=== PATIENT | male | born 1945 | race Caucasian/White ===

== ENCOUNTER 2016-08-05 20:01 | Inpatient (IN) | payer OTHER ==
[~2016-08-05] VITALS: Ht 182.9 cm; Wt 97.0 kg
[~2016-08-05 20:01] MED LIST: ASPEC81 PO; BECLOMETHASONE INH; CYAN100020 PO; GABA-113 PO; GLC500 PO; MCR5 PO; METO100T14 PO; MORP30TA23 PO; SERT100T PO
[2016-08-05] MEDS ORDERED: ONDANSETRON INJ 2 MG/ML 2 ML VIAL IV STA (20:23)
[2016-08-05] MEDS ORDERED: LACTATED RINGER'S 1000ML 1,000 ML IV SCH (20:23)
[2016-08-05] MEDS: MoRPHine SULFATE 4 MG/ML 1 ML CARP\\VIAL IV PRN ×2 (20:39→21:10)
--- NOTE | 2016-08-05 20:40 | EMERGENCY ROOM VISIT NOTE ---
History Report prepared by Christen: Ida Potter Under the Supervision of: Dr. Jaguar Henriquez M.D. First contact with patient: 20:15 Chief Complaint: HIP PAIN Stated Complaint: FALL/ LF HIP PAIN History of Present Illness The patient is a 71 year old male who presents to the Emergency Room with complaints of constant left hip pain that started 45 minutes ago. The patient came to the ED via ambulance and he was given 100 mcg Fentanyl en route. He rates his discomfort as a 10/10 in severity. He states that he experienced a mechanical fall and landed on his left hip. The pain started after he fell. He denies hitting his head, neck pain, arm pain, and any left knee pain. He is not on any blood thinners. The patient is diabetic and states that he does not measure his sugars every day but his A1C has been good. The patient is on morphine at home and states that he is trying to gradually get off of it. He is currently on 30 mg of morphine. He states that he has felt well recently. Source of History: patient Onset: 45 minutes ago Position: other (left hip) Symptom Intensity: 10/10 Quality: other (left hip pain) Timing: constant Associated Symptoms: No neck pain Note: no head trauma, no arm pain, no left knee pain Review of Systems See HPI for pertinent positives & negatives. A total of 10 systems reviewed and were otherwise negative. Past Medical & Surgical Medical Problems: (1) COPD (chronic obstructive pulmonary disease) (2) Depression (3) Diabetes mellitus type II, controlled (4) Great toe amputation status (5) Hip fracture (6) HTN (hypertension) (7) Neuropathy (8) Polycythemia Surgical Problems: (1) History of tonsillectomy (2) Hx of below knee amputation Family History Hypertension Social History Smoking Status: Never Smoker Alcohol Use: occasionally Drug Use: none Marital Status: Housing Status: lives with significant other Occupation Status: retired, other Current/Historical Medications Scheduled Aspirin (Aspirin Ec), 81 MG PO DAILY Gabapentin (Neurontin), 600 MG PO QAM Gabapentin (Neurontin), 1,500 MG PO HS Glyburide (Diabeta), 10 MG PO AMHS Metformin Hcl (Glucophage), 1,000 MG PO AMHS Metoprolol Tartrate (Lopressor) (Lopressor), 100 MG PO AMHS Morphine Sulfate Ir (Morphine Sulfate Ir), 15 MG PO QAM Morphine Sulfate Ir (Morphine Sulfate Ir), 30 MG PO HS [Unknown Inhaler], 1 DOSE INH UD Allergies Coded Allergies: Amoxicillin (Unverified Allergy, Intermediate, itching, 01/23/16) Physical Exam Vital Signs Date Time Temp Pulse Resp B/P Pulse Ox O2 Delivery O2 Flow Rate FiO2 08/05/16 21:16 71 08/05/16 20:14 37.1 74 18 186/98 94 Room Air Physical Exam GENERAL: Patient is in no acute distress. HEENT: No acute trauma, normocephalic atraumatic, mucous membranes moist, no nasal congestion, no scleral icterus. NECK: No stridor, no adenopathy, no meningismus, trachea is midline. LUNGS: Clear to auscultation bilaterally, no wheeze, no rhonchi, breath sounds equal. HEART: Without murmurs gallops or rubs, regular rate and rhythm. ABDOMEN: Soft, nontender, bowel sounds positive, no hernias, no peritonitis. EXTREMITIES: Right below the knee amputation with prosthesis in place, tender to palpate and move left hip; left knee, ankle, and foot nontender, no evidence for upper extremity trauma on exam. NEUROLOGIC: Oriented x 3, no acute motor or sensory deficits, no focal weakness. SKIN: No rash, no jaundice, no diaphoresis. Medical Decision & Procedures ER Provider Diagnostic Interpretation: X-ray results as stated below per interpretation by me and the radiologist: CHEST 1 VW FRONT-NOT PORTABLE FINDINGS: Lungs are clear. Diaphragms are smooth. Mild fullness the mid to superior mediastinum felt to be secondary to the AP technique. IMPRESSION: No acute process. Electronically signed by: Arnaldo Walters M.D. 08/05/2016 9:04 PM Dictated Date/Time: 08/05/2016 9:03 PM LEFT PELVIS/UNILATERAL HIP 2-3VIEWS DISCUSSION: Fracture subcapital region left hip. Mild superior migration left femoral shaft. No evidence for acetabular protrusion. Moderate degenerative change of all remaining osseous structures. There is no evidence for soft tissue swelling. IMPRESSION: Subcapital fracture left hip. Electronically signed by: Arnaldo Walters M.D. 08/05/2016 9:03 PM Dictated Date/Time: 08/05/2016 9:02 PM Laboratory Results 08/05/16 21:22 Red Blood Count 6.02, Mean Corpuscular Volume 69.6, Mean Corpuscular Hemoglobin 20.6, Mean Corpuscular Hemoglobin Concent 29.6, Mean Platelet Volume 9.2, Neutrophils (%) (Auto) 81.0, Lymphocytes (%) (Auto) 10.5, Monocytes (%) (Auto) 4.1, Eosinophils (%) (Auto) 3.6, Basophils (%) (Auto) 0.3, Neutrophils # (Auto) 9.53, Lymphocytes # (Auto) 1.24, Monocytes # (Auto) 0.48, Eosinophils # (Auto) 0.42, Basophils # (Auto) 0.03 08/05/16 21:22 Test 08/05/16 21:22 08/05/16 21:27 White Blood Count 11.76 K/uL (4.8-10.8) Red Blood Count 6.02 M/uL (4.7-6.1) Hemoglobin 12.4 g/dL (14.0-18.0) Hematocrit 41.9 % (42-52) Mean Corpuscular Volume 69.6 fL (80-100) Mean Corpuscular Hemoglobin 20.6 pg (25-34) Mean Corpuscular Hemoglobin Concent 29.6 g/dl (32-36) Platelet Count 279 K/uL (130-400) Mean Platelet Volume 9.2 fL (7.4-10.4) Neutrophils (%) (Auto) 81.0 % Lymphocytes (%) (Auto) 10.5 % Monocytes (%) (Auto) 4.1 % Eosinophils (%) (Auto) 3.6 % Basophils (%) (Auto) 0.3 % Neutrophils # (Auto) 9.53 K/uL (1.4-6.5) Lymphocytes # (Auto) 1.24 K/uL (1.2-3.4) Monocytes # (Auto) 0.48 K/uL (0.11-0.59) Eosinophils # (Auto) 0.42 K/uL (0-0.5) Basophils # (Auto) 0.03 K/uL (0-0.2) RDW Standard Deviation 49.0 fL (36.4-46.3) RDW Coefficient of Variation 19.5 % (11.5-14.5) Immature Granulocyte % (Auto) 0.5 % Immature Granulocyte # (Auto) 0.06 K/uL (0.00-0.02) Microcytosis PRESENT Tear Drop Cells 1+ Prothrombin Time 10.5 SECONDS (9.0-12.0) Prothromb Time International Ratio 1.0 (0.9-1.1) Activated Partial Thromboplast Time 29.6 SECONDS (21.0-31.0) Partial Thromboplastin Ratio 1.1 Anion Gap 8.0 mmol/L (3-11) Est Creatinine Clear Calc Drug Dose 58.4 ml/min Estimated GFR () 58.2 Estimated GFR (Non- 50.2 BUN/Creatinine Ratio 13.1 (10-20) Calcium Level 8.3 mg/dl (8.5-10.1) Bedside Glucose 195 mg/dl (70-99) Laboratory results reviewed by me. Medications Administered Medications (Trade) Dose Ordered Sig/Doris Route Start Time Stop Time Status Last Admin Dose Admin Lactated Ringer's (Lr 1000ml) 1,000 ml @ 150 mls/hr Q6H40M IV 08/05/16 20:23 09/04/16 20:22 08/05/16 20:38 150 MLS/HR Morphine Sulfate (MoRPHine SULFATE INJ) 4 mg Q15M PRN IV 08/05/16 20:30 08/05/16 22:48 DC 08/05/16 21:10 4 MG Ondansetron HCl (Zofran Inj) 4 mg NOW STAT IV 08/05/16 20:23 08/05/16 20:27 DC 08/05/16 20:39 4 MG Diphenhydramine HCl (Benadryl Inj) 25 mg NOW STAT IV 08/05/16 21:27 08/05/16 21:28 DC 08/05/16 21:37 25 MG Hydromorphone HCl (Dilaudid Inj) 0.5 mg NOW STAT IV 08/05/16 21:27 08/05/16 21:28 DC 08/05/16 21:41 0.5 MG Hydromorphone HCl (Dilaudid Inj) 1 mg NOW STAT IV 08/05/16 22:04 08/05/16 22:05 DC 08/05/16 22:10 1 MG ECG Indication: other (hip fracture) Rate (beats per minute): 71 Rhythm: sinus rhythm Findings: 1st degree AV block, no acute ischemic change, no ectopy ED Course 2018: The patient was evaluated in room B12. A complete history and physical exam was performed. 2022: Ordered Zofran Inj 4 mg IV, Lactated Ringer's 1000 ml @ 150 mls/hr IV 2029: Ordered Morphine Sulfate 4 mg IV 2121: Upon reexamination the patient is resting comfortably and asked for something more for pain. I discussed results and treatment plan with the patient. He verbalizes agreement and understanding. The patient will be evaluated for further management. 2125: Discussed the patient's case with Dr. Mary BENITEZ. The patient will be evaluated for further management. 2126: Ordered Dilaudid Inj 0.5 mg IV, Benadryl Inj 25 mg IV 2203: Ordered Dilaudid Inj 1 mg IV 2242: I reassessed the patient. He requested something more for pain. 2243: Ordered Dilaudid Inj 1 mg IV Medical Decision Differential diagnoses considered include hip or pelvic fracture, femur fracture , contusion or sprain; head, neck, chest, or abdomen trauma. There is a mild leukocytosis, this could be consistent with infection or just the stress and pain of his presentation. No significant electrolyte abnormality or kidney failure. No concerning anemia. EKG shows a sinus rhythm with a first-degree AV block, no acute ischemia. Chest film does not show pneumonia or CHF. Pelvis and left hip films demonstrate a left subcapital hip fracture, no pelvic fracture seen. The patient received IV Zofran, IV morphine. He was given lactated Ringer's solution IV. He had some redness near his IV site after the morphine. He received IV Benadryl and then IV Dilaudid for additional pain control. The patient requires admission/observation. I talked to him about his hip fracture. I discussed the case with case management. The on-call hospitalist was consulted. Consults Time Called: 2122 Consulting Physician: Dr. Mary BENITEZ Returned Call: 2125 Discussed the patient's case with Dr. Mary BENITEZ. The patient will be evaluated for further management. Impression Primary Impression: Fracture of left hip Additional Impression: Fall Scribe Attestation The scribe's documentation has been prepared under my direction and personally reviewed by me in its entirety. I confirm that the note above accurately reflects all work, treatment, procedures, and medical decision making performed by me. Departure Information Dispostion Being Evaluated By Hospitalist Ivette Angelo M.D. (PCP) Patient Instructions My [facility] Problem Qualifiers Primary Impression: Fracture of left hip Encounter type: initial encounter Fracture type: closed Qualified Codes: S72.002A - Fracture of unspecified part of neck of left femur, initial encounter for closed fracture Additional Impression: Fall Encounter type: initial encounter Qualified Codes: W19.XXXA - Unspecified fall, initial encounter
--- NOTE | 2016-08-05 21:04 | DIAGNOSTIC IMAGING REPORT ---
LEFT PELVIS/UNILATERAL HIP 2-3VIEWS CLINICAL HISTORY: fall, hip pain trauma. Pain. COMPARISON: None. DISCUSSION: Fracture subcapital region left hip. Mild superior migration left femoral shaft. No evidence for acetabular protrusion. Moderate degenerative change of all remaining osseous structures. There is no evidence for soft tissue swelling. IMPRESSION: Subcapital fracture left hip. Electronically signed by: Arnaldo Walters M.D. 08/05/2016 9:03 PM Dictated Date/Time: 08/05/2016 9:02 PM
--- NOTE | 2016-08-05 21:05 | DIAGNOSTIC IMAGING REPORT ---
CHEST 1 VW FRONT-NOT PORTABLE CLINICAL HISTORY: fall, hip pain, fx trauma. Pain. COMPARISON STUDY: 05/04/2014 FINDINGS: Lungs are clear. Diaphragms are smooth. Mild fullness the mid to superior mediastinum felt to be secondary to the AP technique. IMPRESSION: No acute process. Electronically signed by: Arnaldo Walters M.D. 08/05/2016 9:04 PM Dictated Date/Time: 08/05/2016 9:03 PM
[2016-08-05] MEDS ORDERED: DiphenhydrAMINE HCL 50 MG/ML VIAL IV STA (21:27)
[2016-08-05] MEDS ORDERED: HYDROmorphone INJ 2 MG/ML SYR/VIAL IV STA ×3 (21:27→22:44)
[2016-08-05 21:35] LABS: BASO % 0.3 %; BASO ABS # 0.03 K/uL (0-0.2); EOS % 3.6 %; HEMATOCRIT 41.9 % (42-52); IG% 0.5 %; LYMPH % 10.5 %; LYMPH ABS # 1.24 K/uL (1.2-3.4); MEAN CELL VOLUME 69.6 fL (80-100); MEAN CORPUSCULAR HEMOGLOBIN 20.6 pg (25-34); MEAN CORPUSCULAR HGB CONC 29.6 g/dl (32-36); MEAN PLATELET VOLUME 9.2 fL (7.4-10.4); MONO % 4.1 %; PLATELET COUNT 279 K/uL (130-400); RED BLOOD COUNT 6.02 M/uL (4.7-6.1); WHITE BLOOD COUNT 11.76 K/uL (4.8-10.8)
[2016-08-05 21:45] LABS: PARTIAL THROMBOPLASTIN RATIO 1.1; PROTHROMBIN TIME (PATIENT) 10.5 SECONDS (9.0-12.0)
[2016-08-05 21:56] LABS: BUN/CREATININE RATIO 13.1 (10-20); CREATININE 1.4 mg/dl (0.60-1.40); POTASSIUM 4.3 mmol/L (3.5-5.1)
[2016-08-05] MEDS ORDERED: MORP15TA PO ×2 (22:03)
[2016-08-05] MEDS ORDERED: ASPI81TA28 PO (22:03)
[2016-08-05] MEDS ORDERED: METF-384 PO (22:03)
[2016-08-05] MEDS ORDERED: GLY/5 PO (22:03)
[2016-08-05 22:05] LABS: COMPLETE YES; MICROCYTOSIS PRESENT; TEAR DROP CELLS 1+
[2016-08-05 22:09] LABS: CALCIUM 8.3 mg/dl (8.5-10.1)
[2016-08-05] MEDS ORDERED: [UNRECOGNIZED DRUG - REMARK] INH (22:12)
--- NOTE | 2016-08-05 22:18 | History and Physical ---
History & Physical Date & Time of Service: August 05, 2016 at 22:15 Chief Complaint: Fall/ Lf Hip Pain Primary Care Physician: Ivette Alvarez M.D. History of Present Illness Source: patient 71 y/o M Hx COPD, DM2, HTN, polycythemia. Presents following mechanical fall having sustained a L subcapital hip fracture. The pt denies CP, SOB, light head or palpitations prior to falling. The pt normally ambulates with a walker due to a R BKA resulting from a diabetic wound 2 years prior. Past Medical/Surgical History Medical Problems: (1) COPD (chronic obstructive pulmonary disease) Status: Chronic (2) Depression Status: Chronic (3) Diabetes mellitus type II, controlled Status: Chronic (4) Great toe amputation status Permanent Comment: L great toe amputation Status: Resolved (5) HTN (hypertension) Status: Chronic (6) Neuropathy Status: Chronic 7) Polycythemia - recent work-up indicated a JAK2 mutation is present - he occasionally undergoes therapeutic bleeding Surgical Problems: (1) History of tonsillectomy Status: Resolved (2) Hx of below knee amputation Permanent Comment: R BKA 2013 Status: Resolved Family History Hypertension Social History Smoking Status: Never Smoker Drug Use: none Marital Status: Housing status: lives with family Occupational Status: retired, other Immunizations History of Influenza Vaccine: No History of Tetanus Vaccine?: No History of Pneumococcal: Yes Pneumococcal Date: Feb 25, 2005 History of Hepatitis B Vaccine: No Multi-Drug Resistant Organisms History of MDRO: Yes Type of MDRO: MRSA Allergies Coded Allergies: Amoxicillin (Unverified Allergy, Intermediate, itching, 01/23/16) Home Medications Scheduled Aspirin (Aspirin Ec), 81 MG PO DAILY Gabapentin (Neurontin), 600 MG PO QAM Gabapentin (Neurontin), 1,500 MG PO HS Glyburide (Diabeta), 10 MG PO AMHS Metformin Hcl (Glucophage), 1,000 MG PO AMHS Metoprolol Tartrate (Lopressor) (Lopressor), 100 MG PO AMHS Morphine Sulfate Ir (Morphine Sulfate Ir), 15 MG PO QAM Morphine Sulfate Ir (Morphine Sulfate Ir), 30 MG PO HS [Unknown Inhaler], 1 DOSE INH UD Review of Systems Constitutional: No chills, No fever, No sweats Eyes: No worsening of vision ENT: No hearing loss, No nasal symptoms, No unusual epistaxis Respiratory: No cough, No sputum, No wheezing Cardiovascular: No PND, No chest pain, No orthopnea Abdomen: No nausea, No pain, No vomiting Musculoskeletal: + joint pain, + muscle pain Genitourinary - Male: No dysuria, No hematuria, No urinary frequency, No urinary urgency Neurologic: No memory loss, No paralysis Psychiatric: No depression symptoms Endocrine: No fatigue Hematologic / Lymphatic: No abnormal bleeding/bruising Integumentary: No rash Allergic / Immunologic: No environmental allergies Physical Exam Vital Signs Date Time Temp Pulse Resp B/P Pulse Ox O2 Delivery O2 Flow Rate FiO2 08/05/16 21:16 71 08/05/16 20:14 37.1 74 18 186/98 94 Room Air General Appearance: WD/WN, no apparent distress Head: normocephalic, atraumatic Eyes: normal inspection, PERRL, EOMI ENT: normal ENT inspection, hearing grossly normal, TMs normal, pharynx normal Neck: supple, no JVD Respiratory/Chest: chest non-tender, lungs clear, normal breath sounds, no respiratory distress, no accessory muscle use Cardiovascular: regular rate, rhythm, no edema, no gallop, no JVD, no murmur, normal peripheral pulses Abdomen/GI: normal bowel sounds, non tender, soft Back: normal inspection, no CVA tenderness, no muscle spasm, normal range of motion Extremities/Musculoskelatal: no calf tenderness, normal capillary refill Neurologic/Psych: on site soil evaluator II-XII nml as tested, no motor/sensory deficits, alert, normal mood/affect, oriented x 3 Skin: normal color, warm/dry Diagnostics Laboratory Results Results Past 24 Hours Test 08/05/16 21:22 08/05/16 21:27 Range/Units White Blood Count 11.76 4.8-10.8 K/uL Red Blood Count 6.02 4.7-6.1 M/uL Hemoglobin 12.4 14.0-18.0 g/dL Hematocrit 41.9 42-52 % Mean Corpuscular Volume 69.6 80-100 fL Mean Corpuscular Hemoglobin 20.6 25-34 pg Mean Corpuscular Hemoglobin Concent 29.6 32-36 g/dl Platelet Count 279 130-400 K/uL Mean Platelet Volume 9.2 7.4-10.4 fL Neutrophils (%) (Auto) 81.0 % Lymphocytes (%) (Auto) 10.5 % Monocytes (%) (Auto) 4.1 % Eosinophils (%) (Auto) 3.6 % Basophils (%) (Auto) 0.3 % Neutrophils # (Auto) 9.53 1.4-6.5 K/uL Lymphocytes # (Auto) 1.24 1.2-3.4 K/uL Monocytes # (Auto) 0.48 0.11-0.59 K/uL Eosinophils # (Auto) 0.42 0-0.5 K/uL Basophils # (Auto) 0.03 0-0.2 K/uL RDW Standard Deviation 49.0 36.4-46.3 fL RDW Coefficient of Variation 19.5 11.5-14.5 % Immature Granulocyte % (Auto) 0.5 % Immature Granulocyte # (Auto) 0.06 0.00-0.02 K/uL Microcytosis PRESENT Tear Drop Cells 1+ Prothrombin Time 10.5 9.0-12.0 SECONDS Prothromb Time International Ratio 1.0 0.9-1.1 Activated Partial Thromboplast Time 29.6 21.0-31.0 SECONDS Partial Thromboplastin Ratio 1.1 Sodium Level 137 136-145 mmol/L Potassium Level 4.3 3.5-5.1 mmol/L Chloride Level 104 98-107 mmol/L Carbon Dioxide Level 25 21-32 mmol/L Anion Gap 8.0 3-11 mmol/L Blood Urea Nitrogen 18 7-18 mg/dl Creatinine 1.40 0.60-1.40 mg/dl Est Creatinine Clear Calc Drug Dose 58.4 ml/min Estimated GFR () 58.2 Estimated GFR (Non- 50.2 BUN/Creatinine Ratio 13.1 10-20 Random Glucose 200 70-99 mg/dl Calcium Level 8.3 8.5-10.1 mg/dl Bedside Glucose 195 70-99 mg/dl Diagnostic Radiology Fracture subcapital region left hip. Mild superior migration left femoral shaft. No evidence for acetabular protrusion. Moderate degenerative change of all remaining osseous structures. There is no evidence for soft tissue swelling. Impression Assessment and Plan 71 y/o M Hx COPD, DM2, HTN, polycythemia. Presents following mechanical fal having sustained a L subcapital hip fracture. The pt denies CP, SOB, light head or palpitations prior to falling. 1) Hip Fx - orthopedics consulted - Pt has no history of CHF although we cannot fully gauge his METS due t limited mobility/activity - there is no evidence of prior ischemic damage on his EKG. He has tolerated previous surgeries without complication. Based on available information RCRI is 0.9% as he may require insulin pre-op. He is low to moderate risk for moderate risk surgery. 2) DM - oral meds held - placed on SS 3) COPD - no evidence of exacerbation - incentive spirometry ordered - cont Beclomethasone INH 4) Neuropathy - cont ROGELIO musa-op 5) HTN - cont Toprol musa-op 6) Polycythemia - stable - he is actually slightly anemic following therapeutic bleeding a few months ago Full code - SCDs pending ortho eval Total time for this admit including review of labs, meds, EKG, records - discussion with ER attending and pt - 35 min Level of Care Med/Surg Resuscitation Status FULL RESUSCITATION VTE Prophylaxis Risk Level: Moderate Given or contraindicated: SCD's
[2016-08-05] MEDS ORDERED: GABA-113 PO ×2 (22:20)
[2016-08-05] MEDS ORDERED: METO50TA16 PO (22:22)
[2016-08-05] MEDS ORDERED: MAGNESIUM HYDROXIDE SUSP 30 ML UDC PO PRN (22:30)
[2016-08-05] MEDS ORDERED: HYDROmorphone INJ 1 MG/ML SYR IV PRN (22:30)
[2016-08-05] MEDS ORDERED: ACETAMINOPHEN 325 MG TAB PO PRN (22:30)
[2016-08-05] MEDS ORDERED: ONDANSETRON INJ 2 MG/ML 2 ML VIAL IV PRN (22:30)
[2016-08-05] MEDS ORDERED: ALUMINUM/MAGNESIUM/SIMETH (MAALOX MAX) 30 ML UDC PO PRN (22:30)
[2016-08-05] MEDS ORDERED: POLYETHYLENE (MIRALAX) 17 GM PACK PO PRN (22:30)
[2016-08-05 23:40] VITALS: BP 198/73; PULSE 71; TEMP 36.7; O2SAT 93
[2016-08-06] VITALS (14 sets, daily range): BP systolic 126–197; BP diastolic 56–98; PULSE 67–84; TEMP 36.6–37.6; O2SAT 88–99; Ht 182.9 cm; Wt 97.0 kg
[2016-08-06] MEDS ORDERED: DEXTROSE 50% 50 ML SYR IV PRN (00:15)
[2016-08-06] MEDS ORDERED: GLUCAGON FOR INJ 1 MG VIAL SQ PRN (00:15)
[2016-08-06] MEDS ORDERED: GLUCOSE 40% GEL 15 GM TUBE PO PRN (00:15)
[2016-08-06] MEDS ORDERED: GLUCOSE 10 TABS/TUBE PO PRN (00:15)
[2016-08-06] MEDS ORDERED: NURSING VERBAL MED ORDER ONE ×2 (00:15→19:45)
[2016-08-06] MEDS: INSULIN ASPART 100 UNITS/ML 3 ML PEN SC SCH ×4 (00:15→21:15)
[2016-08-06] MEDS: HYDROmorphone INJ 1 MG/ML SYR IV PRN ×5 (00:38→23:36)
[2016-08-06] MEDS: MoRPHine SULFATE IR 15 MG TAB (IMMEDIATE RELEASE) PO SCH ×3 (00:39→21:37)
[2016-08-06] MEDS: SODIUM CHLORIDE 0.9% 1000ML 1,000 ML IV SCH ×2 (00:41→08:30)
[2016-08-06] MEDS: GABAPENTIN 300 MG CAP PO SCH ×3 (01:18→21:41)
[2016-08-06] MEDS: METOPROLOL TARTRATE 100 MG TAB PO SCH ×3 (01:19→21:40)
[2016-08-06 08:07] LABS: MEAN CELL VOLUME 69.8 fL (80-100); MEAN CORPUSCULAR HEMOGLOBIN 20.4 pg (25-34); MEAN CORPUSCULAR HGB CONC 29.3 g/dl (32-36); MEAN PLATELET VOLUME 9.2 fL (7.4-10.4); PLATELET COUNT 293 K/uL (130-400); RED BLOOD COUNT 5.87 M/uL (4.7-6.1); WHITE BLOOD COUNT 13.14 K/uL (4.8-10.8)
[2016-08-06] MEDS ORDERED: HydrALAZINE HCL 20 MG/ML VIAL IV. PRN (08:15)
[2016-08-06 08:49] LABS: BUN/CREATININE RATIO 12.7 (10-20); CREATININE 1.5 mg/dl (0.60-1.40); MAGNESIUM 1.8 mg/dl (1.8-2.4); POTASSIUM 4.1 mmol/L (3.5-5.1)
[2016-08-06 08:51] LABS: CALCIUM 8.3 mg/dl (8.5-10.1)
[2016-08-06] MEDS: BECLOMETHASONE HFA 40 MCG INHALER INH SCH ×2 (09:15→21:42)
--- NOTE | 2016-08-06 09:37 | CONSULTATION REPORT ---
DATE OF CONSULTATION: 08/06/2016 DATE OF CONSULTATION: 08/06/2016. CHIEF COMPLAINT: Left hip fracture. HISTORY OF PRESENT ILLNESS: Juvenal is a 71-year-old male with history of COPD, diabetes, hypertension, polycythemia, who was admitted yesterday with a left hip fracture. He states that he was doing something around his boat in the driveway and had a fall landing on his left hip. He was brought to the ER. X-rays were obtained. He was found to have a displaced femoral neck fracture. He denies any other injuries. No other complaints at this time. No hip pain prior to the fall and he ambulated independently prior to the fall. He does have a history of a BKA on the right side and has a prosthesis for this. PAST MEDICAL HISTORY: COPD, depression, diabetes type 2, hypertension, neuropathy, polycythemia, toe amputations. PAST SURGICAL HISTORY: Toe amputation on the left lower extremity, BKA on the right, history of tonsillectomy. FAMILY HISTORY: Hypertension. SOCIAL HISTORY: Prior smoker but no longer smokes, lives with his . Denies alcohol use. REVIEW OF SYSTEMS: Noncontributory. ALLERGIES: AMOXICILLIN. MEDICATIONS: Reviewed include aspirin, gabapentin, glyburide, metformin, Toprol, morphine sulfate, no other medications. REVIEW OF SYSTEMS: Noncontributory. PHYSICAL EXAMINATION: GENERAL: He is alert, oriented, somewhat drowsy, no distress. EXTREMITIES: Examination of his lower extremities today he has a BKA on the right side. His left leg is externally rotated. I did not do any range of motion of his hip at this time. He has prior amputations of his left great toe and partial second toe. Sensation is intact to touch. He has no pain with motion of his upper extremities. No obvious swelling of his upper extremities. X-rays were reviewed which show a displaced femoral neck fracture of the left hip. IMPRESSION: Left displaced femoral neck fracture. PLAN: He has been admitted to the hospitalist service last night. We will keep him n.p.o. except for meds, bedrest. The injury was explained with the patient and I did recommend surgical fixation of this specifically a left hip hemiarthroplasty. Procedure was explained including the risks, benefits and alternatives to surgery. Consent was obtained today. He has been typed and screened at this point as well. I have seen and examined this patient and agree with the above. Will proceed with cemented bipolar hip arthroplasty. DIONNE
[2016-08-06] MEDS ORDERED: CEFAZOLIN IV 2,000 MG/60 ML D5W IV ONE (13:43)
[2016-08-06] MEDS ORDERED: PHENYLEPHRINE HCL INJ 10 MG/ML VIAL ONE (14:26)
[2016-08-06] MEDS ORDERED: LIDOCAINE HCL 2% 2 ML VIAL (20MG/ML) ONE (14:26)
[2016-08-06] MEDS ORDERED: EpHEDrine SULFATE 50MG/5ML SYR ONE (14:26)
[2016-08-06] MEDS ORDERED: FENTANYL CITRATE INJ 50 MCG/1 ML 2 ML VIAL ONE ×3 (14:26→15:55)
[2016-08-06] MEDS ORDERED: MIDAZOLAM HCL 1 MG/ML 2ML VIAL ONE ×2 (14:26→14:59)
[2016-08-06] MEDS ORDERED: PROPOFOL IV EMULSION 10 MG/ML 20 ML VIAL IV ONE (14:26)
[2016-08-06] MEDS ORDERED: BACITRACIN 50000 UNIT VIAL ONE (14:51)
[2016-08-06] MEDS ORDERED: BUPIVACAINE/EPINEPHRINE 0.5% MPF 1:200,000 30 ML VIAL ONE ×2 (14:51→15:25)
[2016-08-06] MEDS ORDERED: BUPIVACAINE/EPINEPHRINE 0.25% 1:200,000 30 ML VIAL ONE (15:41)
[2016-08-06] MEDS ORDERED: ROCURONIUM BROMIDE 10 MG/ML 5 ML VIAL ONE (15:51)
[2016-08-06] MEDS ORDERED: ONDANSETRON INJ 2 MG/ML 2 ML VIAL ONE (15:52)
[2016-08-06] MEDS ORDERED: GLYCOPYRROLATE INJ 0.2 MG/ML VIAL ONE (15:52)
[2016-08-06] MEDS ORDERED: NEOSTIGMINE METHYLSULFATE 5 MG/5 ML SYR ONE (15:52)
[2016-08-06] MEDS ORDERED: ONDANSETRON INJ 2 MG/ML 2 ML VIAL IV PRN (16:00)
[2016-08-06] MEDS ORDERED: PROMETHAZINE HCL INJ 6.25 MG in SODIUM CHLORIDE 0.9% 50ML 50 ML IV PRN (16:00)
[2016-08-06] MEDS ORDERED: ATROPINE SULFATE 0.1 MG/ML 5ML SYR IV PRN (16:00)
[2016-08-06] MEDS ORDERED: EpHEDrine SULFATE INJ 50 MG/ML AMP IV PRN (16:00)
[2016-08-06] MEDS ORDERED: LARYING-O-JET KIT (LTA) EXT ONE ×2 (16:13)
--- NOTE | 2016-08-06 17:15 | [facility] Post Operative Brief Note ---
Immediate Operative Summary Operative Date August 06, 2016. Pre-Operative Diagnosis Left displaced subcapital hip fracture Post-Operative Diagnosis Same Procedure(s) Performed Left Bipolar Hip, Cemented Surgeon Dr. Sourav Lewis Occupational Health Professional Surgeon(s) Bill Durant PA-C Estimated Blood Loss 200 cc Findings Displaced femoral neck fracture Fluids (cc crystalloids) 1500 cc Drains None Anesthesia General Complication(s) None Disposition Recovery Room / PACU
[2016-08-06] MEDS ORDERED: BISACODYL 10 MG SUPP PR PRN (17:30)
[2016-08-06] MEDS ORDERED: HYDROmorphone INJ 1 MG/ML SYR IV PRN (17:30)
[2016-08-06] MEDS ORDERED: MAGNESIUM HYDROXIDE SUSP 30 ML UDC PO PRN (17:30)
[2016-08-06] MEDS: FENTANYL CITRATE INJ 50 MCG/1 ML 2 ML VIAL IV PRN ×2 (17:41→17:46)
--- NOTE | 2016-08-06 18:48 | DIAGNOSTIC IMAGING REPORT ---
AP and CROSSTABLE LATERAL LEFT HIP History: Left hip hemiarthroplasty. Degenerative arthritis. Postop. FINDINGS: The patient is status post a left hip hemiarthroplasty. The hardware is intact. No fracture or dislocation. Skin aman are in place. IMPRESSION: Left hip hemiarthroplasty. No evidence for hardware complication. Electronically signed by: Abraham Whaley M.D. 08/06/2016 6:47 PM Dictated Date/Time: 08/06/2016 6:45 PM
--- NOTE | 2016-08-06 19:05 | Anesthesiology Progress Note ---
Anesthesia Post Op Note Date & Time August 06, 2016 at 19:05 Vital Signs Pain Intensity: 0 Vital Signs Past 12 Hours Date Time Temp Pulse Resp B/P Pulse Ox O2 Delivery O2 Flow Rate FiO2 08/06/16 18:45 36.7 71 18 167/79 96 Nasal Cannula 4.0 08/06/16 18:30 68 12 160/81 97 Nasal Cannula 4 08/06/16 18:20 36.5 68 14 174/95 96 Nasal Cannula 4 08/06/16 18:10 69 12 166/76 97 Nasal Cannula 4 08/06/16 18:00 69 14 164/82 94 Nasal Cannula 4 08/06/16 17:50 71 19 179/86 99 Nasal Cannula 4 08/06/16 17:40 71 17 209/93 96 Nasal Cannula 4 08/06/16 17:30 69 14 170/85 100 Mask 10 08/06/16 17:20 36.7 72 12 134/67 100 Mask 10 08/06/16 14:56 37.1 67 16 146/70 97 Nasal Cannula 2.0 08/06/16 14:23 37.4 80 16 142/69 88 Room Air 08/06/16 11:56 36.8 70 16 126/56 95 Nasal Cannula 2.0 08/06/16 10:01 96 Nasal Cannula 2.0 08/06/16 08:27 96 Nasal Cannula 2.0 08/06/16 08:02 37.6 72 18 131/74 88 Room Air 08/06/16 07:41 Room Air Notes Mental Status: alert / awake / arousable, participated in evaluation Pt Amnestic to Procedure: Yes Nausea / Vomiting: adequately controlled Pain: adequately controlled Airway Patency, RR, SpO2: stable & adequate BP & HR: stable & adequate Hydration State: stable & adequate Anesthetic Complications: no major complications apparent
--- NOTE | 2016-08-06 21:26 | Anesthesiology Progress Note ---
Anesthesia Post Op Note Date & Time August 06, 2016 at 21:27 Vital Signs Pain Intensity: 7.0 Vital Signs Past 12 Hours Date Time Temp Pulse Resp B/P Pulse Ox O2 Delivery O2 Flow Rate FiO2 08/06/16 20:54 37.4 82 16 139/79 98 Nasal Cannula 3.4 08/06/16 20:31 Nasal Cannula 4.0 08/06/16 19:43 36.9 71 16 164/90 99 Nasal Cannula 4.0 08/06/16 19:12 36.9 71 16 183/76 98 Nasal Cannula 3.0 08/06/16 18:45 36.7 71 18 167/79 96 Nasal Cannula 4.0 08/06/16 18:30 68 12 160/81 97 Nasal Cannula 4 08/06/16 18:20 36.5 68 14 174/95 96 Nasal Cannula 4 08/06/16 18:10 69 12 166/76 97 Nasal Cannula 4 08/06/16 18:00 69 14 164/82 94 Nasal Cannula 4 08/06/16 17:50 71 19 179/86 99 Nasal Cannula 4 08/06/16 17:40 71 17 209/93 96 Nasal Cannula 4 08/06/16 17:30 69 14 170/85 100 Mask 10 08/06/16 17:20 36.7 72 12 134/67 100 Mask 10 08/06/16 14:56 37.1 67 16 146/70 97 Nasal Cannula 2.0 08/06/16 14:23 37.4 80 16 142/69 88 Room Air 08/06/16 11:56 36.8 70 16 126/56 95 Nasal Cannula 2.0 08/06/16 10:01 96 Nasal Cannula 2.0 Notes Mental Status: alert / awake / arousable, participated in evaluation Pt Amnestic to Procedure: Yes Nausea / Vomiting: adequately controlled Pain: adequately controlled Airway Patency, RR, SpO2: stable & adequate BP & HR: stable & adequate Hydration State: stable & adequate Anesthetic Complications: no major complications apparent
[2016-08-06] MEDS: CEFAZOLIN IV 2,000 MG in DEXTROSE 5% 50ML 50 ML IV SCH (21:40)
[2016-08-06] MEDS: DOCUSATE SODIUM/SENNA 50/8.6MG TAB PO SCH (21:41)
--- NOTE | 2016-08-06 22:39 | Hospitalist Progress Note ---
Hospitalist Progress Note Date of Service August 06, 2016. Subjective Pt evaluation today including: conversation w/ patient, physical exam, lab review Patient recently back from surgery and states he does not feel well. He has a mild headache and has pain, feeling very tired. He is asking for food All Other Systems: Reviewed and Negative Objective Vital Signs Date Time Temp Pulse Resp B/P Pulse Ox O2 Delivery O2 Flow Rate FiO2 08/06/16 21:39 36.6 80 18 146/81 98 Nasal Cannula 4.0 08/06/16 20:54 37.4 82 16 139/79 98 Nasal Cannula 3.4 08/06/16 20:31 Nasal Cannula 4.0 08/06/16 19:43 36.9 71 16 164/90 99 Nasal Cannula 4.0 08/06/16 19:12 36.9 71 16 183/76 98 Nasal Cannula 3.0 08/06/16 18:45 36.7 71 18 167/79 96 Nasal Cannula 4.0 08/06/16 18:30 68 12 160/81 97 Nasal Cannula 4 08/06/16 18:20 36.5 68 14 174/95 96 Nasal Cannula 4 08/06/16 18:10 69 12 166/76 97 Nasal Cannula 4 08/06/16 18:00 69 14 164/82 94 Nasal Cannula 4 08/06/16 17:50 71 19 179/86 99 Nasal Cannula 4 08/06/16 17:40 71 17 209/93 96 Nasal Cannula 4 08/06/16 17:30 69 14 170/85 100 Mask 10 08/06/16 17:20 36.7 72 12 134/67 100 Mask 10 08/06/16 14:56 37.1 67 16 146/70 97 Nasal Cannula 2.0 08/06/16 14:23 37.4 80 16 142/69 88 Room Air 08/06/16 11:56 36.8 70 16 126/56 95 Nasal Cannula 2.0 08/06/16 10:01 96 Nasal Cannula 2.0 08/06/16 08:27 96 Nasal Cannula 2.0 08/06/16 08:02 37.6 72 18 131/74 88 Room Air 08/06/16 07:41 Room Air 08/06/16 02:12 Room Air 08/06/16 02:10 71 167/79 08/06/16 01:21 71 189/87 08/06/16 00:34 197/98 08/05/16 23:40 36.7 71 18 198/73 93 Room Air 08/05/16 23:30 Room Air 08/05/16 22:55 76 18 170/101 95 Room Air Physical Exam General Appearance: WD/WN, no apparent distress Eyes: normal inspection, sclerae normal ENT: hearing grossly normal Neck: trachea midline Respiratory/Chest: lungs clear, normal breath sounds, no respiratory distress, no accessory muscle use Cardiovascular: regular rate, rhythm, no edema, no gallop, no murmur Abdomen: normal bowel sounds, non tender, soft Extremities: no pedal edema, no calf tenderness, + pertinent finding (left hip with dressing in place clean dry and intact) Neurologic/Psychiatric: alert, + depressed affect Skin: normal color, warm/dry, no rash Laboratory Results Last 24 Hours Test 08/06/16 00:50 08/06/16 06:37 08/06/16 07:56 08/06/16 11:55 Bedside Glucose 155 mg/dl 137 mg/dl 119 mg/dl White Blood Count 13.14 K/uL Red Blood Count 5.87 M/uL Hemoglobin 12.0 g/dL Hematocrit 41.0 % Mean Corpuscular Volume 69.8 fL Mean Corpuscular Hemoglobin 20.4 pg Mean Corpuscular Hemoglobin Concent 29.3 g/dl RDW Standard Deviation 49.9 fL RDW Coefficient of Variation 19.6 % Platelet Count 293 K/uL Mean Platelet Volume 9.2 fL Sodium Level 137 mmol/L Potassium Level 4.1 mmol/L Chloride Level 105 mmol/L Carbon Dioxide Level 23 mmol/L Anion Gap 9.0 mmol/L Blood Urea Nitrogen 19 mg/dl Creatinine 1.50 mg/dl Est Creatinine Clear Calc Drug Dose 54.5 ml/min Estimated GFR () 53.5 Estimated GFR (Non- 46.2 BUN/Creatinine Ratio 12.7 Random Glucose 124 mg/dl Calcium Level 8.3 mg/dl Magnesium Level 1.8 mg/dl Test 08/06/16 17:26 08/06/16 20:30 Bedside Glucose 143 mg/dl 164 mg/dl Assessment and Plan 71 y/o M Hx COPD, DM2, HTN, polycythemia. Presents following mechanical fall having sustained a L subcapital hip fracture. The pt denies CP, SOB, light head or palpitations prior to falling. 1) Hip Fx - orthopedics consulted - now status post left bipolar hip repair. -Pain control and bowel regimen -PT/OT, will likely need rehabilitation placement -DVT prophylaxis with aspirin 325 mg by mouth twice a day -Follow postoperative CBC and transfuse as needed 2) DMII- oral meds held. 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
[2016-08-07 02:45] VITALS: BP 114/85; PULSE 96; TEMP 36.5; O2SAT 99
[2016-08-07] MEDS ORDERED: SODIUM CHLORIDE 0.9% 1000ML 1,000 ML IV SCH (03:15)
[2016-08-07] MEDS ORDERED: NURSING VERBAL MED ORDER ONE ×2 (04:15→16:45)
--- NOTE | 2016-08-07 05:30 | OPERATIVE REPORT ---
DATE OF OPERATION: 08/06/2016 SURGEON: Sourav Lewis MD. LIFE SCIENTIST: HAZEL Hawkins PREOPERATIVE DIAGNOSIS: Left displaced femoral neck fracture. POSTOPERATIVE DIAGNOSIS: Same. PROCEDURE PERFORMED: Left cemented bipolar hip arthroplasty. COMPLICATIONS: None. ESTIMATED BLOOD LOSS: 200 mL FLUID REPLACEMENT: 1500 mL of crystalloid fluid replacement. ANESTHESIA: General. SPECIMENS: Left femoral head sent for pathology. OPERATIVE INDICATIONS: The patient is a 71-year-old male with multiple medical comorbidities including pretty severe diabetes who is status post a right BKA and multiple toe amputations, who fell yesterday in his garage. He was brought to the emergency room where x-rays revealed a left displaced femoral neck fracture. He was admitted by the medicine service, medically optimized and indicated for surgery. The patient is a previous independent ambulator. No preexisting hip pain. He does have multiple comorbidities as described above. OPERATIVE IMPLANTS: Consist of: 1. A Biomet generation 4 size 11 polished femoral stem. 2. A size 12 distal centralizer. 3. A small cement restrictor. 4. A +0/28 mm metal articular ball. 5. A 52 mm bipolar shell and liner. OPERATIVE PROCEDURE: The patient was taken to the operating room, identified and placed on the operating table in supine position. All contact areas were appropriately padded. IV antibiotics were provided by the anesthesia team. A general anesthetic was implemented at the patient's request as he refused a spinal. The patient was then placed in the right lateral decubitus position. An axillary roll was placed. Stulberg hip positioner was used for positioning. The left hip and leg were then prepped and draped in the usual sterile fashion. A posterolateral approach to the left hip was then performed through a curvilinear incision centered over the greater trochanter. Sharp dissection was carried through the subcutaneous tissues down to the level of the IT band and gluteal fascia. The IT band and gluteal fascia was incised longitudinally in line with the skin incision. There was a bunch of hemorrhage in the posterior aspect on the hip and the external rotators were pretty difficult to identify. I did place some sutures in the piriformis and in the external rotator area and then very carefully peeled these off to the posterior capsule. A T-type incision was made in the posterior capsule to allow for later repair. The hip was internally rotated. Femoral neck osteotomy cut was made below the base of the fracture. The fracture segment was removed. The femoral head was removed. I then sized the acetabulum. I eventually decided on a size 52. A 53 did not seem to sit right in the acetabulum. Attention was drawn to the femur. The proximal femur was entered with cookie cutter followed by canal finder and lateralizing reamer. I broached beginning with a size 7 progressing up to 11. I got pretty good fit at the 11. We then trialed the hip and the 0 neck seemed to provide an appropriate soft tissue tension and full stability to the hip. The hip was fully stable in full extension and external rotation and flexion to 90 degrees, and internal rotation over [address] We elected to place these implants. All trial implants were removed. A cement restrictor was placed distally. I irrigated the wound extensively. A double batch of Palacos G cement was mixed. I then injected the canal with the cement. A size 11 stem with a 12 centralizer was then placed. He did have quite a bit of anteversion in his neck and this did not allow me to antevert it too much more. Of note, his proximal cancellous structure was quite patent and I had to be careful not to push the stem down in to the canal even with the collar. We held this implant in place till the cement hardened. A final cement check was then performed. I then trialed the hip again. I proceeded to place a 0/28 mm head followed by a 52 mm bipolar shell and liner. The hip was located and once again found to be stable. Attention was then drawn toward closing. The wound was irrigated with copious amounts of normal saline. I did inject locally with 30 mL of 0.5% Marcaine with epinephrine. The posterior capsule was then repaired with 0 Vicryl suture. The external rotators were repaired to the posterior hip abductors with #2 Tycron suture. The IT band and gluteal fascia were then closed in a running fashion with #1 PDS suture. Subcutaneous tissues were then closed with 2 layers with the deep layer #1 Vicryl suture and the subcutaneous tissues with 2-0 Dexon suture in a buried interrupted fashion. Skin was closed with skin aman. The leg was then cleaned, dried and a sterile dressing composed of Xeroform, 4 x 4s, ABD pad and Medipore tape was applied. The patient was then placed back supine and then brought out of general anesthesia and transferred to the recovery room in stable condition. The patient tolerated the procedure well with no complications. All needle and sponge counts were correct at the end of the operation. I attest to the content of the Intraoperative Record and any orders documented therein. Any exceptions are noted below. ALLYD
[2016-08-07] MEDS ORDERED: CEFAZOLIN IV 2,000 MG in DEXTROSE 5% 50ML 50 ML IV SCH (06:00)
[2016-08-07] MEDS ORDERED: CEFAZOLIN 2000 MG/60 ML D5W IV SCH (06:00)
[2016-08-07] MEDS: CEFAZOLIN IV 2,000 MG in DEXTROSE 5% 50ML 50 ML IV SCH (06:13)
[2016-08-07 07:41] VITALS: O2SAT 96
[2016-08-07] MEDS: HYDROmorphone INJ 1 MG/ML SYR IV PRN ×4 (07:44→17:31)
[2016-08-07 07:50] VITALS: BP 127/77; PULSE 86; TEMP 36.5; O2SAT 96
--- NOTE | 2016-08-07 07:53 | Anesthesiology Progress Note ---
Anesthesia Post Op Note Date & Time August 07, 2016 at 07:53 Vital Signs Pain Intensity: 7.0 Vital Signs Past 12 Hours Date Time Temp Pulse Resp B/P Pulse Ox O2 Delivery O2 Flow Rate FiO2 08/07/16 02:45 36.5 96 18 114/85 99 Nasal Cannula 4.0 08/06/16 23:39 Nasal Cannula 4.0 08/06/16 23:01 36.6 84 18 164/81 99 Nasal Cannula 4.0 08/06/16 21:39 36.6 80 18 146/81 98 Nasal Cannula 4.0 08/06/16 20:54 37.4 82 16 139/79 98 Nasal Cannula 3.4 Notes Mental Status: alert / awake / arousable, participated in evaluation Pt Amnestic to Procedure: Yes Nausea / Vomiting: adequately controlled Pain: adequately controlled Airway Patency, RR, SpO2: stable & adequate BP & HR: stable & adequate Hydration State: stable & adequate Anesthetic Complications: no major complications apparent
[2016-08-07 09:05] LABS: ESTIMATED AVERAGE GLUCOSE 177 mg/dl; HA1C FLAG Normal (Normal)
[2016-08-07 09:10] LABS: BUN/CREATININE RATIO 11.4 (10-20); POTASSIUM 4.2 mmol/L (3.5-5.1)
[2016-08-07 09:12] LABS: CALCIUM 7.6 mg/dl (8.5-10.1)
[2016-08-07] MEDS: BECLOMETHASONE HFA 40 MCG INHALER INH SCH ×2 (09:15→20:14)
[2016-08-07] MEDS: METOPROLOL TARTRATE 100 MG TAB PO SCH ×2 (09:15→20:20)
[2016-08-07] MEDS: ASPIRIN/ALUM/MAGNES/CAL CARB 325 MG TAB PO SCH ×2 (09:15→20:19)
[2016-08-07] MEDS: GABAPENTIN 300 MG CAP PO SCH ×2 (09:16→20:20)
[2016-08-07] MEDS: INSULIN ASPART 100 UNITS/ML 3 ML PEN SC SCH ×5 (09:20→21:45)
[2016-08-07 09:25] LABS: HEMATOCRIT 37.4 % (42-52); MEAN CELL VOLUME 70.8 fL (80-100); MEAN CORPUSCULAR HEMOGLOBIN 20.5 pg (25-34); MEAN CORPUSCULAR HGB CONC 28.9 g/dl (32-36); MEAN PLATELET VOLUME 9.1 fL (7.4-10.4); PLATELET COUNT 264 K/uL (130-400); RED BLOOD COUNT 5.28 M/uL (4.7-6.1); WHITE BLOOD COUNT 13.24 K/uL (4.8-10.8)
[2016-08-07] MEDS: MoRPHine SULFATE IR 15 MG TAB (IMMEDIATE RELEASE) PO SCH ×2 (09:26→20:25)
--- NOTE | 2016-08-07 09:57 | Clinical Documentation Query ---
CLINICAL DOCUMENTATION QUERY Dr. MCCONNELL, In your clinical opinion is this patient being managed for: ( x ) Acute kidney failure on CKD stage III ( ) Other explanation of clinical findings (Please Explain) ( ) Unable to determine (Please Define) ( ) Need to Discuss ( ) Not Agree The medical record reflects the following clinical findings, treatment, and risk factors. Clinical Indicators: 71 yo male presenting with a L hip fracture. Presenting Cr 1.4 which has risen to Cr 2.0. Review of GFR range over the past year is 46.2-55.3. Surgical EBL of 200 cc. Treatment: IV fluids, monitor PRP Risk Factors:age, DM, HTN, COPD, surgical EBL Please clarify and document your clinical opinion in the progress notes and discharge summary. Terms such as "probable", "suspected", "likely", "questionable", "possible", or "still to be ruled out" are acceptable. IF IN AGREEMENT, YOU MUST DOCUMENT ABOVE DIAGNOSTIC STATEMENT IN DAILY PROGRESS NOTES AND DISCHARGE SUMMARY. This document is not part of the patient's record. Thank You, Margy Barragan, JAYDA [phone]
[2016-08-07 12:05] VITALS: BP 117/62; PULSE 81; TEMP 36.6; O2SAT 90
[2016-08-07 15:57] VITALS: BP 135/69; PULSE 82; TEMP 37.1; O2SAT 91
--- NOTE | 2016-08-07 19:18 | PROGRESS NOTE ---
DATE: 08/07/2016 SUBJECTIVE: A 71-year-old gentleman postop day #1 from a left cemented bipolar hip arthroplasty for fracture. Seemed a little bit confused. When I asked him, he says has got no hip pain and then the next minute he tells me he has trouble walking due to pain. No other complaints. OBJECTIVE: VITAL SIGNS: Temperature 37.1. Vital signs stable. GENERAL: Reveals a pleasant elderly male. He is sitting up in bed, looks reasonably comfortable. EXTREMITIES: Examination of left hip and leg reveals the dressing to be clean, dry and intact. Hip is located. He can dorsiflex and plantarflex his foot appropriately. LABORATORY DATA: Hemoglobin 10.8. Hematocrit 37.4. Electrolytes are relatively stable. Creatinine is increased at 2.0. ASSESSMENT: A 71-year-old gentleman postop day #1 from a left cemented bipolar hip arthroplasty for fracture, doing reasonably well. It is a little difficult to really determine his pain level. PLAN: 1. DVT prophylaxis including thigh-high TEDs, SCDs, and aspirin. I do not think he is a good candidate for more aggressive anticoagulation. 2. PT and OT. Weightbear as tolerated. Left total knee protocol. 3. Pain control. Seems to be doing okay with current pain regimen. Will have to adjust meds as time goes on. 4. Medical management as per the medicine service. 5. Disposition: He is essentially orthopedically stable for discharge at any time. He will likely need a rehab stay. Any orthopedic questions, he can be directed to me at [phone]. He needs to follow up with me 2 weeks out from the surgery date. DIONNE
[2016-08-07] MEDS: TAMSULOSIN HCL 0.4 MG CAP PO SCH (20:19)
[2016-08-07] MEDS: DOCUSATE SODIUM/SENNA 50/8.6MG TAB PO SCH (20:21)
--- NOTE | 2016-08-07 21:37 | Discharge Instructions ---
Discharge Instructions Date of Service August 07, 2016. Admission Reason for Admission: Hip Fracture Discharge Discharge Diagnosis / Problem: Left Hip Arthroplasty for Fracture Discharge Goals Goal(s): Decrease discomfort, Improve function, Increase independence, Improve disease control, Therapeutic intervention Activity Recommendations Activity Level: Assistance Required (Total HIp Precautions) Therapies: Physical Therapy, Occupational Therapy (Total HIp Precautions) Weightbearing Status: Right weightbearing Total HIp Precautions . Additional Information Patient informed of condition: Yes Advance Directives: No DNR: No Level of Care: Acute Rehab Communicable Disease: No Prognosis: Improving Instructions / Follow-Up Instructions / Follow-Up Follow-up with Orthopedics 2 weeks post-surgery date. ACTIVITY RECOMMENDATIONS: Physical Therapy: * Aggressive physical therapy is not usually needed. You will learn to take care of yourself safely and walk. * Follow the "Hip Precautions Instructions." * In some cases, the high school social studies teacher at the hospital will arrange to have a therapist come to your house for the first couple of weeks to help you learn these skills. * You need to practice on your own or with the help of a family member as needed. * When you learn these skills, most of the therapy can be done on your own. Home Exercise: * You were shown a series of exercises in the hospital. Do these exercises three to four times each day including the exercises you were shown in physical therapy. Walking: * Get up and walk several times each day. For the first four weeks, try not to stand or walk for more than one hour at a time. If you do stand or walk for more than one hour, you will not hurt anything, but your leg will likely swell. * As you feel comfortable, you may change from the walker or crutches to a cane and then to independent walking. MEDICATIONS: New Medicine: * The most common side effects of pain medicine and iron are nausea and constipation. If nausea or constipation is too much of a problem or if you have any questions about your new medicines or doses, call [facility] at [phone]. We will try to help you manage these issues. VERY IMPORTANT TO READ AND REVIEW" Pain: * The immediate post-operative period after hip replacement surgery is often quite painful. * You are given a prescription for pain medicine. You should take it, as directed, when you need it, especially before physical therapy and before going to bed. Pain that interferes with sleep is very common and can last several months. * You will likely need pain medicine for the first two to four weeks. It will not stop all of the pain. The pain will lessen and as you feel better, you may change to milder pain medicine such as Tylenol. * The most common side effects of pain medicine are nausea and constipation, so don't take more than you need. SPECIAL CARE INSTRUCTIONS: TEDs/Elastic Stockings: * The white elastic stockings help limit swelling and prevent blood clots from forming in your legs. The more you wear them, the more they work. * Wear them for six weeks. Prevention of Infection: * Take antibiotics one hour before any dental cleaning, dental work, urological procedure, gastrointestinal procedure or any invasive surgery in order to prevent your new joint from getting infected. * You may get the antibiotics from the doctor performing the procedure or you may call our office at before and we will call in a prescription to the pharmacy of your choice. Things to Watch For: * Drainage from the incision site that occurs more than one week after your surgery. * Severely increased leg pain or swelling. * Increased redness at the incision site. * Fever above 102 degrees Fahrenheit. * Unusual chest pain or shortness of breath. * Unusual pain or burning with urination. Call [facility] at with any of the above problems or if you have any questions about your medicines or recovery. FOLLOW UP VISIT: Make an appointment to see your doctor for approximately two weeks after surgery for a progress check and staple removal by calling the office at . Current Hospital Diet Patient's current hospital diet: Diabetes Type 2 Diet Discharge Diet Recommended Diet: Diabetes Type 2 Diet Procedures Procedures Performed: Left Bipolar Hip, Cemented Pending Studies Studies pending at discharge: no Physician Orders On Transfer Special Precautions: Total Hip Precautions Laboratory Results Hemoglobin A1c Test 08/07/16 08:00 Range/Units Estimated Average Glucose 177 mg/dl Hemoglobin A1c 7.8 H 4.5-5.6 % Medical Emergencies . Who to Call and When: Medical Emergencies: If at any time you feel your situation is an emergency, please call 911 immediately. . Non-Emergent Contact Non-Emergency issues call your: Surgeon . . "Provider Documentation" section prepared by Sourav Lewis. . Core Measure Problem Core Measures: None
--- NOTE | 2016-08-07 21:45 | Hospitalist Progress Note ---
Hospitalist Progress Note Date of Service August 07, 2016. Subjective Pt evaluation today including: conversation w/ patient Patient states that he's having significant pain radiating from his left hip down to his foot. He had some urinary retention and was straight cathed for 600 ML's earlier today. He denies chest pain or shortness of breath All Other Systems: Reviewed and Negative Objective Vital Signs Date Time Temp Pulse Resp B/P Pulse Ox O2 Delivery O2 Flow Rate FiO2 08/07/16 15:57 37.1 82 16 135/69 91 Nasal Cannula 2.0 08/07/16 12:05 36.6 81 18 117/62 90 08/07/16 07:50 36.5 86 18 127/77 96 Room Air 08/07/16 07:41 96 Room Air 08/07/16 02:45 36.5 96 18 114/85 99 Nasal Cannula 4.0 08/06/16 23:39 Nasal Cannula 4.0 08/06/16 23:01 36.6 84 18 164/81 99 Nasal Cannula 4.0 08/06/16 21:39 36.6 80 18 146/81 98 Nasal Cannula 4.0 Physical Exam General Appearance: WD/WN, no apparent distress Eyes: normal inspection, sclerae normal ENT: hearing grossly normal Neck: trachea midline Respiratory/Chest: lungs clear, normal breath sounds, no respiratory distress, no accessory muscle use Cardiovascular: regular rate, rhythm, no edema, no gallop, no murmur Abdomen: normal bowel sounds, non tender, soft, no organomegaly Extremities: no calf tenderness, + pertinent finding (left hip with dressing clean dry and intact, plantar and dorsiflexion of left foot intact) Neurologic/Psychiatric: alert, + depressed affect Skin: normal color, warm/dry, no rash Laboratory Results Last 24 Hours Test 08/07/16 08:00 08/07/16 08:16 08/07/16 12:05 08/07/16 17:17 White Blood Count 13.24 K/uL Red Blood Count 5.28 M/uL Hemoglobin 10.8 g/dL Hematocrit 37.4 % Mean Corpuscular Volume 70.8 fL Mean Corpuscular Hemoglobin 20.5 pg Mean Corpuscular Hemoglobin Concent 28.9 g/dl RDW Standard Deviation 51.4 fL RDW Coefficient of Variation 19.9 % Platelet Count 264 K/uL Mean Platelet Volume 9.1 fL Sodium Level 135 mmol/L Potassium Level 4.2 mmol/L Chloride Level 104 mmol/L Carbon Dioxide Level 23 mmol/L Anion Gap 8.0 mmol/L Blood Urea Nitrogen 23 mg/dl Creatinine 2.00 mg/dl Est Creatinine Clear Calc Drug Dose 40.9 ml/min Estimated GFR () 37.8 Estimated GFR (Non- 32.6 BUN/Creatinine Ratio 11.4 Random Glucose 164 mg/dl Estimated Average Glucose 177 mg/dl Hemoglobin A1c 7.8 % Calcium Level 7.6 mg/dl Bedside Glucose 165 mg/dl 210 mg/dl 219 mg/dl Test 08/07/16 20:38 Bedside Glucose 283 mg/dl Assessment and Plan 71 y/o M Hx COPD, DM2, HTN, polycythemia. Presents following mechanical fall having sustained a L subcapital hip fracture. The pt denies CP, SOB, light head or palpitations prior to falling. 1) Hip Fx - orthopedics consulted - now POD #1 status post left bipolar hip repair. Hemoglobin 10.8. Having some shooting pains down left leg-question radiculopathy versus postoperative pain -Pain control and bowel regimen -PT/OT, will likely need rehabilitation placement -DVT prophylaxis with aspirin 325 mg by mouth twice a day -Follow postoperative CBC and transfuse as needed but does not seem likely to be necessary 2) DMII- oral meds held. 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 Hemoglobin A1c 7.8% which is fairly well-controlled but with hyperglycemia here - placed on SS and added carb coverage today -Cannot restart metformin due to renal insufficiency -Add on Lantus 5 units for tonight 3) COPD - no evidence of exacerbation - incentive spirometry ordered - cont Beclomethasone INH 4) Neuropathy - cont gabapentin 5) HTN -controlled - cont Toprol musa-op 6) Polycythemia - stable - he is actually slightly anemic and significantly microcytic following therapeutic bleeding a few months ago -Check iron studies 7) acute kidney injury in setting of chronic kidney disease stage III, urinary retention-could be due to perioperative hypotension and ATN versus post renal with obstruction. -Place Cotton -Restart IV fluids with normal saline -Follow PRP Prophylaxis-aspirin twice a day Disposition-likely to rehabilitation Full code
[2016-08-07] MEDS: SODIUM CHLORIDE 0.9% 1000ML 1,000 ML IV SCH (21:54)
[2016-08-07] MEDS ORDERED: INSULIN GLARGINE SOLOSTAR 100 UNITS/ML 3 ML PEN SC SCH (22:00)
[2016-08-07 23:37] VITALS: BP 117/70; PULSE 84; TEMP 36.9; O2SAT 98
[2016-08-08] MEDS: POLYETHYLENE (MIRALAX) 17 GM PACK PO SCH ×3 (05:49→18:46)
[2016-08-08 07:42] VITALS: BP 121/72; PULSE 92; TEMP 36.8; O2SAT 96
[2016-08-08 08:47] LABS: BASO % 0.2 %; BASO ABS # 0.02 K/uL (0-0.2); EOS % 2.9 %; HEMATOCRIT 33.6 % (42-52); IG% 0.3 %; LYMPH % 7.8 %; LYMPH ABS # 0.79 K/uL (1.2-3.4); MEAN CELL VOLUME 69.3 fL (80-100); MEAN CORPUSCULAR HEMOGLOBIN 20.6 pg (25-34); MEAN CORPUSCULAR HGB CONC 29.8 g/dl (32-36); MEAN PLATELET VOLUME 9.7 fL (7.4-10.4); MONO % 5.8 %; PLATELET COUNT 231 K/uL (130-400); RED BLOOD COUNT 4.85 M/uL (4.7-6.1); WHITE BLOOD COUNT 10.12 K/uL (4.8-10.8)
[2016-08-08] MEDS: MoRPHine SULFATE IR 15 MG TAB (IMMEDIATE RELEASE) PO SCH ×2 (08:49→20:21)
[2016-08-08] MEDS: BECLOMETHASONE HFA 40 MCG INHALER INH SCH ×2 (08:51→20:23)
[2016-08-08] MEDS: INSULIN ASPART 100 UNITS/ML 3 ML PEN SC SCH ×4 (08:55→20:35)
[2016-08-08] MEDS: GABAPENTIN 300 MG CAP PO SCH (08:57)
[2016-08-08] MEDS: ASPIRIN/ALUM/MAGNES/CAL CARB 325 MG TAB PO SCH ×2 (08:57→20:23)
[2016-08-08 09:09] LABS: COMPLETE YES; DOHLE BODIES 1+; MICROCYTOSIS PRESENT; POIKILOCYTOSIS PRESENT; TEAR DROP CELLS 1+
[2016-08-08 09:12] LABS: CALCIUM 7.6 mg/dl (8.5-10.1)
[2016-08-08 09:15] LABS: BUN/CREATININE RATIO 13.9 (10-20); POTASSIUM 4.1 mmol/L (3.5-5.1)
[2016-08-08 09:20] LABS: FERRITIN 97.3 ng/ml (8.0-388.0)
[2016-08-08] MEDS ORDERED: SODIUM CHLORIDE 0.9% 500ML 500 ML IV STA (10:13)
[2016-08-08] MEDS: SODIUM CHLORIDE 0.9% 1000ML 1,000 ML IV SCH (10:28)
[2016-08-08] MEDS: METOPROLOL TARTRATE 100 MG TAB PO SCH ×2 (10:47→20:21)
[2016-08-08] MEDS ORDERED: INSULIN GLARGINE SOLOSTAR 100 UNITS/ML 3 ML PEN SC ONE (11:00)
--- NOTE | 2016-08-08 11:48 | DIAGNOSTIC IMAGING REPORT ---
RENAL ULTRASOUND CLINICAL HISTORY: Renal failure. Urinary retention. COMPARISON STUDY: None. TECHNIQUE: Sonography of the kidneys and the urinary bladder was performed. FINDINGS: The right kidney measures 10.4 x 6.3 x 6.6 cm and the left measures 11 x 6.4 x 6.6 cm. This study is compromised by suboptimal penetration. However, no hydronephrosis was identified. The bladder was collapsed and contain a Cotton catheter. The spleen was mildly enlarged. IMPRESSION: No hydronephrosis. Study mildly compromised by suboptimal penetration. Electronically signed by: Dre Whitfield M.D. 08/08/2016 11:47 AM Dictated Date/Time: 08/08/2016 11:46 AM
[2016-08-08 12:50] LABS: URINE APPEARANCE CLOUDY (CLEAR); URINE BILIRUBIN NEG (NEG); URINE COLOR YELLOW; URINE EPITHELIAL CELL AUTO >30 /lpf (0-5); URINE NITRITE NEG (NEG); URINE SPECIFIC GRAVITY 1.023 (1.000-1.030); UROBILINOGEN NEG (NEG)
--- NOTE | 2016-08-08 13:00 | Nephrology Consultation ---
Nephrology Consultation Date & Providers Date of Consultation: August 08, 2016. Primary Care Provider: Ivette Alvarez M.D. Referring Provider: Reason for Consultation WILMAN/CKD History of Present Illness Mr. Juvenal Lainez is a 71-year-old male with uncontrolled diabetes mellitus type II and hypertention. He has a medical history of JAK2+ polycythemia and COPD. He presented to [facility] on 08/05/16 following mechanical fall. He sustained a L subcapital hip fracture. Left hip arthroplasty was performed by Dr. Lewis without complications. After surgery, Mr. Lainez felt well. Pain was well controlled. Appetite was fair. He denies any fevers or chills. He denies significant shortness of breath. He denies chest pain or palpitations. Unfortunately he did experience some urinary retention. He reports a similar experience following anesthesia for his BK in the past. His bladder scan with 80 mL. Cotton catheter was placed. Urine output has improved slightly since catheter placement. The patient presented with serum creatinine 1.4 mg/dL. This is consistent with his baseline. Unfortunately creatinine has increased to 2.0 mg/dL. Metabolic profile is otherwise appropriate. No specific nephrotoxic medications were identified. Blood pressure has been well controlled. I saw and evaluated Mr. grayson her in his hospital room this morning. His medical record was reviewed in detail. Plan of care was discussed with the nursing staff. Past Medical/Surgical History Medical: -- COPD -- Diabetes mellitus type II -- Hypertension -- Neuropathy -- OA/DJD -- Polycythemia (JAK2 +) Surgical: -- Tonsillectomy -- BKA 2013 -- Great toe amputation Allergies Coded Allergies: Amoxicillin (Unverified Allergy, Intermediate, itching, 01/23/16) Inpatient Medications Current Inpatient Medications Medications (Trade) Dose Ordered Sig/Doris Route Start Time Stop Time Status Last Admin Dose Admin Acetaminophen (Tylenol Tab) 650 mg Q4H PRN PO 08/05/16 22:30 09/04/16 22:29 Al Hydrox/Mg Hydrox/Simethicone (Maalox Max Susp) 15 ml Q4H PRN PO 08/05/16 22:30 09/04/16 22:29 Polyethylene (Miralax Powder Packet) 17 gm DAILY PRN PO 08/05/16 22:30 09/04/16 22:29 Ondansetron HCl (Zofran Inj) 4 mg Q6H PRN IV 08/05/16 22:30 09/04/16 22:29 Metoprolol Tartrate (Lopressor Tab) 100 mg AMHS PO 08/06/16 00:15 09/05/16 00:14 08/08/16 10:47 100 MG Morphine Sulfate (MoRPHine SULFATE IR TAB) 15 mg QAM PO 08/06/16 09:00 08/20/16 08:59 08/08/16 08:49 15 MG Morphine Sulfate (MoRPHine SULFATE IR TAB) 30 mg HS PO 08/06/16 00:15 08/20/16 00:14 08/07/16 20:25 30 MG Beclomethasone Dipropionate (Qvar Hfa 40 Mcg Inhaler) 2 puffs BID INH 08/06/16 09:00 09/05/16 08:59 08/08/16 08:51 2 PUFFS Glucose (Glucose 40% Gel) 15-30 GRAMS 15 GRAMS... UD PRN PO 08/06/16 00:15 09/05/16 00:14 Glucose (Glucose Chew Tab) 4-8 Tablets 4 Tabl... UD PRN PO 08/06/16 00:15 09/05/16 00:14 Dextrose (Dextrose 50% 50ML Syringe) 25-50ML OF 50% DW IV FOR... UD PRN IV 08/06/16 00:15 09/05/16 00:14 Glucagon (Glucagon Inj) 1 mg UD PRN SQ 08/06/16 00:15 09/05/16 00:14 Hydralazine HCl (HydrALAZINE INJ) 10 mg Q8H PRN IV. 08/06/16 08:15 09/05/16 08:14 Aspirin/Aluminum/ Magnesium/Ca Carb (Ascriptin Tab) 325 mg BID PO 08/07/16 09:00 09/06/16 08:59 08/08/16 08:57 325 MG Hydromorphone HCl (Dilaudid Inj) 0.25 mg Q20M PRN IV 08/06/16 17:30 08/20/16 17:29 Hydromorphone HCl (Dilaudid Inj) 0.5 mg Q20M PRN IV 08/06/16 17:30 08/20/16 17:29 08/07/16 17:31 0.5 MG Senna/Docusate Sodium (Senokot S Tab) 2 tab HS PO 08/06/16 21:00 09/05/16 20:59 08/07/16 20:21 2 TAB Polyethylene (Miralax Powder Packet) 17 gm Q6 PO 08/08/16 06:00 09/07/16 05:59 08/08/16 05:49 17 GM Magnesium Hydroxide (Milk Of Magnesia Susp) 30 ml DAILY PRN PO 08/06/16 17:30 09/05/16 17:29 Bisacodyl (Dulcolax Supp) 10 mg DAILY PRN SD 08/06/16 17:30 09/05/16 17:29 Insulin Aspart (novoLOG ASPART) SLIDING SCALE G... ACHS SC 08/06/16 21:00 09/06/16 20:59 08/08/16 08:55 8 UNITS Hydromorphone HCl (Dilaudid Tab) `1-2 tabs for pain 1 tab ... Q4H PRN PO 08/07/16 17:00 08/21/16 16:59 Tamsulosin HCl 0.4 mg 0.4 mg HS PO 08/07/16 21:00 09/06/16 20:59 08/07/16 20:19 0.4 MG Sodium Chloride (Nss 1000ml) 1,000 ml @ 75 mls/hr [id number] IV 08/07/16 21:45 09/06/16 21:44 08/08/16 10:28 75 MLS/HR Insulin Glargine (Lantus Solostar Pen) 5 unit BID SC 08/08/16 21:00 09/07/16 20:59 Gabapentin (Neurontin Tab) 600 mg BID PO 08/08/16 21:00 09/07/16 20:59 Family History Hypertension Social History Smoking Status: Former Smoker Drug Use: none Marital Status: Housing Status: lives with family Occupation: retired, other Review of Systems A complete review of systems was performed. Pertinent positives are noted above. All other systems are negative. Physical Exam Date Time Temp Pulse Resp B/P Pulse Ox O2 Delivery O2 Flow Rate FiO2 08/08/16 07:42 36.8 92 18 121/72 96 Nasal Cannula 2.0 08/08/16 07:40 Room Air 08/07/16 23:37 36.9 84 18 117/70 98 Nasal Cannula 2.0 08/07/16 20:00 Nasal Cannula 2.0 08/07/16 15:57 37.1 82 16 135/69 91 Nasal Cannula 2.0 General Appearance: WD/WN, no apparent distress Head: normocephalic, atraumatic Eyes: normal inspection, sclerae normal ENT: normal ENT inspection, pharynx normal Neck: supple, no JVD Respiratory/Chest: lungs clear, no respiratory distress, no accessory muscle use Cardiovascular: regular rate, rhythm, no gallop, no murmur Abdomen/GI: non tender, soft Genitourinary - Male: + pertinent finding (Cotton draining yellow urine) Back: no CVA tenderness Extremities/Musculoskelatal: normal inspection, no pedal edema Neurologic/Psych: alert, oriented x 3 Skin: normal color Laboratory Results Last 24 Hours Test 08/07/16 17:17 08/07/16 20:38 08/08/16 08:18 08/08/16 11:52 Bedside Glucose 219 mg/dl 283 mg/dl White Blood Count 10.12 K/uL Red Blood Count 4.85 M/uL Hemoglobin 10.0 g/dL Hematocrit 33.6 % Mean Corpuscular Volume 69.3 fL Mean Corpuscular Hemoglobin 20.6 pg Mean Corpuscular Hemoglobin Concent 29.8 g/dl Platelet Count 231 K/uL Mean Platelet Volume 9.7 fL Neutrophils (%) (Auto) 83.0 % Lymphocytes (%) (Auto) 7.8 % Monocytes (%) (Auto) 5.8 % Eosinophils (%) (Auto) 2.9 % Basophils (%) (Auto) 0.2 % Neutrophils # (Auto) 8.40 K/uL Lymphocytes # (Auto) 0.79 K/uL Monocytes # (Auto) 0.59 K/uL Eosinophils # (Auto) 0.29 K/uL Basophils # (Auto) 0.02 K/uL RDW Standard Deviation 48.7 fL RDW Coefficient of Variation 19.5 % Immature Granulocyte % (Auto) 0.3 % Immature Granulocyte # (Auto) 0.03 K/uL Dohle Bodies 1+ Poikilocytosis PRESENT Microcytosis PRESENT Tear Drop Cells 1+ Sodium Level 136 mmol/L Potassium Level 4.1 mmol/L Chloride Level 103 mmol/L Carbon Dioxide Level 24 mmol/L Anion Gap 9.0 mmol/L Blood Urea Nitrogen 28 mg/dl Creatinine 2.00 mg/dl Est Creatinine Clear Calc Drug Dose 40.9 ml/min Estimated GFR () 37.8 Estimated GFR (Non- 32.6 BUN/Creatinine Ratio 13.9 Random Glucose 221 mg/dl Calcium Level 7.6 mg/dl Iron Level 14 mcg/dl Total Iron Binding Capacity 246 mcg/dl Transferrin 193 mg/dl Transferrin % Saturation 5 % Ferritin 97.3 ng/ml Impression (1) Chronic kidney disease, stage III (moderate) (2) Diabetes mellitus type 2 with complications (3) Hypertension (4) Acute renal insufficiency (5) Polycythemia (6) Fall (7) Fracture of left hip Mr. Juvenal Lainez Is a 71-year-old male with diabetes mellitus, hypertension, polycythemia and chronic kidney disease class 3. His baseline creatinine is 1.4 mg/dL. CKD attributed to hypertensive nephrosclerosis and diabetic nephropathy. Patient presented to the hospital on August 05 after sustaining a left hip fracture from a mechanical fall. Left hip arthroplasty was performed without complications. He developed postoperative acute kidney injury. Serum creatinine has risen to 2.0 mg/dL. Patient was initially oliguric. This seems to have improved after Cotton catheter placement. He has a prior history of a KI following BKA. This was attributed to bladder obstruction related to anesthesia. Patient has been started on Flomax. Cotton catheter is placed. Renal ultrasound is pending. Urinalysis with microscopy is pending. Medications are appropriately dosed for renal function. Volume status appears appropriate at this time. Oral intake acceptable. Recommendations -- Renal ultrasound -- UA/microscopy -- Potassium restrict diet -- Avoid NSAIDs -- Maintain even to slightly positive fluid balance -- Monitor q 12-24 hour metabolic profile -- Document I/O's -- Maintain Cotton to gravity
[2016-08-08 13:14] LABS: MANUAL MICROSCOPIC REQUIRED? NO; REVIEW REQ? YES
[2016-08-08 13:26] LABS: URINE PATH CASTS 1-5 GRANULAR CASTS /lpf (0)
[2016-08-08] MEDS ORDERED: PHARMACY GLYCEMIC MGMT CONSULT PRN (14:15)
--- NOTE | 2016-08-08 14:32 | Pharmacy Progress Note ---
Glycemic Control Intl Consult Date of Service August 08, 2016. Scope Glycemic Pharmacist consulted by Dr Christiansen on 08/08/16 for glycemic control and to write orders per [facility] inpatient glycemic control protocol Objective Weight (Kilograms): 97.000 Accuchecks BSG (last 24hrs): Test 08/07/16 17:17 08/07/16 20:38 08/08/16 08:18 08/08/16 ~ 0900 08/08/16 ~1100 Bedside Glucose 219 mg/dl (70-99) 283 mg/dl (70-99) 235 mg/dl 341 mg/dl Random Glucose 221 mg/dl (70-99) Laboratory Data (last 24hrs) HbA1c Test 08/07/16 08:00 Hemoglobin A1c 7.8 % (4.5-5.6) H Recent Pertinent Medications Outpatient Anti-diabetic Regimen: * Metformin 1,000mg PO BIDM * Glyburide 10mg PO BIDM The patient is currently receiving: * Basal insulin: Lantus 5 units every 12 hours * Correctional Insulin: Novolog Correction per scale ACHS Goal Range: Low 120 mg/dL - High 160 mg/dL Correction Factor: 30 mg/dL/unit * Prandial insulin: Per carb ratio of 1 unit per 10 grams CHO consumed * Oral Agents: On hold for admission Risk Factors for Insulin Resistance: * Recent Surgery * Diet Assessment & Plan ASSESSMENT: * Pt is maintained on oral antidiabetic agents as an outpatient with adequate control per recent A1c of 7.8% * Oral agents are not recommended for inpatient use d/t drug interactions, changing PO intake, and difficulty titrating for acute hyper/hypoglycemia. ADA recommends re-initiating outpatient oral agents 1-2 days prior to discharge if/ when appropriate if they were held on admission. * Oral agents held on admission and pt initiated on SSI monotherapy. * 08/06: POD # 0 * Pt only ordered SSI monotherapy (CF only) * Pt BSGs adequately controlled secondary to NPO and most likely outpatient meds {metformin & glyburide} still on board with impaired renal function. Last doses taken of oral antidiabetic meds were 08/05 AM * 08/07: POD #1 * BSGs starting to climb secondary to SSI monotherapy (no CR ordered), diet advanced, no oral agents on board. * CR added with dinner and conservative basal insulin dosing initiated * Total dose of insulin received = 21 units (5 units of basal + 16 units of prandial/correctional) * 08/08: POD #2 * AM fasting BSG significantly elevated at 235mg/dl --> basal insulin needs increased * Post-prandial BSGs significantly elevated at 341mg/dl --> CF/CR need tightened * Current basal and bolus insulin doses are below recommended dosing based on weight and minimal stressors. Will tighten SQ basal bolus insulin regimen based on weight and moderate stress (level 2). Will continue to titrate regimen based on BSG trends. * Will initiate weight based insulin dosing for insulin danielle patient and titrate based on BSG trends. * ADA & AACE recommend a goal blood sugar range 140-180 mg/dl for the majority of critically ill & non-critically ill patients. However, more stringent targets may be selected in individual cases. Will utilize more stringent goal of 110-140mg/dl based on patient age & comorbidities. Additionally, tighter glycemic control is warranted to facilitate wound/infection healing. Absolutely necessary to maintain BSG < 200 mg/dl post-operatively to prevent morbidity/mortality post-operatively. PLAN FOR INPATIENT GLYCEMIC CONTROL: * Oral outpatient antidiabetic agents * Continue to hold secondary to renal impairment and inpatient admission * Basal insulin * INCREASE Lantus to 15 units SQ BID * Continue to titrate dosing to maintain AM fasting BSG < 140 mg/dl * Bolus Insulin * NovoLog per scale ACHS or Q6hrs while NPO. Additional overnight accuchecks + coverage at 0000 & 0400 for sustained hyperglycemia * LOWER Goal Range: Low 110 mg/dL - High 140 mg/dL * TIGHTEN Correction Factor: 25 mg/dL/unit * TIGHTEN Nutritional / Prandial insulin per carb ratio of 1 unit per 8 grams CHO consumed * Please note that the plan above was derived based on current level of insulin resistance and hospital stress. These recommendations are appropriate for inpatient admission only. Plan of care upon discharge will need to be reassessed to avoid potential outpatient hypo/hyperglycemia. Thank you.
--- NOTE | 2016-08-08 15:30 | PROGRESS NOTE ---
DATE: 08/08/2016 SUBJECTIVE: 71-year-old gentleman postop day 2 from a left cemented bipolar hip arthroplasty. He seems to be doing okay. Pain seems a bit better than yesterday. He says he has not been up walking much at all. Denies any chest pain or shortness of breath. OBJECTIVE: VITAL SIGNS: Temperature 36.8. Vital signs stable. PHYSICAL EXAMINATION: GENERAL: Reveals a pleasant elderly male. He is sitting up in bed, looks reasonably comfortable. EXTREMITIES: Examination of left hip reveals the hip to be located. His dressing is clean, dry and intact. Thigh is soft and supple. He is neurologically intact. LABORATORY DATA: Hemoglobin 10.0. Hematocrit 33.6. White cell count normal at 12.12. ASSESSMENT: 71-year-old gentleman postop day 2 from a left cemented bipolar hip arthroplasty, doing reasonably well. Having some pain which is not unexpected. Creatinine is still elevated some. PLAN: 1. DVT prophylaxis including thigh-high TEDs, SCDs and would recommend aspirin. 2. PT/OT. He can weightbear as tolerated. Left total hip protocol. 3. Pain control, doing reasonably well with current pain regimen. 4. Medical management as per the medicine service. Creatinine is bumped up a bit probably likely mostly related to hydration status. 5. Disposition. He is orthopedically acceptable for discharge any time medically stable. I need to see him back 2 weeks postop. I believe he is going to look into a rehab stay. Any orthopedic questions can be directed to me at [phone].
[2016-08-08 15:36] LABS: URINE APPEARANCE CLOUDY (CLEAR); URINE BILIRUBIN NEG (NEG); URINE COLOR YELLOW; URINE EPITHELIAL CELL AUTO 20-30 /lpf (0-5); URINE NITRITE NEG (NEG); URINE SPECIFIC GRAVITY 1.019 (1.000-1.030); UROBILINOGEN NEG (NEG); ZZURINE CULT IF INDIC CATH YES
[2016-08-08 15:46] LABS: MANUAL MICROSCOPIC REQUIRED? NO; REVIEW REQ? YES
[2016-08-08 15:58] LABS: URINE PATH CASTS 5-10 GRANULAR CASTS /lpf (0)
[2016-08-08 16:22] VITALS: BP 150/76; PULSE 81; TEMP 37.2; O2SAT 94
[2016-08-08] MEDS: INSULIN GLARGINE SOLOSTAR 100 UNITS/ML 3 ML PEN SC SCH (18:40)
[2016-08-08] MEDS: GABAPENTIN 600 MG TAB PO SCH (18:46)
[2016-08-08] MEDS: HYDROmorphone HCL 2 MG TAB PO PRN (18:49)
[2016-08-08] MEDS: DOCUSATE SODIUM/SENNA 50/8.6MG TAB PO SCH (20:22)
[2016-08-08] MEDS: TAMSULOSIN HCL 0.4 MG CAP PO SCH (20:22)
[2016-08-08] MEDS ORDERED: INSULIN GLARGINE SOLOSTAR 100 UNITS/ML 3 ML PEN SC SCH (21:00)
--- NOTE | 2016-08-08 22:24 | Hospitalist Progress Note ---
Hospitalist Progress Note Date of Service August 08, 2016. Subjective Pt evaluation today including: conversation w/ patient Pt reports he felt nauseated this AM, now feeling better. Was OOB with PT today , Cotton in place and making more urine today. No BM yet All Other Systems: Reviewed and Negative Objective Vital Signs Date Time Temp Pulse Resp B/P Pulse Ox O2 Delivery O2 Flow Rate FiO2 08/08/16 20:00 Nasal Cannula 2.0 08/08/16 16:22 37.2 81 18 150/76 94 Room Air 08/08/16 07:42 36.8 92 18 121/72 96 Nasal Cannula 2.0 08/08/16 07:40 Room Air 08/07/16 23:37 36.9 84 18 117/70 98 Nasal Cannula 2.0 Physical Exam General Appearance: WD/WN, no apparent distress Eyes: normal inspection, sclerae normal ENT: hearing grossly normal Neck: trachea midline Respiratory/Chest: lungs clear, normal breath sounds, no respiratory distress, no accessory muscle use Cardiovascular: regular rate, rhythm, no edema, no murmur Abdomen: normal bowel sounds, non tender, soft Extremities: no pedal edema, no calf tenderness, + pertinent finding (left hip with dressing c/d/i) Neurologic/Psychiatric: alert Skin: normal color, warm/dry, no rash Laboratory Results Last 24 Hours Test 08/08/16 08:13 08/08/16 08:18 08/08/16 11:52 08/08/16 12:02 Bedside Glucose 235 mg/dl 341 mg/dl White Blood Count 10.12 K/uL Red Blood Count 4.85 M/uL Hemoglobin 10.0 g/dL Hematocrit 33.6 % Mean Corpuscular Volume 69.3 fL Mean Corpuscular Hemoglobin 20.6 pg Mean Corpuscular Hemoglobin Concent 29.8 g/dl Platelet Count 231 K/uL Mean Platelet Volume 9.7 fL Neutrophils (%) (Auto) 83.0 % Lymphocytes (%) (Auto) 7.8 % Monocytes (%) (Auto) 5.8 % Eosinophils (%) (Auto) 2.9 % Basophils (%) (Auto) 0.2 % Neutrophils # (Auto) 8.40 K/uL Lymphocytes # (Auto) 0.79 K/uL Monocytes # (Auto) 0.59 K/uL Eosinophils # (Auto) 0.29 K/uL Basophils # (Auto) 0.02 K/uL RDW Standard Deviation 48.7 fL RDW Coefficient of Variation 19.5 % Immature Granulocyte % (Auto) 0.3 % Immature Granulocyte # (Auto) 0.03 K/uL Dohle Bodies 1+ Poikilocytosis PRESENT Microcytosis PRESENT Tear Drop Cells 1+ Sodium Level 136 mmol/L Potassium Level 4.1 mmol/L Chloride Level 103 mmol/L Carbon Dioxide Level 24 mmol/L Anion Gap 9.0 mmol/L Blood Urea Nitrogen 28 mg/dl Creatinine 2.00 mg/dl Est Creatinine Clear Calc Drug Dose 40.9 ml/min Estimated GFR () 37.8 Estimated GFR (Non- 32.6 BUN/Creatinine Ratio 13.9 Random Glucose 221 mg/dl Calcium Level 7.6 mg/dl Iron Level 14 mcg/dl Total Iron Binding Capacity 246 mcg/dl Transferrin 193 mg/dl Transferrin % Saturation 5 % Ferritin 97.3 ng/ml Urine Color YELLOW Urine Appearance CLOUDY Urine pH 5.0 Urine Specific [place] 1.023 Urine Protein 1+ Urine Glucose (UA) 2+ Urine Ketones NEG Urine Occult Blood 2+ Urine Nitrite NEG Urine Bilirubin NEG Urine Urobilinogen NEG Urine Leukocyte Esterase NEG Urine WBC (Auto) 5-10 /hpf Urine RBC (Auto) >30 /hpf Urine Hyaline Casts (Auto) 1-5 /lpf Urine Epithelial Cells (Auto) >30 /lpf Urine Bacteria (Auto) NEG Urine Renal Epithelial Cells 5-10 /lpf Urine Pathogenic Casts 1-5 GRANULAR CASTS /lpf Urine Yeast (Auto) Test 08/08/16 14:56 08/08/16 17:22 08/08/16 20:30 Urine Color YELLOW Urine Appearance CLOUDY Urine pH 5.0 Urine Specific [place] 1.019 Urine Protein 1+ Urine Glucose (UA) 2+ Urine Ketones NEG Urine Occult Blood 2+ Urine Nitrite NEG Urine Bilirubin NEG Urine Urobilinogen NEG Urine Leukocyte Esterase NEG Urine WBC (Auto) 1-5 /hpf Urine RBC (Auto) 0-4 /hpf Urine Hyaline Casts (Auto) 1-5 /lpf Urine Epithelial Cells (Auto) 20-30 /lpf Urine Bacteria (Auto) NEG Urine Crystals AMORPHOUS SEDIMENT Urine Pathogenic Casts 5-10 GRANULAR CASTS /lpf Urine Yeast (Auto) Bedside Glucose 213 mg/dl 208 mg/dl Assessment and Plan 71 y/o M Hx COPD, DM2, HTN, polycythemia. Presents following mechanical fall having sustained a L subcapital hip fracture. The pt denies CP, SOB, light head or palpitations prior to falling. 1) Hip Fx - orthopedics consulted - now POD #2 status post left bipolar hip repair. Hemoglobin slight drop to 10.0. Left leg pain improved from yesterday -Pain control and bowel regimen-discussed doing bisacodyl suppository today and he is hesitant -PT/OT, will need rehabilitation placement--> can weight bear as tolerated, left hip precautions -DVT prophylaxis with aspirin 325 mg by mouth twice a day -will need f/u with Ortho in 2 weeks 2) DMII- oral meds held. 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 Hemoglobin A1c 7.8% which is fairly well-controlled but with hyperglycemia here which is worsening today into the 300s - placed on SS and added carb coverage -Cannot restart metformin due to renal insufficiency -Increased Lantus and consulted Pharmacy for glycemic consult 3) COPD - no evidence of exacerbation - incentive spirometry ordered - cont Beclomethasone INH -wean O2 as tolerated 4) Neuropathy - cont gabapentin 5) HTN -improved control today - cont metoprolol 6) Polycythemia with +JAK2 mutation - stable - he is actually slightly anemic and significantly microcytic following therapeutic bleeding a few months ago. Fe studies consistent with anemia of chronic disease, Transferrin sat is low at 5%, ferritin normal, TIBC high, Fe low -follow CBC -f/u with Heme routinely as outpatient 7) Acute kidney injury in setting of chronic kidney disease stage III, urinary retention-could be due to perioperative hypotension and ATN versus post renal with obstruction. +granular casts in UA. Renal US unrevealing. Patcher Helper from baseline 1.2-1.4--> 2.0 -continue Cotton--> with improved UOP today with increase in IVFs -continue IVFs with NS and extra 500 mL bolus today -Follow PRP -Appreciate Nephrology consultation -continue Flomax -trial of voiding prior to discharge Prophylaxis-aspirin twice a day Disposition-to rehabilitation in 1-2 days Full code
[2016-08-08 23:59] VITALS: BP 162/81; PULSE 82; TEMP 36.9; O2SAT 93
[2016-08-09] MEDS: INSULIN ASPART 100 UNITS/ML 3 ML PEN SC SCH ×6 (00:43→22:07)
[2016-08-09 00:45] VITALS: BP 154/82
[2016-08-09] MEDS: POLYETHYLENE (MIRALAX) 17 GM PACK PO SCH ×5 (00:51→23:57)
[2016-08-09] MEDS: SODIUM CHLORIDE 0.9% 1000ML 1,000 ML IV SCH (00:52)
--- NOTE | 2016-08-09 08:00 | PROGRESS NOTE ---
DATE: 08/09/2016 DATE: 08/09/2016. SUBJECTIVE: A 71-year-old gentleman with multiple medical comorbidities postop day 3 from a left cemented bipolar hip arthroplasty. Orthopedically doing pretty well. Intermittent pain but seems to be managed. No new complaints. OBJECTIVE: VITAL SIGNS: Temperature 36.9. Vital signs stable. Mild hypertension. PHYSICAL EXAMINATION: Examination of the left hip and leg reveals leg to be well aligned. Dressing is in place. Just a slight bit of serous drainage. Thigh shows some mild swelling. He can dorsiflex and plantarflex his foot appropriately. He is neurologically intact. LABORATORY DATA: Pending. ASSESSMENT: A 71-year-old gentleman with multiple comorbidities, most significant diabetes, postop day 3 from a left cemented bipolar hip arthroplasty, doing reasonably well. His kidney function has deteriorated some but looks to be really pretty stable. Labs are pending from this morning. Hip seems to be doing fine. PLAN: 1. DVT prophylaxis including thigh-high TEDs, SCDs, and would recommend aspirin if his kidneys can tolerate that. Otherwise, maybe subQ heparin. Would not recommend more aggressive anticoagulation. 2. PT/OT. He can weightbear as tolerated. Needed to emphasize total hip precautions. 3. Pain control. Seems to be doing reasonably well on current pain regimen. 4. Disposition. He is orthopedically stable and acceptable for discharge at any time. I need to see him back 2 weeks postop. Any orthopedic questions can be directed to me at [phone].
[2016-08-09 08:14] LABS: BASO % 0.2 %; BASO ABS # 0.02 K/uL (0-0.2); EOS % 6.8 %; HEMATOCRIT 30.9 % (42-52); IG% 0.5 %; LYMPH % 12.5 %; LYMPH ABS # 1.03 K/uL (1.2-3.4); MEAN CELL VOLUME 69.9 fL (80-100); MEAN CORPUSCULAR HEMOGLOBIN 20.6 pg (25-34); MEAN CORPUSCULAR HGB CONC 29.4 g/dl (32-36); MEAN PLATELET VOLUME 9.4 fL (7.4-10.4); MONO % 7.2 %; NEUT % 72.8 %; PLATELET COUNT 235 K/uL (130-400); RED BLOOD COUNT 4.42 M/uL (4.7-6.1); WHITE BLOOD COUNT 8.25 K/uL (4.8-10.8)
[2016-08-09] MEDS: METOPROLOL TARTRATE 100 MG TAB PO SCH ×2 (08:26→21:55)
[2016-08-09] MEDS: BECLOMETHASONE HFA 40 MCG INHALER INH SCH ×2 (08:26→21:51)
[2016-08-09] MEDS: GABAPENTIN 600 MG TAB PO SCH ×2 (08:27→21:52)
[2016-08-09] MEDS: ASPIRIN/ALUM/MAGNES/CAL CARB 325 MG TAB PO SCH ×2 (08:27→21:54)
[2016-08-09 08:31] VITALS: BP 153/83; PULSE 70; TEMP 36.8; O2SAT 94
[2016-08-09 08:38] LABS: COMPLETE YES; MICROCYTOSIS PRESENT; OVALOCYTES 1+; TEAR DROP CELLS 1+
[2016-08-09] MEDS: MoRPHine SULFATE IR 15 MG TAB (IMMEDIATE RELEASE) PO SCH ×2 (08:41→22:25)
[2016-08-09 08:46] LABS: BUN/CREATININE RATIO 16.6 (10-20); CREATININE 1.7 mg/dl (0.60-1.40)
[2016-08-09 08:48] LABS: PHOSPHORUS 2.6 mg/dl (2.5-4.9)
[2016-08-09] MEDS: INSULIN GLARGINE SOLOSTAR 100 UNITS/ML 3 ML PEN SC SCH ×2 (08:52→22:05)
[2016-08-09 09:02] LABS: CALCIUM 7.9 mg/dl (8.5-10.1)
[2016-08-09] MEDS ORDERED: FERROUS SULFATE 325 MG TAB PO ONE (09:09)
[2016-08-09] MEDS ORDERED: NVLGIPEN SC (09:39)
[2016-08-09] MEDS ORDERED: SENN8.6T7 PO (09:39)
[2016-08-09] MEDS ORDERED: INSDGIPEN SC (09:39)
[2016-08-09] MEDS ORDERED: MRLP17 PO (09:39)
[2016-08-09] MEDS ORDERED: DLCS PR (09:39)
[2016-08-09] MEDS ORDERED: ACET325T96 PO (09:39)
[2016-08-09] MEDS ORDERED: FLM4 PO (09:39)
[2016-08-09] MEDS ORDERED: ALBINS INH (09:39)
[2016-08-09] MEDS ORDERED: QVRINH40 INH (09:39)
[2016-08-09] MEDS ORDERED: ASPI325T60 PO (09:39)
[2016-08-09] MEDS ORDERED: MORP15TA PO (09:39)
[2016-08-09] MEDS ORDERED: GABA-113 PO (09:39)
--- NOTE | 2016-08-09 10:38 | Discharge Instructions ---
Discharge Instructions Date of Service August 09, 2016. Admission Reason for Admission: Hip Fracture Discharge Discharge Diagnosis / Problem: Hip fracture, Acute kidney injury Discharge Goals Goal(s): Improve disease control, Diagnostic testing, Therapeutic intervention Activity Recommendations Activity Level: Assistance Required Therapies: Physical Therapy, Occupational Therapy as per Ortho . Additional Information Patient informed of condition: Yes Advance Directives: No DNR: No Level of Care: Acute Rehab Communicable Disease: No Prognosis: Stable Cotton Catheter: Yes Instructions / Follow-Up Instructions / Follow-Up 71 y/o M Hx COPD, DM2, HTN, polycythemia with JAK2 mutation. Presents following mechanical fall having sustained a L subcapital hip fracture. The pt denies CP, SOB, light head or palpitations prior to falling. 1) Hip Fx - orthopedics consulted - now POD #3 status post left bipolar hip repair. Hemoglobin slight drop to 9.1 from 12. Left leg pain improved. -Pain control and bowel regimen -PT/OT, will need rehabilitation placement--> can weight bear as tolerated, left total hip precautions -DVT prophylaxis with aspirin 325 mg by mouth twice a day x 4 weeks -will need f/u with Ortho in 2 weeks post-op 2) DMII- oral meds held. 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 Hemoglobin A1c 7.8% which is fairly well-controlled but with hyperglycemia here which was worsening into the 300s, now improved with addition of Lantus - continue Lantus and SSI -stop glyburide, stop metformin due to renal insufficiency 3) COPD - no evidence of exacerbation - incentive spirometry ordered, weaned off O2 - cont Beclomethasone INH -nebs albuterol prn 4) Neuropathy - cont gabapentin at reduced dose for renal insufficiency 5) HTN -improved control today - cont metoprolol 6) Polycythemia with +JAK2 mutation - stable - he is actually slightly anemic and significantly microcytic following therapeutic bleeding a few months ago. Fe studies consistent with anemia of chronic disease, Transferrin sat is low at 5%, ferritin normal, TIBC high, Fe low -follow CBC -f/u with Heme routinely as outpatient in 1 month -Spoke with Dr. Churchill from [facility] where he is followed and he recommended to NOT supplement with Fe tabs 7) Acute kidney injury in setting of chronic kidney disease stage III, urinary retention-could be due to perioperative hypotension and ATN versus post renal with obstruction. +granular casts in UA. Renal US unrevealing. [employer]ist from baseline 1.2-1.4--> 2.0--> 1.7 after Cotton and IVFs Renal US normal -continue Cotton--> continue FLomax, trial of voiding in 1 week -Follow PRP in 1 week -Appreciate Nephrology consultation-f/u with Dr. Cunningham of Nephrology in 1-2 weeks -aggressive bowel regimen to prevent constipation induced urinary retention Prophylaxis-aspirin twice a day x 4 weeks Disposition-to rehabilitation today Full code Current Hospital Diet Patient's current hospital diet: Diabetes Type 2 Diet Discharge Diet Recommended Diet: Diabetes Type 2 Diet Procedures Procedures Performed: Left Bipolar Hip, Cemented Pending Studies Studies pending at discharge: no Physician Orders On Transfer Special Precautions: Left total hip Dressing Changes: As per Ortho IV Therapy: None Vital Signs: Routine Weigh: Routine Additional Orders: Check BMP and CBC 1 week F/u Neprhology 1-2 weeks F/u Ortho 2 weeks post-op F/u Hematology Dr. Zhao Bower Heme in 1 month POLST Discussion: Not Applicable Laboratory Results Hemoglobin A1c Test 08/07/16 08:00 Range/Units Estimated Average Glucose 177 mg/dl Hemoglobin A1c 7.8 H 4.5-5.6 % Medical Emergencies . Who to Call and When: Medical Emergencies: If at any time you feel your situation is an emergency, please call 911 immediately. . Non-Emergent Contact Non-Emergency issues call your: Primary Care Provider Call Non-Emergent contact if: you have a fever, your pain is not controlled, your pain is worsening, your pain is unusual for you, wound has increased drainage, wound has increased redness, wound has increased pain, you have any medication questions . . "Provider Documentation" section prepared by Mary Christiansen. . Core Measure Problem Core Measures: None [place] Drug Monitoring Program Search Results: patient reviewed within database, no issues identified
--- NOTE | 2016-08-09 11:16 | Nephrology Progress Note ---
Nephrology Progress Note Date of Service August 09, 2016. Chief Complaint WILMAN/CKD Subjective No acute events overnight. Pain well controlled. Patient was working with physical therapy when I entered his room this morning. He feels well. Cotton remains intact. Appetite is good. Patient is hopeful to be discharged home within the next day or two. Plan of care was discussed with Dr. Christiansen this morning. Review of Systems A complete review of systems was performed. Pertinent positives are noted above. All other systems are negative. Vital Signs Last 8 Hrs Date Time Temp Pulse Resp B/P Pulse Ox O2 Delivery O2 Flow Rate FiO2 08/09/16 08:31 36.8 70 18 153/83 94 Room Air 08/09/16 03:36 Room Air I & O 24-Hour Column 08/09/16 07:59 Intake Total 3670 ml Output Total 1950 ml Balance 1720 ml Last Recorded Weight Weight (Kilograms): 97.000 Physical Exam General Appearance: WD/WN, no apparent distress Head: normocephalic, atraumatic Eyes: normal inspection, sclerae normal ENT: normal ENT inspection, pharynx normal Neck: supple, no JVD Respiratory/Chest: lungs clear, no respiratory distress, no accessory muscle use Cardiovascular: regular rate, rhythm, no murmur Abdomen/GI: non tender, soft Genitourinary - Male: + pertinent finding (Cotton draining yellow urine) Extremities/Musculoskelatal: normal inspection, no pedal edema Neurologic/Psych: alert, oriented x 3 Family History Hypertension Social History Smoking Status: Former smoker Drug Use: none Marital Status: Housing Status: lives with family Occupation: retired, other Laboratory Results Past 24 Hours 08/09/16 08:01 Red Blood Count 4.42, Mean Corpuscular Volume 69.9, Mean Corpuscular Hemoglobin 20.6, Mean Corpuscular Hemoglobin Concent 29.4, Mean Platelet Volume 9.4, Neutrophils (%) (Auto) 72.8, Lymphocytes (%) (Auto) 12.5, Monocytes (%) (Auto) 7.2, Eosinophils (%) (Auto) 6.8, Basophils (%) (Auto) 0.2, Neutrophils # (Auto) 6.01, Lymphocytes # (Auto) 1.03, Monocytes # (Auto) 0.59, Eosinophils # (Auto) 0.56, Basophils # (Auto) 0.02 08/09/16 08:01 Test 08/08/16 11:52 08/08/16 12:02 08/08/16 14:56 08/08/16 17:22 Urine Color YELLOW YELLOW Urine Appearance CLOUDY (CLEAR) CLOUDY (CLEAR) Urine pH 5.0 (4.5-7.5) 5.0 (4.5-7.5) Urine Specific [place] 1.023 (1.000-1.030) 1.019 (1.000-1.030) Urine Protein 1+ (NEG) 1+ (NEG) Urine Glucose (UA) 2+ (NEG) 2+ (NEG) Urine Ketones NEG (NEG) NEG (NEG) Urine Occult Blood 2+ (NEG) 2+ (NEG) Urine Nitrite NEG (NEG) NEG (NEG) Urine Bilirubin NEG (NEG) NEG (NEG) Urine Urobilinogen NEG (NEG) NEG (NEG) Urine Leukocyte Esterase NEG (NEG) NEG (NEG) Urine WBC (Auto) 5-10 /hpf (0-5) 1-5 /hpf (0-5) Urine RBC (Auto) >30 /hpf (0-4) 0-4 /hpf (0-4) Urine Hyaline Casts (Auto) 1-5 /lpf (0-5) 1-5 /lpf (0-5) Urine Epithelial Cells (Auto) >30 /lpf (0-5) 20-30 /lpf (0-5) Urine Bacteria (Auto) NEG (NEG) NEG (NEG) Urine Renal Epithelial Cells 5-10 /lpf (0-5) Urine Pathogenic Casts 1-5 GRANULAR CASTS /lpf (0) 5-10 GRANULAR CASTS /lpf (0) Urine Yeast (Auto) (NONE PRSENT) (NONE PRSENT) Bedside Glucose 341 mg/dl (70-99) 213 mg/dl (70-99) Urine Crystals AMORPHOUS SEDIMENT (NONE Test 08/08/16 20:30 08/09/16 00:21 08/09/16 04:10 08/09/16 08:01 Bedside Glucose 208 mg/dl (70-99) 146 mg/dl (70-99) 127 mg/dl (70-99) White Blood Count 8.25 K/uL (4.8-10.8) Red Blood Count 4.42 M/uL (4.7-6.1) Hemoglobin 9.1 g/dL (14.0-18.0) Hematocrit 30.9 % (42-52) Mean Corpuscular Volume 69.9 fL (80-100) Mean Corpuscular Hemoglobin 20.6 pg (25-34) Mean Corpuscular Hemoglobin Concent 29.4 g/dl (32-36) Platelet Count 235 K/uL (130-400) Mean Platelet Volume 9.4 fL (7.4-10.4) Neutrophils (%) (Auto) 72.8 % Lymphocytes (%) (Auto) 12.5 % Monocytes (%) (Auto) 7.2 % Eosinophils (%) (Auto) 6.8 % Basophils (%) (Auto) 0.2 % Neutrophils # (Auto) 6.01 K/uL (1.4-6.5) Lymphocytes # (Auto) 1.03 K/uL (1.2-3.4) Monocytes # (Auto) 0.59 K/uL (0.11-0.59) Eosinophils # (Auto) 0.56 K/uL (0-0.5) Basophils # (Auto) 0.02 K/uL (0-0.2) RDW Standard Deviation 50.3 fL (36.4-46.3) RDW Coefficient of Variation 19.6 % (11.5-14.5) Immature Granulocyte % (Auto) 0.5 % Immature Granulocyte # (Auto) 0.04 K/uL (0.00-0.02) Microcytosis PRESENT Tear Drop Cells 1+ Ovalocytes 1+ Anion Gap 8.0 mmol/L (3-11) Est Creatinine Clear Calc Drug Dose 48.1 ml/min Estimated GFR () 46.0 Estimated GFR (Non- 39.7 BUN/Creatinine Ratio 16.6 (10-20) Calcium Level 7.9 mg/dl (8.5-10.1) Phosphorus Level 2.6 mg/dl (2.5-4.9) Albumin 2.2 gm/dl (3.4-5.0) Test 08/09/16 08:03 Bedside Glucose 148 mg/dl (70-99) Allergies Coded Allergies: Amoxicillin (Unverified Allergy, Intermediate, itching, 01/23/16) Medications Current Inpatient Medications Medications (Trade) Dose Ordered Sig/Doris Route Start Time Stop Time Status Last Admin Dose Admin Acetaminophen (Tylenol Tab) 650 mg Q4H PRN PO 08/05/16 22:30 09/04/16 22:29 Al Hydrox/Mg Hydrox/Simethicone (Maalox Max Susp) 15 ml Q4H PRN PO 08/05/16 22:30 09/04/16 22:29 Polyethylene (Miralax Powder Packet) 17 gm DAILY PRN PO 08/05/16 22:30 09/04/16 22:29 Ondansetron HCl (Zofran Inj) 4 mg Q6H PRN IV 08/05/16 22:30 09/04/16 22:29 Metoprolol Tartrate (Lopressor Tab) 100 mg AMHS PO 08/06/16 00:15 09/05/16 00:14 08/09/16 08:26 100 MG Morphine Sulfate (MoRPHine SULFATE IR TAB) 15 mg QAM PO 08/06/16 09:00 08/20/16 08:59 08/09/16 08:41 15 MG Morphine Sulfate (MoRPHine SULFATE IR TAB) 30 mg HS PO 08/06/16 00:15 08/20/16 00:14 08/08/16 20:21 30 MG Beclomethasone Dipropionate (Qvar Hfa 40 Mcg Inhaler) 2 puffs BID INH 08/06/16 09:00 09/05/16 08:59 08/09/16 08:26 2 PUFFS Glucose (Glucose 40% Gel) 15-30 GRAMS 15 GRAMS... UD PRN PO 08/06/16 00:15 09/05/16 00:14 Glucose (Glucose Chew Tab) 4-8 Tablets 4 Tabl... UD PRN PO 08/06/16 00:15 09/05/16 00:14 Dextrose (Dextrose 50% 50ML Syringe) 25-50ML OF 50% DW IV FOR... UD PRN IV 08/06/16 00:15 09/05/16 00:14 Glucagon (Glucagon Inj) 1 mg UD PRN SQ 08/06/16 00:15 09/05/16 00:14 Hydralazine HCl (HydrALAZINE INJ) 10 mg Q8H PRN IV. 08/06/16 08:15 09/05/16 08:14 Aspirin/Aluminum/ Magnesium/Ca Carb (Ascriptin Tab) 325 mg BID PO 08/07/16 09:00 09/06/16 08:59 08/09/16 08:27 325 MG Hydromorphone HCl (Dilaudid Inj) 0.25 mg Q20M PRN IV 08/06/16 17:30 08/20/16 17:29 08/08/16 19:41 0.5 MG Hydromorphone HCl (Dilaudid Inj) 0.5 mg Q20M PRN IV 08/06/16 17:30 08/20/16 17:29 08/07/16 17:31 0.5 MG Senna/Docusate Sodium (Senokot S Tab) 2 tab HS PO 08/06/16 21:00 09/05/16 20:59 08/08/16 20:22 2 TAB Polyethylene (Miralax Powder Packet) 17 gm Q6 PO 08/08/16 06:00 09/07/16 05:59 08/09/16 06:08 17 GM Magnesium Hydroxide (Milk Of Magnesia Susp) 30 ml DAILY PRN PO 08/06/16 17:30 09/05/16 17:29 Bisacodyl (Dulcolax Supp) 10 mg DAILY PRN DE 08/06/16 17:30 09/05/16 17:29 Insulin Aspart (novoLOG ASPART) SLIDING SCALE G... ACHS SC 08/06/16 21:00 09/06/16 20:59 08/09/16 08:52 8 UNITS Hydromorphone HCl (Dilaudid Tab) `1-2 tabs for pain 1 tab ... Q4H PRN PO 08/07/16 17:00 08/21/16 16:59 08/08/16 18:49 4 MG Tamsulosin HCl (Flomax Cap) 0.4 mg HS PO 08/07/16 21:00 09/06/16 20:59 08/08/16 20:22 0.4 MG Gabapentin (Neurontin Tab) 600 mg BID PO 08/08/16 21:00 09/07/16 20:59 08/09/16 08:27 600 MG Miscellaneous Information (Consult Glycemic Management Pharmacy) 1 ea UD PRN N/A 08/08/16 14:15 09/07/16 14:14 Insulin Glargine (Lantus Solostar Pen) 15 unit BID SC 08/08/16 17:00 09/07/16 16:59 08/09/16 08:52 15 UNIT Ferrous Sulfate (Feosol Tab) 325 mg QAM PO 08/10/16 09:00 09/09/16 08:59 Impression (1) Chronic kidney disease, stage III (moderate) (2) Diabetes mellitus type 2 with complications (3) Hypertension (4) Acute renal insufficiency (5) Polycythemia (6) Fall (7) Fracture of left hip Mr. Juvenal Lainez Is a 71-year-old male with diabetes mellitus, hypertension, polycythemia and chronic kidney disease class 3. His baseline creatinine is 1.4 mg/dL. CKD attributed to hypertensive nephrosclerosis and diabetic nephropathy. Patient presented to the hospital on August 05 after sustaining a left hip fracture from a mechanical fall. Left hip arthroplasty was performed without complications. He developed perioperative acute kidney injury. Serum creatinine peaked at 2.0 mg/dL on 08/08/16. Creatinine was 1.7 mg/dL this morning. He was initially oliguric. This improved after Cotton catheter placement. He has a prior history of WILMAN following BKA. This was attributed to bladder obstruction related to anesthesia. Patient has been started on Flomax. Cotton catheter remains intact. Renal ultrasound did not document any abnormal kidney findings. Urinalysis does show evidence of ATN with a few granular cast. Medications are appropriately dosed for renal function. Volume status remains appropriate. Oral intake acceptable. Recommendations -- Continue to potassium restrict diet -- Avoid NSAIDs -- Maintain even fluid balance - IVF stopped this morning -- Repeat metabolic profile tomorrow AM -- Document I/O's -- Maintain Ctoton to gravity -- Follow up in the nephrology clinic within one week of discharge
[2016-08-09 15:39] VITALS: BP 130/73; PULSE 81; TEMP 36.7; O2SAT 94
[2016-08-09] MEDS: HYDROmorphone HCL 2 MG TAB PO PRN (18:31)
[2016-08-09] MEDS: HYDROmorphone INJ 1 MG/ML SYR IV PRN ×2 (20:17→22:11)
[2016-08-09] MEDS: DOCUSATE SODIUM/SENNA 50/8.6MG TAB PO SCH (21:00)
[2016-08-09 21:53] VITALS: BP 171/84; PULSE 88
[2016-08-09] MEDS: TAMSULOSIN HCL 0.4 MG CAP PO SCH (21:55)
--- NOTE | 2016-08-09 22:41 | Hospitalist Progress Note ---
Hospitalist Progress Note Date of Service August 09, 2016. Subjective Pt evaluation today including: conversation w/ patient Voiding: argueta catheter in place Lu po, renal function improved, pain is controlled, no BM yet Constitutional: No fever Respiratory: No shortness of breath Cardiovascular: No chest pain Abdomen: + constipation All Other Systems: Reviewed and Negative Objective Vital Signs Date Time Temp Pulse Resp B/P Pulse Ox O2 Delivery O2 Flow Rate FiO2 08/09/16 21:53 88 171/84 08/09/16 15:39 36.7 81 18 130/73 94 Room Air 08/09/16 15:30 Room Air 08/09/16 08:31 36.8 70 18 153/83 94 Room Air 08/09/16 08:20 Room Air 08/09/16 03:36 Room Air 08/09/16 00:45 154/82 08/08/16 23:59 36.9 82 15 162/81 93 Room Air Physical Exam General Appearance: WD/WN, no apparent distress Eyes: normal inspection, sclerae normal ENT: hearing grossly normal Neck: trachea midline Respiratory/Chest: lungs clear, normal breath sounds, no respiratory distress, no accessory muscle use Cardiovascular: regular rate, rhythm, no edema, no murmur Abdomen: normal bowel sounds, non tender, soft (but mildly distended) Extremities: no calf tenderness, + pertinent finding (can plantar and dorsiflex left foot, left hip dressing c/d/i, minimal edema of left thigh) Neurologic/Psychiatric: alert, normal mood/affect, oriented x 3 Skin: normal color, warm/dry, no rash Laboratory Results Last 24 Hours Test 08/09/16 00:21 08/09/16 04:10 08/09/16 08:01 08/09/16 08:03 Bedside Glucose 146 mg/dl 127 mg/dl 148 mg/dl White Blood Count 8.25 K/uL Red Blood Count 4.42 M/uL Hemoglobin 9.1 g/dL Hematocrit 30.9 % Mean Corpuscular Volume 69.9 fL Mean Corpuscular Hemoglobin 20.6 pg Mean Corpuscular Hemoglobin Concent 29.4 g/dl Platelet Count 235 K/uL Mean Platelet Volume 9.4 fL Neutrophils (%) (Auto) 72.8 % Lymphocytes (%) (Auto) 12.5 % Monocytes (%) (Auto) 7.2 % Eosinophils (%) (Auto) 6.8 % Basophils (%) (Auto) 0.2 % Neutrophils # (Auto) 6.01 K/uL Lymphocytes # (Auto) 1.03 K/uL Monocytes # (Auto) 0.59 K/uL Eosinophils # (Auto) 0.56 K/uL Basophils # (Auto) 0.02 K/uL RDW Standard Deviation 50.3 fL RDW Coefficient of Variation 19.6 % Immature Granulocyte % (Auto) 0.5 % Immature Granulocyte # (Auto) 0.04 K/uL Microcytosis PRESENT Tear Drop Cells 1+ Ovalocytes 1+ Sodium Level 138 mmol/L Potassium Level 4.0 mmol/L Chloride Level 107 mmol/L Carbon Dioxide Level 23 mmol/L Anion Gap 8.0 mmol/L Blood Urea Nitrogen 28 mg/dl Creatinine 1.70 mg/dl Est Creatinine Clear Calc Drug Dose 48.1 ml/min Estimated GFR () 46.0 Estimated GFR (Non- 39.7 BUN/Creatinine Ratio 16.6 Random Glucose 150 mg/dl Calcium Level 7.9 mg/dl Phosphorus Level 2.6 mg/dl Albumin 2.2 gm/dl Test 08/09/16 12:23 08/09/16 16:53 08/09/16 20:22 Bedside Glucose 242 mg/dl 154 mg/dl 146 mg/dl Assessment and Plan 71 y/o M Hx COPD, DM2, HTN, polycythemia with JAK2 mutation. Presents following mechanical fall having sustained a L subcapital hip fracture. The pt denies CP, SOB, light head or palpitations prior to falling. 1) Hip Fx - orthopedics consulted - now POD #3 status post left bipolar hip repair. Hemoglobin slight drop to 9.1 from 12. Left leg pain improved. -Pain control and bowel regimen -PT/OT, will need rehabilitation placement--> can weight bear as tolerated, left total hip precautions -DVT prophylaxis with aspirin 325 mg by mouth twice a day x 4 weeks -will need f/u with Ortho in 2 weeks post-op 2) DMII- oral meds held. 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 Hemoglobin A1c 7.8% which is fairly well-controlled but with hyperglycemia here which was worsening into the 300s, now improved with addition of Lantus - continue Lantus and SSI -stop glyburide, stop metformin due to renal insufficiency 3) COPD - no evidence of exacerbation - incentive spirometry ordered, weaned off O2 - cont Beclomethasone INH -nebs albuterol prn 4) Neuropathy - cont gabapentin at reduced dose for renal insufficiency 5) HTN -improved control today - cont metoprolol 6) Polycythemia with +JAK2 mutation - stable - he is actually slightly anemic and significantly microcytic following therapeutic bleeding a few months ago. Fe studies consistent with anemia of chronic disease, Transferrin sat is low at 5%, ferritin normal, TIBC high, Fe low -follow CBC -f/u with Heme routinely as outpatient in 1 month -Spoke with Dr. Churchill from [facility] where he is followed and he recommended to NOT supplement with Fe tabs 7) Acute kidney injury in setting of chronic kidney disease stage III, urinary retention-could be due to perioperative hypotension and ATN versus post renal with obstruction. +granular casts in UA. Renal US unrevealing. Glove Turner from baseline 1.2-1.4--> 2.0--> 1.7 after Argueta and IVFs Renal US normal -continue Argueta--> continue Flomax, trial of voiding in 1 week -Follow PRP in 1 week -Appreciate Nephrology consultation-f/u with Dr. Cunningham of Nephrology in 1-2 weeks -aggressive bowel regimen to prevent constipation induced urinary retention Prophylaxis-aspirin twice a day x 4 weeks Disposition-to rehabilitation tomorrow at [facility] Full code
[2016-08-09 23:35] VITALS: BP 159/81; PULSE 82; TEMP 37.2; O2SAT 95
[2016-08-10] MEDS ORDERED: NURSING VERBAL MED ORDER ONE (00:15)
[2016-08-10 06:43] LABS: BASO % 0.5 %; BASO ABS # 0.04 K/uL (0-0.2); EOS % 7.7 %; HEMATOCRIT 32.5 % (42-52); IG% 0.3 %; LYMPH % 17.2 %; LYMPH ABS # 1.27 K/uL (1.2-3.4); MEAN CORPUSCULAR HEMOGLOBIN 20.5 pg (25-34); MEAN CORPUSCULAR HGB CONC 29.2 g/dl (32-36); MEAN PLATELET VOLUME 9.4 fL (7.4-10.4); MONO % 6.8 %; NEUT % 67.5 %; PLATELET COUNT 308 K/uL (130-400); RED BLOOD COUNT 4.64 M/uL (4.7-6.1)
[2016-08-10 07:21] LABS: CREATININE 1.6 mg/dl (0.60-1.40); MAGNESIUM 2.2 mg/dl (1.8-2.4); PHOSPHORUS 2.9 mg/dl (2.5-4.9); POTASSIUM 4.1 mmol/L (3.5-5.1)
[2016-08-10 07:35] VITALS: BP 157/75; PULSE 79; TEMP 37.1; O2SAT 97
[2016-08-10 08:07] LABS: ANISOCYTOSIS PRESENT; COMPLETE YES; POLYCHROMASIA 1+
--- NOTE | 2016-08-10 08:27 | PROGRESS NOTE ---
DATE: 08/10/2016 SUBJECTIVE: A 71-year-old gentleman postop day #4 from a left cemented bipolar hip arthroplasty for a fracture. He seems to be doing okay. He is really struggling rehabilitation huang. Some moderate hip pain, but seems manageable at least if he is lying in bed. OBJECTIVE: VITAL SIGNS: Temperature 37.2. Vital signs stable. GENERAL: Physical examination reveals a pleasant elderly male. He is lying in bed and looks reasonably comfortable. EXTREMITIES: Examination of the left hip reveals the dressing to be clean, dry and intact. The hip appears located. He can dorsiflex and plantarflex his foot appropriately. He is neurologically intact. LABORATORY DATA: Hemoglobin 9.5. Hematocrit 32.5. Electrolytes are relatively stable. Creatinine improved at 1.6 this morning. ASSESSMENT: A 71-year-old gentleman with multiple underlying medical comorbidities, most severe is diabetes and chronic renal insufficiency, postop day #4 from a left bipolar hip arthroplasty for a fracture. He is doing reasonably well. He has not been mobilized much for unclear reasons. PLAN: 1. DVT prophylaxis including thigh-high TEDs, SCDs, and aspirin if his kidneys can tolerate that. Otherwise, subQ heparin. 2. PT/OT. He can weightbear as tolerated. Left total hip protocol. 3. Pain control, doing reasonably well with current pain regimen. 4. Medical management as per the medicine service. 5. Disposition: He is orthopedically stable for discharge and medically stable. I need to see him back 2 weeks postop. Any orthopedic questions can be directed to me at [phone].
[2016-08-10] MEDS ORDERED: FERROUS SULFATE 325 MG TAB PO SCH (09:00)
[2016-08-10] MEDS ORDERED: AMLODIPINE BESYLATE 5 MG TAB PO SCH (09:00)
[2016-08-10] MEDS: INSULIN ASPART 100 UNITS/ML 3 ML PEN SC SCH (09:23)
[2016-08-10] MEDS: BECLOMETHASONE HFA 40 MCG INHALER INH SCH (09:24)
[2016-08-10] MEDS: GABAPENTIN 600 MG TAB PO SCH (09:26)
[2016-08-10] MEDS: ASPIRIN/ALUM/MAGNES/CAL CARB 325 MG TAB PO SCH (09:26)
[2016-08-10] MEDS: METOPROLOL TARTRATE 100 MG TAB PO SCH (09:26)
[2016-08-10] MEDS: MoRPHine SULFATE IR 15 MG TAB (IMMEDIATE RELEASE) PO SCH (09:33)
[2016-08-10] MEDS ORDERED: INSDGIPEN SC (10:03)
[2016-08-10] MEDS ORDERED: NRV5 PO (10:03)
[2016-08-10 11:43] VITALS: BP 157/75; PULSE 79; TEMP 37.1; O2SAT 97
--- NOTE | 2016-08-10 11:54 | Nephrology Progress Note ---
Nephrology Progress Note Date of Service August 10, 2016. Chief Complaint WILMAN/CKD Subjective No acute events overnight. Mr. Lainez was seen and evaluated in his hospital room this morning. He has no acute complaints. Cotton remains intact. No fevers or chills. Appetite is good. Pain well controlled. Anticipate discharge to [facility] today. Review of Systems A complete review of systems was performed. Pertinent positives are noted above. All other systems are negative. Vital Signs Last 8 Hrs Date Time Temp Pulse Resp B/P Pulse Ox O2 Delivery O2 Flow Rate FiO2 08/10/16 11:43 37.1 79 18 97 Room Air 08/10/16 09:00 Room Air 08/10/16 07:35 37.1 79 18 157/75 97 Room Air I & O 24-Hour Column 08/10/16 08:00 Intake Total 460 ml Output Total 2425 ml Balance -1965 ml Last Recorded Weight Weight (Kilograms): 97.000 Physical Exam General Appearance: WD/WN, no apparent distress Head: normocephalic, atraumatic Eyes: normal inspection, sclerae normal ENT: normal ENT inspection, pharynx normal Neck: supple, no JVD Respiratory/Chest: lungs clear, no respiratory distress, no accessory muscle use Cardiovascular: regular rate, rhythm, no murmur Abdomen/GI: non tender, soft Genitourinary - Male: + pertinent finding (Cotton draining yellow urine, some scrotal and dependent edema noted without tenderness or erythema) Extremities/Musculoskelatal: normal inspection, no pedal edema Neurologic/Psych: alert, oriented x 3 Family History Hypertension Social History Smoking Status: Former smoker Drug Use: none Marital Status: Housing Status: lives with family Occupation: retired, other Laboratory Results Past 24 Hours 08/10/16 06:30 Red Blood Count 4.64, Mean Corpuscular Volume 70.0, Mean Corpuscular Hemoglobin 20.5, Mean Corpuscular Hemoglobin Concent 29.2, Mean Platelet Volume 9.4, Neutrophils (%) (Auto) 67.5, Lymphocytes (%) (Auto) 17.2, Monocytes (%) (Auto) 6.8, Eosinophils (%) (Auto) 7.7, Basophils (%) (Auto) 0.5, Neutrophils # (Auto) 5.00, Lymphocytes # (Auto) 1.27, Monocytes # (Auto) 0.50, Eosinophils # (Auto) 0.57, Basophils # (Auto) 0.04 08/10/16 06:30 Test 08/09/16 12:23 08/09/16 16:53 08/09/16 20:22 08/10/16 06:30 Bedside Glucose 242 mg/dl (70-99) 154 mg/dl (70-99) 146 mg/dl (70-99) White Blood Count 7.40 K/uL (4.8-10.8) Red Blood Count 4.64 M/uL (4.7-6.1) Hemoglobin 9.5 g/dL (14.0-18.0) Hematocrit 32.5 % (42-52) Mean Corpuscular Volume 70.0 fL (80-100) Mean Corpuscular Hemoglobin 20.5 pg (25-34) Mean Corpuscular Hemoglobin Concent 29.2 g/dl (32-36) Platelet Count 308 K/uL (130-400) Mean Platelet Volume 9.4 fL (7.4-10.4) Neutrophils (%) (Auto) 67.5 % Lymphocytes (%) (Auto) 17.2 % Monocytes (%) (Auto) 6.8 % Eosinophils (%) (Auto) 7.7 % Basophils (%) (Auto) 0.5 % Neutrophils # (Auto) 5.00 K/uL (1.4-6.5) Lymphocytes # (Auto) 1.27 K/uL (1.2-3.4) Monocytes # (Auto) 0.50 K/uL (0.11-0.59) Eosinophils # (Auto) 0.57 K/uL (0-0.5) Basophils # (Auto) 0.04 K/uL (0-0.2) RDW Standard Deviation 50.5 fL (36.4-46.3) RDW Coefficient of Variation 19.8 % (11.5-14.5) Immature Granulocyte % (Auto) 0.3 % Immature Granulocyte # (Auto) 0.02 K/uL (0.00-0.02) Polychromasia 1+ Anisocytosis PRESENT Anion Gap 8.0 mmol/L (3-11) Est Creatinine Clear Calc Drug Dose 51.1 ml/min Estimated GFR () 49.5 Estimated GFR (Non- 42.7 BUN/Creatinine Ratio 19.0 (10-20) Calcium Level 8.0 mg/dl (8.5-10.1) Phosphorus Level 2.9 mg/dl (2.5-4.9) Magnesium Level 2.2 mg/dl (1.8-2.4) Albumin 2.4 gm/dl (3.4-5.0) Test 08/10/16 07:54 Bedside Glucose 71 mg/dl (70-99) Allergies Coded Allergies: Amoxicillin (Unverified Allergy, Intermediate, itching, 01/23/16) Medications Current Inpatient Medications Medications (Trade) Dose Ordered Sig/Doris Route Start Time Stop Time Status Last Admin Dose Admin Acetaminophen (Tylenol Tab) 650 mg Q4H PRN PO 08/05/16 22:30 09/04/16 22:29 Al Hydrox/Mg Hydrox/Simethicone (Maalox Max Susp) 15 ml Q4H PRN PO 08/05/16 22:30 09/04/16 22:29 Polyethylene (Miralax Powder Packet) 17 gm DAILY PRN PO 08/05/16 22:30 09/04/16 22:29 Ondansetron HCl (Zofran Inj) 4 mg Q6H PRN IV 08/05/16 22:30 09/04/16 22:29 Metoprolol Tartrate (Lopressor Tab) 100 mg AMHS PO 08/06/16 00:15 09/05/16 00:14 08/10/16 09:26 100 MG Morphine Sulfate (MoRPHine SULFATE IR TAB) 15 mg QAM PO 08/06/16 09:00 08/20/16 08:59 08/10/16 09:33 15 MG Morphine Sulfate (MoRPHine SULFATE IR TAB) 30 mg HS PO 08/06/16 00:15 08/20/16 00:14 08/09/16 22:25 30 MG Beclomethasone Dipropionate (Qvar Hfa 40 Mcg Inhaler) 2 puffs BID INH 08/06/16 09:00 09/05/16 08:59 08/10/16 09:24 2 PUFFS Glucose (Glucose 40% Gel) 15-30 GRAMS 15 GRAMS... UD PRN PO 08/06/16 00:15 09/05/16 00:14 Glucose (Glucose Chew Tab) 4-8 Tablets 4 Tabl... UD PRN PO 08/06/16 00:15 09/05/16 00:14 Dextrose (Dextrose 50% 50ML Syringe) 25-50ML OF 50% DW IV FOR... UD PRN IV 08/06/16 00:15 09/05/16 00:14 Glucagon (Glucagon Inj) 1 mg UD PRN SQ 08/06/16 00:15 09/05/16 00:14 Hydralazine HCl (HydrALAZINE INJ) 10 mg Q8H PRN IV. 08/06/16 08:15 09/05/16 08:14 Aspirin/Aluminum/ Magnesium/Ca Carb (Ascriptin Tab) 325 mg BID PO 08/07/16 09:00 09/06/16 08:59 08/10/16 09:26 325 MG Hydromorphone HCl (Dilaudid Inj) 0.25 mg Q20M PRN IV 08/06/16 17:30 08/20/16 17:29 08/08/16 19:41 0.5 MG Hydromorphone HCl (Dilaudid Inj) 0.5 mg Q20M PRN IV 08/06/16 17:30 08/20/16 17:29 08/09/16 20:17 0.5 MG Senna/Docusate Sodium (Senokot S Tab) 2 tab HS PO 08/06/16 21:00 09/05/16 20:59 08/08/16 20:22 2 TAB Magnesium Hydroxide (Milk Of Magnesia Susp) 30 ml DAILY PRN PO 08/06/16 17:30 09/05/16 17:29 Bisacodyl (Dulcolax Supp) 10 mg DAILY PRN DE 08/06/16 17:30 09/05/16 17:29 08/09/16 12:11 10 MG Insulin Aspart (novoLOG ASPART) SLIDING SCALE G... ACHS SC 08/06/16 21:00 09/06/16 20:59 08/10/16 09:23 4 UNITS Hydromorphone HCl (Dilaudid Tab) `1-2 tabs for pain 1 tab ... Q4H PRN PO 08/07/16 17:00 08/21/16 16:59 08/09/16 18:31 4 MG Tamsulosin HCl (Flomax Cap) 0.4 mg HS PO 08/07/16 21:00 09/06/16 20:59 08/09/16 21:55 0.4 MG Gabapentin (Neurontin Tab) 600 mg BID PO 08/08/16 21:00 09/07/16 20:59 08/10/16 09:26 600 MG Miscellaneous Information (Consult Glycemic Management Pharmacy) 1 ea UD PRN N/A 08/08/16 14:15 09/07/16 14:14 Amlodipine Besylate (Norvasc Tab) 5 mg QAM PO 08/10/16 09:00 09/09/16 08:59 08/10/16 09:25 5 MG Insulin Glargine (Lantus Solostar Pen) 25 unit HS SC 08/10/16 16:45 09/09/16 16:44 Impression (1) Chronic kidney disease, stage III (moderate) (2) Diabetes mellitus type 2 with complications (3) Hypertension (4) Acute renal insufficiency (5) Polycythemia (6) Fall (7) Fracture of left hip Mr. Juvenal Lainez Is a 71-year-old male with diabetes mellitus, hypertension, polycythemia and chronic kidney disease class 3. His baseline creatinine is 1.4 mg/dL. CKD attributed to hypertensive nephrosclerosis and diabetic nephropathy. Patient presented to the hospital on August 05 after sustaining a left hip fracture from a mechanical fall. Left hip arthroplasty was performed without complications. He developed perioperative acute kidney injury. Serum creatinine peaked at 2.0 mg/dL on 08/08/16. Creatinine was 1.6 mg/dL this morning. He was initially oliguric. This improved after Cotton catheter placement. He has a prior history of WILMAN following BKA. This was attributed to bladder obstruction related to anesthesia. Patient has been started on Flomax. Cotton catheter remains intact. Renal ultrasound did not document any abnormal kidney findings. Urinalysis bland with a few granular cast on microscopy. Medications are appropriately dosed for renal function. Volume status remains appropriate. Recommendations -- Repeat metabolic profile within one week of discharge -- Remove Cotton catheter for voiding trial within next few days -- Continue Flomax pending Cotton discontinuation -- Follow up in the nephrology clinic within 1-2 weeks of discharge
[2016-08-10] MEDS ORDERED: INSULIN GLARGINE SOLOSTAR 100 UNITS/ML 3 ML PEN SC SCH (16:45)
--- NOTE | 2016-08-18 17:23 | Discharge Summary ---
Discharge Summary Date of Service August 10, 2016. 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 Pain. COMPARISON: None. DISCUSSION: Fracture subcapital region left hip. Mild superior migration left femoral shaft. No evidence for acetabular protrusion. Moderate degenerative change of all remaining osseous structures. There is no evidence for soft tissue swelling. IMPRESSION: Subcapital fracture left hip. CHEST 1 VW FRONT-NOT PORTABLE CLINICAL HISTORY: fall, hip pain, fx trauma. Pain. COMPARISON STUDY: 05/04/2014 FINDINGS: Lungs are clear. Diaphragms are smooth. Mild fullness the mid to superior mediastinum felt to be secondary to the AP technique. IMPRESSION: No acute process. RENAL ULTRASOUND CLINICAL HISTORY: Renal failure. Urinary retention. COMPARISON STUDY: None. TECHNIQUE: Sonography of the kidneys and the urinary bladder was performed. FINDINGS: The right kidney measures 10.4 x 6.3 x 6.6 cm and the left measures 11 x 6.4 x 6.6 cm. This study is compromised by suboptimal penetration. However, no hydronephrosis was identified. The bladder was collapsed and contain a Cotton catheter. The spleen was mildly enlarged. IMPRESSION: No hydronephrosis. Study mildly compromised by suboptimal penetration. Consultations: Orthopedics Nephrology Medication Reconciliation New Medications: Albuterol Sulf (Albuterol Sulfate) 2.5 Mg/3 Ml Nebu 2.5 MG INH Q4 PRN for SOB/Wheezing for 30 Days Acetaminophen Tab (Tylenol) 325 Mg Tab 650 MG PO Q4H PRN for Pain or Fever for 30 Days, TAB Amlodipine Besylate (Amlodipine Besylate) 5 Mg Tab 5 MG PO QAM for 30 Days, #30 TAB Aspirin Buffered (Leon Carb-Mag (Tri-Buffered Aspirin) 1 Tab Tab 325 MG PO BID for 30 Days, #60 TAB Beclomethasone Dip (Qvar) 120 Puffs/4800 Mcg Aers 2 PUFFS INH BID for 30 Days Bisacodyl (Bisac-Evac) 10 Mg Supp 10 MG MD DAILY PRN for Constipation for 30 Days, SUPP Insulin Aspart (Novolog Flexpen) 100 Units/Ml Inj 0 UNITS SC ACHS for 30 Days Insulin Glargine (Lantus Solostar) 100 Unit/Ml Inj 25 UNIT SC HS for 30 Days Polyethylene (Miralax) 17 Gm Pow 17 GM PO BID for 14 Days Sennosides-Docusate Sodium (Senokot S) 1 Tab Tab 2 TAB PO HS for 30 Days, TAB Tamsulosin HCl (Tamsulosin HCl) 0.4 Mg Cap 0.4 MG PO HS for 30 Days, CAP Changed Medications: Gabapentin (Neurontin) 300 Mg Cap 600 MG PO BID for 30 Days, CAP (Changed from: QAM) Morphine Sulfate Ir (Morphine Sulfate Ir) 15 Mg Tab 30 MG PO Q6H PRN for Pain, #30 TAB (Changed from: HS) Continued Medications: Metoprolol Tartrate (Lopressor) (Lopressor) 50 Mg Tab 100 MG PO AMHS, TAB Discontinued Medications: Aspirin (Aspirin Ec) 81 Mg Tab 81 MG PO DAILY Gabapentin (Neurontin) 300 Mg Cap 1500 MG PO HS, CAP Glyburide (Diabeta) 5 Mg Tab 10 MG PO AMHS, TAB Metformin Hcl (Glucophage) 1,000 Mg Tab 1000 MG PO AMHS, TAB Morphine Sulfate Ir (Morphine Sulfate Ir) 15 Mg Tab 15 MG PO QAM, TAB [Unknown Inhaler] () 1 DOSE INH UD Discharge Exam Review of Systems: Constitutional: No fever Eyes: No problem reported ENT: No problem reported Respiratory: No shortness of breath Cardiovascular: No chest pain Abdomen: No pain, No nausea, No vomiting, No constipation Musculoskeletal: No problem reported Genitourinary - Male: No problem reported Neurologic: No problem reported Psychiatric: No problem reported Endocrine: No problem reported Hematologic / Lymphatic: No problem reported Integumentary: No problem reported Physical Exam: General Appearance: WD/WN, no apparent distress Eyes: normal inspection, sclerae normal ENT: hearing grossly normal, pharynx normal Neck: trachea midline Respiratory/Chest: lungs clear, normal breath sounds, no respiratory distress, no accessory muscle use Cardiovascular: regular rate, rhythm, no edema, no gallop, no murmur Abdomen / GI: normal bowel sounds, non tender, soft, no organomegaly Extremities: no calf tenderness, no pedal edema, + pertinent finding (left hip dressing c/d/i with minimal surrounding edema) Neurologic/Psychiatric: alert, normal mood/affect, + abnormal cerebellar tests Skin: normal color, warm/dry, no rash Hospital Course 71 y/o M Hx COPD, DM2, HTN, polycythemia with JAK2 mutation. Presents following mechanical fall having sustained a L subcapital hip fracture. The pt denies CP, SOB, light head or palpitations prior to falling. 1) Hip Fx, Acute blood loss anemia - orthopedics consulted - now POD #3 status post left bipolar hip repair. Hemoglobin slight drop to 9.1 from 12. Left leg pain improved. -Pain control and bowel regimen -PT/OT, will need rehabilitation placement--> can weight bear as tolerated, left total hip precautions -DVT prophylaxis with aspirin 325 mg by mouth twice a day x 4 weeks -will need f/u with Ortho in 2 weeks post-op 2) DMII- oral meds held. 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 Hemoglobin A1c 7.8% which is fairly well-controlled but with hyperglycemia here which was worsening into the 300s, now improved with addition of Lantus - continue Lantus and SSI -stop glyburide, stop metformin due to renal insufficiency 3) COPD - no evidence of exacerbation - incentive spirometry ordered, weaned off O2 - cont Beclomethasone INH -nebs albuterol prn 4) Neuropathy - cont gabapentin at reduced dose for renal insufficiency 5) HTN -improved control today - cont metoprolol 6) Polycythemia with +JAK2 mutation - stable - he is actually slightly anemic and significantly microcytic following therapeutic bleeding a few months ago. Fe studies consistent with anemia of chronic disease, Transferrin sat is low at 5%, ferritin normal, TIBC high, Fe low -follow CBC -f/u with Heme routinely as outpatient in 1 month -Spoke with Dr. Churchill from [facility] where he is followed and he recommended to NOT supplement with Fe tabs 7) Acute kidney injury in setting of chronic kidney disease stage III, urinary retention-could be due to perioperative hypotension and ATN versus post renal with obstruction. +granular casts in UA. Renal US unrevealing. [employer] from baseline 1.2-1.4--> 2.0--> 1.7 after Cotton and IVFs Renal US normal -continue Cotton--> continue FLomax, trial of voiding in 1 week -Follow PRP in 1 week -Appreciate Nephrology consultation-f/u with Dr. Cunningham of Nephrology in 1-2 weeks -aggressive bowel regimen to prevent constipation induced urinary retention Prophylaxis-aspirin twice a day x 4 weeks Disposition-to rehabilitation today Full code Total Time Spent: Greater than 30 minutes This includes examination of the patient, discharge planning, medication reconciliation, and communication with other providers. Discharge Instructions Please refer to the electronic Patient Visit Report (Discharge Instructions) for additional information. Follow-Up Orthopedics 2 weeks PCP within 1 week Hematology in 1 month Nephrology in 1-2 weeks Additional Copies To Ivette Alvarez M.D.; Sourav Lewis M.D.; Sourav Cunningham D.O.
[2016-11-14] MEDS ORDERED: GABA-1218 PO (21:46)
== END 2016-08-10 12:23 | DRG 470 ==
LOC: ENRESERVDT → ENRESERVTM → EDBD 20:01 → C.EDB 20:02 → C.MSN 22:27 → EDBEDREQSVC 22:42
PROVIDERS: ADMIT Internal Medicine; ATTEND Family Medicine
PROC: 0SRB019 Replacement of Left Hip Joint with Metal Synthetic Substitute, Cemented, Open Approach (ICD-10-PCS; principal; 2016-08-06 11:15)
DX: S72.012A Unspecified intracapsular fracture of left femur, initial encounter for closed fracture (principal); N17.9 Acute kidney failure, unspecified; D62 Acute posthemorrhagic anemia; E11.21 Type 2 diabetes mellitus with diabetic nephropathy; I95.81 Postprocedural hypotension; J44.9 Chronic obstructive pulmonary disease, unspecified; F32.9 Major depressive disorder, single episode, unspecified; I12.9 Hypertensive chronic kidney disease with stage 1 through stage 4 chronic kidney disease, or unspecified chronic kidney disease; E11.40 Type 2 diabetes mellitus with diabetic neuropathy, unspecified; Z89.511 Acquired absence of right leg below knee; D75.1 Secondary polycythemia; Z87.891 Personal history of nicotine dependence; N18.3 Chronic kidney disease, stage 3 (moderate); R33.8 Other retention of urine; W19.XXXA Unspecified fall, initial encounter; Y92.015 Private garage of single-family (private) house as the place of occurrence of the external cause

== ENCOUNTER 2016-11-14 20:24 | Emergency (ER) | payer OTHER ==
[~2016-11-14] VITALS: Ht 177.8 cm; Wt 91.0 kg
[~2016-11-14 20:24] MED LIST changes: +ACET325T96 PO; +ALBINS INH; -ASPEC81 PO; +ASPI325T60 PO; -BECLOMETHASONE INH; -CYAN100020 PO; +DLCS PR; +FLM4 PO; -GLC500 PO; +INSDGIPEN SC; -MCR5 PO; -METO100T14 PO; +METO50TA16 PO; +MORP15TA PO; -MORP30TA23 PO; +MRLP17 PO; +NRV5 PO; +NVLGIPEN SC; +QVRINH40 INH; +SENN8.6T7 PO; -SERT100T PO
[2016-11-14 20:36] VITALS: TEMP 37.1; Ht 177.8 cm; Wt 91.0 kg
[2016-11-14] MEDS ORDERED: SODIUM CHLORIDE 0.9% 1000ML 1,000 ML IV STA (20:39)
[2016-11-14 20:48] VITALS: O2SAT 95
[2016-11-14 21:17] LABS: BASO % 0.4 %; BASO ABS # 0.05 K/uL (0-0.2); EOS % 4.3 %; HEMATOCRIT 43.1 % (42-52); IG% 0.4 %; LYMPH % 9.1 %; LYMPH ABS # 1.06 K/uL (1.2-3.4); MEAN CELL VOLUME 69.3 fL (80-100); MEAN CORPUSCULAR HEMOGLOBIN 20.7 pg (25-34); MEAN CORPUSCULAR HGB CONC 29.9 g/dl (32-36); MONO % 3.8 %; PLATELET COUNT 351 K/uL (130-400); RED BLOOD COUNT 6.22 M/uL (4.7-6.1); WHITE BLOOD COUNT 11.66 K/uL (4.8-10.8)
--- NOTE | 2016-11-14 21:29 | DIAGNOSTIC IMAGING REPORT ---
HEAD WITHOUT CONTRAST (CT) CLINICAL HISTORY: 71 years-old Male with acute head injury status post fall. TECHNIQUE: Multiple axial CT images of the head were obtained without contrast. A dose lowering technique was utilized adhering to the principles of ALARA. CT DOSE: 638.56 mGycm COMPARISON: CT head 01/23/2016 FINDINGS: No acute intracranial hemorrhage, midline shift, mass, large territorial ischemia or abnormal extra-axial collection. There is moderate atrophy with ex vacuo ventriculomegaly. Ill-defined areas of low-attenuation within the periventricular white matter most compatible with chronic microvascular ischemic changes. Vascular calcifications are seen at the level of the skull base. The calvarium is intact. The paranasal sinuses, mastoid air cells, and middle ear cavities are clear. Moderate degenerative changes involve the right temporomandibular joint. IMPRESSION: 1. No acute intracranial abnormality. 2. Atrophy with chronic microvascular ischemic changes. The above report was generated using voice recognition software. It may contain grammatical, syntax or spelling errors. Electronically signed by: Donis Burrows M.D. 11/14/2016 9:28 PM Dictated Date/Time: 11/14/2016 9:26 PM
--- NOTE | 2016-11-14 21:34 | DIAGNOSTIC IMAGING REPORT ---
CERVICAL SPINE W/O CT DOSE: 672.11 mGycm CLINICAL HISTORY: 71 years-old Male with acute neck injury status post fall. COMPARISON: CT cervical spine 01/23/2016. TECHNIQUE: Multiple axial CT images of the cervical spine were obtained without contrast. A dose lowering technique was utilized adhering to the principles of ALARA. FINDINGS: No acute cervical spine fracture or dislocation is identified. Mastoid air cells and middle ear cavities are clear. There is mild right greater than left maxillary and sphenoid sinus disease. The central canal and bilateral foramina are suboptimally assessed by CT. Multilevel intervertebral disc space narrowing with uncovertebral spurring and facet arthropathy is noted. Facet arthrosis is noted most prominently on the right at L3-L4. There is a large posterior disc osteophyte complex which is most pronounced at the C6-C7 level which appears to cause at least mild central canal narrowing. Intervertebral disc space narrowing is most pronounced at the C4-C5 and C5-C6 levels. No significant change from comparison. There are a few nuchal ligament calcifications noted. Lung apices are generally clear. There is atherosclerotic plaquing of the bilateral carotid bulbs. IMPRESSION: 1. No acute cervical spine fracture or subluxation. 2. Multilevel facet arthrosis, intervertebral disc space narrowing and posterior disc osteophyte complex formation without significant change from 01/23/2016. The above report was generated using voice recognition software. It may contain grammatical, syntax or spelling errors. Electronically signed by: Donis Burrows M.D. 11/14/2016 9:33 PM Dictated Date/Time: 11/14/2016 9:29 PM
[2016-11-14 21:36] LABS: ALT/SGPT 13 U/L (12-78); BLOOD UREA NITROGEN 19 mg/dl (7-18); BUN/CREATININE RATIO 14.9 (10-20); CALCIUM 8.9 mg/dl (8.5-10.1); CARBON DIOXIDE 27 mmol/L (21-32); CHLORIDE 101 mmol/L (98-107); GLUCOSE 323 mg/dl (70-99); POTASSIUM 4.2 mmol/L (3.5-5.1); SODIUM 136 mmol/L (136-145)
[2016-11-14 21:39] LABS: AST/SGOT 15 U/L (15-37)
[2016-11-14 21:46] LABS: ALKALINE PHOSPHATASE 169 U/L (45-117)
[2016-11-14] MEDS ORDERED: METO50TA16 PO (21:46)
[2016-11-14] MEDS ORDERED: ACET325T96 PO (21:46)
[2016-11-14] MEDS ORDERED: GABA300C19 PO (21:46)
[2016-11-14] MEDS ORDERED: SYMIN160 INH (21:46)
[2016-11-14] MEDS ORDERED: MORP15TA PO (21:46)
[2016-11-14] MEDS ORDERED: METF-383 PO (21:46)
[2016-11-14] MEDS ORDERED: GABA-113 PO (21:46)
[2016-11-14] MEDS ORDERED: ASPI81TA28 PO (21:46)
[2016-11-14] MEDS ORDERED: ALBINS INH (21:46)
[2016-11-14 22:17] LABS: COMPLETE YES; MICROCYTOSIS PRESENT; TEAR DROP CELLS 1+
--- NOTE | 2016-11-14 22:24 | DIAGNOSTIC IMAGING REPORT ---
LEFT FEMUR 2 VIEWS ROUTINE, PELVIS 1 OR 2 VIEW ROUTINE HISTORY: 71 years-old Male acute left femoral pain status post fall COMPARISON: Pelvis radiographs 08/05/2016 TECHNIQUE: AP view of the pelvis with 2 views of the left femur FINDINGS: PELVIS: Left hip hemiarthroplasty noted without periprosthetic fracture. Vascular calcifications are present. Bones are mildly demineralized. Moderate degenerative changes about the right hip no pelvic fracture identified. FEMUR: Left hip hemiarthroplasty. No periprosthetic fracture. Femur is intact without acute fracture or dislocation. Tricompartmental osteoarthritis about the knee is noted. Stent of the popliteal artery is seen. IMPRESSION: 1. Left hip hemiarthroplasty noted. No evidence of hardware complication. 2. No fracture or dislocation identified involving the pelvis or left femur. 3. Peripheral vascular disease. The above report was generated using voice recognition software. It may contain grammatical, syntax or spelling errors. Electronically signed by: oDnis Burrows M.D. 11/14/2016 10:23 PM Dictated Date/Time: 11/14/2016 10:16 PM
--- NOTE | 2016-11-14 22:24 | DIAGNOSTIC IMAGING REPORT ---
LEFT FEMUR 2 VIEWS ROUTINE, PELVIS 1 OR 2 VIEW ROUTINE HISTORY: 71 years-old Male acute left femoral pain status post fall COMPARISON: Pelvis radiographs 08/05/2016 TECHNIQUE: AP view of the pelvis with 2 views of the left femur FINDINGS: PELVIS: Left hip hemiarthroplasty noted without periprosthetic fracture. Vascular calcifications are present. Bones are mildly demineralized. Moderate degenerative changes about the right hip no pelvic fracture identified. FEMUR: Left hip hemiarthroplasty. No periprosthetic fracture. Femur is intact without acute fracture or dislocation. Tricompartmental osteoarthritis about the knee is noted. Stent of the popliteal artery is seen. IMPRESSION: 1. Left hip hemiarthroplasty noted. No evidence of hardware complication. 2. No fracture or dislocation identified involving the pelvis or left femur. 3. Peripheral vascular disease. The above report was generated using voice recognition software. It may contain grammatical, syntax or spelling errors. Electronically signed by: Donis Burrows M.D. 11/14/2016 10:23 PM Dictated Date/Time: 11/14/2016 10:16 PM
--- NOTE | 2016-11-14 22:26 | DIAGNOSTIC IMAGING REPORT ---
LEFT FOREARM 2 VIEWS ROUTINE HISTORY: 71 years-old Male acute left arm pain status post fall. COMPARISON: None available TECHNIQUE: 2 views of the left forearm FINDINGS: Trace and ulna appear intact without acute fracture or dislocation. The bones are mildly demineralized. Degenerative changes are noted about the wrist and elbow was severe first carpometacarpal osteoarthritis. Vascular calcifications are noted. No opaque foreign body. There is widening of the scapholunate interval. IMPRESSION: 1. No acute bony abnormality. 2. Degenerative changes about the wrist and elbow. 3. Peripheral vascular disease. 4. Widening of the scapholunate interval suggests ligamentous injury, likely chronic. The above report was generated using voice recognition software. It may contain grammatical, syntax or spelling errors. Electronically signed by: Donis Burrows M.D. 11/14/2016 10:25 PM Dictated Date/Time: 11/14/2016 10:23 PM
--- NOTE | 2016-11-14 22:27 | DIAGNOSTIC IMAGING REPORT ---
CHEST ONE VIEW PORTABLE HISTORY: 71 years-old Male acute weakness COMPARISON: Chest radiograph 08/05/2016 TECHNIQUE: Portable upright AP view of the chest FINDINGS: Cardiac silhouette is within normal limits. Lungs are mildly hypoinflated without pneumothorax, pleural effusion or focal airspace consolidation. The bones are grossly intact. Degenerative changes are seen within the right shoulder. IMPRESSION: No acute cardiopulmonary process. The above report was generated using voice recognition software. It may contain grammatical, syntax or spelling errors. Electronically signed by: Donis Burrows M.D. 11/14/2016 10:26 PM Dictated Date/Time: 11/14/2016 10:25 PM
[2016-11-14 22:28] LABS: MANUAL MICROSCOPIC REQUIRED? NO; REVIEW REQ? NO; URINE APPEARANCE CLEAR (CLEAR); URINE BILIRUBIN NEG (NEG); URINE COLOR YELLOW; URINE EPITHELIAL CELL AUTO 0-5 /lpf (0-5); URINE NITRITE NEG (NEG); URINE SPECIFIC GRAVITY 1.023 (1.000-1.030); UROBILINOGEN NEG (NEG)
[2016-11-14] MEDS ORDERED: MoRPHine SULFATE 4 MG/ML 1 ML CARP\\VIAL IV STA (22:32)
[2016-11-14] MEDS ORDERED: NovoLIN-R INSULIN PER UNIT CHARGE SC STA ×2 (23:07→23:14)
--- NOTE | 2016-11-14 23:26 | DIAGNOSTIC IMAGING REPORT ---
LEFT SHOULDER MIN 2 VIEWS ROUTINE HISTORY: 71 years-old Male l shoulder pain COMPARISON: Chest radiograph 11/14/2016 TECHNIQUE: 3 views of the left shoulder FINDINGS: Moderate glenohumeral and acromioclavicular osteoarthritis is noted without acute fracture or dislocation. Imaged lung mars are clear. Humeral head is high riding within the glenoid fossa suggesting rotator cuff disease. IMPRESSION: 1. Moderate degenerative changes without acute bony abnormality. 2. Slightly high riding humeral head suggests underlying rotator cuff disease. The above report was generated using voice recognition software. It may contain grammatical, syntax or spelling errors. Electronically signed by: Donis Burrows M.D. 11/14/2016 11:25 PM Dictated Date/Time: 11/14/2016 11:23 PM
[2016-11-15 00:09] VITALS: BP 100/61; PULSE 71; O2SAT 98
--- NOTE | 2016-11-15 01:36 | EMERGENCY ROOM VISIT NOTE ---
History Report prepared by Christen: Rachell Beyer Under the Supervision of: Dr. Jeremy Magallon D.O. First contact with patient: 20:29 Stated Complaint: FALL, HIP & ARM PAIN, UNABLE TO AMBULATE History of Present Illness The patient is a 71 year old male who presents to the Emergency Room with complaints of a fall last night. The patient was in his bathroom when his legs just gave out from under him. He fell straight down onto his legs. He did not fall onto his hip. He has having pain in his left leg, left hip, and left arm. He has arm pain up into his shoulder. He has numbness in his hands. He denies any LOC or head injury. He denies injuring his chest. He also complains of back pain and neck pain. He denies any cough, rhinorrhea, abdominal pain. He notes that he was having trouble with his left leg prior to his fall. He is unable to stand or walk because of the pain in his left hip and leg. His last bowel movement was yesterday. It was normal. He is urinating normally. He was admitted to the hospital with a left hip fracture at the end of July. He was discharged to rehab. He lives with his family at home. He is on baby aspirin. He is on morphine for pain. Source of History: patient Onset: last night Position: other (global) Quality: other (fall) Timing: other (episodic) Associated Symptoms: + neck pain, + back pain, + numbness (in hands), No LOC , No cough, No chest pain, No abdominal pain, No urinary symptoms Note: Pt reports left leg pain, left hip pain, left arm pain. Pt denies rhinorrhea. Review of Systems See HPI for pertinent positives & negatives. A total of 10 systems reviewed and were otherwise negative. Past Medical & Surgical Medical Problems: (1) Acute renal insufficiency (2) Chronic kidney disease, stage III (moderate) (3) COPD (chronic obstructive pulmonary disease) (4) Depression (5) Diabetes mellitus type 2 with complications (6) Diabetes mellitus type II, controlled (7) Great toe amputation status (8) Hip fracture (9) HTN (hypertension) (10) Hypertension (11) Neuropathy (12) Polycythemia Surgical Problems: (1) History of tonsillectomy (2) Hx of below knee amputation Family History Hypertension Social History Smoking Status: Former Smoker Alcohol Use: occasionally Drug Use: none Marital Status: Housing Status: lives with significant other Occupation Status: retired, other Current/Historical Medications Scheduled Aspirin (Aspirin Ec), 81 MG PO DAILY Budesonide/Formoterol Fumarate (Symbicort 160/4.5 Inhaler ), 2 PUFFS INH BID Gabapentin (Neurontin), 600 MG PO QAM Gabapentin (Neurontin), 2,100 MG PO HS Metformin Hcl (Glucophage), 850 MG PO BID Metoprolol Tartrate (Lopressor) (Lopressor), 100 MG PO BID Scheduled PRN Acetaminophen Tab (Tylenol), 650 MG PO Q4H PRN for Pain or Fever Albuterol Sulf (Albuterol Sulfate), 2.5 MG INH Q4H PRN for SOB/Wheezing Morphine Sulfate Ir (Morphine Sulfate Ir), 15 MG PO BID PRN for Pain Allergies Coded Allergies: Amoxicillin (Verified Allergy, Intermediate, itching, 11/14/16) Physical Exam Vital Signs Date Time Temp Pulse Resp B/P (MAP) Pulse Ox O2 Delivery O2 Flow Rate FiO2 11/15/16 00:09 71 16 100/61 98 11/14/16 22:18 72 11/14/16 22:02 70 20 184/95 98 Room Air 11/14/16 21:06 76 20 187/96 98 Room Air 82 166/96 11/14/16 21:02 78 18 96 Room Air 11/14/16 20:48 95 Room Air 11/14/16 20:48 95 Room Air 11/14/16 20:36 37.1 95 20 174/100 95 Room Air Physical Exam GENERAL: sitting up in bed, chronically ill appearing, disheveled HEAD: normal cephalic, atraumatic EYE EXAM: normal conjunctiva, PERRL and EOM's grossly intact OROPHARYNX: no exudate, no erythema, lips, buccal mucosa, and tongue normal and mucous membranes are moist EARS: TMs clear b/l NECK: supple, no nuchal rigidity, no adenopathy, minimal tenderness to the upper cervical spine CHEST: stable to compression anteriorly and posteriorly LUNGS: clear to auscultation. Normal chest wall mechanics HEART: no murmurs, S1 normal and S2 normal ABDOMEN: abdomen soft, non-tender, normo-active bowel sounds, no masses, no rebound or guarding. PELVIS: stable to compression anteriorly and posteriorly BACK: Back is symmetrical on inspection and there is no deformity, no midline tenderness, no CVA tenderness. UPPER EXTREMITIES: minimal tenderness to the left forearm, no scaphoid tenderness, tenderness to palpation of the left shoulder and left mid forearm, diffuse bruising throughout the left upper extremity, small avulsion of skin 1.5 cm to the palmar aspect of the left forearm and elbow. LOWER EXTREMITIES: right lower extremity amputation, mid left femur tenderness on palpation NEURO EXAM: Normal sensorium, cranial nerves II-XII grossly intact, normal speech, no gross weakness of arms, no gross weakness of legs. GCS: 15. Medical Decision & Procedures ER Provider Diagnostic Interpretation: Radiology results as stated below per my review and the radiologist's interpretation: LEFT FEMUR 2 VIEWS ROUTINE, PELVIS 1 OR 2 VIEW ROUTINE HISTORY: 71 years-old Male acute left femoral pain status post fall COMPARISON: Pelvis radiographs 08/05/2016 TECHNIQUE: AP view of the pelvis with 2 views of the left femur FINDINGS: PELVIS: Left hip hemiarthroplasty noted without periprosthetic fracture. Vascular calcifications are present. Bones are mildly demineralized. Moderate degenerative changes about the right hip no pelvic fracture identified. FEMUR: Left hip hemiarthroplasty. No periprosthetic fracture. Femur is intact without acute fracture or dislocation. Tricompartmental osteoarthritis about the knee is noted. Stent of the popliteal artery is seen. IMPRESSION: 1. Left hip hemiarthroplasty noted. No evidence of hardware complication. 2. No fracture or dislocation identified involving the pelvis or left femur. 3. Peripheral vascular disease. The above report was generated using voice recognition software. It may contain grammatical, syntax or spelling errors. Electronically signed by: Donis Burrows M.D. 11/14/2016 10:23 PM Dictated Date/Time: 11/14/2016 10:16 PM HEAD WITHOUT CONTRAST (CT) CLINICAL HISTORY: 71 years-old Male with acute head injury status post fall. TECHNIQUE: Multiple axial CT images of the head were obtained without contrast. A dose lowering technique was utilized adhering to the principles of ALARA. CT DOSE: 638.56 mGycm COMPARISON: CT head 01/23/2016 FINDINGS: No acute intracranial hemorrhage, midline shift, mass, large territorial ischemia or abnormal extra-axial collection. There is moderate atrophy with ex vacuo ventriculomegaly. Ill-defined areas of low-attenuation within the periventricular white matter most compatible with chronic microvascular ischemic changes. Vascular calcifications are seen at the level of the skull base. The calvarium is intact. The paranasal sinuses, mastoid air cells, and middle ear cavities are clear. Moderate degenerative changes involve the right temporomandibular joint. IMPRESSION: 1. No acute intracranial abnormality. 2. Atrophy with chronic microvascular ischemic changes. The above report was generated using voice recognition software. It may contain grammatical, syntax or spelling errors. Electronically signed by: Donis Burrows M.D. 11/14/2016 9:28 PM Dictated Date/Time: 11/14/2016 9:26 PM LEFT FOREARM 2 VIEWS ROUTINE HISTORY: 71 years-old Male acute left arm pain status post fall. COMPARISON: None available TECHNIQUE: 2 views of the left forearm FINDINGS: Trace and ulna appear intact without acute fracture or dislocation. The bones are mildly demineralized. Degenerative changes are noted about the wrist and elbow was severe first carpometacarpal osteoarthritis. Vascular calcifications are noted. No opaque foreign body. There is widening of the scapholunate interval. IMPRESSION: 1. No acute bony abnormality. 2. Degenerative changes about the wrist and elbow. 3. Peripheral vascular disease. 4. Widening of the scapholunate interval suggests ligamentous injury, likely chronic. The above report was generated using voice recognition software. It may contain grammatical, syntax or spelling errors. Electronically signed by: Donis Burrows M.D. 11/14/2016 10:25 PM Dictated Date/Time: 11/14/2016 10:23 PM CHEST ONE VIEW PORTABLE HISTORY: 71 years-old Male acute weakness COMPARISON: Chest radiograph 08/05/2016 TECHNIQUE: Portable upright AP view of the chest FINDINGS: Cardiac silhouette is within normal limits. Lungs are mildly hypoinflated without pneumothorax, pleural effusion or focal airspace consolidation. The bones are grossly intact. Degenerative changes are seen within the right shoulder. IMPRESSION: No acute cardiopulmonary process. The above report was generated using voice recognition software. It may contain grammatical, syntax or spelling errors. Electronically signed by: Donis Burrows M.D. 11/14/2016 10:26 PM Dictated Date/Time: 11/14/2016 10:25 PM CERVICAL SPINE W/O CT DOSE: 672.11 mGycm CLINICAL HISTORY: 71 years-old Male with acute neck injury status post fall. COMPARISON: CT cervical spine 01/23/2016. TECHNIQUE: Multiple axial CT images of the cervical spine were obtained without contrast. A dose lowering technique was utilized adhering to the principles of ALARA. FINDINGS: No acute cervical spine fracture or dislocation is identified. Mastoid air cells and middle ear cavities are clear. There is mild right greater than left maxillary and sphenoid sinus disease. The central canal and bilateral foramina are suboptimally assessed by CT. Multilevel intervertebral disc space narrowing with uncovertebral spurring and facet arthropathy is noted. Facet arthrosis is noted most prominently on the right at L3-L4. There is a large posterior disc osteophyte complex which is most pronounced at the C6-C7 level which appears to cause at least mild central canal narrowing. Intervertebral disc space narrowing is most pronounced at the C4-C5 and C5-C6 levels. No significant change from comparison. There are a few nuchal ligament calcifications noted. Lung apices are generally clear. There is atherosclerotic plaquing of the bilateral carotid bulbs. IMPRESSION: 1. No acute cervical spine fracture or subluxation. 2. Multilevel facet arthrosis, intervertebral disc space narrowing and posterior disc osteophyte complex formation without significant change from 01/23/2016. The above report was generated using voice recognition software. It may contain grammatical, syntax or spelling errors. Electronically signed by: Donis Burrows M.D. 11/14/2016 9:33 PM Dictated Date/Time: 11/14/2016 9:29 PM LEFT SHOULDER MIN 2 VIEWS ROUTINE HISTORY: 71 years-old Male l shoulder pain COMPARISON: Chest radiograph 11/14/2016 TECHNIQUE: 3 views of the left shoulder FINDINGS: Moderate glenohumeral and acromioclavicular osteoarthritis is noted without acute fracture or dislocation. Imaged lung mars are clear. Humeral head is high riding within the glenoid fossa suggesting rotator cuff disease. IMPRESSION: 1. Moderate degenerative changes without acute bony abnormality. 2. Slightly high riding humeral head suggests underlying rotator cuff disease. The above report was generated using voice recognition software. It may contain grammatical, syntax or spelling errors. Electronically signed by: Donis Burrows M.D. 11/14/2016 11:25 PM Dictated Date/Time: 11/14/2016 11:23 PM Laboratory Results 11/14/16 20:55 Red Blood Count 6.22, Mean Corpuscular Volume 69.3, Mean Corpuscular Hemoglobin 20.7, Mean Corpuscular Hemoglobin Concent 29.9, Mean Platelet Volume 10.0, Neutrophils (%) (Auto) 82.0, Lymphocytes (%) (Auto) 9.1, Monocytes (%) (Auto) 3.8, Eosinophils (%) (Auto) 4.3, Basophils (%) (Auto) 0.4, Neutrophils # (Auto) 9.56, Lymphocytes # (Auto) 1.06, Monocytes # (Auto) 0.44, Eosinophils # (Auto) 0.50, Basophils # (Auto) 0.05 11/14/16 20:55 Test 11/14/16 20:55 11/14/16 22:10 11/14/16 23:08 White Blood Count 11.66 K/uL (4.8-10.8) Red Blood Count 6.22 M/uL (4.7-6.1) Hemoglobin 12.9 g/dL (14.0-18.0) Hematocrit 43.1 % (42-52) Mean Corpuscular Volume 69.3 fL (80-100) Mean Corpuscular Hemoglobin 20.7 pg (25-34) Mean Corpuscular Hemoglobin Concent 29.9 g/dl (32-36) Platelet Count 351 K/uL (130-400) Mean Platelet Volume 10.0 fL (7.4-10.4) Neutrophils (%) (Auto) 82.0 % Lymphocytes (%) (Auto) 9.1 % Monocytes (%) (Auto) 3.8 % Eosinophils (%) (Auto) 4.3 % Basophils (%) (Auto) 0.4 % Neutrophils # (Auto) 9.56 K/uL (1.4-6.5) Lymphocytes # (Auto) 1.06 K/uL (1.2-3.4) Monocytes # (Auto) 0.44 K/uL (0.11-0.59) Eosinophils # (Auto) 0.50 K/uL (0-0.5) Basophils # (Auto) 0.05 K/uL (0-0.2) RDW Standard Deviation 48.8 fL (36.4-46.3) RDW Coefficient of Variation 19.6 % (11.5-14.5) Immature Granulocyte % (Auto) 0.4 % Immature Granulocyte # (Auto) 0.05 K/uL (0.00-0.02) Microcytosis PRESENT Tear Drop Cells 1+ Anion Gap 8.0 mmol/L (3-11) Est Creatinine Clear Calc Drug Dose 59.1 ml/min Estimated GFR () 63.6 Estimated GFR (Non- 54.9 BUN/Creatinine Ratio 14.9 (10-20) Calcium Level 8.9 mg/dl (8.5-10.1) Total Bilirubin 0.3 mg/dl (0.2-1) Direct Bilirubin < 0.1 mg/dl (0-0.2) Aspartate Amino Transf (AST/SGOT) 15 U/L (15-37) Alanine Aminotransferase (ALT/SGPT) 13 U/L (12-78) Alkaline Phosphatase 169 U/L (45-117) Troponin I < 0.015 ng/ml (0-0.045) Total Protein 7.1 gm/dl (6.4-8.2) Albumin 3.3 gm/dl (3.4-5.0) Beta-Hydroxybutyric Acid 4.90 mg/dL (0.2-2.81) Urine Color YELLOW Urine Appearance CLEAR (CLEAR) Urine pH 5.0 (4.5-7.5) Urine Specific Declo 1.023 (1.000-1.030) Urine Protein 1+ (NEG) Urine Glucose (UA) 3+ (NEG) Urine Ketones NEG (NEG) Urine Occult Blood TRACE (NEG) Urine Nitrite NEG (NEG) Urine Bilirubin NEG (NEG) Urine Urobilinogen NEG (NEG) Urine Leukocyte Esterase NEG (NEG) Urine WBC (Auto) 1-5 /hpf (0-5) Urine RBC (Auto) 0-4 /hpf (0-4) Urine Hyaline Casts (Auto) 0 /lpf (0-5) Urine Epithelial Cells (Auto) 0-5 /lpf (0-5) Urine Bacteria (Auto) NEG (NEG) Bedside Glucose 305 mg/dl (70-99) Laboratory results per my review. Medications Administered Medications (Trade) Dose Ordered Sig/Doris Route Start Time Stop Time Status Last Admin Dose Admin Sodium Chloride 1,000 ml @ 999 mls/hr Q1H1M STAT IV 11/14/16 20:39 11/14/16 21:39 DC 11/14/16 21:08 999 MLS/HR Morphine Sulfate (MoRPHine SULFATE INJ) 4 mg NOW STAT IV 11/14/16 22:32 11/14/16 22:33 DC 11/14/16 22:41 4 MG Insulin Human Regular (novoLIN-R U-100 PER UNIT) 3 units NOW STAT SC 11/14/16 23:14 11/14/16 23:15 DC 11/14/16 23:28 3 UNITS ECG Indication: weakness Rate (beats per minute): 76 Rhythm: sinus rhythm Findings: 1st degree AV block, Q waves (Inferior), no ectopy, other (normal axis) Comparison ECG Date: 05-Aug-2016 Change: no significant change ED Course ED COURSE: Vital signs were reviewed and showed hypertension. The patients medical record was reviewed The above diagnostic studies were performed and reviewed. ED treatments and interventions as stated above. 2032: The patient was evaluated in room C1B. A complete history and physical examination was performed. 2038: NSS 1000 ml @ 999 mls/hr IV. 2: Morphine Sulfate 4 mg IV. 2300: I reevaluated the patient. I updated him on the results. He notes that he did not take his metformin today. 2314: Insulin Human Regular 3 units SC. 2345: The patient did well with the walker. 2350: Upon reevaluation, the patient is resting comfortably.I discussed my findings with the patient and he understands and agrees with the treatment plan. Based on the patients age, coexisting illnesses, exam and lab findings the decision to treat as an outpatient was made. The patient remained stable while under my care. The patient appeared well at the time of discharge. Medical Decision Differential diagnoses include major intracranial, cervical, spinal, thoracic, abdominal, pelvic and neurologic injury. Fracture, contusion, sprain, strain, laceration, abrasions included as well. Patient is a 71-year-old male who presents to the ER following a fall. He notes he normally and his left leg became weak and lowered himself to the ground. He did not hit his head or lose consciousness. Labs CBC and BMP were unremarkable with the exception of hyperglycemia. Patient did not take his metformin status. No gas. Troponin was negative. UA was unremarkable. Multiple x-rays were obtained and were unremarkable. X-ray of the left forearm suggested widening of the scaphoid lunate the patient was nontender. No splint was applied as he had no tenderness. Patient was able to ambulate in the ER with a walker. Patient was given 3 units of subcutaneous insulin. He was discharged to follow-up with PCP. Discussed with Pt concerning signs and symptoms to watch out for. Pt was instructed to follow up with their PCP and discussed with the patient their option to return to the ED at anytime for persistent or worsening symptoms. The appropriate anticipatory guidance and out- patient management, including indications for return to the emergency department , were explained at length to the patient and understood. Medication Reconcilliation Current Medication List: was personally reviewed by me Blood Pressure Screening Patient's blood pressure: Normal blood pressure Blood pressure disposition: Did not require urgent referral Impression Primary Impression: Contusion of left leg Additional Impressions: Fall Hyperglycemia Scribe Attestation The scribe's documentation has been prepared under my direction and personally reviewed by me in its entirety. I confirm that the note above accurately reflects all work, treatment, procedures, and medical decision making performed by me. Departure Information Dispostion Home / Self-Care Referrals No Doctor, Assigned Forms HOME CARE DOCUMENTATION FORM, IMPORTANT VISIT INFORMATION Patient Instructions Contusion Bone Tx, ED Contusion Hip, My [facility] Additional Instructions Please follow up with your primary care doctor or if you are a student, [facility] with in the next 24 hours. Any worsening of your symptoms, please return to the ED immediately. This includes any fevers greater than 100.4, worsening pain, chest pain, shortness breath, persistent nausea, vomiting, unable to eat or drink, or any other concerning signs or symptoms from your standpoint. X-rays of your left shoulder, chest, left forearm, hips and left femur show no acute fractures. Please take Tylenol or Motrin as needed for pain. Problem Qualifiers Primary Impression: Contusion of left leg Encounter type: initial encounter Qualified Codes: S80.12XA - Contusion of left lower leg, initial encounter Additional Impressions: Fall Encounter type: initial encounter Qualified Codes: W19.XXXA - Unspecified fall, initial encounter
== END 2016-11-15 00:10 | disposition home or self-care (01) ==
LOC: EDBD 20:24 → C.EDC 20:26
DX: S80.12XA Contusion of left lower leg, initial encounter (principal); S51.812A Laceration without foreign body of left forearm, initial encounter; M25.552 Pain in left hip; W19.XXXA Unspecified fall, initial encounter; Y92.002 Bathroom of unspecified non-institutional (private) residence as the place of occurrence of the external cause; Z79.82 Long term (current) use of aspirin; E11.65 Type 2 diabetes mellitus with hyperglycemia; D75.1 Secondary polycythemia; Z79.899 Other long term (current) drug therapy; N18.3 Chronic kidney disease, stage 3 (moderate); I12.9 Hypertensive chronic kidney disease with stage 1 through stage 4 chronic kidney disease, or unspecified chronic kidney disease; Z87.891 Personal history of nicotine dependence; J44.9 Chronic obstructive pulmonary disease, unspecified; F32.9 Major depressive disorder, single episode, unspecified; E11.43 Type 2 diabetes mellitus with diabetic autonomic (poly)neuropathy; Z89.419 Acquired absence of unspecified great toe; Z89.511 Acquired absence of right leg below knee; Z82.49 Family history of ischemic heart disease and other diseases of the circulatory system

== ENCOUNTER 2017-06-20 08:18 | Day surgery (SDC) | payer OTHER ==
[~2017-06-20] VITALS: Ht 182.9 cm; Wt 89.5 kg
[2017-06-20] VITALS (9 sets, daily range): BP systolic 146–175; BP diastolic 74–89; PULSE 69–85; TEMP 36–36.8; O2SAT 95–98; Ht 182.9 cm; Wt 89.5 kg
--- NOTE | 2017-06-20 05:59 | History and Physical ---
History & Physical Date of Service Jun 20, 2017. History & Physical CC: Nonhealing ulcer left foot HPI: Mr. Lainez is a 71-year-old gentleman that we have seen in the past. He has had interventions in the lower extremities in the past resulted in the below -knee amputation of right leg. He fractured his left hip last year and is not totally recovered from it and has difficulty ambulating. He has developed a large blister on the left heel, which has gotten progressively larger over the last month. It has no signs of healing. He has had noninvasive in the past, which showed patent stents, unoccluded peroneal and posterior tibial, but a patent anterior tibial artery. Noninvasives done today showed that the stents in the left leg are patent. There is occlusion of the posterior tibial and peroneal which are known. He has now developed occlusion of the anterior tibial artery in the proximal segment, though reconstitution just distal to it. At this point, in view of the ulcer being present for a year and having trifurcation disease, we recommend arteriography. The patient's allergies include no known allergies. His home medications are reconciled in the chart and include the following: Glyburide, metformin and morphine. The patient's past medical history is positive for diabetes mellitus, peripheral arterial disease. The patient's past surgical history is positive for prior toe amputations on the left foot. His family history is generally noncontributory. The patient's social history is positive for a past history of tobacco use. He quit in 1999 after 30 years of smoking 2 packs per day. The patient states that he drinks approximately 1- 2 cans of beer per day. The patient denies any drug use. His review of systems is negative for fatigue, fever, sweats, weight loss of exercise intolerance, abnormal moles or rashes, vision changes or photophobia, ear pain, sinus problems or sore throat, cough, shortness of breath, hemoptysis or wheezing, chest pain, palpitations, edema or syncope, abdominal pain, nausea , vomiting, diarrhea, constipation, dysuria or hematuria, headaches, dizziness, weakness, numbness, seizures or loss of consciousness. The patient does admit to a history of back pain and that this is chronic. On physical exam the patient's vital signs are as follows: A blood pressure of 146/68 with a heart rate of 68. The patient weighs 209 pounds. In general: The patient is a mildly chronically ill appearing middle aged male in no acute distress. He is well-nourished and well-developed and ambulates without assistance. He is alert and oriented x4 with normal recent and remote memory. His head is normocephalic and atraumatic. His eyes are EOMI. His EENT exam demonstrates no hearing loss, rhinorrhea or pharyngeal erythema. His neck is supple and nontender with a midline trachea without masses or crepitus. His lung exam demonstrates no dyspnea. His breath sounds are clear to auscultation although they are significantly decreased throughout. His cardiovascular exam demonstrates a nondisplaced apical impulse with a regular rate and rhythm without murmurs, rubs, heaves, thrills or gallops. His peripheral pulses are full and equal in all extremities unless otherwise noted. Specifically they are normal in his carotid, brachial, radial and femoral area. He has a right BKA and discoloration of his left 4th toe. His abdomen is soft and nontender with normal active bowel sounds in all four quadrants without guarding or rebound. His musculoskeletal exam demonstrates normal strength for age. His bilateral upper extremities demonstrate no cyanosis, clubbing, varicosities or ulcers. Neurologically the patient has a normal gait and station with grossly intact cranial nerves and grossly intact sensation. Assessment and Plan: Imp: Peripheral arterial disease with left nonhealing foot ulcer. Plan: Patient is admitted for left lower extremity arteriography with possible interventionl. He understands the risks options and benefits and agrees to the procedure.
[~2017-06-20 08:18] MED LIST changes: +ACET-1693 PO; -ACET325T96 PO; -ASPI325T60 PO; +ASPI81TA28 PO; +CLINDAMYCIN 600 MG/54 ML D5W IV SCH; -DLCS PR; -FLM4 PO; +GABA-1218 PO; -INSDGIPEN SC; +METF-383 PO; -MRLP17 PO; -NRV5 PO; -NVLGIPEN SC; -QVRINH40 INH; -SENN8.6T7 PO; +SODIUM CHLORIDE 0.9% 1000ML IV SCH; +SYMIN160 INH
[2017-06-20] MEDS ORDERED: GLC/500 PO (09:01)
[2017-06-20] MEDS ORDERED: GLYB5TAB8 PO (09:05)
[2017-06-20 09:17] LABS: BLOOD UREA NITROGEN 23 mg/dl (7-18); CREATININE 1.47 mg/dl (0.60-1.40)
--- NOTE | 2017-06-20 09:44 | History & Physical Bridge Note ---
H&P Re-Evaluation Bridge Note: I have examined the patient, reviewed the History & Physical and in the interval since the performance of the History & Physical I have noted the following changes of clinical significance: No changes noted
[2017-06-20] MEDS ORDERED: MIDAZOLAM HCL 1 MG/ML 2ML VIAL ONE (09:54)
[2017-06-20] MEDS ORDERED: HEPARIN SOD (PORCINE) 1000 UNIT/ML 10 ML VIAL ONE (09:54)
[2017-06-20] MEDS ORDERED: FENTANYL CITRATE INJ 50 MCG/1 ML 2 ML VIAL ONE ×2 (09:54→11:05)
--- NOTE | 2017-06-20 10:20 | Pre Sedation Assessment ---
Pre Sedation Assessment General Date of Sedation: Jun 20, 2017. Vital Signs Past 12 Hours Date Time Temp Pulse Resp B/P (MAP) Pulse Ox O2 Delivery O2 Flow Rate FiO2 06/20/17 09:05 36.8 69 20 165/84 (111) 95 Room Air Review Cardiovascular: regular rate, rhythm Lungs: lungs clear Pre-Sedation Airway Assessment Smoking Status: Former Smoker Hx of Sleep Apnea: No Short Thick Neck: No Thyro-mental Distance: > 3 Finger Breadths Oral Cavity: WNL Mallampati Classification: Class II ASA Classification: Class II NPO Status Date of Last Intake of Fluids: Jun 19, 2017 Time of Last Intake of Fluids: 1829 Date of Last Intake of Solids: Jun 19, 2017 Time of Last Intake of Solids: 1829 Procedure Planning Contraindications for Sedation: None Current Medications Reviewed: Yes Notes The planned sedation has been discussed with the patient. Informed Consent was obtained. I have identified the patient, determined the appropriateness of sedation and have assessed the patient immediately prior to the procedure. All medicine(s) and interventions are by my order.
[2017-06-20] MEDS ORDERED: MIDAZOLAM HCL 1 MG/ML 2ML VIAL IV ONE (10:38)
[2017-06-20] MEDS ORDERED: LIDOCAINE HCL 1% 20 ML VIAL INJ ONE (10:40)
[2017-06-20] MEDS ORDERED: HEPARIN SOD (PORCINE) 1000 UNIT/ML 10 ML VIAL IV ONE (11:01)
[2017-06-20] MEDS ORDERED: IODIXANOL (VISIPAQUE) 270 MG/ML 150ML XX ONE (11:50)
[2017-06-20] MEDS ORDERED: FENTANYL CITRATE INJ 50 MCG/1 ML 2 ML VIAL IV ONE (11:50)
--- NOTE | 2017-06-20 11:52 | Post Sedation Assessment ---
Post Sedation Assessment General Date of Sedation Jun 20, 2017. Vital Signs: Vital Signs Past 12 Hours Date Time Temp Pulse Resp B/P (MAP) Pulse Ox O2 Delivery O2 Flow Rate FiO2 06/20/17 11:48 16 165/90 100 Room Air 06/20/17 11:45 17 146/89 100 Mask 4 06/20/17 11:40 100 Mask 4 06/20/17 11:35 100 Mask 4 06/20/17 11:30 18 160/81 100 Mask 4 06/20/17 11:25 Mask 4 06/20/17 11:20 Mask 4 06/20/17 11:15 Mask 4 06/20/17 11:10 Mask 4 06/20/17 11:05 Mask 4 06/20/17 11:00 Mask 4 06/20/17 10:55 Mask 4 06/20/17 10:50 Mask 4 06/20/17 10:45 Mask 4 06/20/17 10:40 Mask 4 06/20/17 10:35 Mask 4 06/20/17 10:30 Mask 4 06/20/17 09:05 36.8 69 20 165/84 (111) 95 Room Air Post Procedure Recovery Score Activity: (2) Moves 4 extremities * Respiration: (2) Deep breath/cough Circulation: (2) +/-20% PreAnes Value Consciousness: (2) Fully Awake Oxygen Saturation: (1) O2 needed for >90% Post Anesthesia Score: 9 Discharge Sedation Level of Care: Fast Track Phase II Post Sedation Plan On clinical assessment, the patient appears to have tolerated the sedation without complications. Patient is recovering as anticipated. Patient will continue to be monitored by nursing and may be discharged when sedation discharge criteria are met per below protocol. Upon Completions of procedure and additional 15 minutes continue every 5 minute vital signs and the P.A.R. score; then discharge to a Phase I or Fast Track to Phase II per the following guidelines: * Discharge Patient to appropriate Phase II area if PAR is 8 or greater or return to pre- procedure baseline. The post - procedure orders will be as directed. * If PAR score is less than 8 or not return to pre-procedure baseline then patient will follow Phase I monitoring till PAR is reached for Phase II. The Phase I may be done in procedure room or may call to secure a Phase I area. * If naloxone or flumazenil are used for reversal, hold in Phase I for an additional 60 -120 minutes before discharge to Phase II. Please call the Sedation Physician to re-evaluate and complete post-note for discharge to Phase II area. Do NOT discharge from procedure sedation or Phase 1 until post- sedation evaluation note is complete by procedure /sedation MD Sedation Discharge Instructions to be given to the patient at discharge to home.
--- NOTE | 2017-06-20 11:52 | [facility] Post Operative Brief Note ---
Immediate Operative Summary Operative Date Jun 20, 2017. Pre-Operative Diagnosis Peripheral arterial disease with left nonhealing foot ulcer. Post-Operative Diagnosis Peripheral arterial disease with left nonhealing foot ulcer. Procedure(s) Performed Left Lower Extremity Angiogram Ultrasound Localization of Right Femoral Artery Mechanical Closure of Right Femoral Artery Moderate Sedation [id number] Surgeon Nikki Chief Controller Center Surgeon(s) Rasheeda Estimated Blood Loss 5 Findings Consistent with Post-Op Diagnosis Specimens None Drains None Anesthesia Type IV Sedat Cons RN Only Complication(s) none Disposition Accompanied Pt To Recover: no Disposition:
--- NOTE | 2017-06-20 13:26 | DIAGNOSTIC IMAGING REPORT ---
DATE OF PROCEDURE: 06/20/2017 PREOPERATIVE DIAGNOSIS: Left lower extremity peripheral vascular disease. POSTOPERATIVE DIAGNOSIS: Left lower extremity peripheral vascular disease. PROCEDURE: Left lower extremity diagnostic angiogram, ultrasound guided right femoral access, moderate sedation 70 minutes. SURGEON: Dr. Dominick Jordan. VAULT MECHANIC: Dr. Vijaya Vanessa. ANESTHESIA: Moderate sedation plus local. ESTIMATED BLOOD LOSS: 5 mL. COMPLICATIONS: None. INDICATIONS: Mr. Juvenal Lainez is a 71-year-old gentleman with history of peripheral vascular disease status post previous left lower extremity angiogram with angioplasty of origin of his left AT. He is also status post a right below knee amputation. He was found to have occlusion of his proximal AT on the left and a nonhealing wound on the left foot. For this reason, he was recommended to undergo left lower extremity angiogram and possible intervention. The risks, benefits and alternatives were discussed with the patient and consented to the procedure. DESCRIPTION OF PROCEDURE: The patient was taken to the endovascular suite and placed in the supine position. His bilateral groins were prepped and draped in the usual sterile fashion. A safety timeout was performed and the patient, procedure, and sidedness were correctly identified. Local anesthesia was used to anesthetize the skin overlying the right femoral artery. AN 18 gauge access needle was attempted to be placed in the right femoral artery under palpation. The first attempt was unsuccessful. Ultrasound was then used to identify the right common femoral artery. The right common femoral artery was then accessed again with an 18-gauge access needle under ultrasound guidance. The J wire accompanying sheath was placed through the access needle and into the right common iliac. The needle was removed and a 5-Tongan sheath was placed up the right side. The dilator and wire removed. A short floppy angled Glidewire was placed up the right side and into the infrarenal aorta. A rim catheter was placed up the right side and used to cross the aortic bifurcation. A floppy guidewire was able to be advanced down the left common iliac and into the left external iliac. The rim catheter was advanced over the wire and the wire removed. A left lower extremity angiogram was obtained and showed the common femoral, profunda, and SFA to be patent. The popliteal appeared patient were some areas of disease but nothing that appeared hemodynamically significant. The patient had a 3-vessel tibial disease with occlusion of the origin of the AT as well. This was a new finding relative to his previous angiogram 2 years ago. A long stiff angled Glidewire was then placed into the left SFA. The rim catheter and 5-Tongan sheath were removed. A 6 x 45 destination sheath was advanced over the wire and into the left external iliac. The patient was ____ systemically anticoagulated with 5000 units of intravenous heparin. A 100 cm angled glide catheter was then placed over the wire and advanced down into the left popliteal. This was unfortunately not long enough to reach the AT origin. An angiogram was obtained and showed the area of interest with several collaterals formed where the AC origin was believed to be. Stiff-angled Glidewire was again replaced through the 100 cm angled glide catheter and the catheter removed. A 125 cm multipurpose catheter was placed over the wire and used to select the collateral which is believed to be where the AT origin was on previous angiograms. Several attempts were made to recanalize occluded AT origin. Ultimately, these were unsuccessful. We attempted with a short floppy Glidewire and a long stiff-angled Glidewire. Neither of these was successful. After approximately 30 minutes, we discontinued our efforts to attempt to recannulate the AT origin. The wire and catheter were removed. The sheath was withdrawn and angiogram was obtained of the right groin access site. The access appeared to be over the common femoral. A StarClose device was then brought onto the sterile field. This was inserted into the right groin and the StarClose closure device was deployed. Manual pressure was held over the right groin access site for several minutes with good hemostasis. The patient was awakened and transferred to the recovery area in stable condition. He tolerated the procedure well and there were no immediate complications. He will likely require further intervention in the form of a left femoral to anterior tibial bypass versus a retrograde AT/DP access for recanalization of the left AT origin. We will see the patient back in clinic to discuss this further. Dr. Dominick Jordan was present for the entire procedure.
--- NOTE | 2017-06-20 14:03 | Discharge Instructions ---
Discharge Instructions Date of Service Jun 20, 2017. Visit Reason for Visit: Peripheral Arterial Disease W/Ulcer On Left Heel Discharge Discharge Diagnosis / Problem: Left anterior tibial artery occlusion Discharge Goals Goal(s): Therapeutic intervention Activity Recommendations Activity Limitations: per Instructions/Follow-up section Anesthesia . Post Anesthesia Instructions: If you have had General Anesthesia or IV Sedation: * Do not drive today. * Resume driving when surgeon permits. * Do not make important decisions or sign legal documents today. * Call surgeon for: 1. Temperature elevations greater than 101 degrees F. 2. Uncontrollable pain. 3. Excessive bleeding. 4. Persistent nausea and vomiting. 5. Medication intolerance (nausea, vomiting or rash). * For nausea and vomiting use only clear liquids such as: tea, soda, bouillon until nausea subsides, then gradually increase diet as tolerated. * If you have any concerns or questions, call your surgeon's office. If physician is unavailable and it is an emergency, call 911 or go to the nearest emergency room. . Instructions / Follow-Up Instructions / Follow-Up SPECIAL CARE INSTRUCTIONS: Medications: * Continue to take your medications as directed. If you have been given a prescription for Plavix, please fill it immediately and take as directed. Incision Care: * Your puncture site may have some bruising and minor swelling for about one week. * You will have a small dressing covering your puncture site. You may remove the dressing after 24 hours and shower. You may let the warm soapy water run over it, but be sure to dry the puncture site well and keep it dry. * DO NOT IMMERSE THE INCISION IN A TUB/POOL/etc. UNTIL HEALED. * Puncture sites should be kept covered with a band-aid until it begins to heal. Restrictions: * Depending on whether you leg or arm was punctured to access the arteries, you will be required to lay flat, hold your arm still, or both, for about 4 hours after the procedure to prevent bleeding. * Limit your activity for the first 48 hours. You may walk and go up and down steps. Avoid excessive bending or movement at the puncture site. Possible Complications: * Excessive Swelling - after blood flow is improved you may notice increased swelling in the lower legs. This is a normal response. This usually depends on the amount of blockages in the leg, how long they have been there prior to your procedure and how much blood flow was restored. Elevating your legs will help to improve this. Please notify our office ([phone] ) if the swelling does not go away after lying in bed overnight. * Infection/Drainage/Bleeding - Drainage or bleeding from the puncture site should be minimal. If you have excessive bleeding or drainage, call our office ([phone]) right away. * Pain - You may experience some mild pain or soreness at your puncture site. If your pain does not improve, please contact our office ([phone]). Call your doctor and seek emergent treatment if you develop: * Temperature above 101 degrees * Any fever or chills * Any redness or purulent drainage from the puncture site * Any new dusky/blue colored toes or feet with coolness or sharp or aching pain. SKIN IRRITATION: * You may experience some redness and/or swelling in the area where radiation was administered. If any skin irritation occurs, please contact your family physician. FOLLOW UP VISIT: Keep any scheduled doctor appointments. Diet Recommendations Recommended Home Diet: resume previous diet Procedures Procedures Performed: Left Lower Extremity Angiogram Ultrasound Localization of Right Femoral Artery Mechanical Closure of Right Femoral Artery Moderate Sedation [id number] Pending Studies Studies pending at discharge: no Medical Emergencies . Who to Call and When: Medical Emergencies: If at any time you feel your situation is an emergency, please call 911 immediately. . Non-Emergent Contact Non-Emergency issues call your: Surgeon . . "Provider Documentation" section prepared by Dominick Jordan. .
== END 2017-06-20 15:25 | disposition home or self-care (01) ==
LOC: C.ACU 08:18
PROVIDERS: ATTEND Surgery Vascular Surgery
DX: I73.9 Peripheral vascular disease, unspecified (principal); E11.621 Type 2 diabetes mellitus with foot ulcer; L97.529 Non-pressure chronic ulcer of other part of left foot with unspecified severity; Z89.511 Acquired absence of right leg below knee

== ENCOUNTER 2018-06-16 22:08 | Inpatient (IN) ==
[2018-06-16] MEDS ORDERED: ONDANSETRON INJ 2 MG/ML 2 ML VIAL IV STA (23:13)
[2018-06-16] MEDS ORDERED: ACETAMINOPHEN 500 MG TAB PO STA (23:13)
[2018-06-16] MEDS ORDERED: SODIUM CHLORIDE 0.9% 500 ML IV SCH (23:15)
[2018-06-16] MEDS: NITROGLYCERIN SL 0.4 MG/TAB TAB SL PRN ×2 (23:26→23:59)
[2018-06-17] MEDS ORDERED: ASPIRIN CHEW 324 MG PO STA (00:01)
[2018-06-17] MEDS: NITROGLYCERIN SL 0.4 MG/TAB TAB SL PRN (00:08)
[2018-06-17 00:16] LABS: Basophils # (auto) 0.07 K/uL (0-0.2); Basophils % (auto) 0.4 %; Eosinophils # (auto) 0.12 K/uL (0-0.5); Eosinophils % (auto) 0.7 %; Hematocrit (blood only) 53.2 % (42-52); Hemoglobin 16.4 g/dL (14.0-18.0); Immature Granulocytes # (auto) 0.07 K/uL (0.00-0.02); Immature Granulocytes % (auto) 0.4 %; Lymphocytes # (auto) 1.38 K/uL (1.2-3.4); Lymphocytes % (auto) 8.1 %; Mean Corpuscular Hgb Conc 30.8 g/dL (32-36); Mean Corpuscular Volume 71.3 fL (80-100); Monocytes # (auto) 0.48 K/uL (0.11-0.59); Monocytes % (auto) 2.8 %; Neutrophils # (auto) 14.88 K/uL (1.4-6.5); Neutrophils % (auto) 87.6 %; Platelet Count 280 K/uL (130-400); RDW Coefficient of Variation 20.3 % (11.5-14.5); RDW Standard Deviation 50.8 fL (36.4-46.3); Red Blood Count 7.46 M/uL (4.7-6.1)
[2018-06-17 00:28] LABS: Alanine Aminotransferase 15 U/L (12-78); Albumin Globulin Ratio 0.9 (0.9-2); Albumin Level 3.7 gm/dl (3.4-5.0); Alkaline Phosphatase 169 U/L (45-117); Aspartate Aminotransferase 10 U/L (15-37); BUN Creatinine Ratio 20.5 (10-20); Bilirubin,Total 0.4 mg/dl (0.2-1); Blood Urea Nitrogen 35 mg/dl (7-18); Calcium 8.6 mg/dl (8.5-10.1); Carbon Dioxide 22 mmol/L (21-32); Chloride 102 mmol/L (98-107); Est GFR (Non-African American) 39.7; Globulin 4.1 gm/dl (2.5-4.0); Glucose 373 mg/dl (70-99); Potassium 4.4 mmol/L (3.5-5.1); Sodium 136 mmol/L (136-145); Total Protein 7.8 gm/dl (6.4-8.2); Troponin I < 0.015 ng/ml (0-0.045)
[2018-06-17] MEDS ORDERED: fentaNYL citrate 100 MCG/2 ML VIAL IV STA (00:40)
[2018-06-17 00:41] LABS: Anisocytosis Present; Giant Platelets 1+
[2018-06-17 01:13] LABS: Beta-Hydroxybutyrate 17.81 mg/dl (0.2-2.81)
[2018-06-17] MEDS ORDERED: NovoLIN-R INSULIN PER UNIT CHARGE IV STA ×2 (01:29→03:09)
[2018-06-17] MEDS ORDERED: SODIUM CHLORIDE 0.9% 500 ML IV SCH (01:30)
[2018-06-17] MEDS ORDERED: Heparin IV Standard *NO* Bolus IV ONE (03:13)
--- NOTE | 2018-06-17 03:20 | History & Physical Report ---
Date of Service June 17, 2018 Assessment & Plan (1) Chest tightness or pressure: 72yoM with hx of DM2, neuropathy, R BKA, L heel ulcer, L great toe amputation, HTN, COPD, polycythemia and BPH presents with concern of chest tightness a/w palpitations tonight and elevated blood sugars [facility]. Pt was at the [facility] x 4 months and left on friday, 06/12 without insulin. BSGs in 300s, on arrival 373. Presented tonight to the ED for main concern of chest tightness and palpitations which started around 8pm on 06/16. Initial EKG concerning for ST elevations in inferior leads at 22:[address] changes normalized on following EKG at 23:13. Pt received nitro x 1, aspirin 324mg, tylenol 1g, fentanyl 50mcg, 1L IVFs, and 10 u insulin regular. Pt continues to have some chest tightness. Chest tightness/palpitations: concerning for reversible ischemia -EKG at 22:16: NSR [address] elevations in inferior leads -EKG at 23:13: NSR [address] changes -Initial trop <0.015 -Received aspirin 324mg, nitro x1 in the ED with some improvement in pain -Started on heparin drip -Nitro prn -Trend troponin -Complete echo ordered -Cardiology consulted: Dr. Solomon Hyperglycemia: Hx of DM2 -BSG on arrival 373 -AG 12, bicarb 22, B-hydroxybutyrate 17.8 -Given 10u regular insulin x 2 -On SSI -On IVFs NS at 125cc/hr, received 1L NS in ED Diarrhea - no abdominal pain or n/v -Concern for C. Diff given recent hospitalization -C. diff ordered CKDIII with WILMAN -Cr baseline 1.3 -Cr on admission 1.69 -Received 1L NS bolus -On IVF NS at 125cc/hr COPD -Continue home symbicort CV: HTN -Continue home metoprolol, hydralazine, aspirin Hx of polycythemia -H/H - 16.4/53.2 Hx of PTSD/Depression -Continue home sertraline and duloxetine Hx of neuropathy/chronic pain -Continue pregabalin and percocet prn BPH -Continue home flomax DVT prop: On heparin drip Code: Full Dispo: PCU telemetry (2) Acute kidney injury: (3) Heel ulcer: (4) Polycythemia: (5) Hypertension: (6) Diabetes mellitus type 2 with complications: (7) Chronic kidney disease, stage III (moderate): (8) Hx of below knee amputation: (9) Great toe amputation status: (10) Neuropathy: (11) Depression: (12) Polycythemia: (13) COPD (chronic obstructive pulmonary disease): History of Present Illness Primary Care Provider: NO PCP 72yoM with hx of DM2, neuropathy, R BKA, L heel ulcer, L great toe amputation, HTN, COPD, polycythemia and BPH presents with concern of chest tightness a/w palpitations tonight and elevated blood sugars since being [facility]/12 without his insulin. Pt was at the [facility] since 2 weeks before sri for rehab and left on friday, 06/12 but his insulin was not given to him. His sugars at home have been in the 300s. He finally got insulin today but did not know how to administer it. BSG was 373. He presented tonight to the ED for main concern of chest tightness and palpitations which started around 8pm on 06/16. His initial EKG was concerning for ST elevations in inferior leads at 22:[address] changes normalized on following EKG at 23:13. Pt received nitro x 1, aspirin 324mg, tylenol 1g, fentanyl 50mcg, 1L IVFs, and 10 u insulin regular. Pt continues to have some chest tightness. A/w headache, dizziness amadou when he stands up, abdominal pain, diarrhea (more formed now, non-bloody and not dark, x couple of days) Denies any diaphoresis, f/c, sob, n/v, constipation, dysuria, hematuria, hematochezia, melena. Allergies Allergy/AdvReac Type Severity Reaction Status Date / Time amoxicillin Allergy Intermediate itching Verified 06/16/18 23:24 Home Medications Home Medications Medication Instructions Recorded Confirmed Type Symbicort 2 puff INHALATION BID 12/06/17 06/16/18 History aspirin 81 mg PO DAILY 12/06/17 06/16/18 History sertraline 50 mg PO DAILY 12/06/17 06/16/18 History A&D Oint 1 applic TOPICAL 5XD 06/16/18 06/16/18 History Lactobacillus acidophilus 2 tab PO TID 06/16/18 06/16/18 History Menthol/M-Salicylate 10-15% 1 applic TOPICAL UD PRN 06/16/18 06/16/18 History Unknown Insulin 0 units NOT APPLICABLE UD 06/16/18 History acetaminophen [Tylenol] 650 mg PO BID PRN 06/16/18 06/16/18 History duloxetine 30 mg PO DAILY 06/16/18 06/16/18 History hydralazine 10 mg PO Q6 06/16/18 06/16/18 History hydrocortisone 1 applic TOPICAL BID PRN 06/16/18 06/16/18 History lidocaine 1 applic TOPICAL TID PRN 06/16/18 06/16/18 History metoprolol tartrate 50 mg PO BID 06/16/18 06/16/18 History oxycodone-acetaminophen [Percocet] 1 tab PO Q6H PRN 06/16/18 06/16/18 History pramoxine 1 applic [place] UD PRN 06/16/18 06/16/18 History pregabalin [Lyrica] 50 mg PO BID 06/16/18 06/16/18 History tamsulosin [Flomax] 0.4 mg PO DAILY 06/16/18 06/16/18 History Past Med/Surg History Medical History Pressure ulcer of left heel, stage 2 (Acute) Heel ulcer Left heel stage 3 pressure ulcer, POA -treating with Optifoam WOund consult in place Constipation Hyperkalemia Urethral trauma Hematuria Urinary retention BPH NOS w ur obs/LUTS (Chronic) DVT prophylaxis Iron deficiency Polycythemia Chronic heel ulcer Ambulatory dysfunction Generalized weakness (Acute) Fall (Acute) Failure to thrive (Acute) Multiple abrasions (Acute) HTN (hypertension) (Chronic) COPD (chronic obstructive pulmonary disease) (Chronic) Polycythemia Diabetes mellitus type II, controlled (Chronic) Depression (Chronic) Neuropathy (Chronic) Great toe amputation status (Resolved) "L great toe amputation" Acute renal insufficiency Atherosclerosis of extremity with ulceration Chronic kidney disease, stage III (moderate) Contusion of left leg (Acute) Diabetes mellitus type 2 with complications Fall (Acute) Hip fracture Hyperglycemia (Acute) Hypertension PTSD (post-traumatic stress disorder) (Chronic) Surgical History Hx of below knee amputation (Resolved) "R BKA 2013" History of tonsillectomy (Resolved) H/O angioplasty (Chronic) Family History Other No significant family history Social History Preferred Language: [place] Communication Ability: Effective Sexual Assault Social Worker Required: No Beliefs That Will Affect Care: None marital status: Current Living Situation: Spouse Feels Safe at Home: Yes Safety Concerns: Feels Safe At This Time Smoking Status: Former smoker Hx Alcohol Use: No Hx Substance Use: No Review of Systems As per HPI Physical Exam Vital Signs (Past 24 Hours): Last Vital Signs Temp 36.4 C L 06/16/18 22:20 Pulse 80 06/17/18 01:26 Resp 18 06/17/18 01:26 BP 150/76 H 06/17/18 01:26 Pulse Ox 95 06/17/18 01:26 Physical Exam: General: In NAD Neuro: A&O x 4 CV: RRR, no m/r/g Pulm: mild RML and RLL crackles appreciated, equal breath sounds bilaterally, on RA GI: +BS, non-distended, NTTP in all quadrants extremities: L: no calf tenderness, no LE edema; L great toe amputated; R BKA stump warm without any lesions, Results & Data Laboratory Results Abnormal lab results 06/16/18 06/16/18 Range/Units 21:45 21:45 WBC 17.00 H (4.8-10.8) K/uL RBC 7.46 H (4.7-6.1) M/uL Hct 53.2 H (42-52) % MCV 71.3 L (80-100) fL MCH 22.0 L (25-34) pg MCHC 30.8 L (32-36) g/dL RDW Std Deviation 50.8 H (36.4-46.3) fL RDW Coeff of Mohamud 20.3 H (11.5-14.5) % Immature Gran # (Auto) 0.07 H (0.00-0.02) K/uL Neut # (Auto) 14.88 H (1.4-6.5) K/uL Anion Gap 12.0 H (3-11) BUN 35 H (7-18) mg/dl Creatinine 1.69 H (0.6-1.4) mg/dl BUN/Creatinine Ratio 20.5 H (10-20) Glucose 373 H* (70-99) mg/dl AST 10 L (15-37) U/L Alkaline Phosphatase 169 H (45-117) U/L Globulin 4.1 H (2.5-4.0) gm/dl Beta-Hydroxybutyric Acd 17.81 H (0.2-2.81) mg/dl Code Status & VTE Plan Code Status Full - per discussion with pt VTE Prophylaxis Plan VTE Prophylaxis will be ordered: Yes Supervising Physician Co-Signing Physician Notes Attending addendum: I have physically seen this patient, have supervised the medical residents activities, and agree with the H&P unless as otherwise noted. Assessment and Plan: Chest tightness/pressure/palpitations/hypertension-- The patient will be admitted to telemetry for serial cardiac enzymes, serial EKG's, cardiac rhythm monitoring and a 2-D echocardiogram with Dopplers. Initial EKG suggested mild ST elevations in inferior leads, which were resolved with repeat EKG, suggesting reversible ischemia. Patient received aspirin 325 mg, nitroglycerin sublingual x1 in the ED. Continue metoprolol, hydralazine and aspirin. Due to persistent pain, patient was started on heparin drip. Consult cardiology. WILMAN-- Creatinine 1.69, with baseline 1.3. Status post 1 L normal saline in the ED. Continue rehydration at 25 mils per hour, repeat laboratories in a.m. Remainder of orders and notations as noted. Resident Activity Tracking Resident Involvement: Resident Care Provided Care Provided: [facility] Medicine
[2018-06-17 03:41] LABS: INR 1.1 (0.9-1.1); Partial Thromboplastin Ratio 1.2; Partial Thromboplastin Time 32.3 Seconds (21.0-31.0); Prothrombin Time 11.3 Seconds (9.0-12.0)
[2018-06-17] MEDS ORDERED: HEPARIN 25000 UNIT/500 ML D5W IV ONE (03:45)
[2018-06-17] MEDS ORDERED: [UNRECOGNIZED DRUG - MIXTURE] TOP SCH (04:57)
[2018-06-17] MEDS ORDERED: LIDOCAINE HCL 5% OINT 30 GM TUBE TOP PRN (04:57)
[2018-06-17] MEDS ORDERED: ONDANSETRON INJ 2 MG/ML 2 ML VIAL IV PRN (04:57)
[2018-06-17] MEDS ORDERED: GLUCOSE 40% GEL 15 GM TUBE PO PRN (05:15)
[2018-06-17] MEDS ORDERED: CARBOHYDRATES FOR HYPOGLYCEMIA PO PRN (05:15)
[2018-06-17] MEDS ORDERED: DEXTROSE 50% 50 ML SYRINGE IV PRN (05:15)
[2018-06-17] MEDS ORDERED: GLUCOSE 10 TABS/TUBE PO PRN (05:15)
[2018-06-17] MEDS ORDERED: GLUCAGON FOR INJ 1 MG VIAL IM PRN (05:15)
[2018-06-17] MEDS: SODIUM CHLORIDE 0.9% 1000ML 1,000 ML IV SCH ×3 (05:20→20:21)
--- NOTE | 2018-06-17 05:32 | Emergency Department Note ---
Entered by Humphrey Hawkins acting as a scribe for Tracy Viera DO History of Present Illness General Chief complaint: Cardiac Assessment Time Seen by Provider: 06/16/18 22:59 Source: patient History of Present Illness Onset (ago): hour(s) (a few hours ago) Location: chest Pain Consistency: + constant Maximum Pain Intensity: 0 Quality: + other (chest heaviness) Associated symptoms: + other (Positive for a decreased appetite, resolved palpitations, mild nausea, abdominal pain, increased thirst, and a headache.) The patient is a 72 year old male who presents to the emergency department with complaints of constant chest heaviness beginning an hour ago. The patient states that he was recently admitted in a rehab facility in the [facility] in [place] for 3.5 months. He notes that he was given Lyrica for diabetic nerve pain, and he reports that his sugar was elevated while he was in the hospital. The patient states that he was taking insulin in the hospital, but he notes that he was discharged four days ago without any insulin. He reports that he has not been eating a lot for the last few days, and he states that he has not been taking insulin. He notes that his sugar was at 300. He reports that he developed palpitations a few hours ago that have since resolved. He states that he developed chest heaviness an hour ago. He notes that he has not experienced this sort of chest heaviness before. He also complains of mild nausea, abdominal pa in, increased thirst, and a headache. He reports that he has a wound on his foot. The patient states that he has a history of bypass surgery and hypertension, but he notes that he has not had any previous heart attacks. Home Medications Home Medications Medication Instructions Recorded Confirmed Type Symbicort 2 puff INHALATION BID 12/06/17 06/16/18 History aspirin 81 mg PO DAILY 12/06/17 06/16/18 History sertraline 50 mg PO DAILY 12/06/17 06/16/18 History A&D Oint 1 applic TOPICAL 5XD 06/16/18 06/16/18 History Lactobacillus acidophilus 2 tab PO TID 06/16/18 06/16/18 History Menthol/M-Salicylate 10-15% 1 applic TOPICAL UD PRN 06/16/18 06/16/18 History Unknown Insulin 0 units NOT APPLICABLE UD 06/16/18 History acetaminophen [Tylenol] 650 mg PO BID PRN 06/16/18 06/16/18 History duloxetine 30 mg PO DAILY 06/16/18 06/16/18 History hydralazine 10 mg PO Q6 06/16/18 06/16/18 History hydrocortisone 1 applic TOPICAL BID PRN 06/16/18 06/16/18 History lidocaine 1 applic TOPICAL TID PRN 06/16/18 06/16/18 History metoprolol tartrate 50 mg PO BID 06/16/18 06/16/18 History oxycodone-acetaminophen [Percocet] 1 tab PO Q6H PRN 06/16/18 06/16/18 History pramoxine 1 applic AK UD PRN 06/16/18 06/16/18 History pregabalin [Lyrica] 50 mg PO BID 06/16/18 06/16/18 History tamsulosin [Flomax] 0.4 mg PO DAILY 06/16/18 06/16/18 History Allergies Allergy/AdvReac Type Severity Reaction Status Date / Time amoxicillin Allergy Intermediate itching Verified 06/16/18 23:24 Past Med/Surg History Medical History Pressure ulcer of left heel, stage 2 (Acute) Heel ulcer Left heel stage 3 pressure ulcer, POA -treating with Optifoam WOund consult in place Constipation Hyperkalemia Urethral trauma Hematuria Urinary retention BPH NOS w ur obs/LUTS (Chronic) DVT prophylaxis Iron deficiency Polycythemia Chronic heel ulcer Ambulatory dysfunction Generalized weakness (Acute) Fall (Acute) Failure to thrive (Acute) Multiple abrasions (Acute) HTN (hypertension) (Chronic) COPD (chronic obstructive pulmonary disease) (Chronic) Polycythemia Diabetes mellitus type II, controlled (Chronic) Depression (Chronic) Neuropathy (Chronic) Great toe amputation status (Resolved) "L great toe amputation" Acute renal insufficiency Atherosclerosis of extremity with ulceration Chronic kidney disease, stage III (moderate) Contusion of left leg (Acute) Diabetes mellitus type 2 with complications Fall (Acute) Hip fracture Hyperglycemia (Acute) Hypertension PTSD (post-traumatic stress disorder) (Chronic) Surgical History Hx of below knee amputation (Resolved) "R BKA 2013" History of tonsillectomy (Resolved) H/O angioplasty (Chronic) Family History Other No significant family history Social History Preferred Language: Chinese Communication Ability: Effective 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 and A total of 10 systems reviewed and were otherwise negative Physical Exam Vital Signs Vital Signs - 24 hr 06/16/18 22:20 06/16/18 23:16 06/16/18 23:27 Temperature 36.4 C L Temperature Source Oral Sepsis Recent Fever Within 48 Hours No Sepsis New/Unexplained Change in Mental Status No Sepsis Action Taken by Nursing No Action Required Pulse Rate 88 Pulse Rate [Finger] 88 89 Respiratory Rate 15 18 Blood Pressure 209/94 H Blood Pressure [Right Arm] 209/94 H 190/99 H Blood Pressure Mean 132 Blood Pressure Mean [Right Arm] 132 129 Pulse Oximetry 96 96 96 Oxygen Delivery Method Room Air Room Air Room Air 06/16/18 23:31 06/16/18 23:59 06/17/18 00:08 Temperature Temperature Source Sepsis Recent Fever Within 48 Hours Sepsis New/Unexplained Change in Mental Status Sepsis Action Taken by Nursing Pulse Rate Pulse Rate [Finger] 97 H 81 87 Respiratory Rate Blood Pressure Blood Pressure [Right Arm] 166/97 H 187/85 H 143/81 H Blood Pressure Mean Blood Pressure Mean [Right Arm] 120 119 101 Pulse Oximetry Oxygen Delivery Method 06/17/18 01:26 06/17/18 03:42 Temperature Temperature Source Sepsis Recent Fever Within 48 Hours Sepsis New/Unexplained Change in Mental Status Sepsis Action Taken by Nursing Pulse Rate Pulse Rate [Finger] 80 98 H Respiratory Rate 18 18 Blood Pressure Blood Pressure [Right Arm] 150/76 H 138/82 Blood Pressure Mean Blood Pressure Mean [Right Arm] 100 100 Pulse Oximetry 95 96 Oxygen Delivery Method Room Air Room Air HEENT: Head - normocephalic and atraumatic Pupils are equal, round, and reactive to light. Extraocular eye muscles are intact, and sclera are anicteric. Nose - moist nasal mucosa without discharge. Mouth - dry buccal mucosa. Oropharynx is nonerythematous and there is no tonsillar exudate or edema noted. Neck: Supple; no JVD, nuchal rigidity, cervical lymphadenopathy, or auscultated bruits. Heart: Regular rate and rhythm. There is a normal S1 and S2 with no murmurs, clicks, or gallops appreciated. Lungs: Clear to auscultation bilaterally with no wheezes, rales, or rhonchi. Abdomen: Soft, nondistended, with good bowel sounds. There are no palpable pulsatile masses or hepatosplenomegaly. There is no guarding, rigidity, or rebound noted. Diffusely tender. Extremities: No evidence of cyanosis, clubbing, or edema. There are easily palpable peripheral pulses. Diabetic wound on heel of left foot. Right BKA. Skin: hot and dry with poor turgor and no rashes. Course 2302: The patient was evaluated in room A3. A complete history and physical examination were performed. IV lock was established and labs were drawn as above. Previous electronic medical records were reviewed. 2313: Nitroglycerin 0.4mg SL, Zofran 4mg IV, Tylenol 1000mg PO 2315: Nss 500 mls @ 999 mls/hr IV 2356: I reevaluated and updated the patient. He had no relief after the first nitroglycerin. He did not take an aspirin today. 0001: Aspirin 324mg PO 0040: Fentanyl Citrate 50mcg IV 0129: Insulin Human Regular 10 units IV 0130: Nss 500 mls @ 125mls/hr IV 0157: Upon reevaluation, the patient is stable. I discussed the results and treatment plan with the patient. He verbalizes understanding and agreement. I discussed the patient's case with ELI Jung. The patient will be evaluated for further management and care. Consultations Consultation #1: I reviewed the patient's case with ELI Jung. He will evaluate the patient for further management. Time: 01:57 Administered Medications Nitroglycerin (Nitrostat) 0.4 mg SL UD PRN PRN Reason: Chest Pain Stop: 07/16/18 23:12 Last Admin: 06/17/18 00:08 Dose: 0.4 mg Documented by: [id number] Admin: 06/16/18 23:59 Dose: 0.4 mg Documented by: [id number] Admin: 06/16/18 23:26 Dose: 0.4 mg Documented by: [id number] Discontinued Medications Acetaminophen (Tylenol) 1,000 mg PO NOW STA Stop: 06/16/18 23:14 Last Admin: 06/16/18 23:25 Dose: 1,000 mg Documented by: [id number] Aspirin (Aspirin) 324 mg PO NOW STA Stop: 06/17/18 00:02 Last Admin: 06/17/18 00:14 Dose: 324 mg Documented by: [id number] Fentanyl Citrate (Fentanyl Citrate) 50 mcg IV NOW STA Stop: 06/17/18 00:41 Last Admin: 06/17/18 01:23 Dose: 50 mcg Documented by: [id number] Heparin Sodium/Dextrose () 1 ea IV ONE ONE; Protocol Stop: 06/17/18 03:14 Last Admin: 06/17/18 03:56 Dose: Not Given Documented by: [id number] Heparin Sodium/Dextrose (Heparin Sodium/Dextrose) Confirm Administered Dose 25,000 units IV .STK-MED ONE Stop: 06/17/18 03:46 Last Admin: 06/17/18 03:47 Dose: 1,500 units Documented by: [id number] Cosigned by: [id number] Sodium Chloride (Nss) 500 mls @ 999 mls/hr IV .Q31M [facility] Stop: 06/16/18 23:45 Last Infusion: 06/17/18 00:00 Dose: 0 mls/hr Documented by: [id number] Admin: 06/16/18 23:27 Dose: 999 mls/hr Documented by: [id number] Sodium Chloride (Nss) 500 mls @ 125 mls/hr IV .Q4H [facility] Stop: 07/17/18 01:29 Last Admin: 06/17/18 01:37 Dose: 125 mls/hr Documented by: [id number] Insulin Human Regular (Novolin R U-100 Per Unit) 10 units IV NOW STA Stop: 06/17/18 01:30 Last Admin: 06/17/18 01:37 Dose: 10 units Documented by: [id number] Cosigned by: [id number] Insulin Human Regular (Novolin R U-100 Per Unit) 10 units IV NOW STA Stop: 06/17/18 03:10 Last Admin: 06/17/18 03:55 Dose: 10 units Documented by: [id number] Cosigned by: [id number] Ondansetron HCl (Zofran) 4 mg IV NOW STA Stop: 06/16/18 23:14 Last Admin: 06/16/18 23:26 Dose: 4 mg Documented by: [id number] Medical Decision Making Differential Diagnosis The patient is a 72 year old male who presents to the emergency department with complaints of constant chest heaviness beginning an hour ago. Differential diagnoses include: DKA, dehydration, acute coronary syndrome, STEMI, and cardiac dysrhythmia. Medical Records Attestation: I reviewed the patient's medical records. Home Medications Current Medication List: was personally reviewed by me Laboratory Data Attestation: I reviewed the patient's lab results. Result diagrams: 06/16/18 21:45 06/16/18 21:45 Lab Results 06/16/18 06/16/18 06/16/18 Range/Units 21:45 21:45 21:45 WBC 17.00 H (4.8-10.8) K/uL RBC 7.46 H (4.7-6.1) M/uL Hgb 16.4 (14.0-18.0) g/dL Hct 53.2 H (42-52) % MCV 71.3 L (80-100) fL MCH 22.0 L (25-34) pg MCHC 30.8 L (32-36) g/dL RDW Std Deviation 50.8 H (36.4-46.3) fL RDW Coeff of Mohamud 20.3 H (11.5-14.5) % Plt Count 280 (130-400) K/uL Immature Gran % (Auto) 0.4 % Neut % (Auto) 87.6 % Lymph % (Auto) 8.1 % Dod[place]idge % (Auto) 2.8 % Eos % (Auto) 0.7 % Baso % (Auto) 0.4 % Immature Gran # (Auto) 0.07 H (0.00-0.02) K/uL Neut # (Auto) 14.88 H (1.4-6.5) K/uL Lymph # (Auto) 1.38 (1.2-3.4) K/uL Dod[place]idge # (Auto) 0.48 (0.11-0.59) K/uL Eos # (Auto) 0.12 (0-0.5) K/uL Baso # (Auto) 0.07 (0-0.2) K/uL Giant Platelets 1+ Anisocytosis Present PT 11.3 (9.0-12.0) Seconds INR 1.1 (0.9-1.1) APTT 32.3 H (21.0-31.0) Seconds PTT Ratio 1.2 Sodium 136 (136-145) mmol/L Potassium 4.4 (3.5-5.1) mmol/L Chloride 102 (98-107) mmol/L Carbon Dioxide 22 (21-32) mmol/L Anion Gap 12.0 H (3-11) BUN 35 H (7-18) mg/dl Creatinine 1.69 H (0.6-1.4) mg/dl Est Cr Clr Drug Dosing Not Reportable Est GFR ( Amer) 46.0 Est GFR (Non-Af Amer) 39.7 BUN/Creatinine Ratio 20.5 H (10-20) Glucose 373 H* (70-99) mg/dl POC Glucose (70-99) Calcium 8.6 (8.5-10.1) mg/dl Total Bilirubin 0.4 (0.2-1) mg/dl AST 10 L (15-37) U/L ALT 15 (12-78) U/L Alkaline Phosphatase 169 H (45-117) U/L Troponin I < 0.015 (0-0.045) ng/ml Total Protein 7.8 (6.4-8.2) gm/dl Albumin 3.7 (3.4-5.0) gm/dl Globulin 4.1 H (2.5-4.0) gm/dl Albumin/Globulin Ratio 0.9 (0.9-2) Lipase 283 (73-393) U/L Beta-Hydroxybutyric Acd 17.81 H (0.2-2.81) mg/dl 06/17/18 06/17/18 Range/Units 04:40 05:22 WBC (4.8-10.8) K/uL RBC (4.7-6.1) M/uL Hgb (14.0-18.0) g/dL Hct (42-52) % MCV (80-100) fL MCH (25-34) pg MCHC (32-36) g/dL RDW Std Deviation (36.4-46.3) fL RDW Coeff of Mohamud (11.5-14.5) % Plt Count (130-400) K/uL Immature Gran % (Auto) % Neut % (Auto) % Lymph % (Auto) % Doddridge % (Auto) % Eos % (Auto) % Baso % (Auto) % Immature Gran # (Auto) (0.00-0.02) K/uL Neut # (Auto) (1.4-6.5) K/uL Lymph # (Auto) (1.2-3.4) K/uL Dod[place]idge # (Auto) (0.11-0.59) K/uL Eos # (Auto) (0-0.5) K/uL Baso # (Auto) (0-0.2) K/uL Giant Platelets Anisocytosis PT (9.0-12.0) Seconds INR (0.9-1.1) APTT (21.0-31.0) Seconds PTT Ratio Sodium (136-145) mmol/L Potassium (3.5-5.1) mmol/L Chloride (98-107) mmol/L Carbon Dioxide (21-32) mmol/L Anion Gap (3-11) BUN (7-18) mg/dl Creatinine (0.6-1.4) mg/dl Est Cr Clr Drug Dosing Est GFR ( Amer) Est GFR (Non-Af Amer) BUN/Creatinine Ratio (10-20) Glucose (70-99) mg/dl POC Glucose 119 H 130 H (70-99) Calcium (8.5-10.1) mg/dl Total Bilirubin (0.2-1) mg/dl AST (15-37) U/L ALT (12-78) U/L Alkaline Phosphatase (45-117) U/L Troponin I (0-0.045) ng/ml Total Protein (6.4-8.2) gm/dl Albumin (3.4-5.0) gm/dl Globulin (2.5-4.0) gm/dl Albumin/Globulin Ratio (0.9-2) Lipase (73-393) U/L Beta-Hydroxybutyric Acd (0.2-2.81) mg/dl Imaging Data Attestation: I personally reviewed and interpreted this imaging study as follows: My Impression: 1 VIEW CHEST X-RAY: No obvious pneumothorax. No pulmonary infilitrate. ECG Data Attestation: I personally reviewed and interpreted this ECG as follows: Indication: chest pain Rate (beats per minute): 92 Rhythm: normal sinus Findings: + ST elevation (borderline ST segment elevation in inferior leads); no PAC and no PVC Additional Comments: EKG #2: Normal sinus, 86, resolved ST segment changes in the inferior leads. Blood Pressure Blood Pressure Findings: Elevated blood pressure Blood Pressure Disposition: further management by hospitalist CLAU Verma The patient is a 72 year old male who presents to the emergency department with complaints of constant chest heaviness beginning an hour ago. The patient denies any previous episodes similar to this. He denies any cardiac history. A twelve-lead EKG was obtained which initially showed some ST segment elevation in the inferior leads. This EKG was repeated here in the emergency department and those changes seem to have resolved. The patient's blood sugar was significantly elevated near 400. There was an elevated BHA concerning for diabetic ketoacidosis. However, there is no significant anion gap and electrolytes were unremarkable. Patient's creatinine was somewhat more elevated than usual. I discussed the case with the [facility] Hospitalist and they will evaluate for further management. Impression & Plan Substernal chest pain, Acute kidney injury, DKA (diabetic ketoacidosis) Discharge Plan Visit Data *Final* Discharge Date/Time: 06/17/18 04:17 Chief Complaint: Cardiac Assessment ED Provider: Tracy Viera Discharge Problem: Substernal chest pain, Acute kidney injury, DKA (diabetic ketoacidosis) Patient Disposition: Admitted As Inpatient Discharge Instructions Interventions: ED Discharge Assessment Last Done: 06/17/18 04:17 Discharge Problem: DKA (diabetic ketoacidosis) Qualifiers: Diabetes mellitus type: type 2 Diabetes mellitus complication detail: without coma Qualified Code(s): E11.10 - Type 2 diabetes mellitus with ketoacidosis without coma The scribe's documentation has been prepared under my direction and personally reviewed by me in its entirety. I confirm that the note above accurately reflects all work, treatment, procedures, and medical decision making performed by me.
[2018-06-17] MEDS: OXYCODONE/ACETAMINOPHEN 5mg/325mg TAB PO PRN ×2 (05:35→19:33)
[2018-06-17] MEDS: Heparin Adult STANDARD Wt-Based Dextrose 5% 25,000 units/500 mL IV SCH ×2 (05:37→20:19)
[2018-06-17] MEDS ORDERED: INFLUENZA ADMINISTRATION CHARGE ONE (06:00)
[2018-06-17] MEDS ORDERED: INFLUENZA VIRUS QUAD VACCINE 0.5 ML SYR IM ONE (06:00)
[2018-06-17] MEDS: HydrALAZINE 10 MG TAB PO SCH ×4 (06:37→23:56)
[2018-06-17 06:43] LABS: Basophils # (auto) 0.09 K/uL (0-0.2); Basophils % (auto) 0.6 %; Eosinophils # (auto) 0.33 K/uL (0-0.5); Eosinophils % (auto) 2.2 %; Hematocrit (blood only) 45.9 % (42-52); Hemoglobin 13.9 g/dL (14.0-18.0); Immature Granulocytes # (auto) 0.07 K/uL (0.00-0.02); Immature Granulocytes % (auto) 0.5 %; Lymphocytes # (auto) 1.44 K/uL (1.2-3.4); Lymphocytes % (auto) 9.7 %; Mean Corpuscular Hgb Conc 30.3 g/dL (32-36); Mean Corpuscular Volume 70.8 fL (80-100); Mean Platelet Volume 9.7 fL (7.4-10.4); Monocytes # (auto) 0.57 K/uL (0.11-0.59); Monocytes % (auto) 3.8 %; Neutrophils # (auto) 12.35 K/uL (1.4-6.5); Neutrophils % (auto) 83.2 %; Platelet Count 241 K/uL (130-400); RDW Coefficient of Variation 19.9 % (11.5-14.5); RDW Standard Deviation 50.5 fL (36.4-46.3); Red Blood Count 6.48 M/uL (4.7-6.1); White Blood Count 14.85 K/uL (4.8-10.8)
[2018-06-17 07:03] LABS: Anisocytosis Present; Microcytosis Present
--- NOTE | 2018-06-17 07:09 | XRay Report ---
SINGLE VIEW CHEST CLINICAL HISTORY: Atypical chest pain. FINDINGS: An AP, portable, upright chest radiograph is compared to study dated 12/06/2017. The examina tion is degraded by portable technique and patient rotation. The cardiomediastinal silhouette is unr emarkable. The lungs and pleural spaces are clear. No pneumothorax is seen. The bony thorax is grossl y intact. IMPRESSION: No active disease in the chest. Electronically signed by: Jaguar Friedman M.D. 06/17/2018 7:07 AM
[2018-06-17 07:11] LABS: BUN Creatinine Ratio 23.5 (10-20); Blood Urea Nitrogen 32 mg/dl (7-18); Calcium 7.9 mg/dl (8.5-10.1); Carbon Dioxide 20 mmol/L (21-32); Chloride 107 mmol/L (98-107); Creatinine Clr Calc Pharmacy 53.5 ml/min; Est GFR (African American) 59.3; Est GFR (Non-African American) 51.2; Glucose 173 mg/dl (70-99); Potassium 3.6 mmol/L (3.5-5.1); Sodium 137 mmol/L (136-145)
[2018-06-17 07:24] LABS: Troponin I < 0.015 ng/ml (0-0.045)
[2018-06-17] MEDS ORDERED: PERFLUTREN LIPID MICROSPHERE (DEFINITY) IV ONE (07:31)
[2018-06-17] MEDS: INSULIN ASPART 100 UNITS/ML 3 ML PEN SC SCH ×4 (07:56→20:22)
[2018-06-17] MEDS: TAMSULOSIN HCL 0.4 MG CAP PO SCH (08:03)
[2018-06-17] MEDS: LACTOBACILLUS ACIDOPHILUS (FLORANEX) TAB PO SCH ×3 (08:03→19:34)
[2018-06-17] MEDS: SERTRALINE HCL 50 MG TABLET PO SCH (08:04)
[2018-06-17] MEDS: METOPROLOL TARTRATE 50 MG TAB PO SCH ×2 (08:04→19:35)
[2018-06-17] MEDS: DULOXETINE HCL 30 MG CAP PO SCH (08:04)
[2018-06-17] MEDS: BUDESONIDE/FORMOTEROL FUMARATE 160/4.5 60 PUFFS/INHALER INH SCH ×2 (08:05→19:35)
[2018-06-17] MEDS: PREGABALIN 50 MG CAP PO SCH ×2 (08:11→22:01)
--- NOTE | 2018-06-17 10:00 | Cardiology Consultation ---
Date of Consultation June 17, 2018 Assessment & Plan (1) Substernal chest pain: 2. Peripheral arterial disease 3. R BKA 4. Hypertension 5. CKD 6. COPD 7. Generalized weakness Patient was recently discharged home after spending a prolonged period at the [facility] for rehabilitation. Last evening he developed central chest pressure and presented to the ED. His electrocardiogram demonstrates ST changes in the inferior leads which appear to be chronic. Troponin has remained undetectable de spite symptoms >12 hours. His echo demonstrates preserved LV systolic function with inferior wall motion abnormality. No indication for cardiac catheterization at this time. Recommend further ischemic workup with myocardial perfusion scan today or tomorrow. Continue to trend troponin. Supervising Physician Co-Signing Physician Notes Patient seen and evaluated. Agree with History and Physical as outlined by HAZEL Martin. Briefly Mr. Lainez is a 72 year old man with a history of PAD post prior endovascular intervention, DMII, HTN, and CKD admitted with new chest pain at rest. Pain lasted for hours and associated with occasional palpitations. ECG shows questionable old inferior infarct without ST changes. Echo with preserved function and inferior WMA. Troponin negative. At this point suspicion for ACS is relatively low but with risk factors, echo findings agree with proceeding with additional risk stratification with pharmacologic SPECT. In the interim agree with ASA, Heparin, beta-minoo. History of Present Illness Reason for Consultation: Chest pain Attending Physician: Jeremy Mondragon DO History of Present Illness Mr. Lainez is a 72 year old male with a medical history significant for type 2 DM, hypertension, dyslipidemia, CKD, peripheral arterial disease status post left leg femoral to anterior tibial artery bypass graft (07/2017), nonhealing ulcer of his left heel, right BKA, COPD. Patient denies any prior history of coronary artery disease. In July 2017 he underwent left leg bypass grafting with Dr. Jordan. Afterwards he spent several months at the [facility] in [place] for weakness. He was home for a brief period of time and then returned to rehab for continued weakness. He was discharged home on 06/12/18. He did not feel well over the weekend with generalized weakness and poor appetite. His glucose levels were significantly elevated at 300-500. He did not have any insulin at home. Last night around 7 pm while lying in bed he developed central chest pressure with radiation to his neck. He also felt as if his heart was pounding. He called 911 and was brought to [facility]. His EKG demonstrated subtle ST changes in the inferior leads. Troponin was negative. The episode lasted about 3 hours before resolving. Since then he has had recurrent episodes of chest pressure lasting up to one hour in duration. No exacerbating or alleviating factors. He denies shortness of breath, orthopnea, PND or edema. No further palpitations. No lightheadedness, near syncope or syncope. ROS: 10 point ROS completed and otherwise negative unless stated in HPI. Social Hx: and lives in [place], [place]. 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 2 adult children, one with ALS. Quit smoking 20 years ago. Allergies Allergy/AdvReac Type Severity Reaction Status Date / Time amoxicillin Allergy Intermediate itching Verified 06/16/18 23:24 Home Medications Home Medications Medication Instructions Recorded Confirmed Type Symbicort 2 puff INHALATION BID 12/06/17 06/16/18 History aspirin 81 mg PO DAILY 12/06/17 06/16/18 History sertraline 50 mg PO DAILY 12/06/17 06/16/18 History A&D Oint 1 applic TOPICAL 5XD 06/16/18 06/16/18 History Lactobacillus acidophilus 2 tab PO TID 06/16/18 06/16/18 History Menthol/M-Salicylate 10-15% 1 applic TOPICAL UD PRN 06/16/18 06/16/18 History Unknown Insulin 0 units NOT APPLICABLE UD 06/16/18 History acetaminophen [Tylenol] 650 mg PO BID PRN 06/16/18 06/16/18 History duloxetine 30 mg PO DAILY 06/16/18 06/16/18 History hydralazine 10 mg PO Q6 06/16/18 06/16/18 History hydrocortisone 1 applic TOPICAL BID PRN 06/16/18 06/16/18 History lidocaine 1 applic TOPICAL TID PRN 06/16/18 06/16/18 History metoprolol tartrate 50 mg PO BID 06/16/18 06/16/18 History oxycodone-acetaminophen [Percocet] 1 tab PO Q6H PRN 06/16/18 06/16/18 History pramoxine 1 applic HI UD PRN 06/16/18 06/16/18 History pregabalin [Lyrica] 50 mg PO BID 04/02/19 04/02/19 History tamsulosin [Flomax] 0.4 mg PO DAILY 06/16/18 06/16/18 History Patient History Medical History Pressure ulcer of left heel, stage 2 (Acute) Heel ulcer Left heel stage 3 pressure ulcer, POA -treating with Optifoam WOund consult in place Constipation Hyperkalemia Urethral trauma Hematuria Urinary retention BPH NOS w ur obs/LUTS (Chronic) DVT prophylaxis Iron deficiency Polycythemia Chronic heel ulcer Ambulatory dysfunction Generalized weakness (Acute) Fall (Acute) Failure to thrive (Acute) Multiple abrasions (Acute) HTN (hypertension) (Chronic) COPD (chronic obstructive pulmonary disease) (Chronic) Polycythemia Diabetes mellitus type II, controlled (Chronic) Depression (Chronic) Neuropathy (Chronic) Great toe amputation status (Resolved) "L great toe amputation" Acute renal insufficiency Atherosclerosis of extremity with ulceration Chronic kidney disease, stage III (moderate) Contusion of left leg (Acute) Diabetes mellitus type 2 with complications Fall (Acute) Hip fracture Hyperglycemia (Acute) Hypertension PTSD (post-traumatic stress disorder) (Chronic) Surgical History Hx of below knee amputation (Resolved) "R BKA 2013" History of tonsillectomy (Resolved) H/O angioplasty (Chronic) Family History Other No significant family history Social History Preferred Language: Kenyan Communication Ability: Effective 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 HEENT: Head is normal. PERRLA. EOMI. Sclerae anicteric. Ears, nose and throat unremarkable. Mucous membranes moist. Neck: Normal carotid upstrokes, no bruits. No appreciable JVD. Lungs: Clear to auscultation bilaterally without rales, rhonchi or wheezes. Cardiac: Regular rate and rhythm. S1-S2 normal. Grade 1/6 systolic murmur left sternal boder. Abdomen: Soft and nontender. Bowel sounds normal. No mass or organomegaly. No abdominal bruit. Extremities/vascular: R BKA. Left left without edema. Multiple toe amputations. Ulcer of left heel. Left DP/PT pulses non palpable, capillary refill normal. Radial pulses 2+ bilaterally Neurologic: Nonfocal Psychiatric: Affect appropriate. Alert and oriented. Results & Data Laboratory Results Laboratory Results - last 24 hr 06/16/18 06/16/18 06/16/18 21:45 21:45 21:45 WBC 17.00 H RBC 7.46 H Hgb 16.4 Hct 53.2 H MCV 71.3 L MCH 22.0 L MCHC 30.8 L RDW Std Deviation 50.8 H RDW Coeff of Mohamud 20.3 H Plt Count 280 MPV Immature Gran % (Auto) 0.4 Neut % (Auto) 87.6 Lymph % (Auto) 8.1 [place] % (Auto) 2.8 Eos % (Auto) 0.7 Baso % (Auto) 0.4 Immature Gran # (Auto) 0.07 H Neut # (Auto) 14.88 H Lymph # (Auto) 1.38 [place] # (Auto) 0.48 Eos # (Auto) 0.12 Baso # (Auto) 0.07 Giant Platelets 1+ Anisocytosis Present Microcytosis PT 11.3 INR 1.1 APTT 32.3 H PTT Ratio 1.2 Sodium 136 Potassium 4.4 Chloride 102 Carbon Dioxide 22 Anion Gap 12.0 H BUN 35 H Creatinine 1.69 H Est Cr Clr Drug Dosing Not Reportable Est GFR ( Amer) 46.0 Est GFR (Non-Af Amer) 39.7 BUN/Creatinine Ratio 20.5 H Glucose 373 H* POC Glucose Calcium 8.6 Total Bilirubin 0.4 AST 10 L ALT 15 Alkaline Phosphatase 169 H Troponin I < 0.015 Total Protein 7.8 Albumin 3.7 Globulin 4.1 H Albumin/Globulin Ratio 0.9 Lipase 283 Beta-Hydroxybutyric Acd 17.81 H Hepatitis C Ab Screen 06/17/18 06/17/18 06/17/18 04:40 05:22 06:21 WBC RBC Hgb Hct MCV MCH MCHC RDW Std Deviation RDW Coeff of Mohamud Plt Count MPV Immature Gran % (Auto) Neut % (Auto) Lymph % (Auto) [place] % (Auto) Eos % (Auto) Baso % (Auto) Immature Gran # (Auto) Neut # (Auto) Lymph # (Auto) [place] # (Auto) Eos # (Auto) Baso # (Auto) Giant Platelets Anisocytosis Microcytosis PT INR APTT PTT Ratio Sodium Potassium Chloride Carbon Dioxide Anion Gap BUN Creatinine Est Cr Clr Drug Dosing Est GFR ( Amer) Est GFR (Non-Af Amer) BUN/Creatinine Ratio Glucose POC Glucose 119 H 130 H Calcium Total Bilirubin AST ALT Alkaline Phosphatase Troponin I Total Protein Albumin Globulin Albumin/Globulin Ratio Lipase Beta-Hydroxybutyric Acd Hepatitis C Ab Screen Neg 06/17/18 06/17/18 06/17/18 06:21 06:21 07:07 WBC 14.85 H RBC 6.48 H Hgb 13.9 L Hct 45.9 MCV 70.8 L MCH 21.5 L MCHC 30.3 L RDW Std Deviation 50.5 H RDW Coeff of Mohamud 19.9 H Plt Count 241 MPV 9.7 Immature Gran % (Auto) 0.5 Neut % (Auto) 83.2 Lymph % (Auto) 9.7 [place] % (Auto) 3.8 Eos % (Auto) 2.2 Baso % (Auto) 0.6 Immature Gran # (Auto) 0.07 H Neut # (Auto) 12.35 H Lymph # (Auto) 1.44 [place] # (Auto) 0.57 Eos # (Auto) 0.33 Baso # (Auto) 0.09 Giant Platelets Anisocytosis Present Microcytosis Present PT INR APTT PTT Ratio Sodium 137 Potassium 3.6 D Chloride 107 Carbon Dioxide 20 L Anion Gap 10.0 BUN 32 H Creatinine 1.37 D Est Cr Clr Drug Dosing 53.5 Est GFR ( Amer) 59.3 Est GFR (Non-Af Amer) 51.2 BUN/Creatinine Ratio 23.5 H Glucose 173 H POC Glucose 196 H Calcium 7.9 L Total Bilirubin AST ALT Alkaline Phosphatase Troponin I < 0.015 Total Protein Albumin Globulin Albumin/Globulin Ratio Lipase Beta-Hydroxybutyric Acd Hepatitis C Ab Screen Diagnostic Findings Preliminary echo reviewed with Dr Barragan-- Overall preserved LV function with inferior wall hypokinesis ECG Additional Comments: EKGs reviewed --sinus rhythm, ST abnormality inferior leads Telemetry reviewed -- sinus rhythm and sinus tachycardia, no events
[2018-06-17 10:35] LABS: Partial Thromboplastin Ratio 1.6; Partial Thromboplastin Time 44.1 Seconds (21.0-31.0)
[2018-06-17] MEDS ORDERED: HEPARIN IV BOLUS 3,000 UNITS in SYRINGE 0 ML IV ONE (11:00)
[2018-06-17] MEDS: ASPIRIN 81 MG ECTAB PO SCH (11:54)
[2018-06-17 17:58] LABS: Partial Thromboplastin Ratio 2.2
--- NOTE | 2018-06-17 18:49 | Family Medicine Progress Note ---
Date of Service June 17, 2018 Assessment & Plan (1) Chest tightness or pressure: ECG showing changes in the inferior leads which appear to be chronic. No troponin elevation despite 14 hours of unchanging symptoms. Per Cardiology "No indication for cardiac catheterization at this time. Recomm end further ischemic workup with myocardial perfusion scan today or tomorrow. Continue to trend troponin. 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 Lainez. CKDIII with WILMAN -Cr baseline 1.3 Cr on admission 1.69 back down to 1.37 after a liter of fluid COPD -Continue home symbicort CV: HTN -Continue home metoprolol, hydralazine, aspirin PTSD/Depression -Continue home sertraline and duloxetine Hx of neuropathy/chronic pain -Continue pregabalin and percocet prn BPH -Continue home flomax DVT prop: On heparin drip Code: Full Dispo: PCU telemetry (2) Acute kidney injury: (3) WILMAN (acute kidney injury): (4) Heel ulcer: (5) Failure to thrive: (6) Generalized weakness: (7) DVT prophylaxis: Supervising Physician Co-Signing Physician Notes I personally examined the patient and verified all melendrez points of history and exam, discussed case, and agree with decision making with Dr Levy. Feeling okay. Cardiology input appreciated. Notes that he is not been taught how to use insulin. Vitals noted, in general he is awake and alert pleasant no distress. HEENT normal cephalic atraumatic mucous membranes moist. Breathing is unlabored no accessory muscle use good effort. Skin shows no rashes no pallor or icterus. Chest paintroponins negative thus far, anticipate nuc med study tomorrow, cardiology input appreciated Uncontrolled diabetestitrate insulins, extensive education. Otherwise as above Subjective Juvenal Vegas sitting up in bed at bedside this morning. He tells me his chest pain has improved since last night. He is currently feeling better, but and had just spoken to cardiology. He reports that he is comfortable at the moment. He tells us that when he was told he would have to start using insulin at the CT he was never provided with even one second of education or explanation as to how to use his insulin or why it was important to use it. His still hasn't picked up prescription. He is still having no fevers, chills, shortness of breath, palpitations, N/V, abdominal pain, or any issues going to the bathroom. Physical Exam Vital Signs (Past 24 Hours): Last Vital Signs Temp 37.1 C 06/17/18 15:22 Pulse 98 H 06/17/18 16:30 Resp 18 06/17/18 15:22 BP 176/83 H 06/17/18 15:22 Pulse Ox 95 06/17/18 15:22 Constitutional: well developed, well nourished, cooperative and comfortable; no acute distress and not ill appearing Respiratory: normal respiratory effort; no respiratory distress Auscultation: lungs clear to auscultation bilaterally Cardiovascular: Rate/Rhythm: regular rhythm Heart Sounds: no murmur Gastrointestinal (Abdomen): Inspection/Auscultation: abdomen normal to inspec tion; abdomen not distended Percussion/Palpation: abdomen soft; abdomen nontender Musculoskeletal: Left great toe amputated Right below the knee amputation Resident Activity Tracking Resident Involvement: Resident Care Provided Care Provided: Adult Hospital Medicine (1) Failure to thrive Failure to thrive age range: in adult Qualified Code(s): R62.7 - Adult failure to thrive
[2018-06-17 18:57] LABS: Partial Thromboplastin Time 59.2 Seconds (21.0-31.0)
[2018-06-18] MEDS: HYDROCORTISONE 1% CRM 30 GM TUBE EXT PRN (01:28)
[2018-06-18] MEDS: SODIUM CHLORIDE 0.9% 1000ML 1,000 ML IV SCH ×3 (04:26→20:12)
[2018-06-18] MEDS: HydrALAZINE 10 MG TAB PO SCH ×3 (05:54→17:06)
[2018-06-18 06:50] LABS: Basophils # (auto) 0.09 K/uL (0-0.2); Basophils % (auto) 0.7 %; Hematocrit (blood only) 44.1 % (42-52); Hemoglobin 13.5 g/dL (14.0-18.0); Immature Granulocytes # (auto) 0.05 K/uL (0.00-0.02); Immature Granulocytes % (auto) 0.4 %; Lymphocytes # (auto) 1.26 K/uL (1.2-3.4); Mean Corpuscular Hgb Conc 30.6 g/dL (32-36); Mean Corpuscular Volume 70.7 fL (80-100); Mean Platelet Volume 9.7 fL (7.4-10.4); Monocytes # (auto) 0.45 K/uL (0.11-0.59); Monocytes % (auto) 3.6 %; Neutrophils # (auto) 10.22 K/uL (1.4-6.5); Neutrophils % (auto) 81.3 %; Platelet Count 195 K/uL (130-400); RDW Coefficient of Variation 19.8 % (11.5-14.5); RDW Standard Deviation 50.8 fL (36.4-46.3); Red Blood Count 6.24 M/uL (4.7-6.1); White Blood Count 12.57 K/uL (4.8-10.8)
[2018-06-18 07:06] LABS: Partial Thromboplastin Ratio 2.9
[2018-06-18 07:07] LABS: BUN Creatinine Ratio 19.9 (10-20); Calcium 7.8 mg/dl (8.5-10.1); Creatinine Clr Calc Pharmacy 60.1 ml/min; Est GFR (African American) 68.2; Est GFR (Non-African American) 58.9; Partial Thromboplastin Time 79.6 Seconds (21.0-31.0); Potassium 3.5 mmol/L (3.5-5.1)
[2018-06-18 07:24] LABS: Anisocytosis Present
[2018-06-18] MEDS ORDERED: REGADENOSON 0.4 MG/5 ML SYR IV ONE (08:00)
--- NOTE | 2018-06-18 08:42 | Cardiology Progress Note ---
Date of Service June 18, 2018 Assessment & Plan (1) Substernal chest pain: 2. Peripheral arterial disease 3. R BKA 4. Hypertension 5. CKD 6. COPD 7. Generalized weakness Patient without history of coronary artery disease admitted with chest pressure. EKG with possible old inferior infarct without acute changes and echo shows preserved LV function with an inferior wall motion abnormality. Serial troponins negative. At this point he is chest pain free and hemodynamically stable. Suspicion for ACS is low but will have pharmacologic SPECT today for further risk stratification. Continue beta minoo and ASA. Subjective Patient is feeling better today. No recurrent chest pressure since yesterday morning. No shortness of breath, orthopnea or PND. No further palpitations. No lightheadedness, near syncope or syncope. Getting pharmacologic SPECT this morning. Telemetry reviewed-- no events. Physical Exam Vital Signs (Past 24 Hours): Last Vital Signs Temp 36.8 C 06/18/18 06:54 Pulse 74 06/18/18 07:00 Resp 18 06/18/18 06:54 BP 169/73 H 06/18/18 06:54 Pulse Ox 94 06/18/18 06:54 Physical Exam: General: No acute distress, comfortable. HEENT: Head is normal. PERRLA. EOMI. Sclerae anicteric. Ears, nose and throat unremarkable. Mucous membranes moist. Neck: Normal carotid upstrokes, no bruits. No appreciable JVD. Lungs: Clear to auscultation bilaterally without rales, rhonchi or wheezes. Cardiac: Regular rate and rhythm. S1-S2 normal. Grade 1/6 systolic murmur left sternal boder. Abdomen: Soft and nontender. Bowel sounds normal. No mass or organomegaly. No abdominal bruit. Extremities/vascular: R BKA. Left left without edema. Multiple toe amputations. Ulcer of left heel. Left DP/PT pulses non palpable, capillary refill normal. Radial pulses 2+ bilaterally Neurologic: Nonfocal Psychiatric: Affect appropriate. Alert and oriented. Results & Data Laboratory Results Laboratory Results - last 24 hr 06/17/18 06/17/18 06/17/18 06:21 10:16 11:19 WBC RBC Hgb Hct MCV MCH MCHC RDW Std Deviation RDW Coeff of Mohamud Plt Count MPV Immature Gran % (Auto) Neut % (Auto) Lymph % (Auto) [place] % (Auto) Eos % (Auto) Baso % (Auto) Immature Gran # (Auto) Neut # (Auto) Lymph # (Auto) [place] # (Auto) Eos # (Auto) Baso # (Auto) Anisocytosis APTT 44.1 H PTT Ratio 1.6 Sodium Potassium Chloride Carbon Dioxide Anion Gap BUN Creatinine Est Cr Clr Drug Dosing Est GFR ( Amer) Est GFR (Non-Af Amer) BUN/Creatinine Ratio Glucose POC Glucose 240 H Calcium Troponin I Hepatitis C Ab Screen Neg 06/17/18 06/17/18 06/17/18 11:52 16:14 17:22 WBC RBC Hgb Hct MCV MCH MCHC RDW Std Deviation RDW Coeff of Mohamud Plt Count MPV Immature Gran % (Auto) Neut % (Auto) Lymph % (Auto) [place] % (Auto) Eos % (Auto) Baso % (Auto) Immature Gran # (Auto) Neut # (Auto) Lymph # (Auto) [place] # (Auto) Eos # (Auto) Baso # (Auto) Anisocytosis APTT 59.2 H* PTT Ratio 2.2 Sodium Potassium Chloride Carbon Dioxide Anion Gap BUN Creatinine Est Cr Clr Drug Dosing Est GFR ( Amer) Est GFR (Non-Af Amer) BUN/Creatinine Ratio Glucose POC Glucose 249 H Calcium Troponin I < 0.015 Hepatitis C Ab Screen 06/17/18 06/18/18 06/18/18 20:18 06:32 06:32 WBC 12.57 H RBC 6.24 H Hgb 13.5 L Hct 44.1 MCV 70.7 L MCH 21.6 L MCHC 30.6 L RDW Std Deviation 50.8 H RDW Coeff of Mohamud 19.8 H Plt Count 195 MPV 9.7 Immature Gran % (Auto) 0.4 Neut % (Auto) 81.3 Lymph % (Auto) 10.0 [place] % (Auto) 3.6 Eos % (Auto) 4.0 Baso % (Auto) 0.7 Immature Gran # (Auto) 0.05 H Neut # (Auto) 10.22 H Lymph # (Auto) 1.26 [place] # (Auto) 0.45 Eos # (Auto) 0.50 Baso # (Auto) 0.09 Anisocytosis Present APTT PTT Ratio Sodium 137 Potassium 3.5 Chloride 110 H Carbon Dioxide 20 L Anion Gap 7.0 BUN 24 H Creatinine 1.22 Est Cr Clr Drug Dosing 60.1 Est GFR ( Amer) 68.2 Est GFR (Non-Af Amer) 58.9 BUN/Creatinine Ratio 19.9 Glucose 262 H POC Glucose 280 H Calcium 7.8 L Troponin I Hepatitis C Ab Screen 06/18/18 06/18/18 06:32 07:07 WBC RBC Hgb Hct MCV MCH MCHC RDW Std Deviation RDW Coeff of Mohamud Plt Count MPV Immature Gran % (Auto) Neut % (Auto) Lymph % (Auto) [place] % (Auto) Eos % (Auto) Baso % (Auto) Immature Gran # (Auto) Neut # (Auto) Lymph # (Auto) [place] # (Auto) Eos # (Auto) Baso # (Auto) Anisocytosis APTT 79.6 H* PTT Ratio 2.9 Sodium Potassium Chloride Carbon Dioxide Anion Gap BUN Creatinine Est Cr Clr Drug Dosing Est GFR ( Amer) Est GFR (Non-Af Amer) BUN/Creatinine Ratio Glucose POC Glucose 235 H Calcium Troponin I Hepatitis C Ab Screen
[2018-06-18] MEDS ORDERED: INSULIN GLARGINE SOLOSTAR 100 UNITS/ML 3 ML PEN SC SCH (09:00)
[2018-06-18] MEDS: PREGABALIN 50 MG CAP PO SCH ×2 (10:42→20:07)
[2018-06-18] MEDS: INSULIN ASPART 100 UNITS/ML 3 ML PEN SC SCH ×4 (10:43→21:24)
[2018-06-18 10:44] LABS: Estimated Average Glucose 263 mg/dl; Hemoglobin A1C 10.8 % (4.5-5.6)
[2018-06-18] MEDS: TAMSULOSIN HCL 0.4 MG CAP PO SCH (10:44)
[2018-06-18] MEDS: ASPIRIN 81 MG ECTAB PO SCH (10:45)
[2018-06-18] MEDS: DULOXETINE HCL 30 MG CAP PO SCH (10:45)
[2018-06-18] MEDS: LACTOBACILLUS ACIDOPHILUS (FLORANEX) TAB PO SCH ×3 (10:46→20:02)
[2018-06-18] MEDS: SERTRALINE HCL 50 MG TABLET PO SCH (10:47)
[2018-06-18] MEDS: METOPROLOL TARTRATE 50 MG TAB PO SCH ×2 (10:48→20:07)
[2018-06-18] MEDS: BUDESONIDE/FORMOTEROL FUMARATE 160/4.5 60 PUFFS/INHALER INH SCH ×2 (10:48→20:07)
--- NOTE | 2018-06-18 11:46 | Myocardial Perfusion Study ---
Date of Service June 18, 2018 Myocardial Perfusion Study [facility] Myocardial Perfusion Study Report Procedure: 1. Myocardial perfusion study performed in multiple views/images 2. Lexiscan pharmacologic stress ECG Indications: 1. Chest pain Ordering physician: Dr. Barragan Procedural details: For the stress portion of the study, Lexiscan 0.4 mg was intravenously administered followed by a saline flush. This was followed by 32.7 mCi of technetium 99m Cardiolite, injected at 9:15 a.m. on 06/18/2018. 30 minutes following the injection, imaging of the heart was performed in multiple projections. For the rest portion of the study, 11.2 mCi technetium 99m Cardiolite was injected intravenously at 7:35 a.m. on 06/18/2018. 1 hour following the injection, imaging of the heart was performed in the same projections. Lexiscan stress ECG: Resting ECG demonstrated: Sinus rhythm first-degree AV block 76 bpm. Possible septal infarct. Maximum heart rate: 96 bpm Maximal, age-predicted heart rate: 64 % Resting blood pressure: 172/78 mmHg Maximum blood pressure: 172/[address] changes: None Arrhythmia: None Symptoms: Chest pain Findings: Rotating raw imaging demonstrated no significant lung uptake. There is no significant motion artifact. Heart size appeared normal. Myocardial perfusion demonstrated a moderate sized area of mildly reduced uptake involving the base to distal inferior, base to distal inferolateral, and base to distal inferoseptal wall segments, which were fixed in post stress and rest imaging. Other wall segments appear to have normal myocardial perfusion. Ejection fraction: 51 % Wall motion: Hypokinesis involving the inferior wall. Otherwise, wall motion appeared normal. No significant transient ischemic dilation. Impression: 1. Myocardial perfusion study suggests prior inferior infarct. 2. There were no reversible defects to suggest ischemia. 3. Low-normal LV systolic function. EF 51%. 4. RCA territory hypokinesis. 5. Nondiagnostic Lexiscan ECG.
[2018-06-18 16:29] LABS: Chol HDL Ratio 5; Cholesterol 95 mg/dl (0-200); HDL Cholesterol 21 mg/dl; LDL Cholesterol Calculated 16 mg/dl; Triglycerides 289 mg/dl (0-150); VLDL Cholesterol 58 mg/dl
--- NOTE | 2018-06-18 20:01 | Family Medicine Progress Note ---
Date of Service June 18, 2018 Assessment & Plan (1) Pressure ulcer of left heel, stage 3: Juvenal Lainez is a 72 year old [place] here for chest pain rule out who does not appear to have had an LA but is greatly deconditioned despite [place] [facility]. Chest Pain * myocardial nuclear perfusion scan showing past LA but no current ischemic heart tissue. * No indication for Cath * Started patient on beta minoo, asa 81, lisinopril 5mg, and ordered lipid panel to decide between atorvasatatin 40 mg vs 80 mg. Deconditioning * Patient with great difficulty moving independently * unable to put on prosthetic leg witout assitance * Concerned over ability to function independently at home at current level of conditioning, will have PT evaluate tomorrow and may recommend SNF Diabetes * Educated extensively today * participated well and shows good insight * Both him and his performed injections on their own. * receiving his insulin in mail today. Stage III pressure ulcer as documented by wound care nursing. continue local wound care Carb Consistent Diet INsulin sliding scale Dispo: Moved to med surg from PCU Present on Admission?: Yes Supervising Physician Co-Signing Physician Notes I personally examined the patient and verified all melendrez points of history and exam, discussed case, and agree with decision making with Dr Levy. Feeling okay. No other current complaints. Discussed weakness, he notes that before admission he was actually doing relatively okay at home and believes that it was hyperglycemia that made him get weaker prior to the hospitalization, he notes that he feels that he can get around okay at home. Vitals noted, in general he is awake and alert no distress breathing unlabored no accessory muscle use. Skin shows no rashes no pallor or icterus. Neuro shows no focal deficits. Chest painno LA. Coronary diseasehis echocardiogram as well as nuc med stress test suggest coronary artery disease with a prior silent inferior wall LA. Given no reversible defects, there does not appear to be much benefit to be had in pursuing left heart catheterization, as there does not appear to be anything that would be amenable to reperfusion, making the risks of the procedure far outweigh any benefits. Med managed for coronary disease (aspirin, statin, beta- minoo, KATE inhibitor) Uncontrolled diabetescontinue to titrate insulin management. Weaknesshe notes that he really wants to go home, will ask PT/OT eval and treat, we will also want to discuss the safety of the home situation with the patient's . Stable for MedSurg. Subjective Juvenal Lainez is resting this morning, he reports he is doing well and is anxious to return home. We had discussion about his deconditioning and need for further strengthening to be safe independently at home. He says he will give his best effort tomorrow with physical therapy. He participated well with diabetes education and expresses his understanding as to the improtance of getting his blood sugar under control and the proper way to monitor and inject himself. No chest pain today. Constitutional: no fever and no chills Respiratory: no cough, no dyspnea and no wheezing Cardiovascular: no chest pain, no chest pain at rest, no radiating jaw, neck or arm pain, no dyspnea and no palpitations Gastrointestinal: no abdominal pain, no nausea and no vomiting Physical Exam Vital Signs (Past 24 Hours): Last Vital Signs Temp 36.5 C 06/18/18 18:06 Pulse 94 H 06/18/18 18:06 Resp 20 06/18/18 18:06 BP 183/84 H 06/18/18 18:06 Pulse Ox 95 06/18/18 18:06 Constitutional: well developed, well nourished, + frail appearing, cooperative and comfortable; no acute distress Respiratory: normal respiratory effort and able to speak in complete sentences; no respiratory distress and no cough Auscultation: lungs clear to auscultation bilaterally; no crackles, no rales, no rhonchi and no wheezes Cardiovascular: Rate/Rhythm: regular rate and regular rhythm Heart Sounds: + murmur (systolic grade III) Gastrointestinal (Abdomen): Percussion/Palpation: abdomen soft; abdomen nontender Resident Activity Tracking Resident Involvement: Resident Care Provided Care Provided: Adult Hospital Medicine
[2018-06-18] MEDS: OXYCODONE/ACETAMINOPHEN 5mg/325mg TAB PO PRN (20:10)
[2018-06-18] MEDS: INSULIN GLARGINE SOLOSTAR 100 UNITS/ML 3 ML PEN SC SCH (21:24)
[2018-06-19] MEDS: HydrALAZINE 10 MG TAB PO SCH ×5 (00:05→23:35)
[2018-06-19] MEDS: HYDROCORTISONE 1% CRM 30 GM TUBE EXT PRN (06:19)
[2018-06-19 07:19] LABS: Partial Thromboplastin Ratio 1.2; Partial Thromboplastin Time 32.8 Seconds (21.0-31.0)
[2018-06-19] MEDS: LACTOBACILLUS ACIDOPHILUS (FLORANEX) TAB PO SCH ×3 (08:29→20:41)
[2018-06-19] MEDS: DULOXETINE HCL 30 MG CAP PO SCH (08:29)
[2018-06-19] MEDS: METOPROLOL TARTRATE 50 MG TAB PO SCH ×2 (08:30→20:41)
[2018-06-19] MEDS: TAMSULOSIN HCL 0.4 MG CAP PO SCH (08:30)
[2018-06-19] MEDS: ASPIRIN 81 MG ECTAB PO SCH (08:30)
[2018-06-19] MEDS: SERTRALINE HCL 50 MG TABLET PO SCH (08:30)
[2018-06-19] MEDS: BUDESONIDE/FORMOTEROL FUMARATE 160/4.5 60 PUFFS/INHALER INH SCH ×2 (08:30→20:40)
[2018-06-19] MEDS: INSULIN GLARGINE SOLOSTAR 100 UNITS/ML 3 ML PEN SC SCH (08:31)
[2018-06-19] MEDS: OXYCODONE/ACETAMINOPHEN 5mg/325mg TAB PO PRN ×2 (08:31→20:50)
[2018-06-19] MEDS: PREGABALIN 50 MG CAP PO SCH ×2 (08:31→20:46)
[2018-06-19] MEDS: INSULIN ASPART 100 UNITS/ML 3 ML PEN SC SCH ×4 (08:32→20:40)
--- NOTE | 2018-06-19 08:47 | Family Medicine Progress Note ---
Date of Service June 19, 2018 Assessment & Plan (1) Pressure ulcer of left heel, stage 3: Juvenal Lainez is a 72 year old [place] here for chest pain rule out who does not appear to have had an CT but is greatly deconditioned despite [place] of [place]. Chest Pain * myocardial nuclear perfusion scan showing past CT but no current ischemic heart tissue. * No indication for Cath * Started patient on beta minoo, asa 81, lisinopril 5mg, lipid panel showing low normal cholesterol starting on atorvastatin 40 mg Deconditioning * Patient with great difficulty moving independently * unable to put on prosthetic leg without assistance * Concerned over ability to function independently at home at current level of conditioning PT recommended SNF and case management is currently working on referrals. Diabetes * Educated extensively by both us and nutrition educator * participated well and shows good insight * Both him and his comfortable with education. * Continuing to increase basal and bolus insulin dosing as his sugars have remained high. * has his insulin supply at home now. Stage III pressure ulcer *as documented by wound care nursing. *continue local wound care Carb Consistent Diet Insulin sliding scale Dispo: Med Surg, to SNF upon d/c Supervising Physician Co-Signing Physician Notes I personally examined the patient and verified all melendrez points of history and exam, discussed case, and agree with decision making with Dr Levy. No acute complaints. Seen at the same time is physical therapy. He is able to walk with a walker but is fairly slow and unsteady, he often catches his foot, and whenever he starts to fatigue his prosthetic starts to get outside of the frame of the walker without redirection. After discussion he is amenable to rehab. Vitals noted, in general he is awake and alert no distress breathing unlabored no accessory muscle use. Skin shows no rashes no pallor or icterus. Neuro shows no focal deficits. Chest painno CT. Coronary diseasehis echocardiogram as well as nuc med stress test suggest coronary artery disease with a prior silent inferior wall CT. Given no reversible defects, there does not appear to be much benefit to be had in pursuing left heart catheterization, as there does not appear to be anything that would be amenable to reperfusion, making the risks of the procedure far outweigh any benefits. Med managed for coronary disease (aspirin, statin, beta- minoo, KATE inhibitor) increase lisinopril today Uncontrolled diabetescontinue to titrate insulin management. Increase Lantus/tighten log Weaknesswilling to go to rehab Essential hypertensionincrease lisinopril Subjective Juvenal Lainez was sleeping soundly this morning, when I woke him he reported he had an uneventful night and has no complaints currently. When we talked about his deconditioning he agreed that he is in tough shape to care for himself and he is open to exploring SNF options for strengthening and helping him be safely independent. Constitutional: no fever, no chills and no sweats Respiratory: no cough and no dyspnea Cardiovascular: no chest pain, no palpitations and no calf pain Gastrointestinal: no abdominal pain, no nausea and no vomiting Physical Exam Vital Signs (Past 24 Hours): Last Vital Signs Temp 36.3 C L 06/19/18 07:00 Pulse 82 06/19/18 07:00 Resp 20 06/19/18 07:00 BP 174/80 H 06/19/18 07:00 Pulse Ox 96 06/19/18 07:00 Constitutional: well developed, well nourished, + frail appearing, cooperative and comfortable; no acute distress and not ill appearing Respiratory: normal respiratory effort and able to speak in complete sentences; no respiratory distress and no cough Auscultation: lungs clear to auscultation bilaterally; no crackles, no rales, no rhonchi and no wheezes Cardiovascular: Rate/Rhythm: regular rate and regular rhythm Heart Sounds: + murmur (systolic grade III) Gastrointestinal (Abdomen): Inspection/Auscultation: abdomen normal to inspection; abdomen not distended Percussion/Palpation: abdomen soft; abdomen nontender Resident Activity Tracking Resident Involvement: Resident Care Provided Care Provided: Adult Hospital Medicine
[2018-06-19] MEDS ORDERED: INSULIN GLARGINE SOLOSTAR 100 UNITS/ML 3 ML PEN SC ONE (09:00)
[2018-06-19] MEDS ORDERED: LISINOPRIL 5 MG TAB PO SCH (09:00)
[2018-06-19] MEDS ORDERED: LISINOPRIL 5 MG TAB PO ONE (09:00)
--- NOTE | 2018-06-19 10:51 | Cardiology Progress Note ---
Date of Service June 19, 2018 Assessment & Plan (1) Substernal chest pain: 2. Peripheral arterial disease 3. R BKA 4. Hypertension 5. CKD 6. COPD 7. Generalized weakness Patient currently chest pain free and hemodynamically stable. Pharmacologic SPECT with old inferior infarct and no ischemia. Agree with treating for presumed coronary artery disease. Continue aspirin, beta minoo and statin. Stable for discharge from cardiology standpoint. Subjective Patient feeling well today. No recurrent chest pressure since yesterday. No shortness of breath, orthopnea or PND. No further palpitations. No lightheadedness, near syncope or syncope. Pharmacologic SPECT yesterday shows prior inferior infarct, no reversible ischemia, RCA territory hypokinesis and low normal LV systolic function (EF 51%). Telemetry reviewed-- no events. Physical Exam Vital Signs (Past 24 Hours): Last Vital Signs Temp 36.3 C L 06/19/18 07:00 Pulse 82 06/19/18 07:00 Resp 20 06/19/18 07:00 BP 174/80 H 06/19/18 07:00 Pulse Ox 96 06/19/18 07:00 Physical Exam: General: No acute distress, comfortable. HEENT: Head is normal. PERRLA. EOMI. Sclerae anicteric. Ears, nose and throat unremarkable. Mucous membranes moist. Neck: Normal carotid upstrokes, no bruits. No appreciable JVD. Lungs: Clear to auscultation bilaterally without rales, rhonchi or wheezes. Cardiac: Regular rate and rhythm. S1-S2 normal. Grade 1/6 systolic murmur left sternal border. Abdomen: Soft and nontender. Bowel sounds normal. No mass or organomegaly. No abdominal bruit. Extremities/vascular: R BKA. Left left without edema. Multiple toe amputations. Ulcer of left heel. Left DP/PT pulses non palpable, capillary refill normal. Radial pulses 2+ bilaterally Neurologic: Nonfocal Psychiatric: Affect appropriate. Alert and oriented. Results & Data Laboratory Results Laboratory Results - last 24 hr 06/18/18 06/18/18 06/18/18 15:52 16:11 20:23 APTT PTT Ratio POC Glucose 300 H 345 H Triglycerides 289 H Cholesterol 95 LDL Cholesterol, Calc 16 VLDL Cholesterol, Calc 58 HDL Cholesterol 21 Cholesterol/HDL Ratio 5 06/19/18 06/19/18 06/19/18 00:04 06:47 07:35 APTT 32.8 H PTT Ratio 1.2 POC Glucose 280 H 224 H Triglycerides Cholesterol LDL Cholesterol, Calc VLDL Cholesterol, Calc HDL Cholesterol Cholesterol/HDL Ratio
[2018-06-19] MEDS ORDERED: INSULIN GLARGINE SOLOSTAR 100 UNITS/ML 3 ML PEN SC SCH (21:00)
[2018-06-20] MEDS: HydrALAZINE 10 MG TAB PO SCH ×4 (06:12→23:36)
[2018-06-20 06:22] LABS: Partial Thromboplastin Ratio 1.2; Partial Thromboplastin Time 31.7 Seconds (21.0-31.0)
[2018-06-20] MEDS: METOPROLOL TARTRATE 50 MG TAB PO SCH ×2 (08:32→21:12)
[2018-06-20] MEDS: LISINOPRIL 10 MG TAB PO SCH (08:32)
[2018-06-20] MEDS: DULOXETINE HCL 30 MG CAP PO SCH (08:32)
[2018-06-20] MEDS: ASPIRIN 81 MG ECTAB PO SCH (08:32)
[2018-06-20] MEDS: ATORVASTATIN 40 MG TAB PO SCH (08:32)
[2018-06-20] MEDS: LACTOBACILLUS ACIDOPHILUS (FLORANEX) TAB PO SCH ×3 (08:33→21:10)
[2018-06-20] MEDS: TAMSULOSIN HCL 0.4 MG CAP PO SCH (08:33)
[2018-06-20] MEDS: SERTRALINE HCL 50 MG TABLET PO SCH (08:33)
[2018-06-20] MEDS: BUDESONIDE/FORMOTEROL FUMARATE 160/4.5 60 PUFFS/INHALER INH SCH ×2 (08:33→21:10)
[2018-06-20] MEDS: PREGABALIN 50 MG CAP PO SCH ×2 (08:36→21:16)
[2018-06-20] MEDS: INSULIN ASPART 100 UNITS/ML 3 ML PEN SC SCH ×4 (08:43→21:15)
[2018-06-20] MEDS ORDERED: INSULIN GLARGINE SOLOSTAR 100 UNITS/ML 3 ML PEN SC SCH (09:00)
[2018-06-20] MEDS: OXYCODONE/ACETAMINOPHEN 5mg/325mg TAB PO PRN ×2 (15:58→23:38)
--- NOTE | 2018-06-20 16:39 | Hospitalist Progress Note ---
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 (2) Pressure ulcer of left heel, stage 3: local wound care (3) Generalized weakness: PT/OT eval and treat - plan on SNF for rehab (4) Failure to thrive: as above (5) HTN (hypertension): continue current meds and follow (6) Coronary artery disease: no reversible ischemia - med management (7) Atherosclerosis of extremity with ulceration: med management (8) Hypertension: continue current care and follow (9) Chronic kidney disease, stage III (moderate): (10) DVT prophylaxis: heparin SQ (11) Discharge planning issues: [facility] likely friday - SNF w rehab emphasis Subjective feeling ok. in discussing sugars, he notes that he's started eating muhc better since yesterday. awaiting placement at [facility] for rehab. no other new complaints Review of Systems All systems reviewed & are unremarkable except as noted in HPI & below Physical Exam Vital Signs (Past 24 Hours): Last Vital Signs Temp 37.2 C 06/20/18 15:15 Pulse 90 06/20/18 16:26 Resp 19 06/20/18 16:26 BP 159/81 H 06/20/18 16:26 Pulse Ox 94 06/20/18 16:26 Physical Exam: gne - [facility] heent - nc at mmm lungs unlabored no accessory muscles good effort skin no rashes no pallor or icterus neuro no focal deficits (1) Failure to thrive Failure to thrive age range: in adult Qualified Code(s): R62.7 - Adult failure to thrive
[2018-06-20] MEDS ORDERED: HYDROCORTISONE HC 2.5% CRM 30GM TUBE EXT PRN (18:22)
[2018-06-20] MEDS: INSULIN GLARGINE SOLOSTAR 100 UNITS/ML 3 ML PEN SC SCH (21:11)
[2018-06-20] MEDS: HEPARIN SOD 5,000 UNIT/0.5 ML VIAL SQ SCH (21:11)
[2018-06-21] MEDS: HydrALAZINE 10 MG TAB PO SCH ×3 (06:14→18:05)
--- NOTE | 2018-06-21 07:48 | Family Medicine Progress Note ---
Date of Service June 21, 2018 Assessment & Plan (1) Pressure ulcer of left heel, stage 3: Juvenal Lainez is a 72 year old [place] here for chest pain rule out who does not appear to have had an NV but is greatly deconditioned despite [place]. Chest Pain * myocardial nuclear perfusion scan showing past NV but no current ischemic heart tissue. * Started patient on beta minoo, asa 81, lisinopril 5mg, lipid panel showing low normal cholesterol starting on atorvastatin 80 mg Deconditioning * Patient with great difficulty moving independently * Difficulty putting on prosthetic leg without assistance * Concerned over ability to function independently at home at current level of conditioning PT recommended SNF and case management is currently working on referrals. Hopefully [facility] tomorrow Diabetes * Educated extensively by both us and adaptive physical educator * participated well and shows good insight * Both him and his comfortable with education. * Continuing to increase basal and bolus insulin dosing as his sugars have remained high, somewhat improved over last few readings. * has his insulin supply at home now. Stage III pressure ulcer *as documented by wound care nursing. *continue local wound care Carb Consistent Diet Insulin sliding scale Dispo: Med Surg, hopefully [facility] on Friday Supervising Physician Co-Signing Physician Notes I personally examined the patient and verified all melendrez points of history and exam, discussed case, and agree with decision making with Dr Levy. No acute complaints. awaiting rehab placement Vitals noted, in general he is awake and alert no distress breathing unlabored no accessory muscle use. Skin shows no rashes no pallor or icterus. Neuro shows no focal deficits. Chest painno NV. Coronary diseasehis echocardiogram as well as nuc med stress test suggest coronary artery disease with a prior silent inferior wall NV. Given no reversible defects, there does not appear to be much benefit to be had in pursuing left heart catheterization, as there does not appear to be anything that would be amenable to reperfusion, making the risks of the procedure far outweigh any benefits. Med managed for coronary disease (aspirin, statin, beta- minoo, KATE inhibitor). outpt f/u. asymptomatic Uncontrolled diabetescontinue to titrate insulin management. today appears to be showing better overall control. Weaknesswilling to go to rehab Essential hypertensioncontinue to titrate meds as per meds per coronary artery disease Subjective Woke Juvenal Migel from sleep this morning and he reports no new issues. He is anxiously awaiting placement, hopefully tomorrow. review of systems Constitutional: No fevers, chills, discomfort Cardiovascular: No chest pain, palpitations, syncope/presyncope Resp: No SOB, no cough, no chest pain GI: No abdominal pain, N/V Neuro: No new weakness or confusion Physical Exam Vital Signs (Past 24 Hours): Last Vital Signs Temp 36.4 C L 06/21/18 07:24 Pulse 70 06/21/18 07:24 Resp 18 06/21/18 07:24 BP 168/81 H 06/21/18 07:24 Pulse Ox 96 06/21/18 07:24 Physical Exam: General: no apparent distress, resting comfortably, below knee amputation on right Head: Normal cephalic atraumatic Cardiovascular: Regular rate, rhythm, systolic murmur faint, no edema Resp: Regular rate, non labored clear to auscultation Neuro: No apparent deficits, No focal weakness Resident Activity Tracking Resident Involvement: Resident Care Provided Care Provided: Adult Hospital Medicine
[2018-06-21] MEDS: DULOXETINE HCL 30 MG CAP PO SCH (08:20)
[2018-06-21] MEDS: ASPIRIN 81 MG ECTAB PO SCH (08:20)
[2018-06-21] MEDS: TAMSULOSIN HCL 0.4 MG CAP PO SCH (08:20)
[2018-06-21] MEDS: ATORVASTATIN 40 MG TAB PO SCH (08:20)
[2018-06-21] MEDS: SERTRALINE HCL 50 MG TABLET PO SCH (08:20)
[2018-06-21] MEDS: LISINOPRIL 10 MG TAB PO SCH (08:20)
[2018-06-21] MEDS: BUDESONIDE/FORMOTEROL FUMARATE 160/4.5 60 PUFFS/INHALER INH SCH ×2 (08:21→20:26)
[2018-06-21] MEDS: LACTOBACILLUS ACIDOPHILUS (FLORANEX) TAB PO SCH ×3 (08:21→20:26)
[2018-06-21] MEDS: METOPROLOL TARTRATE 50 MG TAB PO SCH ×2 (08:22→20:26)
[2018-06-21] MEDS: PREGABALIN 50 MG CAP PO SCH ×2 (08:58→20:26)
[2018-06-21] MEDS: HEPARIN SOD 5,000 UNIT/0.5 ML VIAL SQ SCH ×2 (08:59→20:25)
[2018-06-21] MEDS: INSULIN ASPART 100 UNITS/ML 3 ML PEN SC SCH ×4 (09:02→20:27)
[2018-06-21] MEDS: INSULIN GLARGINE SOLOSTAR 100 UNITS/ML 3 ML PEN SC SCH ×2 (09:03→20:26)
[2018-06-21] MEDS: OXYCODONE/ACETAMINOPHEN 5mg/325mg TAB PO PRN (21:28)
[2018-06-22] MEDS ORDERED: ACETAMINOPHEN 325 MG TAB PO PRN (00:24)
[2018-06-22] MEDS ORDERED: ACETAMINOPHEN 1,000 MG/100 ML VIAL IV STA ×2 (00:24→23:28)
[2018-06-22] MEDS: HydrALAZINE 10 MG TAB PO SCH ×5 (00:41→23:58)
[2018-06-22] MEDS: OXYCODONE/ACETAMINOPHEN 5mg/325mg TAB PO PRN ×2 (05:55→21:52)
[2018-06-22] MEDS: DULOXETINE HCL 30 MG CAP PO SCH (08:34)
[2018-06-22] MEDS: ATORVASTATIN 40 MG TAB PO SCH (08:34)
[2018-06-22] MEDS: LACTOBACILLUS ACIDOPHILUS (FLORANEX) TAB PO SCH ×3 (08:35→21:55)
[2018-06-22] MEDS: ASPIRIN 81 MG ECTAB PO SCH (08:35)
[2018-06-22] MEDS: TAMSULOSIN HCL 0.4 MG CAP PO SCH (08:35)
[2018-06-22] MEDS: METOPROLOL TARTRATE 50 MG TAB PO SCH ×2 (08:36→21:59)
[2018-06-22] MEDS: LISINOPRIL 10 MG TAB PO SCH (08:36)
[2018-06-22] MEDS: SERTRALINE HCL 50 MG TABLET PO SCH (08:36)
[2018-06-22] MEDS: PREGABALIN 50 MG CAP PO SCH ×2 (08:36→22:02)
[2018-06-22] MEDS: INSULIN GLARGINE SOLOSTAR 100 UNITS/ML 3 ML PEN SC SCH ×2 (08:47→21:57)
[2018-06-22] MEDS: HEPARIN SOD 5,000 UNIT/0.5 ML VIAL SQ SCH ×2 (08:48→21:53)
[2018-06-22] MEDS: INSULIN ASPART 100 UNITS/ML 3 ML PEN SC SCH ×4 (09:30→22:00)
[2018-06-22] MEDS: BUDESONIDE/FORMOTEROL FUMARATE 160/4.5 60 PUFFS/INHALER INH SCH ×2 (09:32→21:54)
--- NOTE | 2018-06-22 19:15 | Family Medicine Progress Note ---
Date of Service June 22, 2018 Assessment & Plan (1) Pressure ulcer of left heel, stage 3: Pt is a 72yo male with PMHx of DMII, HTN, CAD, CKDIII who presented for chest pain rule-out (resolved) and is awaiting SNF placement. Pressure ulcer left heel -local wound care -Can be addressed at SNF -Likely Stage 1 ulcer Chest pain -ruled out for ACS CAD -continue aspirin, statin, beta-minoo, KATE inhibitor DMII -uptitrate insulins as needed Generalized weakness -PT/OT for conditioning HTN, CAD, extremity atherosclerosis -cont home meds CKD Stage 4 -stable CODE STATUS: FULL CODE DVT PROPHYLAXIS: Hep SQ DISPO: [facility]--SNF with rehab emphasis. Supervising Physician Co-Signing Physician Notes Resident Physician Supervision Note: I independently interviewed and examined the patient and verified the melendrez history and physical, reviewed labs and image studies, discussed the case with the resident Dr. Linares and agree with the findings and care plan. Subjective Pt states he's doing well except for phantom pain. Denies VALVERDE, N/V, chest pain, palpitations, diarhea, constipation. Review of Systems All systems reviewed & are unremarkable except as noted in HPI & below Physical Exam Vital Signs (Past 24 Hours): Last Vital Signs Temp 37.1 C 06/22/18 15:30 Pulse 75 06/22/18 15:30 Resp 17 06/22/18 15:30 BP 160/74 H 06/22/18 15:30 Pulse Ox 95 06/22/18 15:30 General: Alert, orientedx3. HEENT: NC/AT Chest: Nontender to palpation. CV: RRR, Normal s1, s2 Resp: Breath sounds clear bilaterally, no increased effort of breathing Abdomen: Soft, nontender, nondistended. No guarding. No organomegaly appreciated. Extremities: Amputated right lower extremity and 2 toes on right foot. Stage 1 ulcer on left heel. Results & Data Laboratory Results Laboratory Results - last 24 hr 06/21/18 06/22/18 06/22/18 20:15 00:42 07:44 POC Glucose 99 141 H 93 06/22/18 06/22/18 11:33 16:43 POC Glucose 152 H 78 Medications Administered Home Medications Symbicort 2 puff INHALATION BID 12/06/17 [History Confirmed 06/16/18] aspirin 81 mg PO DAILY 12/06/17 [History Confirmed 06/16/18] sertraline 50 mg PO DAILY 12/06/17 [History Confirmed 06/16/18] A&D Oint 1 applic TOPICAL 5XD 06/16/18 [History Confirmed 06/16/18] Lactobacillus acidophilus 2 tab PO TID 06/16/18 [History Confirmed 06/16/18] Menthol/M-Salicylate 10-15% 1 applic TOPICAL UD PRN 06/16/18 [History Confirmed 06/16/18] Unknown Insulin 0 units NOT APPLICABLE UD 06/16/18 [History] acetaminophen [Tylenol] 650 mg PO BID PRN 06/16/18 [History Confirmed 06/16/18] duloxetine 30 mg PO DAILY 06/16/18 [History Confirmed 06/16/18] hydralazine 10 mg PO Q6 06/16/18 [History Confirmed 06/16/18] hydrocortisone 1 applic TOPICAL BID PRN 06/16/18 [History Confirmed 06/16/18] lidocaine 1 applic TOPICAL TID PRN 06/16/18 [History Confirmed 06/16/18] metoprolol tartrate 50 mg PO BID 06/16/18 [History Confirmed 06/16/18] oxycodone-acetaminophen [Percocet] 1 tab PO Q6H PRN 06/16/18 [History Confirmed 06/16/18] pramoxine 1 applic FL UD PRN 06/16/18 [History Confirmed 06/16/18] pregabalin [Lyrica] 50 mg PO BID 06/16/18 [History Confirmed 06/16/18] tamsulosin [Flomax] 0.4 mg PO DAILY 06/16/18 [History Confirmed 06/16/18] Active Medications Acetaminophen (Tylenol) 650 mg PO Q4H PRN PRN Reason: Pain Stop: 07/22/18 00:23 Aspirin (Ecotrin Ectab) 81 mg PO DAILY [facility] Stop: 07/17/18 11:59 Last Admin: 06/22/18 08:35 Dose: 81 mg Documented by: Atorvastatin Calcium (Lipitor) 80 mg PO QAM [facility] Stop: 07/20/18 08:59 Last Admin: 06/22/18 08:34 Dose: 80 mg Documented by: Budesonide/Formoterol Fumarate (Symbicort 160mcg/4.5mcg) 2 puffs INH BID [facility] Stop: 07/17/18 08:59 Last Admin: 06/22/18 09:32 Dose: 2 puffs Documented by: Dextrose (Dextrose 50%) 25 - 50 ml IV UD PRN; Protocol PRN Reason: Hypoglycemia Protocol Stop: 07/17/18 05:14 Duloxetine HCl (Cymbalta) 30 mg PO DAILY [facility] Stop: 07/17/18 08:59 Last Admin: 06/22/18 08:34 Dose: 30 mg Documented by: Glucagon (Glucagen) 1 mg IM UD PRN; Protocol PRN Reason: Hypoglycemia Protocol Stop: 07/17/18 05:14 Glucose (Glucose 40%) 15 - 30 gm PO UD PRN; Protocol PRN Reason: Hypoglycemia Protocol Stop: 07/17/18 05:14 Glucose (Dex4 Glucose) 4 - 8 tabs PO UD PRN; Protocol PRN Reason: Hypoglycemia Protocol Stop: 07/17/18 05:14 Heparin Sodium (Porcine) (Heparin Sodium (Porcine)) 5,000 units SQ Q12 [facility] Stop: 07/20/18 20:59 Last Admin: 06/22/18 08:48 Dose: 5,000 units Documented by: Hydralazine HCl (Apresoline) 10 mg PO Q6 [facility] Stop: 07/17/18 05:59 Last Admin: 06/22/18 17:24 Dose: 10 mg Documented by: Hydrocortisone (Hydrocortisone 1%) 1 appln EXT BID PRN PRN Reason: Itching Stop: 07/18/18 01:19 Last Admin: 06/19/18 06:19 Dose: 1 appln Documented by: Hydrocortisone (Proctozone Hc 2.5%) 1 appln EXT TID PRN PRN Reason: Hemorrhoids Stop: 07/20/18 18:21 Last Admin: 06/20/18 21:15 Dose: 1 appln Documented by: Insulin Aspart (Novolog Flexpen) 0 units SC ACHS [facility] Stop: 07/17/18 07:29 Last Admin: 06/22/18 17:26 Dose: 24 units Documented by: Insulin Glargine (Lantus Solostar Pen) 25 units SC BID [facility] Stop: 07/20/18 20:59 Last Admin: 06/22/18 08:47 Dose: 25 units Documented by: Lactobacillus Acidophilus (Floranex) 4 tab PO TID [facility] Stop: 07/17/18 08:59 Last Admin: 06/22/18 12:37 Dose: 4 tab Documented by: Lidocaine (Xylocaine 5%) 1 appln TOP TID PRN PRN Reason: PIAN IN STUMPS Stop: 07/17/18 04:56 Lisinopril (Zestril) 10 mg PO QAM [facility] Stop: 07/20/18 08:59 Last Admin: 06/22/18 08:36 Dose: 10 mg Documented by: Metoprolol Tartrate (Lopressor) 50 mg PO BID [facility] Stop: 07/17/18 08:59 Last Admin: 06/22/18 08:36 Dose: 50 mg Documented by: Miscellaneous (Order Awaiting Action) 1 ea N/A QS [facility] Stop: 07/17/18 07:59 Last Admin: 06/22/18 17:23 Dose: Not Given Documented by: Miscellaneous (Order Awaiting Action) 1 ea N/A QS [facility] Stop: 07/17/18 07:59 Last Admin: 06/22/18 17:23 Dose: Not Given Documented by: Miscellaneous (Carbohydrates For Hypoglycemia) 15 - 30 gm PO UD PRN PRN Reason: Hypoglycemia Treatment Stop: 07/17/18 05:14 Nitroglycerin (Nitrostat) 0.4 mg SL UD PRN PRN Reason: Chest Pain Stop: 07/16/18 23:12 Last Admin: 06/17/18 00:08 Dose: 0.4 mg Documented by: Ondansetron HCl (Zofran) 4 mg IV Q6H PRN PRN Reason: Nausea Stop: 07/17/18 04:56 Last Admin: 06/17/18 13:54 Dose: 4 mg Documented by: Oxycodone/Acetaminophen (Percocet 5mg/325mg) 1 tab PO Q6H PRN PRN Reason: Pain Stop: 07/01/18 04:56 Last Admin: 06/22/18 05:55 Dose: 1 tab Documented by: Pregabalin (Lyrica) 50 mg PO BID [facility] Stop: 07/17/18 08:59 Last Admin: 06/22/18 08:36 Dose: 50 mg Documented by: Sertraline HCl (Zoloft) 50 mg PO DAILY [facility] Stop: 07/17/18 08:59 Last Admin: 06/22/18 08:36 Dose: 50 mg Documented by: Tamsulosin HCl (Flomax) 0.4 mg PO DAILY [facility] Stop: 07/17/18 08:59 Last Admin: 06/22/18 08:35 Dose: 0.4 mg Documented by: Resident Activity Tracking Resident Involvement: Resident Care Provided Care Provided: Adult Hospital Medicine
[2018-06-23] MEDS: HydrALAZINE 10 MG TAB PO SCH ×4 (06:28→22:50)
[2018-06-23] MEDS: ASPIRIN 81 MG ECTAB PO SCH (09:02)
[2018-06-23] MEDS: LISINOPRIL 10 MG TAB PO SCH (09:02)
[2018-06-23] MEDS: ATORVASTATIN 40 MG TAB PO SCH (09:02)
[2018-06-23] MEDS: SERTRALINE HCL 50 MG TABLET PO SCH (09:02)
[2018-06-23] MEDS: LACTOBACILLUS ACIDOPHILUS (FLORANEX) TAB PO SCH ×3 (09:03→20:27)
[2018-06-23] MEDS: TAMSULOSIN HCL 0.4 MG CAP PO SCH (09:03)
[2018-06-23] MEDS: METOPROLOL TARTRATE 50 MG TAB PO SCH ×2 (09:03→20:28)
[2018-06-23] MEDS: DULOXETINE HCL 30 MG CAP PO SCH (09:03)
[2018-06-23] MEDS: HEPARIN SOD 5,000 UNIT/0.5 ML VIAL SQ SCH ×2 (09:04→20:28)
[2018-06-23] MEDS: BUDESONIDE/FORMOTEROL FUMARATE 160/4.5 60 PUFFS/INHALER INH SCH ×2 (09:04→20:51)
[2018-06-23] MEDS: INSULIN GLARGINE SOLOSTAR 100 UNITS/ML 3 ML PEN SC SCH ×2 (09:05→20:29)
[2018-06-23] MEDS: INSULIN ASPART 100 UNITS/ML 3 ML PEN SC SCH ×4 (09:06→20:30)
[2018-06-23] MEDS: PREGABALIN 50 MG CAP PO SCH ×2 (09:08→20:37)
--- NOTE | 2018-06-23 09:28 | Family Medicine Progress Note ---
Date of Service June 23, 2018 Assessment & Plan (1) Discharge planning issues: Pt is a 72yo male with PMHx of DMII, HTN, CAD, CKDIII who presented for chest pain rule-out (resolved) and is awaiting SNF placement with a rehab component due to severe deconditioning. Pressure ulcer left heel -local wound care currently. -Can be addressed or followed up at SNF placement whenever that is arranged. Chest pain -ruled out for ACS CAD -continue aspirin, statin, beta-minoo, KATE inhibitor DMII -uptitrate insulins as needed Generalized weakness -PT/OT for conditioning HTN, CAD, extremity atherosclerosis -cont home meds CKD Stage 3 -stable Discharge Planning -Per case management, [facility] placement requesting a copay - not in agreement, requesting possible transfer back [place] -Pt also declining placement at other SNFs -Placement still being navigated. CODE STATUS: FULL CODE DVT PROPHYLAXIS: Hep SQ DISPO: SNF with rehab emphasis. Supervising Physician Co-Signing Physician Notes Resident Physician Supervision Note: I independently interviewed and examined the patient and verified the melendrez history and physical, reviewed labs and image studies, discussed the case with the resident Dr. Linares and agree with the findings and care plan. Subjective Pt states he's doing well. No new complaints today, just awaiting placement at [facility]. Physical Exam Vital Signs (Past 24 Hours): Last Vital Signs Temp 36.4 C L 06/23/18 07:16 Pulse 67 06/23/18 07:16 Resp 18 06/23/18 07:16 BP 152/68 H 06/23/18 07:16 Pulse Ox 94 06/23/18 07:16 General: Alert, oriented. Resting in bed. HEENT: NC/AT Chest: Nontender to palpation. CV: RRR, Normal s1, s2 Resp: Breath sounds clear bilaterally, no increased effort of breathing Abdomen: Soft, nontender, nondistended. No guarding. No organomegaly appreciate d. Extremities: Amputated right lower extremity and 2 toes on right foot. Stage 1 ulcer on left heel. Results & Data Laboratory Results Laboratory Results - last 24 hr 06/22/18 06/22/18 06/23/18 16:43 20:09 07:33 POC Glucose 78 117 H 133 H 06/23/18 11:44 POC Glucose 275 H Medications Administered Home Medications Symbicort 2 puff INHALATION BID 12/06/17 [History Confirmed 06/16/18] aspirin 81 mg PO DAILY 12/06/17 [History Confirmed 06/16/18] sertraline 50 mg PO DAILY 12/06/17 [History Confirmed 06/16/18] A&D Oint 1 applic TOPICAL 5XD 06/16/18 [History Confirmed 06/16/18] Lactobacillus acidophilus 2 tab PO TID 06/16/18 [History Confirmed 06/16/18] Menthol/M-Salicylate 10-15% 1 applic TOPICAL UD PRN 06/16/18 [History Confirmed 06/16/18] Unknown Insulin 0 units NOT APPLICABLE UD 06/16/18 [History] acetaminophen [Tylenol] 650 mg PO BID PRN 06/16/18 [History Confirmed 06/16/18] duloxetine 30 mg PO DAILY 06/16/18 [History Confirmed 06/16/18] hydralazine 10 mg PO Q6 06/16/18 [History Confirmed 06/16/18] hydrocortisone 1 applic TOPICAL BID PRN 06/16/18 [History Confirmed 06/16/18] lidocaine 1 applic TOPICAL TID PRN 06/16/18 [History Confirmed 06/16/18] metoprolol tartrate 50 mg PO BID 06/16/18 [History Confirmed 06/16/18] oxycodone-acetaminophen [Percocet] 1 tab PO Q6H PRN 06/16/18 [History Confirmed 06/16/18] pramoxine 1 applic [place] UD PRN 06/16/18 [History Confirmed 06/16/18] pregabalin [Lyrica] 50 mg PO BID 06/16/18 [History Confirmed 06/16/18] tamsulosin [Flomax] 0.4 mg PO DAILY 06/16/18 [History Confirmed 06/16/18] Active Medications Acetaminophen (Tylenol) 650 mg PO Q4H PRN PRN Reason: Pain Stop: 07/22/18 00:23 Aspirin (Ecotrin Ectab) 81 mg PO DAILY [facility] Stop: 07/17/18 11:59 Last Admin: 06/23/18 09:02 Dose: 81 mg Documented by: Atorvastatin Calcium (Lipitor) 80 mg PO QAM [facility] Stop: 07/20/18 08:59 Last Admin: 06/23/18 09:02 Dose: 80 mg Documented by: Budesonide/Formoterol Fumarate (Symbicort 160mcg/4.5mcg) 2 puffs INH BID [facility] Stop: 07/17/18 08:59 Last Admin: 06/23/18 09:04 Dose: 2 puffs Documented by: Dextrose (Dextrose 50%) 25 - 50 ml IV UD PRN; Protocol PRN Reason: Hypoglycemia Protocol Stop: 07/17/18 05:14 Duloxetine HCl (Cymbalta) 30 mg PO DAILY [facility] Stop: 07/17/18 08:59 Last Admin: 06/23/18 09:03 Dose: 30 mg Documented by: Glucagon (Glucagen) 1 mg IM UD PRN; Protocol PRN Reason: Hypoglycemia Protocol Stop: 07/17/18 05:14 Glucose (Glucose 40%) 15 - 30 gm PO UD PRN; Protocol PRN Reason: Hypoglycemia Protocol Stop: 07/17/18 05:14 Glucose (Dex4 Glucose) 4 - 8 tabs PO UD PRN; Protocol PRN Reason: Hypoglycemia Protocol Stop: 07/17/18 05:14 Heparin Sodium (Porcine) (Heparin Sodium (Porcine)) 5,000 units SQ Q12 [facility] Stop: 07/20/18 20:59 Last Admin: 06/23/18 09:04 Dose: Not Given Documented by: Hydralazine HCl (Apresoline) 10 mg PO Q6 [facility] Stop: 07/17/18 05:59 Last Admin: 06/23/18 12:47 Dose: 10 mg Documented by: Hydrocortisone (Hydrocortisone 1%) 1 appln EXT BID PRN PRN Reason: Itching Stop: 07/18/18 01:19 Last Admin: 06/19/18 06:19 Dose: 1 appln Documented by: Hydrocortisone (Proctozone Hc 2.5%) 1 appln EXT TID PRN PRN Reason: Hemorrhoids Stop: 07/20/18 18:21 Last Admin: 06/20/18 21:15 Dose: 1 appln Documented by: Acetaminophen (Ofirmev) 1,000 mg in 100 mls @ 400 mls/hr IV Q8H PRN PRN Reason: Pain Stop: 07/22/18 23:26 Insulin Aspart (Novolog Flexpen) 0 units SC ACHS [facility] Stop: 07/17/18 07:29 Last Admin: 06/23/18 12:48 Dose: 21 units Documented by: Insulin Glargine (Lantus Solostar Pen) 25 units SC BID [facility] Stop: 07/20/18 20:59 Last Admin: 06/23/18 09:05 Dose: 25 units Documented by: Lactobacillus Acidophilus (Floranex) 4 tab PO TID [facility] Stop: 07/17/18 08:59 Last Admin: 06/23/18 12:46 Dose: 4 tab Documented by: Lidocaine (Xylocaine 5%) 1 appln TOP TID PRN PRN Reason: PIAN IN STUMPS Stop: 07/17/18 04:56 Lisinopril (Zestril) 10 mg PO QAM [facility] Stop: 07/20/18 08:59 Last Admin: 06/23/18 09:02 Dose: 10 mg Documented by: Metoprolol Tartrate (Lopressor) 50 mg PO BID [facility] Stop: 07/17/18 08:59 Last Admin: 06/23/18 09:03 Dose: 50 mg Documented by: Miscellaneous (Order Awaiting Action) 1 ea N/A QS [facility] Stop: 07/17/18 07:59 Last Admin: 06/23/18 09:02 Dose: Not Given Documented by: Miscellaneous (Order Awaiting Action) 1 ea N/A QS [facility] Stop: 07/17/18 07:59 Last Admin: 06/23/18 09:01 Dose: Not Given Documented by: Miscellaneous (Carbohydrates For Hypoglycemia) 15 - 30 gm PO UD PRN PRN Reason: Hypoglycemia Treatment Stop: 07/17/18 05:14 Nitroglycerin (Nitrostat) 0.4 mg SL UD PRN PRN Reason: Chest Pain Stop: 07/16/18 23:12 Last Admin: 06/17/18 00:08 Dose: 0.4 mg Documented by: Ondansetron HCl (Zofran) 4 mg IV Q6H PRN PRN Reason: Nausea Stop: 07/17/18 04:56 Last Admin: 06/17/18 13:54 Dose: 4 mg Documented by: Oxycodone/Acetaminophen (Percocet 5mg/325mg) 1 tab PO Q6H PRN PRN Reason: Pain Stop: 07/01/18 04:56 Last Admin: 06/22/18 21:52 Dose: 1 tab Documented by: Pregabalin (Lyrica) 50 mg PO BID [facility] Stop: 07/17/18 08:59 Last Admin: 06/23/18 09:08 Dose: 50 mg Documented by: Sertraline HCl (Zoloft) 50 mg PO DAILY [facility] Stop: 07/17/18 08:59 Last Admin: 06/23/18 09:02 Dose: 50 mg Documented by: Tamsulosin HCl (Flomax) 0.4 mg PO DAILY [facility] Stop: 07/17/18 08:59 Last Admin: 06/23/18 09:03 Dose: 0.4 mg Documented by: Resident Activity Tracking Resident Involvement: Resident Care Provided Care Provided: Adult Hospital Medicine
[2018-06-23] MEDS: OXYCODONE/ACETAMINOPHEN 5mg/325mg TAB PO PRN (20:37)
[2018-06-23] MEDS: ACETAMINOPHEN 1,000 MG/100 ML VIAL IV PRN (22:09)
[2018-06-23] MEDS: OXYCODONE/ACETAMINOPHEN 10-325 TAB PO PRN (23:52)
[2018-06-24] MEDS: HydrALAZINE 10 MG TAB PO SCH ×3 (05:31→18:07)
[2018-06-24] MEDS: HEPARIN SOD 5,000 UNIT/0.5 ML VIAL SQ SCH ×2 (08:29→20:23)
[2018-06-24] MEDS: LACTOBACILLUS ACIDOPHILUS (FLORANEX) TAB PO SCH ×3 (08:30→20:25)
[2018-06-24] MEDS: METOPROLOL TARTRATE 50 MG TAB PO SCH ×2 (08:30→20:25)
[2018-06-24] MEDS: LISINOPRIL 10 MG TAB PO SCH (08:31)
[2018-06-24] MEDS: DULOXETINE HCL 30 MG CAP PO SCH (08:31)
[2018-06-24] MEDS: ATORVASTATIN 40 MG TAB PO SCH (08:31)
[2018-06-24] MEDS: TAMSULOSIN HCL 0.4 MG CAP PO SCH (08:31)
[2018-06-24] MEDS: SERTRALINE HCL 50 MG TABLET PO SCH (08:31)
[2018-06-24] MEDS: ASPIRIN 81 MG ECTAB PO SCH (08:32)
[2018-06-24] MEDS: BUDESONIDE/FORMOTEROL FUMARATE 160/4.5 60 PUFFS/INHALER INH SCH ×2 (08:32→20:25)
[2018-06-24] MEDS: INSULIN ASPART 100 UNITS/ML 3 ML PEN SC SCH ×4 (08:34→20:26)
[2018-06-24] MEDS: PREGABALIN 50 MG CAP PO SCH ×2 (08:36→20:25)
[2018-06-24] MEDS: INSULIN GLARGINE SOLOSTAR 100 UNITS/ML 3 ML PEN SC SCH ×2 (08:36→20:26)
--- NOTE | 2018-06-24 11:37 | Family Medicine Progress Note ---
Date of Service June 24, 2018 Assessment & Plan (1) Discharge planning issues: Pt is a 72yo male with PMHx of DMII, HTN, CAD, CKDIII who presented for chest pain rule-out (resolved) and is awaiting SNF placement with a rehab component due to severe deconditioning. Pt requesting placement once more at the [place] today. Pressure ulcer left heel -local wound care currently. -SNF to follow the wound Chest pain -ruled out for ACS CAD -continue aspirin, statin, beta-minoo, KATE inhibitor DMII -uptitrate insulins as needed Generalized weakness and right BKA with leg prosthesis -PT/OT for conditioning HTN, CAD, extremity atherosclerosis -cont home meds CKD Stage 3 -stable Discharge Planning -[facility] -[facility] no longer an option due to copay, pt also declining placement at other SNFs -Placement still being navigated. CODE STATUS: FULL CODE DVT PROPHYLAXIS: Hep SQ DISPO: Ideally, SNF with rehab emphasis. Supervising Physician Co-Signing Physician Notes Resident Physician Supervision Note: I independently interviewed and examined the patient and verified the melendrez history and physical, reviewed labs and image studies, discussed the case with the resident Dr. Linares and agree with the findings and care plan. Subjective Pt states he feels fine. Wishes to go to back to the [place] currently for rehab but per case management no beds available currently. Denies chest pain, SOB, palpitations. Review of Systems All systems reviewed & are unremarkable except as noted in HPI & below Physical Exam Vital Signs (Past 24 Hours): Last Vital Signs Temp 36.5 C 06/24/18 07:47 Pulse 67 06/24/18 07:47 Resp 16 06/24/18 07:47 BP 124/63 06/24/18 07:47 Pulse Ox 95 06/24/18 07:47 General: Resting in bed, sleeping. HEENT: NC/AT Chest: Nontender to palpation. CV: RRR, Normal s1, s2 Resp: Breath sounds clear bilaterally, no increased effort of breathing Abdomen: Soft, nontender, nondistended. No guarding. No organomegaly appreciated. Extremities: Amputated right lower extremity and 2 toes on LEFT foot. Stage 1-2 ulcer on left heel. Results & Data Laboratory Results Laboratory Results - last 24 hr 0406/23/18 06/23/18 11:44 16:44 20:06 POC Glucose 275 H 111 H 176 H 06/24/18 06/24/18 07:42 11:27 POC Glucose 87 130 H Medications Administered Home Medications Symbicort 2 puff INHALATION BID 12/06/17 [History Confirmed 06/16/18] aspirin 81 mg PO DAILY 12/06/17 [History Confirmed 06/16/18] sertraline 50 mg PO DAILY 12/06/17 [History Confirmed 06/16/18] A&D Oint 1 applic TOPICAL 5XD 06/16/18 [History Confirmed 06/16/18] Lactobacillus acidophilus 2 tab PO TID 06/16/18 [History Confirmed 06/16/18] Menthol/M-Salicylate 10-15% 1 applic TOPICAL UD PRN 06/16/18 [History Confirmed 06/16/18] Unknown Insulin 0 units NOT APPLICABLE UD 06/16/18 [History] acetaminophen [Tylenol] 650 mg PO BID PRN 06/16/18 [History Confirmed 06/16/18] duloxetine 30 mg PO DAILY 06/16/18 [History Confirmed 06/16/18] hydralazine 10 mg PO Q6 06/16/18 [History Confirmed 06/16/18] hydrocortisone 1 applic TOPICAL BID PRN 06/16/18 [History Confirmed 06/16/18] lidocaine 1 applic TOPICAL TID PRN 06/16/18 [History Confirmed 06/16/18] metoprolol tartrate 50 mg PO BID 06/16/18 [History Confirmed 06/16/18] oxycodone-acetaminophen [Percocet] 1 tab PO Q6H PRN 06/16/18 [History Confirmed 06/16/18] pramoxine 1 applic [place] UD PRN 06/16/18 [History Confirmed 06/16/18] pregabalin [Lyrica] 50 mg PO BID 06/16/18 [History Confirmed 06/16/18] tamsulosin [Flomax] 0.4 mg PO DAILY 06/16/18 [History Confirmed 06/16/18] Active Medications Acetaminophen (Tylenol) 650 mg PO Q4H PRN PRN Reason: Pain Stop: 07/22/18 00:23 Aspirin (Ecotrin Ectab) 81 mg PO DAILY [facility] Stop: 07/17/18 11:59 Last Admin: 06/24/18 08:32 Dose: 81 mg Documented by: Atorvastatin Calcium (Lipitor) 80 mg PO QAM [facility] Stop: 07/20/18 08:59 Last Admin: 06/24/18 08:31 Dose: 80 mg Documented by: Budesonide/Formoterol Fumarate (Symbicort 160mcg/4.5mcg) 2 puffs INH BID [facility] Stop: 07/17/18 08:59 Last Admin: 06/24/18 08:32 Dose: 2 puffs Documented by: Dextrose (Dextrose 50%) 25 - 50 ml IV UD PRN; Protocol PRN Reason: Hypoglycemia Protocol Stop: 07/17/18 05:14 Duloxetine HCl (Cymbalta) 30 mg PO DAILY [facility] Stop: 07/17/18 08:59 Last Admin: 06/24/18 08:31 Dose: 30 mg Documented by: Glucagon (Glucagen) 1 mg IM UD PRN; Protocol PRN Reason: Hypoglycemia Protocol Stop: 07/17/18 05:14 Glucose (Glucose 40%) 15 - 30 gm PO UD PRN; Protocol PRN Reason: Hypoglycemia Protocol Stop: 07/17/18 05:14 Glucose (Dex4 Glucose) 4 - 8 tabs PO UD PRN; Protocol PRN Reason: Hypoglycemia Protocol Stop: 07/17/18 05:14 Heparin Sodium (Porcine) (Heparin Sodium (Porcine)) 5,000 units SQ Q12 [facility] Stop: 07/20/18 20:59 Last Admin: 06/24/18 08:29 Dose: Not Given Documented by: Hydralazine HCl (Apresoline) 10 mg PO Q6 [facility] Stop: 07/17/18 05:59 Last Admin: 06/24/18 05:31 Dose: 10 mg Documented by: Hydrocortisone (Hydrocortisone 1%) 1 appln EXT BID PRN PRN Reason: Itching Stop: 07/18/18 01:19 Last Admin: 06/19/18 06:19 Dose: 1 appln Documented by: Hydrocortisone (Proctozone Hc 2.5%) 1 appln EXT TID PRN PRN Reason: Hemorrhoids Stop: 07/20/18 18:21 Last Admin: 06/20/18 21:15 Dose: 1 appln Documented by: Acetaminophen (Ofirmev) 1,000 mg in 100 mls @ 400 mls/hr IV Q8H PRN PRN Reason: Pain Stop: 07/22/18 23:26 Last Infusion: 06/23/18 22:45 Dose: Infused Documented by: Insulin Aspart (Novolog Flexpen) 0 units SC ACHS [facility] Stop: 07/17/18 07:29 Last Admin: 06/24/18 08:34 Dose: 22 units Documented by: Insulin Glargine (Lantus Solostar Pen) 25 units SC BID [facility] Stop: 07/20/18 20:59 Last Admin: 06/24/18 08:36 Dose: 25 units Documented by: Lactobacillus Acidophilus (Floranex) 4 tab PO TID [facility] Stop: 07/17/18 08:59 Last Admin: 06/24/18 08:30 Dose: 4 tab Documented by: Lidocaine (Xylocaine 5%) 1 appln TOP TID PRN PRN Reason: PIAN IN STUMPS Stop: 07/17/18 04:56 Lisinopril (Zestril) 10 mg PO QAM [facility] Stop: 07/20/18 08:59 Last Admin: 06/24/18 08:31 Dose: 10 mg Documented by: Metoprolol Tartrate (Lopressor) 50 mg PO BID [facility] Stop: 07/17/18 08:59 Last Admin: 06/24/18 08:30 Dose: 50 mg Documented by: Miscellaneous (Order Awaiting Action) 1 ea N/A QS [facility] Stop: 07/17/18 07:59 Last Admin: 06/24/18 08:29 Dose: Not Given Documented by: Miscellaneous (Order Awaiting Action) 1 ea N/A QS [facility] Stop: 07/17/18 07:59 Last Admin: 06/24/18 08:29 Dose: Not Given Documented by: Miscellaneous (Carbohydrates For Hypoglycemia) 15 - 30 gm PO UD PRN PRN Reason: Hypoglycemia Treatment Stop: 07/17/18 05:14 Nitroglycerin (Nitrostat) 0.4 mg SL UD PRN PRN Reason: Chest Pain Stop: 07/16/18 23:12 Last Admin: 06/17/18 00:08 Dose: 0.4 mg Documented by: Ondansetron HCl (Zofran) 4 mg IV Q6H PRN PRN Reason: Nausea Stop: 07/17/18 04:56 Last Admin: 06/17/18 13:54 Dose: 4 mg Documented by: Oxycodone/Acetaminophen (Percocet 10/325mg) 1 tab PO Q4H PRN PRN Reason: Pain Stop: 07/07/18 23:30 Last Admin: 06/23/18 23:52 Dose: 1 tab Documented by: Pregabalin (Lyrica) 50 mg PO BID [facility] Stop: 07/17/18 08:59 Last Admin: 06/24/18 08:36 Dose: 50 mg Documented by: Sertraline HCl (Zoloft) 50 mg PO DAILY [facility] Stop: 07/17/18 08:59 Last Admin: 06/24/18 08:31 Dose: 50 mg Documented by: Tamsulosin HCl (Flomax) 0.4 mg PO DAILY [facility] Stop: 07/17/18 08:59 Last Admin: 06/24/18 08:31 Dose: 0.4 mg Documented by:
[2018-06-24] MEDS: OXYCODONE/ACETAMINOPHEN 10-325 TAB PO PRN ×2 (15:45→21:50)
[2018-06-25] MEDS: HydrALAZINE 10 MG TAB PO SCH ×5 (00:55→23:33)
[2018-06-25] MEDS: DULOXETINE HCL 30 MG CAP PO SCH (08:24)
[2018-06-25] MEDS: ATORVASTATIN 40 MG TAB PO SCH (08:24)
[2018-06-25] MEDS: LACTOBACILLUS ACIDOPHILUS (FLORANEX) TAB PO SCH ×3 (08:25→21:05)
[2018-06-25] MEDS: TAMSULOSIN HCL 0.4 MG CAP PO SCH (08:25)
[2018-06-25] MEDS: LISINOPRIL 10 MG TAB PO SCH (08:25)
[2018-06-25] MEDS: SERTRALINE HCL 50 MG TABLET PO SCH (08:26)
[2018-06-25] MEDS: BUDESONIDE/FORMOTEROL FUMARATE 160/4.5 60 PUFFS/INHALER INH SCH ×2 (08:26→21:07)
[2018-06-25] MEDS: ASPIRIN 81 MG ECTAB PO SCH (08:26)
[2018-06-25] MEDS: METOPROLOL TARTRATE 50 MG TAB PO SCH ×2 (08:26→21:06)
[2018-06-25] MEDS: HEPARIN SOD 5,000 UNIT/0.5 ML VIAL SQ SCH ×2 (08:26→21:06)
[2018-06-25] MEDS: INSULIN GLARGINE SOLOSTAR 100 UNITS/ML 3 ML PEN SC SCH ×2 (08:27→21:07)
[2018-06-25] MEDS: PREGABALIN 50 MG CAP PO SCH ×2 (08:29→21:11)
[2018-06-25] MEDS: INSULIN ASPART 100 UNITS/ML 3 ML PEN SC SCH ×4 (08:29→21:07)
--- NOTE | 2018-06-25 15:02 | Family Medicine Progress Note ---
Date of Service June 25, 2018 Assessment & Plan (1) Discharge planning issues: Pt is a 72yo male with PMHx of DMII, HTN, CAD, CKDIII who presented for chest pain rule-out (resolved) and is awaiting SNF placement with a rehab component due to severe deconditioning. Pt requesting placement once more at the [place] today, expressing frustration. Pressure ulcer left heel -local wound care currently. -SNF to follow the wound Chest pain -ruled out for ACS CAD -continue aspirin, statin, beta-minoo, KATE inhibitor DMII -uptitrate insulins as needed Generalized weakness and right BKA with leg prosthesis -PT/OT for conditioning HTN, CAD, extremity atherosclerosis -cont home meds CKD Stage 3 -stable Discharge Planning -No beds currently available at [facility] where pt would like to go. -[facility] no longer an option due to copay, pt also declining placement at other SNFs -Placement still being navigated. CODE STATUS: FULL CODE DVT PROPHYLAXIS: Hep SQ DISPO: Ideally, SNF with rehab emphasis. Supervising Physician Co-Signing Physician Notes Resident Physician Supervision Note: I independently interviewed and examined the patient and verified the melendrez history and physical, reviewed labs and image studies, discussed the case with the resident Dr. Linares and agree with the findings and care plan. Subjective Pt states he is getting frustrated about placement. Wants to go the [facility], suggesting that his PCP call to attempt to get a bed. Denies chest pain, SOB, palpitations. Review of Systems All systems reviewed & are unremarkable except as noted in HPI & below Physical Exam Vital Signs (Past 24 Hours): Last Vital Signs Temp 36.3 C L 06/25/18 07:26 Pulse 78 06/25/18 07:26 Resp 18 06/25/18 07:26 BP 167/72 H 06/25/18 13:39 Pulse Ox 94 06/25/18 07:26 General: Resting in bed. HEENT: NC/AT Chest: Nontender to palpation. CV: RRR, Normal s1, s2 Resp: Breath sounds clear bilaterally, no increased effort of breathing Abdomen: Soft, nontender, nondistended. No guarding. No organomegaly appreciated. Extremities: Amputated right lower extremity and 2 toes on LEFT foot. Stage 1-2 ulcer on left heel. Results & Data Laboratory Results Laboratory Results - last 24 hr 06/24/18 06/24/18 06/25/18 16:54 19:47 07:38 POC Glucose 88 157 H 80 06/25/18 11:17 POC Glucose 113 H Medications Administered Home Medications Symbicort 2 puff INHALATION BID 12/06/17 [History Confirmed 06/16/18] aspirin 81 mg PO DAILY 12/06/17 [History Confirmed 06/16/18] sertraline 50 mg PO DAILY 12/06/17 [History Confirmed 06/16/18] A&D Oint 1 applic TOPICAL 5XD 06/16/18 [History Confirmed 06/16/18] Lactobacillus acidophilus 2 tab PO TID 06/16/18 [History Confirmed 06/16/18] Menthol/M-Salicylate 10-15% 1 applic TOPICAL UD PRN 06/16/18 [History Confirmed 06/16/18] Unknown Insulin 0 units NOT APPLICABLE UD 06/16/18 [History] acetaminophen [Tylenol] 650 mg PO BID PRN 06/16/18 [History Confirmed 06/16/18] duloxetine 30 mg PO DAILY 06/16/18 [History Confirmed 06/16/18] hydralazine 10 mg PO Q6 06/16/18 [History Confirmed 06/16/18] hydrocortisone 1 applic TOPICAL BID PRN 06/16/18 [History Confirmed 06/16/18] lidocaine 1 applic TOPICAL TID PRN 06/16/18 [History Confirmed 06/16/18] metoprolol tartrate 50 mg PO BID 06/16/18 [History Confirmed 06/16/18] oxycodone-acetaminophen [Percocet] 1 tab PO Q6H PRN 06/16/18 [History Confirmed 06/16/18] pramoxine 1 applic [place] UD PRN 06/16/18 [History Confirmed 06/16/18] pregabalin [Lyrica] 50 mg PO BID 06/16/18 [History Confirmed 06/16/18] tamsulosin [Flomax] 0.4 mg PO DAILY 06/16/18 [History Confirmed 06/16/18] Active Medications Acetaminophen (Tylenol) 650 mg PO Q4H PRN PRN Reason: Pain Stop: 07/22/18 00:23 Aspirin (Ecotrin Ectab) 81 mg PO DAILY [facility] Stop: 07/17/18 11:59 Last Admin: 06/25/18 08:26 Dose: 81 mg Documented by: Atorvastatin Calcium (Lipitor) 80 mg PO QAM [facility] Stop: 07/20/18 08:59 Last Admin: 06/25/18 08:24 Dose: 80 mg Documented by: Budesonide/Formoterol Fumarate (Symbicort 160mcg/4.5mcg) 2 puffs INH BID [facility] Stop: 07/17/18 08:59 Last Admin: 06/25/18 08:26 Dose: 2 puffs Documented by: Dextrose (Dextrose 50%) 25 - 50 ml IV UD PRN; Protocol PRN Reason: Hypoglycemia Protocol Stop: 07/17/18 05:14 Duloxetine HCl (Cymbalta) 30 mg PO DAILY [facility] Stop: 07/17/18 08:59 Last Admin: 06/25/18 08:24 Dose: 30 mg Documented by: Glucagon (Glucagen) 1 mg IM UD PRN; Protocol PRN Reason: Hypoglycemia Protocol Stop: 07/17/18 05:14 Glucose (Glucose 40%) 15 - 30 gm PO UD PRN; Protocol PRN Reason: Hypoglycemia Protocol Stop: 07/17/18 05:14 Glucose (Dex4 Glucose) 4 - 8 tabs PO UD PRN; Protocol PRN Reason: Hypoglycemia Protocol Stop: 07/17/18 05:14 Heparin Sodium (Porcine) (Heparin Sodium (Porcine)) 5,000 units SQ Q12 [facility] Stop: 07/20/18 20:59 Last Admin: 06/25/18 08:26 Dose: Not Given Documented by: Hydralazine HCl (Apresoline) 10 mg PO Q6 [facility] Stop: 07/17/18 05:59 Last Admin: 06/25/18 13:28 Dose: 10 mg Documented by: Hydrocortisone (Hydrocortisone 1%) 1 appln EXT BID PRN PRN Reason: Itching Stop: 07/18/18 01:19 Last Admin: 06/19/18 06:19 Dose: 1 appln Documented by: Hydrocortisone (Proctozone Hc 2.5%) 1 appln EXT TID PRN PRN Reason: Hemorrhoids Stop: 07/20/18 18:21 Last Admin: 06/20/18 21:15 Dose: 1 appln Documented by: Acetaminophen (Ofirmev) 1,000 mg in 100 mls @ 400 mls/hr IV Q8H PRN PRN Reason: Pain Stop: 07/22/18 23:26 Last Infusion: 06/23/18 22:45 Dose: Infused Documented by: Insulin Aspart (Novolog Flexpen) 0 units SC ACHS [facility] Stop: 07/17/18 07:29 Last Admin: 06/25/18 13:30 Dose: 12 units Documented by: Insulin Glargine (Lantus Solostar Pen) 25 units SC BID [facility] Stop: 07/20/18 20:59 Last Admin: 06/25/18 08:27 Dose: 25 units Documented by: Lactobacillus Acidophilus (Floranex) 4 tab PO TID [facility] Stop: 07/17/18 08:59 Last Admin: 06/25/18 13:28 Dose: 4 tab Documented by: Lidocaine (Xylocaine 5%) 1 appln TOP TID PRN PRN Reason: PIAN IN STUMPS Stop: 07/17/18 04:56 Lisinopril (Zestril) 10 mg PO QAM [facility] Stop: 07/20/18 08:59 Last Admin: 06/25/18 08:25 Dose: 10 mg Documented by: Metoprolol Tartrate (Lopressor) 50 mg PO BID [facility] Stop: 07/17/18 08:59 Last Admin: 06/25/18 08:26 Dose: 50 mg Documented by: Miscellaneous (Order Awaiting Action) 1 ea N/A QS [facility] Stop: 07/17/18 07:59 Last Admin: 06/25/18 08:23 Dose: Not Given Documented by: Jessicacellaneous (Order Awaiting Action) 1 ea N/A QS [facility] Stop: 07/17/18 07:59 Last Admin: 06/25/18 08:23 Dose: Not Given Documented by: Miscellaneous (Carbohydrates For Hypoglycemia) 15 - 30 gm PO UD PRN PRN Reason: Hypoglycemia Treatment Stop: 07/17/18 05:14 Nitroglycerin (Nitrostat) 0.4 mg SL UD PRN PRN Reason: Chest Pain Stop: 07/16/18 23:12 Last Admin: 06/17/18 00:08 Dose: 0.4 mg Documented by: Ondansetron HCl (Zofran) 4 mg IV Q6H PRN PRN Reason: Nausea Stop: 07/17/18 04:56 Last Admin: 06/17/18 13:54 Dose: 4 mg Documented by: Oxycodone/Acetaminophen (Percocet 10/325mg) 1 tab PO Q4H PRN PRN Reason: Pain Stop: 07/07/18 23:30 Last Admin: 06/24/18 21:50 Dose: 1 tab Documented by: Pregabalin (Lyrica) 50 mg PO BID [facility] Stop: 07/17/18 08:59 Last Admin: 06/25/18 08:29 Dose: 50 mg Documented by: Sertraline HCl (Zoloft) 50 mg PO DAILY [facility] Stop: 07/17/18 08:59 Last Admin: 06/25/18 08:26 Dose: 50 mg Documented by: Tamsulosin HCl (Flomax) 0.4 mg PO DAILY [facility] Stop: 07/17/18 08:59 Last Admin: 06/25/18 08:25 Dose: 0.4 mg Documented by:
[2018-06-25] MEDS: OXYCODONE/ACETAMINOPHEN 10-325 TAB PO PRN ×2 (15:44→21:11)
[2018-06-25] MEDS: ACETAMINOPHEN 1,000 MG/100 ML VIAL IV PRN (22:05)
[2018-06-26] MEDS: OXYCODONE/ACETAMINOPHEN 10-325 TAB PO PRN (00:41)
[2018-06-26] MEDS: HydrALAZINE 10 MG TAB PO SCH ×2 (05:15→13:10)
[2018-06-26] MEDS: LACTOBACILLUS ACIDOPHILUS (FLORANEX) TAB PO SCH ×2 (08:24→13:10)
[2018-06-26] MEDS: ATORVASTATIN 40 MG TAB PO SCH (08:24)
[2018-06-26] MEDS: METOPROLOL TARTRATE 50 MG TAB PO SCH (08:24)
[2018-06-26] MEDS: TAMSULOSIN HCL 0.4 MG CAP PO SCH (08:25)
[2018-06-26] MEDS: SERTRALINE HCL 50 MG TABLET PO SCH (08:25)
[2018-06-26] MEDS: LISINOPRIL 10 MG TAB PO SCH (08:25)
[2018-06-26] MEDS: HEPARIN SOD 5,000 UNIT/0.5 ML VIAL SQ SCH (08:25)
[2018-06-26] MEDS: ASPIRIN 81 MG ECTAB PO SCH (08:25)
[2018-06-26] MEDS: DULOXETINE HCL 30 MG CAP PO SCH (08:25)
[2018-06-26] MEDS: BUDESONIDE/FORMOTEROL FUMARATE 160/4.5 60 PUFFS/INHALER INH SCH (08:26)
[2018-06-26] MEDS: INSULIN ASPART 100 UNITS/ML 3 ML PEN SC SCH ×2 (08:30→13:12)
[2018-06-26] MEDS: INSULIN GLARGINE SOLOSTAR 100 UNITS/ML 3 ML PEN SC SCH (08:30)
[2018-06-26] MEDS: PREGABALIN 50 MG CAP PO SCH (08:35)
--- NOTE | 2018-06-26 14:25 | Discharge Summary ---
Date of Service June 26, 2018 Admission HPI Per Admitting Provider 72yoM with hx of DM2, neuropathy, R BKA, L heel ulcer, L great toe amputation, HTN, COPD, polycythemia and BPH presents with concern of chest tightness a/w palpitations tonight and elevated blood sugars since being discharged from the [facility] [place] on 06/12 without his insulin. Pt was at the [facility] since 2 weeks before [facility] for rehab and left on friday, 06/12 but his insulin was not given to him. His sugars at home have been in the 300s. He finally got insulin today but did not know how to administer it. BSG was 373. He presented tonight to the ED for main concern of chest tightness and palpitations which started around 8pm on 06/16. His initial EKG was concerning for ST elevations in inferior leads at 22:[address] changes normalized on following EKG at 23:13. Pt received nitro x 1, aspirin 3 24mg, tylenol 1g, fentanyl 50mcg, 1L IVFs, and 10 u insulin regular. Pt continues to have some chest tightness. A/w headache, dizziness amadou when he stands up, abdominal pain, diarrhea (more formed now, non-bloody and not dark, x couple of days) Denies any diaphoresis, f/c, sob, n/v, constipation, dysuria, hematuria, hematochezia, melena. Admission Exam Per Admitting Provider General: In NAD Neuro: A&O x 4 CV: RRR, no m/r/g Pulm: mild RML and RLL crackles appreciated, equal breath sounds bilaterally, on RA GI: +BS, non-distended, NTTP in all quadrants extremities: L: no calf tenderness, no LE edema; L great toe amputated; R BKA stump warm without any lesions, Principal Diagnosis Diabetes Chest Pain Discharge Exam General: Resting in bed. HEENT: NC/AT Chest: Nontender to palpation. CV: RRR, Normal s1, s2 Resp: Breath sounds clear bilaterally, no increased effort of breathing Abdomen: Soft, nontender, nondistended. No guarding. No organomegaly appreciated. Extremities: Amputated right lower extremity and 2 toes on LEFT foot. Stage 1-2 ulcer on left heel. Discharge Data Allergies Allergy/AdvReac Type Severity Reaction Status Date / Time amoxicillin Allergy Intermediate itching Verified 06/16/18 23:24 Consultations 06/17/18 01:34 ED Decision to Admit Stat 06/17/18 04:57 Consult Cardiology Routine Hospital Course (1) Discharge planning issues: Pt is a 72yo male with PMHx of DMII, HTN, CAD, CKDIII who presented for chest pain rule-out (resolved) and is awaiting SNF placement with a rehab component due to severe deconditioning. Pt discharged to home with home health services. Pressure ulcer left heel -Likely a stage 1-2 ulcer. -Followed by wound care while hospitalized. -Home health services to follow. -Advised PCP close followup Chest pain -ruled out for ACS -No evidence of acute MA. -Upon discharge completely resolved. -Discharged with metorprolol tartrate 50mg BID and aspirin 81mg for continued use at home. -Close PCP followup advised. CAD -aspirin, statin, beta-minoo, KATE inhibitor was continued while hospitalized. -Followup with PCP. DMII -was treated with an insulin sliding scale while hospitalized. -According to received delivery of insulin Aspart and insulin Glargine at home on 06/19. -Morning glucoses ranged 133 or less while hospitalized -Advised at home to stop insulin glargine and use the 5U of insulin aspart before meals. -Prescribed an Accuchek Glucometer with strips upon discharge. -Close followup with PCP advised. Generalized weakness and right BKA with leg prosthesis -PT/OT for conditioning during hospital stay. -SNF for acute rehab would have been ideal upon discharge but pt unable to get placement. -Pt discharged home with home services. HTN, CAD, extremity atherosclerosis -home meds were continued. -close PCP followup suggested. Total Time Total Time Spent Total Time Spent (In Minutes): 60 Discharge Plan Discharge Items Patient Disposition: Home - Home Health Services Reason For Visit: CHEST TIGHTNESS, ELEVATED BLOOD SUGAR Discharge Diagnosis: Diabetes Condition: Good Discharge Goals: Decrease discomfort and Improve disease control Activity: Per 'Additional Instructions' section Non-emergency contact: Primary Care Provider Call non-emergency contact if: your pain is worsening Follow-up/Referrals: Juan Hidalgo M.D. [Primary Care Provider] - 06/24/18 2:00 pm (Please, follow up at [facility] with Dr. Juan Hidalgo on FridayJune 24 at 2:00 pm. *If you need to change this appointment, call the office at [phone].) Diet: Carb Consistent or DM2 Addtl Provider Instructions: Chest Pain * You were evaluated for your chest pain with an electrocardiogram, an echocardiogram, and a perfusion study. * These results show that you have had some heart damage in the past, but are not currently having any ischemic heart disease or damage * We will continue with the beta minoo we started here in the hospital and the baby aspirin moving forward Metoprolol 50 mg twice a day Aspirin 81 mg Once per day *Please followup with your primary care physician in the next week. *Please try your best to remain active. Diabetes * Your diabetes is in need of much better control to improve your current and future health *We are discharging you with a glucometer to check your sugar levels. Please use it at home. *Based on your sugar levels here, we ask that you stop using your insulin glargine at home and only use your insulin aspart 5U with every meal. *It is very important that you follow up with your primary care physician to ensure that your sugar levels are adequate and appropriately monitored. *Please followup with your primary care physician within the next week for this. Prescriptions: New blood-glucose meter [Accu-Chek Roopa Plus Meter] misc .ROUTE .MEDSUPPLY Qty: 1 RF: 0 Accu-Chek Roopa Plus test strp strip .ROUTE .MEDSUPPLY Qty: 10 RF: 0 insulin aspart U-100 100 unit/mL (3 mL) insulin pen 5 units SQ .with meals Qty: 15 RF: 0 metoprolol tartrate 50 mg tablet 50 mg PO BID Qty: 14 RF: 0 aspirin 81 mg tablet,chewable 81 mg PO DAILY Qty: 30 RF: 0 Continued sertraline 100 mg Tablet 50 mg PO DAILY RF: 0 Symbicort 160-4.5 mcg/actuation Hfa Aerosol Inhaler 2 puff INHALATION BID RF: 0 A&D Oint 1 applic topical 5XD RF: 0 hydrocortisone 0.5 % Cream 1 applic TOPICAL BID PRN (Reason: AFFECTED AREAS BACK, SCROTUM) RF: 0 oxycodone-acetaminophen [Percocet] 5-325 mg Tablet 1 tab PO Q6H PRN (Reason: Pain) RF: 0 tamsulosin [Flomax] 0.4 mg Capsule 0.4 mg PO DAILY RF: 0 Lactobacillus acidophilus Tablet,Chewable 2 tab PO TID RF: 0 duloxetine 30 mg Capsule,Delayed Release(Dr/Ec) 30 mg PO DAILY RF: 0 Lyrica 50 mg Capsule 50 mg PO BID RF: 0 acetaminophen [Tylenol] 325 mg Capsule 650 mg PO BID PRN (Reason: Fever Or Pain) RF: 0 pramoxine 1 % Foam 1 applic MA UD PRN (Reason: Unknown) RF: 0 lidocaine 5 % Ointment 1 applic TOPICAL TID PRN (Reason: PIAN IN STUMPS) RF: 0 Menthol/M-Salicylate 10-15% 1 applic topical UD PRN (Reason: CERVICAL DISCOMFORT) RF: 0 Discontinued aspirin 81 mg Tablet,Delayed Release (Dr/Ec) 81 mg PO DAILY RF: 0 hydralazine 10 mg Tablet 10 mg PO Q6 RF: 0 metoprolol tartrate 50 mg Tablet 50 mg PO BID RF: 0 Unknown Insulin Not Applicable UD RF: 0 Stand-Alone Forms: [facility]/Other Patient Handouts: Blood Sugar Check, Glucose Check Steps, ED Chest Pain Atypical Unkn Cause Discharge Orders: Discharge Order (Routine); Ordered 06/26/18 Ordered By: Sera Linaers Admission Data Admit Date/Time: 06/17/18 03:09 Attending Provider: Erika Dejesus Admit Provider: Ishaan Purvis Primary Care Provider: Juan Hidalgo Other Providers: Ishaan Purvis ; Arturo Solomon ; Jeremy Mondragon Service: Medical Other Interventions: Discharge Summary Assessment (RN) Last Done: 06/26/18 14:47 DC Date/Time DO NOT enter until pt leaves facility: 06/26/18 15:45 Supervising Physician Co-Signing Physician Notes Resident Physician Supervision Note: I independently interviewed and examined the patient and verified the melendrez history and physical, reviewed labs and image studies, discussed the case with the resident Dr. Linares and agree with the findings and care plan. Time spent in discharge 35 min
== END 2018-06-26 15:45 | disposition home health service (06) | DRG 313 ==
LOC: ED 22:08 → SUATTDRO 06-17 03:09 → 2S 06-17 03:09 → 4E 06-18 15:55

== ENCOUNTER 2018-07-01 19:59 | Observation (INO) ==
--- NOTE | 2018-07-01 20:35 | XRay Report ---
XR chest 1V portable CLINICAL HISTORY: chest pressure pain COMPARISON STUDY: 06/16/2018 FINDINGS: The bones soft tissues and hemidiaphragms are normal. The cardiomediastinal silhouette is n ormal. The lungs are clear. The pulmonary vasculature is normal. IMPRESSION: Negative chest. The above report was generated using voice recognition software. It may contain grammatical, syntax or spelling errors. Electronically signed by: Arnaldo Walters M.D. 07/01/2018 8:34 PM
[2018-07-01 21:00] LABS: Basophils # (auto) 0.08 K/uL (0-0.2); Basophils % (auto) 0.7 %; Eosinophils # (auto) 0.17 K/uL (0-0.5); Eosinophils % (auto) 1.4 %; Hematocrit (blood only) 49.4 % (42-52); Hemoglobin 14.8 g/dL (14.0-18.0); Immature Granulocytes # (auto) 0.02 K/uL (0.00-0.02); Immature Granulocytes % (auto) 0.2 %; Lymphocytes # (auto) 1.27 K/uL (1.2-3.4); Lymphocytes % (auto) 10.8 %; Mean Corpuscular Volume 71.9 fL (80-100); Mean Platelet Volume 9.7 fL (7.4-10.4); Monocytes # (auto) 0.37 K/uL (0.11-0.59); Monocytes % (auto) 3.1 %; Neutrophils # (auto) 9.86 K/uL (1.4-6.5); Neutrophils % (auto) 83.8 %; Platelet Count 253 K/uL (130-400); RDW Coefficient of Variation 19.9 % (11.5-14.5); RDW Standard Deviation 50.9 fL (36.4-46.3); Red Blood Count 6.87 M/uL (4.7-6.1); White Blood Count 11.77 K/uL (4.8-10.8)
[2018-07-01 21:09] LABS: INR 1.1 (0.9-1.1); Partial Thromboplastin Time 28.1 Seconds (21.0-31.0)
[2018-07-01 21:15] LABS: Alanine Aminotransferase 21 U/L (12-78); Albumin Level 3.3 gm/dl (3.4-5.0); Aspartate Aminotransferase 14 U/L (15-37); BUN Creatinine Ratio 20.8 (10-20); Blood Urea Nitrogen 26 mg/dl (7-18); Carbon Dioxide 21 mmol/L (21-32); Chloride 110 mmol/L (98-107); Creatinine Clr Calc Pharmacy 58.2 ml/min; Est GFR (African American) 65.6; Est GFR (Non-African American) 56.6; Glucose 233 mg/dl (70-99); Potassium 3.7 mmol/L (3.5-5.1); Sodium 140 mmol/L (136-145)
[2018-07-01 21:20] LABS: Albumin Globulin Ratio 0.9 (0.9-2); Alkaline Phosphatase 107 U/L (45-117); Bilirubin,Total 0.4 mg/dl (0.2-1); Globulin 3.5 gm/dl (2.5-4.0); Total Protein 6.8 gm/dl (6.4-8.2); Troponin I < 0.015 ng/ml (0-0.045)
[2018-07-01] MEDS ORDERED: NITROGLYCERIN 2% OINTMENT 30GM TUBE EXT STA (21:45)
[2018-07-01] MEDS ORDERED: METOPROLOL TARTRATE 50 MG TAB PO STA (21:45)
[2018-07-01 21:49] LABS: Anisocytosis Present; Tear Drop Cells Occasional
[2018-07-01 22:01] LABS: Magnesium 1.9 mg/dl (1.8-2.4)
--- NOTE | 2018-07-01 22:49 | History & Physical Report ---
Date of Service July 01, 2018 Assessment & Plan (1) Chest tightness or pressure: Patient presents to the emergency department with recurrent chest pressure/CAD/hypertension-- Had a negative nuclear cardiopulmonary stress test on 06/19/18. The patient will be admitted to telemetry for serial cardiac enzymes, serial EKG's, cardiac rhythm monitoring and a 2-D echocardiogram with Dopplers. Continue aspirin 81 mg daily, metoprolol tartrate 50 mg p.o. twice daily. Consult cardiology, seen by Dr. Barragan at last hospitalization. EKG without acute changes. Present on Admission?: Yes (2) Coronary artery disease: As above. Present on Admission?: Yes (3) BPH NOS w ur obs/LUTS: Continue tamsulosin 0.4 mg daily. No symptoms as admission. Present on Admission?: Yes (4) Polycythemia: Hemoglobin overall stable and within a range. Present on Admission?: Yes (5) COPD (chronic obstructive pulmonary disease): Continue Symbicort. Patient appears to be at baseline. Present on Admission?: Yes (6) Diabetes mellitus type II, controlled: Patient reports his blood sugars have been reasonably well controlled. Hold his standing order for insulin at this time. Placed on Accu-Cheks before meals and at bedtime with NovoLog coverage per scale. Present on Admission?: Yes (7) Depression: Depression/chronic pain-- On sertraline 50 mg p.o. daily and duloxetine 30 mg p.o. daily. Would consider increase duloxetine from 30-60 mg p.o. daily. Present on Admission?: Yes (8) Discharge planning issues: Patient was hospitalized from 06/17-06/26 due to issues related to wanting to go to the [place] We will consult social science research assistant, as patient is not able to take care of himself to the extent that he needs to at home. Present on Admission?: Yes History of Present Illness Chief Complaint: The patient presents to the emergency department with chest pressure, and severe headache that began around 1900 hrs. today. He reports that the pain is similar to what brought him in for his recent admission from 06/17-06/26/18. Primary Care Provider: Juan Hidalgo The patient is a 72-year-old male with a past medical history including CAD/hypertension/acute kidney injury/diabetes mellitus/COPD/polycythemia who presents with recurrent chest pressure and headache symptoms. He did undergo a nuclear cardiopulmonary stress test on 06/19/18 which was negative. His physical activity level has been relatively low due to his comorbidities. Allergies Allergy/AdvReac Type Severity Reaction Status Date / Time amoxicillin Allergy Intermediate itching Verified 07/01/18 22:55 Home Medications Home Medications Medication Instructions Recorded Confirmed Type Symbicort 2 puff INHALATION BID 12/06/17 07/01/18 History sertraline 50 mg PO DAILY 12/06/17 07/01/18 History A&D Oint 1 applic TOPICAL 5XD 06/16/18 07/01/18 History Lactobacillus acidophilus 2 tab PO TID 06/16/18 07/01/18 History Lyrica 50 mg PO BID 06/16/18 07/01/18 History Menthol/M-Salicylate 10-15% 1 applic TOPICAL UD PRN 06/16/18 07/01/18 History acetaminophen [Tylenol] 650 mg PO BID PRN 06/16/18 07/01/18 History duloxetine 30 mg PO DAILY 06/16/18 07/01/18 History hydrocortisone 1 applic TOPICAL BID PRN 06/16/18 07/01/18 History lidocaine 1 applic TOPICAL TID PRN 06/16/18 07/01/18 History oxycodone-acetaminophen [Percocet] 1 tab PO Q6H PRN 06/16/18 07/01/18 History pramoxine 1 applic MA UD PRN 06/16/18 07/01/18 History tamsulosin [Flomax] 0.4 mg PO DAILY 06/16/18 07/01/18 History aspirin 81 mg PO DAILY #30 tab 06/26/18 07/01/18 Rx insulin aspart U-100 5 units SQ .with meals #15 ml 06/26/18 07/01/18 Rx metoprolol tartrate 50 mg PO BID #14 tab 06/26/18 07/01/18 Rx Past Med/Surg History Medical History Pressure ulcer of left heel, stage 2 (Acute) Heel ulcer Left heel stage 3 pressure ulcer, POA -treating with Optifoam WOund consult in place Constipation Hyperkalemia Urethral trauma Hematuria Urinary retention BPH NOS w ur obs/LUTS (Chronic) DVT prophylaxis Iron deficiency Polycythemia Chronic heel ulcer Ambulatory dysfunction Generalized weakness (Acute) Fall (Acute) Failure to thrive (Acute) Multiple abrasions (Acute) HTN (hypertension) (Chronic) COPD (chronic obstructive pulmonary disease) (Chronic) Polycythemia Diabetes mellitus type II, controlled (Chronic) Depression (Chronic) Neuropathy (Chronic) Great toe amputation status (Resolved) "L great toe amputation" Acute renal insufficiency Atherosclerosis of extremity with ulceration Chronic kidney disease, stage III (moderate) Contusion of left leg (Acute) Diabetes mellitus type 2 with complications Fall (Acute) Hip fracture Hyperglycemia (Acute) Hypertension PTSD (post-traumatic stress disorder) (Chronic) Surgical History Hx of below knee amputation (Resolved) "R BKA 2013" History of tonsillectomy (Resolved) H/O angioplasty (Chronic) Family History Other No significant family history Social History Preferred Language: P[place] Communication Ability: Effective Hearing Ability: Normal 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 Other Information That Helps Us Care for You: No Feels Safe at Home: Yes Safety Concerns: Feels Safe At This Time Smoking Status: Former smoker Do You Dip or Chew Tobacco: No Second Hand Exposure: Yes Hx Alcohol Use: No Hx Substance Use: No Review of Systems Review of Systems: The patient denies palpitations, cough, lower extremity swelling, sore throat, fevers, chills, sweats, nausea, vomiting, diarrhea , constipation, abdominal pain, pelvic pain, blood in urine or stool, dysuria, urinary frequency or urgency, lightheadedness, dizziness, memory loss, loss of consciousness, generalized arthralgias or myalgias, back or neck pain, or night sweats. The review of systems is otherwise negative other than for that already noted above, and at least 10 systems have been reviewed. Physical Exam Vital Signs (Past 24 Hours): Last Vital Signs Temp 36.6 C 07/01/18 20:12 Pulse 85 07/01/18 20:12 Resp 20 07/01/18 20:12 BP 174/92 H 07/01/18 20:12 Pulse Ox 96 07/01/18 20:12 Physical Exam: The patient is awake, alert and oriented 3, looks chronically debilitated, normocephalic and atraumatic, lying in bed and in no acute distress. HEENT--PERRL, EOMI, mucous membranes and oropharynx normal. Neck--supple. No JVD. No bruits. Thyroid normal, trachea midline, no adenopathy. Heart--normal S1 and S2. No murmurs, rubs or gallops. Lungs--clear bilaterally, no respiratory distress, no accessory muscle use. Abdomen--normal bowel sounds and soft. Nontender. Nondistended. Extremities--right BKA. No edema. There are good distal pulses b/l. Dermatologic--normal skin turgor, normal color, no abnormal lymph nodes, no rash. Neurologic--cranial nerves II through XII grossly intact. Rheumatologic--normal range of motion. Psychiatric--normal affect. Results & Data Laboratory Results Laboratory Results WBC 11.77 K/uL (4.8-10.8) H 07/01/18 20:49 RBC 6.87 M/uL (4.7-6.1) H 07/01/18 20:49 Hgb 14.8 g/dL (14.0-18.0) 07/01/18 20:49 Hct 49.4 % (42-52) 07/01/18 20:49 MCV 71.9 fL (80-100) L 07/01/18 20:49 MCH 21.5 pg (25-34) L 07/01/18 20:49 MCHC 30.0 g/dL (32-36) L 07/01/18 20:49 RDW Std Deviation 50.9 fL (36.4-46.3) H 07/01/18 20:49 RDW Coeff of Mohamud 19.9 % (11.5-14.5) H 07/01/18 20:49 Plt Count 253 K/uL (130-400) 07/01/18 20:49 MPV 9.7 fL (7.4-10.4) 07/01/18 20:49 Immature Gran % (Auto) 0.2 % 07/01/18 20:49 Neut % (Auto) 83.8 % 07/01/18 20:49 Lymph % (Auto) 10.8 % 07/01/18 20:49 Lamar % (Auto) 3.1 % 07/01/18 20:49 Eos % (Auto) 1.4 % 07/01/18 20:49 Baso % (Auto) 0.7 % 07/01/18 20:49 Immature Gran # (Auto) 0.02 K/uL (0.00-0.02) 07/01/18 20:49 Neut # (Auto) 9.86 K/uL (1.4-6.5) H 07/01/18 20:49 Lymph # (Auto) 1.27 K/uL (1.2-3.4) 07/01/18 20:49 Lamar # (Auto) 0.37 K/uL (0.11-0.59) 07/01/18 20:49 Eos # (Auto) 0.17 K/uL (0-0.5) 07/01/18 20:49 Baso # (Auto) 0.08 K/uL (0-0.2) 07/01/18 20:49 Anisocytosis Present 07/01/18 20:49 Tear Drop Cells Occasional 07/01/18 20:49 PT 11.0 Seconds (9.0-12.0) 07/01/18 20:49 INR 1.1 (0.9-1.1) 07/01/18 20:49 APTT 28.1 Seconds (21.0-31.0) 07/01/18 20:49 PTT Ratio 1.0 07/01/18 20:49 Sodium 140 mmol/L (136-145) 07/01/18 20:49 Potassium 3.7 mmol/L (3.5-5.1) 07/01/18 20:49 Chloride 110 mmol/L (98-107) H 07/01/18 20:49 Carbon Dioxide 21 mmol/L (21-32) 07/01/18 20:49 Anion Gap 9.0 (3-11) 07/01/18 20:49 BUN 26 mg/dl (7-18) H 07/01/18 20:49 Creatinine 1.26 mg/dl (0.6-1.4) 07/01/18 20:49 Est Cr Clr Drug Dosing 58.2 ml/min 07/01/18 20:49 Est GFR ( Amer) 65.6 04/17/19 20:49 Est GFR (Non-Af Amer) 56.6 07/01/18 20:49 BUN/Creatinine Ratio 20.8 (10-20) H 07/01/18 20:49 Glucose 233 mg/dl (70-99) H 07/01/18 20:49 Calcium 9.0 mg/dl (8.5-10.1) 07/01/18 20:49 Magnesium 1.9 mg/dl (1.8-2.4) 07/01/18 20:49 Total Bilirubin 0.4 mg/dl (0.2-1) 07/01/18 20:49 AST 14 U/L (15-37) L 07/01/18 20:49 ALT 21 U/L (12-78) 07/01/18 20:49 Alkaline Phosphatase 107 U/L (45-117) 07/01/18 20:49 Troponin I < 0.015 ng/ml (0-0.045) 07/02/18 00:11 Total Protein 6.8 gm/dl (6.4-8.2) 07/01/18 20:49 Albumin 3.3 gm/dl (3.4-5.0) L 07/01/18 20:49 Globulin 3.5 gm/dl (2.5-4.0) 07/01/18 20:49 Albumin/Globulin Ratio 0.9 (0.9-2) 07/01/18 20:49 Code Status & VTE Plan Code Status Full code VTE Prophylaxis Plan VTE Prophylaxis will be ordered: Yes (1) Diabetes mellitus type II, controlled Diabetes mellitus alf insulin use: without pet stylist use Diabetes mellitus complication status: with circulatory complication Diabetes mellitus complication detail: with peripheral angiopathy without gangrene Qualified Code(s): E11.51 - Type 2 diabetes mellitus with diabetic peripheral angiopathy without gangrene
--- NOTE | 2018-07-01 23:46 | Emergency Department Note ---
Entered by Yesy Kendall acting as a scribe for History of Present Illness General Chief complaint: Chest Pain Stated complaint: CHEST PAIN, HEADACHE Time Seen by Provider: 07/01/18 21:35 Source: patient Mode of arrival: EMS Limitations: no limitations History of Present Illness Provider complaint: chest pressure Onset (ago): hour(s) (2.5) Location: chest Radiation: non-radiation Pain Consistency: + other (episode) Maximum Pain Intensity: 8 Current Pain Intensity: 8 Quality: + other (pressure) Relieved By: not by medication Associated symptoms: + denies other symptoms (bd pain), + headaches, + nausea/vomiting and + other (HTN); no diaphoresis and no shortness of breath Treatments prior to arrival: aspirin and other (NTG) The patient is a 72 year old male who presents to the ER with complaints of an episode of chest pain that occurred around 1900 today. He reports that the pain onset while lying in bed and rates it an 8/10. He denies it radiating anywhere but notes he did have head pressure as well. He states that he did take his blood pressure at home and that it was higher than baseline. He denies any shortness of breath or diaphoresis but notes he was nauseous. He denies any abdominal pain. He reports that he was given aspirin and NTG en route and denies any relief. He states that he has a history of an AK as well as hypertension. Home Medications Home Medications Medication Instructions Recorded Confirmed Type Symbicort 2 puff INHALATION BID 12/06/17 07/01/18 History sertraline 50 mg PO DAILY 12/06/17 07/01/18 History A&D Oint 1 applic TOPICAL 5XD 06/16/18 07/01/18 History Lactobacillus acidophilus 2 tab PO TID 06/16/18 07/01/18 History Lyrica 50 mg PO BID 06/16/18 07/01/18 History Menthol/M-Salicylate 10-15% 1 applic TOPICAL UD PRN 06/16/18 07/01/18 History acetaminophen [Tylenol] 650 mg PO BID PRN 06/16/18 07/01/18 History duloxetine 30 mg PO DAILY 06/16/18 07/01/18 History hydrocortisone 1 applic TOPICAL BID PRN 06/16/18 07/01/18 History lidocaine 1 applic TOPICAL TID PRN 06/16/18 07/01/18 History oxycodone-acetaminophen [Percocet] 1 tab PO Q6H PRN 06/16/18 07/01/18 History pramoxine 1 applic FL UD PRN 06/16/18 07/01/18 History tamsulosin [Flomax] 0.4 mg PO DAILY 06/16/18 07/01/18 History aspirin 81 mg PO DAILY #30 tab 06/26/18 07/01/18 Rx insulin aspart U-100 5 units SQ .with meals #15 ml 06/26/18 07/01/18 Rx metoprolol tartrate 50 mg PO BID #14 tab 06/26/18 07/01/18 Rx Allergies Allergy/AdvReac Type Severity Reaction Status Date / Time amoxicillin Allergy Intermediate itching Verified 07/01/18 22:55 Past Med/Surg History Medical History Pressure ulcer of left heel, stage 2 (Acute) Heel ulcer Left heel stage 3 pressure ulcer, POA -treating with Optifoam WOund consult in place Constipation Hyperkalemia Urethral trauma Hematuria Urinary retention BPH NOS w ur obs/LUTS (Chronic) DVT prophylaxis Iron deficiency Polycythemia Chronic heel ulcer Ambulatory dysfunction Generalized weakness (Acute) Fall (Acute) Failure to thrive (Acute) Multiple abrasions (Acute) HTN (hypertension) (Chronic) COPD (chronic obstructive pulmonary disease) (Chronic) Polycythemia Diabetes mellitus type II, controlled (Chronic) Depression (Chronic) Neuropathy (Chronic) Great toe amputation status (Resolved) "L great toe amputation" Acute renal insufficiency Atherosclerosis of extremity with ulceration Chronic kidney disease, stage III (moderate) Contusion of left leg (Acute) Diabetes mellitus type 2 with complications Fall (Acute) Hip fracture Hyperglycemia (Acute) Hypertension (Acute) PTSD (post-traumatic stress disorder) (Chronic) Surgical History Hx of below knee amputation (Resolved) "R [id number]" History of tonsillectomy (Resolved) H/O angioplasty (Chronic) Family History Other No significant family history Social History Preferred Language: Estonian Communication Ability: Effective Hearing Ability: Normal Measurer Machine Required: No Beliefs That Will Affect Care: None marital status: Current Living Situation: Spouse Current Living Situation Comment: Grandson, 16 years old. Other Information That Helps Us Care for You: No Feels Safe at Home: Yes Safety Concerns: Feels Safe At This Time Smoking Status: Former smoker Do You Dip or Chew Tobacco: No Second Hand Exposure: Yes Hx Alcohol Use: No Hx Substance Use: No Review of Systems See HPI for pertinent positives & negatives. and A total of 10 systems reviewed and were otherwise negative Physical Exam Vital Signs Vital Signs - 24 hr 07/01/18 20:10 07/01/18 20:12 07/01/18 20:31 Temperature 36.6 C Temperature Source Oral Sepsis Recent Fever Within 48 Hours No Sepsis Action Taken by Nursing No Action Required Pulse Rate 83 85 85 Pulse Rate [Finger] Pulse Rate from SpO2 Sensor 83 85 Pulse Rhythm [Finger] Pulse Strength [Finger] Respiratory Rate 20 Respiratory Effort / Characteristics Respiratory Depth Respiratory Pattern Blood Pressure 174/92 H 174/92 H 182/87 H Blood Pressure [Left Arm] Blood Pressure [Right Arm] Blood Pressure Mean 119 119 118 Blood Pressure Mean [Left Arm] Blood Pressure Mean [Right Arm] Blood Pressure Position [Left Arm] Blood Pressure Position [Right Arm] Pulse Oximetry 95 96 97 Oxygen Delivery Method Room Air Room Air Room Air 07/01/18 21:01 07/01/18 21:31 07/01/18 21:37 Temperature Temperature Source Sepsis Recent Fever Within 48 Hours Sepsis Action Taken by Nursing Pulse Rate 94 H 84 78 Pulse Rate [Finger] Pulse Rate from SpO2 Sensor 94 H 82 77 Pulse Rhythm [Finger] Pulse Strength [Finger] Respiratory Rate 13 Respiratory Effort / Characteristics Respiratory Depth Respiratory Pattern Blood Pressure 186/104 H 203/96 H 200/88 H Blood Pressure [Left Arm] Blood Pressure [Right Arm] Blood Pressure Mean 131 131 125 Blood Pressure Mean [Left Arm] Blood Pressure Mean [Right Arm] Blood Pressure Position [Left Arm] Blood Pressure Position [Right Arm] Pulse Oximetry 96 96 96 Oxygen Delivery Method Room Air Room Air Room Air 07/01/18 22:01 07/01/18 22:31 07/01/18 23:25 Temperature Temperature Source Sepsis Recent Fever Within 48 Hours Sepsis Action Taken by Nursing Pulse Rate 76 71 Pulse Rate [Finger] 72 Pulse Rate from SpO2 Sensor 71 Pulse Rhythm [Finger] Pulse Strength [Finger] Respiratory Rate 14 19 18 Respiratory Effort / Characteristics Respiratory Depth Respiratory Pattern Blood Pressure 179/92 H 192/98 H Blood Pressure [Left Arm] Blood Pressure [Right Arm] 181/92 H Blood Pressure Mean 121 129 Blood Pressure Mean [Left Arm] Blood Pressure Mean [Right Arm] 121 Blood Pressure Position [Left Arm] Blood Pressure Position [Right Arm] Pulse Oximetry 96 96 Oxygen Delivery Method Room Air Room Air Room Air 07/01/18 23:45 07/02/18 02:44 07/02/18 02:46 Temperature 36.8 C 37.1 C Temperature Source Oral Oral Sepsis Recent Fever Within 48 Hours Sepsis Action Taken by Nursing Pulse Rate Pulse Rate [Finger] 66 78 Pulse Rate from SpO2 Sensor Pulse Rhythm [Finger] Regular Pulse Strength [Finger] Normal Respiratory Rate 18 19 Respiratory Effort / Characteristics Non-Labored Spontaneous Respiratory Depth Normal Respiratory Pattern Regular Blood Pressure Blood Pressure [Left Arm] 156/73 H 156/73 H Blood Pressure [Right Arm] 184/87 H Blood Pressure Mean Blood Pressure Mean [Left Arm] 100 100 Blood Pressure Mean [Right Arm] 119 Blood Pressure Position [Left Arm] Lying Blood Pressure Position [Right Arm] Lying Pulse Oximetry 96 95 Oxygen Delivery Method Room Air Room Air 07/02/18 06:44 07/02/18 11:51 Temperature 37.0 C 36.7 C Temperature Source Oral Oral Sepsis Recent Fever Within 48 Hours Sepsis Action Taken by Nursing Pulse Rate Pulse Rate [Finger] 69 69 Pulse Rate from SpO2 Sensor Pulse Rhythm [Finger] Pulse Strength [Finger] Respiratory Rate 18 16 Respiratory Effort / Characteristics Respiratory Depth Normal Respiratory Pattern Blood Pressure Blood Pressure [Left Arm] 170/77 H 188/85 H Blood Pressure [Right Arm] Blood Pressure Mean Blood Pressure Mean [Left Arm] 108 119 Blood Pressure Mean [Right Arm] Blood Pressure Position [Left Arm] Lying Lying Blood Pressure Position [Right Arm] Pulse Oximetry 96 93 Oxygen Delivery Method Room Air Room Air GENERAL: Patient is in no acute distress. HEENT: No acute trauma, normocephalic atraumatic, mucous membranes moist, no nasal congestion, no scleral icterus. NECK: No stridor, no adenopathy, no meningismus, trachea is midline. LUNGS: Clear to auscultation bilaterally, no wheeze, no rhonchi, breath sounds equal. HEART: 2/6 systolic murmur, regular rate and rhythm. ABDOMEN: Soft, nontender, bowel sounds positive, no hernias, no peritonitis. EXTREMITIES: No cyanosis or edema, full range of motion of all the joints without pain or difficulty, no signs for acute trauma. Right BKA. NEUROLOGIC: Oriented x 3, no acute motor or sensory deficits, no focal weakness. SKIN: No rash, no jaundice, no diaphoresis. Course 2139: Past medical records reviewed. The patient was evaluated in room A4B and a complete history and physical examination was performed. 2223: I reviewed the patient's case with Dr. Purvis - [facility] Hospitalist. He will evaluate the patient for further management. Administered Medications Aspirin (Aspirin Chew) 81 mg PO QAM [facility] Stop: 08/01/18 08:59 Last Admin: 07/02/18 08:47 Dose: 81 mg Documented by: [id number] Budesonide/Formoterol Fumarate (Symbicort 160mcg/4.5mcg) 2 puffs INH BID [facility] Stop: 08/01/18 08:59 Last Admin: 07/02/18 08:48 Dose: 2 puffs Documented by: [id number] Duloxetine HCl (Cymbalta) 60 mg PO DAILY [facility] Stop: 08/01/18 08:59 Last Admin: 07/02/18 08:47 Dose: 60 mg Documented by: [id number] Hydrocortisone (Hydrocortisone 1%) 1 appln EXT BID PRN PRN Reason: AFFECTED AREAS BACK, SCROTUM Last Admin: 07/02/18 08:49 Dose: 1 appln Documented by: [id number] Insulin Aspart (Novolog Flexpen) 0 units SC ACHS [facility] Stop: 08/01/18 07:29 Last Admin: 07/02/18 08:41 Dose: 10 units Documented by: [id number] Cosigned by: [id number] Lactobacillus Acidophilus (Floranex) 2 tab PO TID [facility] Stop: 08/01/18 08:59 Last Admin: 07/02/18 08:47 Dose: 2 tab Documented by: [id number] Metoprolol Tartrate (Lopressor) 50 mg PO BID [facility] Stop: 08/01/18 08:59 Last Admin: 07/02/18 08:47 Dose: 50 mg Documented by: [id number] Miscellaneous (Order Awaiting Action) 1 ea N/A QS [facility] Stop: 08/01/18 07:59 Last Admin: 07/02/18 08:49 Dose: Not Given Documented by: [id number] Miscellaneous (Order Awaiting Action) 1 ea N/A QS [facility] Stop: 08/01/18 07:59 Last Admin: 07/02/18 08:49 Dose: Not Given Documented by: [id number] Oxycodone/Acetaminophen (Percocet 5mg/325mg) 1 tab PO Q6H PRN PRN Reason: Pain Stop: 07/16/18 01:21 Last Admin: 07/02/18 10:36 Dose: 1 tab Documented by: [id number] Admin: 07/02/18 01:58 Dose: 1 tab Documented by: [id number] Pregabalin (Lyrica) 50 mg PO BID [facility] Stop: 08/01/18 08:59 Last Admin: 07/02/18 08:40 Dose: 50 mg Documented by: [id number] Sertraline HCl (Zoloft) 50 mg PO DAILY [facility] Stop: 08/01/18 08:59 Last Admin: 07/02/18 08:47 Dose: 50 mg Documented by: [id number] Tamsulosin HCl (Flomax) 0.4 mg PO DAILY [facility] Stop: 08/01/18 08:59 Last Admin: 07/02/18 08:47 Dose: 0.4 mg Documented by: [id number] Discontinued Medications Hydralazine HCl (Hydralazine Hcl) 5 mg IV NOW ONE Stop: 07/02/18 01:23 Last Admin: 07/02/18 01:59 Dose: 5 mg Documented by: [id number] Metoprolol Tartrate (Lopressor) 50 mg PO NOW STA Stop: 07/01/18 21:46 Last Admin: 07/01/18 22:03 Dose: 50 mg Documented by: [id number] Nitroglycerin (Nitro-Bid 2%) 1 inch EXT NOW STA Stop: 07/01/18 21:46 Last Admin: 07/01/18 22:03 Dose: 1 inch Documented by: [id number] Oxycodone/Acetaminophen (Percocet 5mg/325mg) 1 tab PO NOW STA Stop: 07/02/18 03:10 Last Admin: 07/02/18 03:17 Dose: 1 tab Documented by: [id number] Medical Decision Making Differential Diagnosis Differential diagnosis includes: musculoskeletal pain, pneumonia, pneumothorax, AK, angina, aortic dissection, and PE. Medical Records Attestation: I reviewed the patient's medical records. The patient was evaluated at this hospital on Friday and had acute coronary syndrome rule-out. He had a stress test performed. He was found to have an old AK but no acute ischemic findings. Home Medications Current Medication List: was personally reviewed by me Laboratory Data Attestation: I reviewed the patient's lab results. Result diagrams: 07/02/18 07:29 07/02/18 07:29 Lab Results 07/01/18 07/01/18 07/01/18 Range/Units 20:49 20:49 20:49 WBC 11.77 H (4.8-10.8) K/uL RBC 6.87 H (4.7-6.1) M/uL Hgb 14.8 (14.0-18.0) g/dL Hct 49.4 (42-52) % MCV 71.9 L (80-100) fL MCH 21.5 L (25-34) pg MCHC 30.0 L (32-36) g/dL RDW Std Deviation 50.9 H (36.4-46.3) fL RDW Coeff of Mohamud 19.9 H (11.5-14.5) % Plt Count 253 (130-400) K/uL MPV 9.7 (7.4-10.4) fL Immature Gran % (Auto) 0.2 % Neut % (Auto) 83.8 % Lymph % (Auto) 10.8 % [place] % (Auto) 3.1 % Eos % (Auto) 1.4 % Baso % (Auto) 0.7 % Immature Gran # (Auto) 0.02 (0.00-0.02) K/uL Neut # (Auto) 9.86 H (1.4-6.5) K/uL Lymph # (Auto) 1.27 (1.2-3.4) K/uL [place] # (Auto) 0.37 (0.11-0.59) K/uL Eos # (Auto) 0.17 (0-0.5) K/uL Baso # (Auto) 0.08 (0-0.2) K/uL Polychromasia Anisocytosis Present Microcytosis Tear Drop Cells Occasional Schistocytes PT 11.0 (9.0-12.0) Seconds INR 1.1 (0.9-1.1) APTT 28.1 (21.0-31.0) Seconds PTT Ratio 1.0 Sodium 140 (136-145) mmol/L Potassium 3.7 (3.5-5.1) mmol/L Chloride 110 H (98-107) mmol/L Carbon Dioxide 21 (21-32) mmol/L Anion Gap 9.0 (3-11) BUN 26 H (7-18) mg/dl Creatinine 1.26 (0.6-1.4) mg/dl Est Cr Clr Drug Dosing 58.2 ml/min Est GFR ( Amer) 65.6 Est GFR (Non-Af Amer) 56.6 BUN/Creatinine Ratio 20.8 H (10-20) Glucose 233 H (70-99) mg/dl POC Glucose (70-99) Calcium 9.0 (8.5-10.1) mg/dl Magnesium 1.9 (1.8-2.4) mg/dl Total Bilirubin 0.4 (0.2-1) mg/dl AST 14 L (15-37) U/L ALT 21 (12-78) U/L Alkaline Phosphatase 107 (45-117) U/L Troponin I < 0.015 (0-0.045) ng/ml Total Protein 6.8 (6.4-8.2) gm/dl Albumin 3.3 L (3.4-5.0) gm/dl Globulin 3.5 (2.5-4.0) gm/dl Albumin/Globulin Ratio 0.9 (0.9-2) 07/02/18 07/02/18 07/02/18 Range/Units 00:11 07:29 07:29 WBC 13.06 H (4.8-10.8) K/uL RBC 6.70 H (4.7-6.1) M/uL Hgb 14.1 (14.0-18.0) g/dL Hct 47.4 (42-52) % MCV 70.7 L (80-100) fL MCH 21.0 L (25-34) pg MCHC 29.7 L (32-36) g/dL RDW Std Deviation 50.3 H (36.4-46.3) fL RDW Coeff of Mohamud 19.9 H (11.5-14.5) % Plt Count 243 (130-400) K/uL MPV (7.4-10.4) fL Immature Gran % (Auto) 0.4 % Neut % (Auto) 79.3 % Lymph % (Auto) 12.3 % [place] % (Auto) 3.7 % Eos % (Auto) 3.4 % Baso % (Auto) 0.9 % Immature Gran # (Auto) 0.05 H (0.00-0.02) K/uL Neut # (Auto) 10.35 H (1.4-6.5) K/uL Lymph # (Auto) 1.61 (1.2-3.4) K/uL [place] # (Auto) 0.48 (0.11-0.59) K/uL Eos # (Auto) 0.45 (0-0.5) K/uL Baso # (Auto) 0.12 (0-0.2) K/uL Polychromasia 1+ Anisocytosis Present Microcytosis Present Tear Drop Cells Schistocytes 1+ PT 10.9 (9.0-12.0) Seconds INR 1.1 (0.9-1.1) APTT 30.6 (21.0-31.0) Seconds PTT Ratio 1.1 Sodium (136-145) mmol/L Potassium (3.5-5.1) mmol/L Chloride (98-107) mmol/L Carbon Dioxide (21-32) mmol/L Anion Gap (3-11) BUN (7-18) mg/dl Creatinine (0.6-1.4) mg/dl Est Cr Clr Drug Dosing ml/min Est GFR ( Amer) Est GFR (Non-Af Amer) BUN/Creatinine Ratio (10-20) Glucose (70-99) mg/dl POC Glucose (70-99) Calcium (8.5-10.1) mg/dl Magnesium (1.8-2.4) mg/dl Total Bilirubin (0.2-1) mg/dl AST (15-37) U/L ALT (12-78) U/L Alkaline Phosphatase (45-117) U/L Troponin I < 0.015 (0-0.045) ng/ml Total Protein (6.4-8.2) gm/dl Albumin (3.4-5.0) gm/dl Globulin (2.5-4.0) gm/dl Albumin/Globulin Ratio (0.9-2) 07/02/18 07/02/18 07/02/18 Range/Units 07:29 07:53 11:50 WBC (4.8-10.8) K/uL RBC (4.7-6.1) M/uL Hgb (14.0-18.0) g/dL Hct (42-52) % MCV (80-100) fL MCH (25-34) pg MCHC (32-36) g/dL RDW Std Deviation (36.4-46.3) fL RDW Coeff of Mohamud (11.5-14.5) % Plt Count (130-400) K/uL MPV (7.4-10.4) fL Immature Gran % (Auto) % Neut % (Auto) % Lymph % (Auto) % [place] % (Auto) % Eos % (Auto) % Baso % (Auto) % Immature Gran # (Auto) (0.00-0.02) K/uL Neut # (Auto) (1.4-6.5) K/uL Lymph # (Auto) (1.2-3.4) K/uL [place] # (Auto) (0.11-0.59) K/uL Eos # (Auto) (0-0.5) K/uL Baso # (Auto) (0-0.2) K/uL Polychromasia Anisocytosis Microcytosis Tear Drop Cells Schistocytes PT (9.0-12.0) Seconds INR (0.9-1.1) APTT (21.0-31.0) Seconds PTT Ratio Sodium 139 (136-145) mmol/L Potassium 3.6 (3.5-5.1) mmol/L Chloride 108 H (98-107) mmol/L Carbon Dioxide 23 (21-32) mmol/L Anion Gap 8.0 (3-11) BUN 26 H (7-18) mg/dl Creatinine 1.18 (0.6-1.4) mg/dl Est Cr Clr Drug Dosing 62.1 ml/min Est GFR ( Amer) 71.0 Est GFR (Non-Af Amer) 61.3 BUN/Creatinine Ratio 21.9 H (10-20) Glucose 248 H (70-99) mg/dl POC Glucose 258 H 239 H (70-99) Calcium 8.7 (8.5-10.1) mg/dl Magnesium (1.8-2.4) mg/dl Total Bilirubin 0.4 (0.2-1) mg/dl AST 12 L (15-37) U/L ALT 19 (12-78) U/L Alkaline Phosphatase 107 (45-117) U/L Troponin I (0-0.045) ng/ml Total Protein 6.6 (6.4-8.2) gm/dl Albumin 3.3 L (3.4-5.0) gm/dl Globulin 3.3 (2.5-4.0) gm/dl Albumin/Globulin Ratio 1.0 (0.9-2) Imaging Data Radiologist's Impression: Radiology results as stated below per my review and the radiologist's interpretation: XR chest 1V portable CLINICAL HISTORY: chest pressure pain COMPARISON STUDY: 06/16/2018 FINDINGS: The bones soft tissues and hemidiaphragms are normal. The cardiomediastinal silhouette is normal. The lungs are clear. The pulmonary vasculature is normal. IMPRESSION: Negative chest. The above report was generated using voice recognition software. It may contain grammatical, syntax or spelling errors. Electronically signed by: Arnaldo Walters M.D. 07/01/2018 8:34 PM ECG Data Attestation: I personally reviewed and interpreted this ECG as follows: Indication: chest pain Rate (beats per minute): 92 Rhythm: normal sinus Findings: no PVC and no ST elevation Blood Pressure Blood Pressure Findings: Elevated blood pressure Blood Pressure Disposition: further management by hospitalist CLAU Narrative There is a mild leukocytosis, the patient has a history of the same. No concerning anemia. No coagulopathy. No significant electrolyte abnormality or kidney failure. No hepatitis. EKG shows a sinus rhythm, no acute ischemia. Cardiac enzyme testing x1 is not consistent with acute cardiac injury. Chest film does not show mediastinal widening, pneumonia or pneumothorax. On exam, the patient's pain was not reproducible with palpation. The patient presents with recurrent chest pain. He was nauseated with the pain. He does have a history of AK. He was just in the hospital for similar pain, ACS was ruled out. The patient presents with recurrent pain, I do think this pain could be cardiac. The patient may be a candidate for a cardiac catheterization. I do think further cardiac workup is warranted. I do not feel comfortable with discharge home. I did speak to the patient and special education case manager. The on-call hospitalist was consulted. The patient was given Nitropaste, he was given 50 mg of oral metoprolol as he was due for his nighttime dosing. He appears comfortable. Impression & Plan Chest pain, precordial, HTN (hypertension) Discharge Plan Visit Data *Final* Discharge Date/Time: 07/01/18 23:31 Chief Complaint: Chest Pain Stated Complaint: CHEST PAIN, HEADACHE ED Provider: Jaguar Henriquez Discharge Problem: Chest pain, precordial, HTN (hypertension) Patient Disposition: Admitted As Inpatient Discharge Instructions Interventions: ED Discharge Assessment Last Done: 07/01/18 23:31 Discharge Problem: HTN (hypertension) Qualifiers: Hypertension type: unspecified Qualified Code(s): I10 - Essential (primary) hypertension The scribe's documentation has been prepared under my direction and personally reviewed by me in its entirety. I confirm that the note above accurately reflects all work, treatment, procedures, and medical decision making performed by me.
[2018-07-01] MEDS ORDERED: CARBOHYDRATES FOR HYPOGLYCEMIA PO PRN (23:59)
[2018-07-01] MEDS ORDERED: GLUCOSE 10 TABS/TUBE PO PRN (23:59)
[2018-07-01] MEDS ORDERED: ACETAMINOPHEN 325 MG TAB PO PRN (23:59)
[2018-07-01] MEDS ORDERED: POLYETHYLENE (MIRALAX) 17 GM PACK PO PRN (23:59)
[2018-07-01] MEDS ORDERED: GLUCOSE 40% GEL 15 GM TUBE PO PRN (23:59)
[2018-07-01] MEDS ORDERED: DEXTROSE 50% 50 ML SYRINGE IV PRN (23:59)
[2018-07-01] MEDS ORDERED: GLUCAGON FOR INJ 1 MG VIAL SQ PRN (23:59)
[2018-07-01] MEDS ORDERED: ONDANSETRON INJ 2 MG/ML 2 ML VIAL IV PRN (23:59)
[2018-07-02] MEDS ORDERED: HydrALAZINE HCL 20 MG/ML VIAL IV ONE (01:22)
[2018-07-02] MEDS ORDERED: HydrALAZINE HCL 20 MG/ML VIAL IV PRN (01:23)
[2018-07-02] MEDS: OXYCODONE/ACETAMINOPHEN 5mg/325mg TAB PO PRN ×3 (01:58→21:00)
[2018-07-02] MEDS ORDERED: OXYCODONE/ACETAMINOPHEN 5mg/325mg TAB PO STA (03:09)
[2018-07-02] MEDS ORDERED: OXYCODONE/ACETAMINOPHEN 5mg/325mg TAB PO PRN (04:34)
[2018-07-02] MEDS ORDERED: LIDOCAINE HCL 5% OINT 30 GM TUBE TOP PRN (04:34)
[2018-07-02] MEDS ORDERED: TROLAMINE SALICYLATE 10% CRM 255 APPLN/85 GM TUBE EXT PRN (04:34)
[2018-07-02] MEDS ORDERED: NON-FORMULARY MEDICATION (Acetaminophen [Tylenol] 650 MG) PO PRN (04:34)
--- NOTE | 2018-07-02 07:34 | Family Medicine Progress Note ---
Date of Service July 02, 2018 Assessment & Plan (1) Chest pain: Chest tightness or pressure: Patient presents to the emergency department with recurrent chest pressure/CAD/hypertension-- Had a negative nuclear cardiopulmonary stress test on 06/19/18. The patient will be admitted to telemetry for serial cardiac enzymes, serial EKG's, cardiac rhythm monitoring and a 2-D echocardiogram with Dopplers. Continue aspirin 81 mg daily, metoprolol tartrate 50 mg p.o. twice daily. Consult cardiology, seen by Dr. Barragan at last hospitalization. EKG without acute changes. Present on Admission?: Yes (2) Coronary artery disease: As above. Present on Admission?: Yes (3) BPH NOS w ur obs/LUTS: Continue tamsulosin 0.4 mg daily. No symptoms as admission. Present on Admission?: Yes (4) Polycythemia: Hemoglobin overall stable and within a range. Present on Admission?: Yes (5) COPD (chronic obstructive pulmonary disease): Continue Symbicort. Patient appears to be at baseline. Present on Admission?: Yes (6) Diabetes mellitus type II, controlled: Patient reports his blood sugars have been reasonably well controlled. Hold his standing order for insulin at this time. Placed on Accu-Cheks before meals and at bedtime with NovoLog coverage per scale. Present on Admission?: Yes (7) Depression: Depression/chronic pain-- On sertraline 50 mg p.o. daily and duloxetine 30 mg p.o. daily. Would consider increase duloxetine from 30-60 mg p.o. daily. Present on Admission?: Yes (8) Discharge planning issues: Patient was hospitalized from 06/17-06/26 due to issues related to wanting to go [facility] [place] We will consult forensic social worker, as patient is not able to take care of himself to the extent that he needs to at home. (2) Discharge planning issues: (3) Coronary artery disease: (4) Chest tightness or pressure: (5) Heel ulcer: (6) Ambulatory dysfunction: Results & Data Vital Signs (Past 12 Hours) Vital Signs Temp Pulse Pulse Resp BP BP BP 07/02/18 06:44 37.0 C 69 18 170/77 H 07/02/18 02:46 156/73 H 07/02/18 02:44 37.1 C 78 19 156/73 H 07/01/18 23:45 36.8 C 66 18 184/87 H 07/01/18 23:25 72 18 181/92 H 07/01/18 22:31 71 19 192/98 H 07/01/18 22:01 76 14 179/92 H 07/01/18 21:37 78 13 200/88 H 07/01/18 21:31 84 203/96 H 07/01/18 21:01 94 H 186/104 H 07/01/18 20:31 85 182/87 H 07/01/18 20:12 36.6 C 85 20 174/92 H 07/01/18 20:10 83 174/92 H Pulse Ox 07/02/18 06:44 96 07/02/18 02:46 07/02/18 02:44 95 07/01/18 23:45 96 07/01/18 23:25 96 07/01/18 22:31 96 07/01/18 22:01 07/01/18 21:37 96 07/01/18 21:31 96 07/01/18 21:01 96 07/01/18 20:31 97 07/01/18 20:12 96 07/01/18 20:10 95 (1) Chest pain Chest pain type: precordial pain Qualified Code(s): R07.2 - Precordial pain
[2018-07-02 07:45] LABS: Basophils # (auto) 0.12 K/uL (0-0.2); Basophils % (auto) 0.9 %; Eosinophils # (auto) 0.45 K/uL (0-0.5); Eosinophils % (auto) 3.4 %; Hematocrit (blood only) 47.4 % (42-52); Hemoglobin 14.1 g/dL (14.0-18.0); Immature Granulocytes # (auto) 0.05 K/uL (0.00-0.02); Immature Granulocytes % (auto) 0.4 %; Lymphocytes # (auto) 1.61 K/uL (1.2-3.4); Lymphocytes % (auto) 12.3 %; Mean Corpuscular Hgb Conc 29.7 g/dL (32-36); Mean Corpuscular Volume 70.7 fL (80-100); Monocytes # (auto) 0.48 K/uL (0.11-0.59); Monocytes % (auto) 3.7 %; Neutrophils # (auto) 10.35 K/uL (1.4-6.5); Neutrophils % (auto) 79.3 %; Platelet Count 243 K/uL (130-400); RDW Coefficient of Variation 19.9 % (11.5-14.5); RDW Standard Deviation 50.3 fL (36.4-46.3); White Blood Count 13.06 K/uL (4.8-10.8)
[2018-07-02 07:56] LABS: INR 1.1 (0.9-1.1); Partial Thromboplastin Ratio 1.1; Partial Thromboplastin Time 30.6 Seconds (21.0-31.0); Prothrombin Time 10.9 Seconds (9.0-12.0)
--- NOTE | 2018-07-02 08:00 | Family Medicine Progress Note ---
Date of Service July 02, 2018 Assessment & Plan (1) Chest pain, precordial: Pt is a 72yo readmit with PMHx significant for Diabetes, CAD, PVD and silent [place] who was admitted once more for chest pain rule out. Nuclear stress testing 2 weeks showed no evidence of ischemia and with no elevation after trending trops, his chest pain is likely not related to ischemia. DDx now includes hypertensive urgency vs. COPD related chest/breathing dysfunction. Hypertensive Urgency -Pt's BPs in 200s upon admission -Currently receiving Lopressor 50mg BID -Started on Losartan 50mg qAM -will continue to monitor Chest pain rule out -Trops neg -ekg with type 1 block -Echo with inferior hypokinesis, LA dilation. Essentially unchanged from echo on 06/17. -Continue aspirin CAD -as above Hx of COPD -Pt started on SPiriva. -Continue home symbicort BPH -continue home tamsulosin DM Type II -On insulin sliding scale -HgA1c in June of 10.8 -Currently only on Aspart with meals at home since before discharge sugars were less than 100-low 100s. -Discharged with Accu checks. -Was previously on glargine. -Pharm consult placed--appreciate recs. Depression -continue home sertraline and cymbalta. Discharge Planning -Pt desires discharge to [place] hosp for rehab -States he would prefer not to have to go home before -In essence does not want to be further stressor for and 16yo son. Supervising Physician Co-Signing Physician Notes I personally examined the patient and verified all melendrez points of history and exam, discussed case, and agree with decision making with Dr Linares feeling better now. had chest pressure and headache. also feels that he's struggling at home case d/w case management vitals noted nad breathing unlabored no pallor or icterus hypertensive urgency - now stabilized. add ARB. follow BP. weakness/deconditioning - does not feel safe at home. last admit was goal of rehab in SNF setting but pt went home prior to arrangements being able to be finalized. case management working on SNF/rehab placement again stable for med surg Subjective Mr. Lainez states that he did not sleep well overnight. Had some phantom limb pain. However, his chest pressure and tightness has seemingly resolved. States that his chest pressure was associated with a very bad headache last night. Currently denies SOB, palpitations. N/V, diarrhea or constipation. Review of Systems Review of Systems: All systems reviewed & are unremarkable except as noted in HPI & below Physical Exam Physical Exam: General: Alert, oriented. No acute distress HEENT: NC/AT Chest: Nontender to palpation. CV: RRR, Normal s1, s2. No murmurs appreciated Resp: Breath sounds decreased bilaterally, no increased effort of breathing. Abdomen: Soft, nontender. No guarding. No organomegaly appreciated. Extremities: Amputated leg with no edema in left foot. Results & Data Vital Signs (Past 12 Hours) Vital Signs Temp Pulse Pulse Resp BP BP BP 07/02/18 06:44 37.0 C 69 18 170/77 H 07/02/18 02:46 156/73 H 07/02/18 02:44 37.1 C 78 19 156/73 H 07/01/18 23:45 36.8 C 66 18 184/87 H 07/01/18 23:25 72 18 181/92 H 07/01/18 22:31 71 19 192/98 H 07/01/18 22:01 76 14 179/92 H 07/01/18 21:37 78 13 200/88 H 07/01/18 21:31 84 203/96 H 07/01/18 21:01 94 H 186/104 H 07/01/18 20:31 85 182/87 H 07/01/18 20:12 36.6 C 85 20 174/92 H 07/01/18 20:10 83 174/92 H Pulse Ox 07/02/18 06:44 96 07/02/18 02:46 07/02/18 02:44 95 07/01/18 23:45 96 07/01/18 23:25 96 07/01/18 22:31 96 07/01/18 22:01 07/01/18 21:37 96 07/01/18 21:31 96 07/01/18 21:01 96 07/01/18 20:31 97 07/01/18 20:12 96 07/01/18 20:10 95 Laboratory Results Laboratory Results - last 24 hr 07/01/18 07/01/18 07/01/18 20:49 20:49 20:49 WBC 11.77 H RBC 6.87 H Hgb 14.8 Hct 49.4 MCV 71.9 L MCH 21.5 L MCHC 30.0 L RDW Std Deviation 50.9 H RDW Coeff of Mohamud 19.9 H Plt Count 253 MPV 9.7 Immature Gran % (Auto) 0.2 Neut % (Auto) 83.8 Lymph % (Auto) 10.8 [place] % (Auto) 3.1 Eos % (Auto) 1.4 Baso % (Auto) 0.7 Immature Gran # (Auto) 0.02 Neut # (Auto) 9.86 H Lymph # (Auto) 1.27 [place] # (Auto) 0.37 Eos # (Auto) 0.17 Baso # (Auto) 0.08 Polychromasia Anisocytosis Present Microcytosis Tear Drop Cells Occasional Schistocytes PT 11.0 INR 1.1 APTT 28.1 PTT Ratio 1.0 Sodium 140 Potassium 3.7 Chloride 110 H Carbon Dioxide 21 Anion Gap 9.0 BUN 26 H Creatinine 1.26 Est Cr Clr Drug Dosing 58.2 Est GFR ( Amer) 65.6 Est GFR (Non-Af Amer) 56.6 BUN/Creatinine Ratio 20.8 H Glucose 233 H POC Glucose Calcium 9.0 Magnesium 1.9 Total Bilirubin 0.4 AST 14 L ALT 21 Alkaline Phosphatase 107 Troponin I < 0.015 Total Protein 6.8 Albumin 3.3 L Globulin 3.5 Albumin/Globulin Ratio 0.9 Lyme Disease IgG Ab Lyme Disease IgM Ab 07/02/18 07/02/18 07/02/18 00:11 07:29 07:29 WBC 13.06 H RBC 6.70 H Hgb 14.1 Hct 47.4 MCV 70.7 L MCH 21.0 L MCHC 29.7 L RDW Std Deviation 50.3 H RDW Coeff of Mohamud 19.9 H Plt Count 243 MPV Immature Gran % (Auto) 0.4 Neut % (Auto) 79.3 Lymph % (Auto) 12.3 [place] % (Auto) 3.7 Eos % (Auto) 3.4 Baso % (Auto) 0.9 Immature Gran # (Auto) 0.05 H Neut # (Auto) 10.35 H Lymph # (Auto) 1.61 [place] # (Auto) 0.48 Eos # (Auto) 0.45 Baso # (Auto) 0.12 Polychromasia 1+ Anisocytosis Present Microcytosis Present Tear Drop Cells Schistocytes 1+ PT 10.9 INR 1.1 APTT 30.6 PTT Ratio 1.1 Sodium Potassium Chloride Carbon Dioxide Anion Gap BUN Creatinine Est Cr Clr Drug Dosing Est GFR ( Amer) Est GFR (Non-Af Amer) BUN/Creatinine Ratio Glucose POC Glucose Calcium Magnesium Total Bilirubin AST ALT Alkaline Phosphatase Troponin I < 0.015 Total Protein Albumin Globulin Albumin/Globulin Ratio Lyme Disease IgG Ab Lyme Disease IgM Ab 07/02/18 07/02/18 07/02/18 07:29 07:53 11:50 WBC RBC Hgb Hct MCV MCH MCHC RDW Std Deviation RDW Coeff of Mohamud Plt Count MPV Immature Gran % (Auto) Neut % (Auto) Lymph % (Auto) [place] % (Auto) Eos % (Auto) Baso % (Auto) Immature Gran # (Auto) Neut # (Auto) Lymph # (Auto) [place] # (Auto) Eos # (Auto) Baso # (Auto) Polychromasia Anisocytosis Microcytosis Tear Drop Cells Schistocytes PT INR APTT PTT Ratio Sodium 139 Potassium 3.6 Chloride 108 H Carbon Dioxide 23 Anion Gap 8.0 BUN 26 H Creatinine 1.18 Est Cr Clr Drug Dosing 62.1 Est GFR ( Amer) 71.0 Est GFR (Non-Af Amer) 61.3 BUN/Creatinine Ratio 21.9 H Glucose 248 H POC Glucose 258 H 239 H Calcium 8.7 Magnesium Total Bilirubin 0.4 AST 12 L ALT 19 Alkaline Phosphatase 107 Troponin I Total Protein 6.6 Albumin 3.3 L Globulin 3.3 Albumin/Globulin Ratio 1.0 Lyme Disease IgG Ab Lyme Disease IgM Ab 07/02/18 13:52 WBC RBC Hgb Hct MCV MCH MCHC RDW Std Deviation RDW Coeff of Mohamud Plt Count MPV Immature Gran % (Auto) Neut % (Auto) Lymph % (Auto) [place] % (Auto) Eos % (Auto) Baso % (Auto) Immature Gran # (Auto) Neut # (Auto) Lymph # (Auto) [place] # (Auto) Eos # (Auto) Baso # (Auto) Polychromasia Anisocytosis Microcytosis Tear Drop Cells Schistocytes PT INR APTT PTT Ratio Sodium Potassium Chloride Carbon Dioxide Anion Gap BUN Creatinine Est Cr Clr Drug Dosing Est GFR ( Amer) Est GFR (Non-Af Amer) BUN/Creatinine Ratio Glucose POC Glucose Calcium Magnesium Total Bilirubin AST ALT Alkaline Phosphatase Troponin I Total Protein Albumin Globulin Albumin/Globulin Ratio Lyme Disease IgG Ab Negative Lyme Disease IgM Ab Negative Medications Administered Home Medications Symbicort 2 puff INHALATION BID 12/06/17 [History Confirmed 07/01/18] sertraline 50 mg PO DAILY 12/06/17 [History Confirmed 07/01/18] A&D Oint 1 applic TOPICAL 5XD 06/16/18 [History Confirmed 07/01/18] Lactobacillus acidophilus 2 tab PO TID 06/16/18 [History Confirmed 07/01/18] Lyrica 50 mg PO BID 06/16/18 [History Confirmed 07/01/18] Menthol/M-Salicylate 10-15% 1 applic TOPICAL UD PRN 06/16/18 [History Confirmed 07/01/18] acetaminophen [Tylenol] 650 mg PO BID PRN 06/16/18 [History Confirmed 07/01/18] duloxetine 30 mg PO DAILY 06/16/18 [History Confirmed 07/01/18] hydrocortisone 1 applic TOPICAL BID PRN 06/16/18 [History Confirmed 07/01/18] lidocaine 1 applic TOPICAL TID PRN 06/16/18 [History Confirmed 07/01/18] oxycodone-acetaminophen [Percocet] 1 tab PO Q6H PRN 06/16/18 [History Confirmed 07/01/18] pramoxine 1 applic PA UD PRN 06/16/18 [History Confirmed 07/01/18] tamsulosin [Flomax] 0.4 mg PO DAILY 06/16/18 [History Confirmed 07/01/18] aspirin 81 mg PO DAILY #30 tab 06/26/18 [Rx Confirmed 07/01/18] insulin aspart U-100 5 units SQ .with meals #15 ml 06/26/18 [Rx Confirmed 07/01/18] metoprolol tartrate 50 mg PO BID #14 tab 06/26/18 [Rx Confirmed 07/01/18] Active Medications Acetaminophen (Tylenol) 650 mg PO Q4H PRN PRN Reason: Pain or Fever Stop: 07/31/18 23:58 Aspirin (A[facility]in Chew) [facility] [place] Stop[facility] 08/01/18 08:59 Last Admin: 07/02/18 08:47 Dose: 81 mg Documented by: Budesonide/Formoterol Fumarate (Symbicort 160mcg/4.5mcg) 2 puffs INH BID [facility] Stop: 08/01/18 08:59 Last Admin: 07/02/18 08:48 Dose: 2 puffs Documented by: Dextrose (Dextrose 50%) 25 - 50 ml IV UD PRN; Protocol PRN Reason: Hypoglycemia Protocol Stop: 07/31/18 23:58 Duloxetine HCl (Cymbalta) 60 mg PO DAILY [facility] Stop: 08/01/18 08:59 Last Admin: 07/02/18 08:47 Dose: 60 mg Documented by: Glucagon (Glucagen) 1 mg SQ UD PRN; Protocol PRN Reason: Hypoglycemia Protocol Stop: 07/31/18 23:58 Glucose (Glucose 40%) 15 - 30 gm PO UD PRN; Protocol PRN Reason: Hypoglycemia Protocol Stop: 07/31/18 23:58 Glucose (Dex4 Glucose) 4 - 8 tabs PO UD PRN; Protocol PRN Reason: Hypoglycemia Protocol Stop: 07/31/18 23:58 Hydralazine HCl (Hydralazine Hcl) 5 mg IV Q4H PRN PRN Reason: htn Stop: 08/01/18 01:22 Last Admin: 07/02/18 12:36 Dose: 5 mg Documented by: Hydrocortisone (Hydrocortisone 1%) 1 appln EXT BID PRN PRN Reason: AFFECTED AREAS BACK, SCROTUM Last Admin: 07/02/18 08:49 Dose: 1 appln Documented by: Insulin Aspart (Novolog Flexpen) 0 units SC ACHS [facility] Stop: 08/01/18 07:29 Last Admin: 07/02/18 12:35 Dose: 8 units Documented by: Lactobacillus Acidophilus (Floranex) 2 tab PO TID [facility] Stop: 08/01/18 08:59 Last Admin: 07/02/18 14:16 Dose: 2 tab Documented by: Lidocaine (Xylocaine 5%) 1 appln TOP TID PRN PRN Reason: PAIN IN STUMPS Stop: 08/01/18 04:33 Losartan Potassium (Cozaar) 50 mg PO QAM [facility] Stop: 08/01/18 11:29 Last Admin: 07/02/18 13:04 Dose: 50 mg Documented by: Metoprolol Tartrate (Lopressor) 50 mg PO BID [facility] Stop: 08/01/18 08:59 Last Admin: 07/02/18 08:47 Dose: 50 mg Documented by: Miscellaneous (Carbohydrates For Hypoglycemia) 15 - 30 gm PO UD PRN PRN Reason: Hypoglycemia Treatment Stop: 07/31/18 23:58 Miscellaneous (Order Awaiting Action) 1 ea N/A QS [facility] Stop: 08/01/18 07:59 Last Admin: 07/02/18 08:49 Dose: Not Given Documented by: Miscellaneous (Order Awaiting Action) 1 ea N/A QS [facility] Stop: 08/01/18 07:59 Last Admin: 07/02/18 08:49 Dose: Not Given Documented by: Ondansetron HCl (Zofran) 4 mg IV Q6H PRN PRN Reason: Nausea Stop: 07/31/18 23:58 Oxycodone/Acetaminophen (Percocet 5mg/325mg) 1 tab PO Q6H PRN PRN Reason: Pain Stop: 07/16/18 01:21 Last Admin: 07/02/18 10:36 Dose: 1 tab Documented by: Oxycodone/Acetaminophen (Percocet 5mg/325mg) 1 tab PO Q6H PRN PRN Reason: Pain Stop: 07/16/18 04:33 Polyethylene Glycol (Miralax Powder Packet) 17 gm PO DAILY PRN PRN Reason: Constipation Stop: 07/31/18 23:58 Pregabalin (Lyrica) 50 mg PO BID [facility] Stop: 08/01/18 08:59 Last Admin: 07/02/18 08:40 Dose: 50 mg Documented by: Sertraline HCl (Zoloft) 50 mg PO DAILY [facility] Stop: 08/01/18 08:59 Last Admin: 07/02/18 08:47 Dose: 50 mg Documented by: Tamsulosin HCl (Flomax) 0.4 mg PO DAILY [facility] Stop: 08/01/18 08:59 Last Admin: 07/02/18 08:47 Dose: 0.4 mg Documented by: Tiotropium [place] (Spiriva) 1 puffs INH QAM [facility] Stop: 08/01/18 11:29 Last Admin: 07/02/18 13:05 Dose: 1 puffs Documented by: Trolamine Salicylate (Myoflex) 1 appln EXT UD PRN PRN Reason: CERVICAL DISCOMFORT
[2018-07-02 08:05] LABS: Albumin Level 3.3 gm/dl (3.4-5.0); BUN Creatinine Ratio 21.9 (10-20); Calcium 8.7 mg/dl (8.5-10.1); Creatinine Clr Calc Pharmacy 62.1 ml/min; Est GFR (Non-African American) 61.3; Potassium 3.6 mmol/L (3.5-5.1)
[2018-07-02 08:08] LABS: Bilirubin,Total 0.4 mg/dl (0.2-1); Globulin 3.3 gm/dl (2.5-4.0); Total Protein 6.6 gm/dl (6.4-8.2)
[2018-07-02 08:19] LABS: Anisocytosis Present; Microcytosis Present; Polychromasia 1+; Schistocytes 1+
[2018-07-02] MEDS: PREGABALIN 50 MG CAP PO SCH ×2 (08:40→21:00)
[2018-07-02] MEDS: INSULIN ASPART 100 UNITS/ML 3 ML PEN SC SCH ×4 (08:41→21:08)
[2018-07-02] MEDS: DULOXETINE HCL 30 MG CAP PO SCH (08:47)
[2018-07-02] MEDS: METOPROLOL TARTRATE 50 MG TAB PO SCH ×2 (08:47→21:01)
[2018-07-02] MEDS: SERTRALINE HCL 50 MG TABLET PO SCH (08:47)
[2018-07-02] MEDS: ASPIRIN 81 MG CHEW PO SCH (08:47)
[2018-07-02] MEDS: TAMSULOSIN HCL 0.4 MG CAP PO SCH (08:47)
[2018-07-02] MEDS: LACTOBACILLUS ACIDOPHILUS (FLORANEX) TAB PO SCH ×3 (08:47→20:59)
[2018-07-02] MEDS: BUDESONIDE/FORMOTEROL FUMARATE 160/4.5 60 PUFFS/INHALER INH SCH ×2 (08:48→21:01)
[2018-07-02] MEDS: HYDROCORTISONE 1% CRM 30 GM TUBE EXT PRN ×2 (08:49→23:47)
[2018-07-02] MEDS: LOSARTAN POTASSIUM 50 MG TAB PO SCH (13:04)
[2018-07-02] MEDS: TIOTROPIUM BROMIDE 5 PUFF/90 MCG INH INH SCH (13:05)
[2018-07-02 15:14] LABS: Lyme Ab IgG w/WB Rflx Negative (Negative); Lyme Ab IgM w/WB Rflx Negative (Negative)
[2018-07-02] MEDS ORDERED: PHARMACY GLYCEMIC MGMT CONSULT PRN (16:11)
[2018-07-02] MEDS ORDERED: INSULIN GLARGINE SOLOSTAR 100 UNITS/ML 3 ML PEN SC STA (16:19)
[2018-07-02] MEDS ORDERED: INSULIN HUMAN REGULAR PER UNIT 4 UNITS in SYRINGE 3.96 ML IV SCH (21:30)
[2018-07-03] MEDS ORDERED: INSULIN GLARGINE SOLOSTAR 100 UNITS/ML 3 ML PEN SC STA (00:04)
[2018-07-03] MEDS: INSULIN ASPART 100 UNITS/ML 3 ML PEN SC SCH ×4 (00:14→13:11)
[2018-07-03] MEDS: SERTRALINE HCL 50 MG TABLET PO SCH (08:16)
[2018-07-03] MEDS: ASPIRIN 81 MG CHEW PO SCH (08:16)
[2018-07-03] MEDS: LACTOBACILLUS ACIDOPHILUS (FLORANEX) TAB PO SCH ×2 (08:17→13:12)
[2018-07-03] MEDS: DULOXETINE HCL 30 MG CAP PO SCH (08:17)
[2018-07-03] MEDS: TAMSULOSIN HCL 0.4 MG CAP PO SCH (08:17)
[2018-07-03] MEDS: LOSARTAN POTASSIUM 50 MG TAB PO SCH (08:17)
[2018-07-03] MEDS: TIOTROPIUM BROMIDE 5 PUFF/90 MCG INH INH SCH (08:18)
[2018-07-03] MEDS: BUDESONIDE/FORMOTEROL FUMARATE 160/4.5 60 PUFFS/INHALER INH SCH (08:18)
[2018-07-03] MEDS: METOPROLOL TARTRATE 50 MG TAB PO SCH (08:18)
[2018-07-03] MEDS: PREGABALIN 50 MG CAP PO SCH (08:28)
[2018-07-03 08:35] LABS: BUN Creatinine Ratio 25.4 (10-20); Calcium 8.4 mg/dl (8.5-10.1); Creatinine Clr Calc Pharmacy 53.1 ml/min; Est GFR (African American) 58.8; Est GFR (Non-African American) 50.7; Potassium 3.6 mmol/L (3.5-5.1)
[2018-07-03] MEDS ORDERED: LOSARTAN POTASSIUM 50 MG TAB PO STA (13:45)
--- NOTE | 2018-07-03 18:11 | Discharge Summary ---
Date of Service July 03, 2018 Admission HPI Per Admitting Provider The patient is a 72-year-old male with a past medical history including CAD/hypertension/acute kidney injury/diabetes mellitus/COPD/polycythemia who presents with recurrent chest pressure and headache symptoms. He did undergo a nuclear cardiopulmonary stress test on 06/19/18 which was negative. His physical activity level has been relatively low due to his comorbidities. Admission Exam Per Admitting Provider The patient is awake, alert and oriented 3, looks chronically debilitated, normocephalic and atraumatic, lying in bed and in no acute distress. HEENT--PERRL, EOMI, mucous membranes and oropharynx normal. Neck--supple. No JVD. No bruits. Thyroid normal, trachea midline, no adenopathy. Heart--normal S1 and S2. No murmurs, rubs or gallops. Lungs--clear bilaterally, no respiratory distress, no accessory muscle use. Abdomen--normal bowel sounds and soft. Nontender. Nondistended. Extremities--right BKA. No edema. There are good distal pulses b/l. Dermatologic--normal skin turgor, normal color, no abnormal lymph nodes, no rash. Neurologic--cranial nerves II through XII grossly intact. Rheumatologic--normal range of motion. Psychiatric--normal affect. Principal Diagnosis Hypertensive Urgency Discharge Exam General: Alert, oriented. No acute distress HEENT: NC/AT Chest: Nontender to palpation. CV: RRR, Normal s1, s2. No murmurs appreciated Resp: Breath sounds decreased bilaterally, no increased effort of breathing. Abdomen: Soft, nontender. No guarding. No organomegaly appreciated. Extremities: Amputated leg on right with no edema in left foot. Bandaged wound on left foot. Discharge Data Allergies Allergy/AdvReac Type Severity Reaction Status Date / Time amoxicillin Allergy Intermediate itching Verified 07/01/18 22:55 Consultations 07/01/18 22:32 ED Decision to Admit Stat 07/01/18 23:59 Consult Case Management - Discharge Planning Routine Hospital Course (1) Chest pain, precordial: Pt is a 72yo readmit with PMHx significant for Diabetes, CAD, PVD and silent [place] who was admitted once more for chest pain rule out. Nuclear stress testing 2 weeks showed no evidence of ischemia and with no elevation after trending trops, his chest pain is likely not related to ischemia. DDx includes hypertensive urgency vs. COPD related chest/breathing dysfunction. Admitted on July 02 and discharged once more (due to pt's request) to home with home nursing services. Hypertensive Urgency -Pt's BPs in 200s upon admission -Received Lopressor 50mg BID and Losartan 50mg qAM while hospitalized. -Discharged with Lopressor as above and Losartan 100mg daily for improved BP co ntrol. -Advised BMP check (discharged with prescription for it) in one week. -Advised close PCP followup. -BP 169/79 on discharge. Chest pain rule out -Trops neg -ekg with type 1 block -Echo with inferior hypokinesis, LA dilation. Essentially unchanged from echo on 06/17. -Continued aspirin in hospital and advised continued use on discharge. CAD -as above Hx of COPD -Pt started on SPiriva. Discharged with prescription. -Advised to continue home symbicort BPH -continued home tamsulosin DM Type II -On insulin sliding scale while hospitalized and advised to resume home meds. -HgA1c in June.8 Depression -continued home sertraline and cymbalta. Discharge Planning -Pt expressed thoughts of feeling like a burden at home and stated that [facility] -However, there were no beds currently available and he did not want to remain in the hospital to await availability once more. -So requested discharge home with home health services as on his prior visit. -He was discharged on July 03, 2018. Total Time Total Time Spent Total Time Spent (In Minutes): <30 Discharge Plan Discharge Items Patient Disposition: Home - Home Health Services Reason For Visit: CHEST PAIN Discharge Diagnosis: Hypertensive urgency Discharge Goals: Decrease discomfort, Improve disease control and Improve function Activity: Per 'Additional Instructions' section Non-emergency contact: Primary Care Provider Call non-emergency contact if: your symptoms worsen Follow-up/Referrals: Juan Hidalgo M.D. [Primary Care Provider] - Diet: Heart Healthy Addtl Provider Instructions: Hypertensive urgency -Your blood pressure was extremely high when you were admitted, with the "top" number in the 200s. -This likely contributed to the very bad headache you had when you came in. -You were given your home metoprolol and we added a new medication called Losartan to it to help control your blood pressure. -You are being discharged with an additional prescription for the metoprolol 50mg to be taken twice a day and the new medication Losartan. -You are being discharged with Losartan 100mg to be taken daily. -Also please have some bloodwork done (a basic metabolic panel) to be done in a week. You are being given a prescription to have that done. -Please followup with your primary care provider in the next few days so that your blood pressure can continue to be monitored. Chest Pain -Your chest pain that you came in with has seemingly resolved. -We have also determined that it is less likely due to a heart attack or heart trouble. -We advise you continue taking your home aspirin. -We advise that you follow up with your primary care provider in the next few days. History of COPD -Because of your history of COPD and the chest tightness/pressure you described when you came in to the hospital, we started you on a new medication for your COPD called Spiriva. -You are being discharged with this medication as well. Please continue to take it as directed. -Continue your home Symbicort as well. -Please followup with your primary care physician in the next few days so they could monitor you while you are on this medication. Prescriptions: New metoprolol tartrate 50 mg Tablet 50 mg PO BID 30 Days Qty: 60 RF: 0 metoprolol tartrate 50 mg tablet 50 mg PO BID 30 Days Qty: 60 RF: 0 losartan 100 mg tablet 100 mg PO DAILY 30 Days Qty: 30 RF: 0 tiotropium bromide 18 mcg capsule, w/inhalation device 1 cap INH DAILY Qty: 60 RF: 0 Continued sertraline 100 mg Tablet 50 mg PO DAILY RF: 0 Symbicort 160-4.5 mcg/actuation Hfa Aerosol Inhaler 2 puff INHALATION BID RF: 0 A&D Oint 1 applic topical 5XD RF: 0 hydrocortisone 0.5 % Cream 1 applic TOPICAL BID PRN (Reason: AFFECTED AREAS BACK, SCROTUM) RF: 0 oxycodone-acetaminophen [Percocet] 5-325 mg Tablet 1 tab PO Q6H PRN (Reason: Pain) RF: 0 tamsulosin [Flomax] 0.4 mg Capsule 0.4 mg PO DAILY RF: 0 Lactobacillus acidophilus Tablet,Chewable 2 tab PO TID RF: 0 duloxetine 30 mg Capsule,Delayed Release(Dr/Ec) 30 mg PO DAILY RF: 0 Lyrica 50 mg Capsule 50 mg PO BID RF: 0 acetaminophen [Tylenol] 325 mg Capsule 650 mg PO BID PRN (Reason: Fever Or Pain) RF: 0 pramoxine 1 % Foam 1 applic SC UD PRN (Reason: Unknown) RF: 0 lidocaine 5 % Ointment 1 applic TOPICAL TID PRN (Reason: PIAN IN STUMPS) RF: 0 Menthol/M-Salicylate 10-15% 1 applic topical UD PRN (Reason: CERVICAL DISCOMFORT) RF: 0 insulin aspart U-100 100 unit/mL (3 mL) insulin pen 5 units SQ .with meals Qty: 15 RF: 0 aspirin 81 mg tablet,chewable 81 mg PO DAILY Qty: 30 RF: 0 Discontinued metoprolol tartrate 50 mg tablet 50 mg PO BID Qty: 14 RF: 0 Stand-Alone Forms: [facility] [place]/Other Patient Handouts: COPD Dc, COPD Inhalers, ED Chest Pain Atypical Unkn Cause, ED Hypertension Conf Out Of Control Discharge Orders: Discharge Order (Routine); Ordered 07/03/18 Ordered By: Sera Linares Admission Data Admit Date/Time: 07/01/18 22:49 Attending Provider: Jeremy Mondragon Admit Provider: Ishaan Purvis Primary Care Provider: Juan Hidalgo Other Providers: Ishaan Purvis Service: Medical Other Interventions: Discharge Summary Assessment (RN) Last Done: 07/03/18 15:12 DC Date/Time DO NOT enter until pt leaves facility: 07/03/18 16:54 Supervising Physician Co-Signing Physician Notes I personally examined the patient and verified all melendrez points of history and exam, discussed case, and agree with decision making with Dr Linares feeling better - no further CP or headache. discussed what seems to be a siginificant need for rehab and discussed his fears of being a burden on his or being found by his 16yo, and discussed that while he has significant medical comorbidities they appear quite manageable and overall stable - but that deconditioning is the main problem that needs addressed. plan was then to retry for rehab case d/w case management later and unfortunately because he was not able to get a bed in the [facility] rehab he decided he would prefer to go home instead. it does appear he will continue to pursue rehab bed in the interim vitals noted nad breathing unlabored no pallor or icterus, no focal neuro deficits, exam otherwise as above hypertensive urgency - now stabilized. added ARB. follow BP as outpt. BMP has been stable - repeat 1wks weakness/deconditioning - seems like he would benefit from rehab, but unfortunately with his facility of choice not being available he is opting to go home - PT set up for home, it does appear that he's still [facility]. he has capacity to make this decision, so while i would prefer he rehab straight from the hospital, he is opting to go home w home PT at this time.
[2018-07-03] MEDS ORDERED: INSULIN GLARGINE SOLOSTAR 100 UNITS/ML 3 ML PEN SC SCH (21:00)
== END 2018-07-03 16:54 | disposition home health service (06) ==
LOC: 2S 19:59 → ED 19:59 → SUATTDRO 22:49 → 2S 23:31 → 2W 07-02 17:59